=== PATIENT | female | born 1950 | race Caucasian/White ===

== ENCOUNTER 2021-01-31 10:08 | Observation (INO) | payer OTHER ==
--- OUTSIDE RECORDS SUMMARY | 2021-01-31 10:14 | XMS REPORT | Continuity of Care Document ---
:1950 Author Organization [facility] t Address [address] [place] [address] Care Team Providers Name Role Phone Patricia Brown Attending Clinician Unavailable RIVER Attending Clinician Unavailable MD JALEEL HOLMAN Attending Clinician Unavailable Tracey_Bhaskar Attending Clinician Unavailable Patricia Brown Admitting Clinician Unavailable RIVER Admitting Clinician Unavailable MD JALEEL HOLMAN Admitting Clinician Unavailable Munira Admitting Clinician Unavailable Payers Payer Name Policy Type Policy Number Effective Date Expiration Date S urb[place] [employer]ET[employer] - CHOICE (POS [id number]) Problems Condition Condition Condition Status Onset Resolution Last Treating Co mments Source Name Details Category Date Date Treatment Clinician Date Primary Primary Problem Active [facility] osteoarthr osteoarthr Kaycee kes - itis of it[facility] right knee right knee l [facility] Right Right Problem Active [facility] sci[facility] sciatic [facility] nerve pain nerve pain Me moria [facility] Pain, Pain, Problem Active [facility] joint, joint, [facility] - knee, knee, [facility] right right l [facility]ics Pain in Pain in Problem Active [facility] right right [facility] - lower leg lower leg Joey yoly l [facility]pat[facility] ent Clinics Edema leg Edema leg Problem Active [facility] Calf Calf Problem Active [facility] tenderness tenderness Kaycee kes - [facility] Morbid Morbid Problem Active [facility] obesity obesity [facility] - due to due to [facility] excess excess l calories calories Outpat i ent Clinics Allergies, Adverse Reactions, Alerts Allergy Allergy Status Severity Reaction(s) Onset Inactive Treating Comm ents Source Name Type Date Date Clinician No Known DA Active U 0 [facility] 05[facility]27 [place] [facility] No Known DA Active U [facility] 05[facility]27 [place] [facility] No Known DA Active U [facility] 07-24 [place] Allergie 00:00: [place] [facility] 00 [facility] No Known DA Active U [facility] [place] [facility] 00[facility] No Known DA Active U [facility] 07-24 [place] [facility] 00:[facility]: [facility] 00 [facility] adhesive DA Active SV RASH,TEARS [facility] SKIN EASILY 07-24 [place] 00:00: [facility]ope 00 [facility] adhesive DA Active SV [facility] 07-24 [place] 00:00: [place] 00 [facility] Medications Ordered Filled Start Stop Current Ordering Indication Dosage Frequency Signature Comments Components Source Medication Medication Date Date Medication? Clinician (SIG) Name Name Diclofenac Diclofenac Yes Rene not [facility] Sodium Sodium [facility] Gabapentin Gabapentin Yes Rene not [facility] Maxidex Maxidex Yes Rene not [facility] Ramipril Ramipril Yes Rene not [facility] Hydrocodone Hydrocodone Yes Rene not [facility] -Acetaminop -Acetaminop Mei defined [facility] Meloxicam Meloxicam Yes Rene not [facility] Amitriptyli Amitriptyli Yes Rene not [facility] ne HCl ne HCl [facility] Cymbalta Cymbalta Yes Rene not [facility] Ropinirole Ropinirole Yes Rene not [facility] HCl HCl [facility] Procedures Procedure Date / Time Performed Performing Clinician Sourtracey e [id number] 2019-06-05 00:00:00 BRIMA.01 [facility] [place] [facility] [id number] 2019-06-05 00:00:00 BRIMA.01 [facility] [place] [facility] [id number] 2019-06-05 00:00:00 BRIMA.01 [facility] Encounters Start End Encounter Admission Attending Care Care Encounter Source Date/Time Date/Time Type Type Clinicians Facility Department ID 2019-06-05 Inpatient YOANNA Krishnamurthy ADMI [id number] [facility] 11:51:00 [facility] [place] [facility] 2019-11-12 2019-11-19 Inpatient RIVER [facility] [id number] [place] 00:00:00 00:00:00 FREDERIC [address] 2019-10-29 2019-10-29 Outpatient YOANNA Brown RADI [id number] [facility] 09:00:00 09:00:00 Junito [id number] [place] [facility] 2019-10-06 2019-10-06 Outpatient C_Hall MMG [id number] [place] 05:23:00 05:23:00 [facility] 2019-05-28 2019-05-28 Outpatient YOANNA Brown RADI [id number] [id number] [facility] 09:00:00 09:00:00 Junito [id number] [place] [facility] 2018-06-06 2018-06-06 [facility] [id number] [facility] 11:19:00 11:19:00 [facility] 2018-06-04 2018-06-04 [facility] [id number] [address] 16:36:00 16:36:00 [facility] 2018-06-03 2018-06-03 [facility] [id number] [address] 11:00:00 11:00:00 [facility] 2018-05-17 2018-05-17 [facility] [id number] 09:00:00 09:00:00 [facility] 2018-05-13 2018-05-13 [facility] [id number] 11:52:00 11:52:00 [facility] 2018-05-10 2018-05-10 [facility] [id number] 09:30:00 09:30:00 [facility] 2018-05-03 2018-05-03 [facility] [id number] 09:00:00 09:00:00 [facility] Results Test Description Test Time Test Comments Results Result Comments Source SARS-CoV-2 (COVID-19) RNA [Presence] in Respiratory sp ecimen by 2019-11-18 09:05:24 ARPITA with probe detection Test Item Value Reference Range Interpretation Comme nts SARS-CoV-2 (COVID-19) RNA [Presence] in Respiratory Not detected No t-Detected specimen by ARPITA with probe detection (test code = 39418-6) SARS-CoV-2 (COVID-19) RNA [Presence] in Respiratory specimen by ARPITA with probe [id number] 02:04:12 Test Item Value Reference Range Interpretation Comments SARS-CoV-2 (COVID-19) RNA Not detected Not-Detected [Presence] in Respiratory specimen by ARPITA with probe detection (test code = 97198-5) - CT LOWER EXTRM W/O C [id number] 09:44:00 Patient Name: SARA ALLEN Unit No: [id number] EXAMS: CPT CODE: [id number] [place] L[place] EXTRM W/[place] [address] CT SCAN RIGHT FEMUR WITH RECONSTRUCTION DIAGNOSIS: 1.The current exam is compared to a previous exam dated May 28, 2019. There is a transversely oriented fracture through the distal femoral diaphysis. There is interval development of bridging callus predominantly involving the anterior, posterior and medial aspect of the fracture. Healing accounts for approximately 40% of fracture surface area. Fracture fragments are well aligned. There is internal fixation of the described fracture with medial lateral bone platesand fixator screws. TECHNIQUE: Volumetric CT data of the right femur was obtained without use of intravenous contrast. Images were then viewed in the axial, coronal and sagittal planes. CT radiation dose optimization is achieved for this examination by the use ofa CT protocol in accordance with ACR practice standards and adherence to senior grants officer's recommendations. INDICATION: ASSESS HEALING COMPARISON: The current exam is compared to a previous exam dated May 28, 2019. COMMENT: Findings are as described above. at 0944 Reported and signed by: Gene Canas MD CC: Junito Brown MD; Bhaskar More III, MD Technologist: Christ Huerta,RT(R) CTDI: DLP: Trnscrpt: 10/29/2019 (4044) t.SDR.GVG [facility] NAME: SARA ALLEN [address] [facility] PHYS: BRIMA. - Junito Brown MD : 1950 AGE: 69 SEX: F [place] [id number] LOC: Y.RAD PHONE #: [phone] DATE: 10/29/2019 STATUS: REG CLI FAX #: [phone] RAD #: D/C DT PAGE 1 Signed Report Patient Name: SARA ALLEN Unit No: [id number] EXAMS: CPT CODE: [id number] CT LOWER EXTRM W/[place] [address] <Continued> Orig Print D/T: S: 10/29/2019 (7531) [facility] NAME: SARA ALLEN [address] [place] [address] PHYS: BRIMA. - Junito Brown MD : 1950 AGE: 69 SEX: F [place] [phone] LOC: Y.RAD PHONE #: [phone] EXAM DATE: 10/29/2019 STATUS: REG CLI FAX #: [phone] RAD #: D/C DT PAGE 2 Signed [id number] 08:52:00 Test Item Value Reference Range Interpretation Comments GLUBED (test code = GLUBED) 99 mg/dL 60-125 N [id number] 08:51:00 Test Item Value Reference Range Interpretation Comments GLUBED (test code = GLUBED) 104 mg/dL 60-125 N BASIC METABOLIC [id number] 06:22:00 Test Item Value Reference Range Interpretation Comments SODIUM (test code = 143 mmol/L 136-145 N NA) POTASSIUM (test code = 4.9 mmol/L 3.5-5.1 N K) CHLORIDE (test code = 104.0 mmol/L 98-107 N CL) CARBON DIOXIDE (test 28.5 mmol/L 21-32 N code = CO2) GLUCOSE (test code = 116 mg/dL 70-110 H GLU) BLOOD UREA NITROGEN 27 mg/dL 7-18 H (test code = BUN) GLOMERULAR FILTRATION 41.6 >60 Unit o f measure: RATE (test code = GFR) mL/mi n/1.73 [id number] Range:Healthy Adults >90 mL/min/1.73 m2 For Chronic Kidney Disease: St age II Mild Decrease in GFR 60-90 St age III Moderate Decrease in GFR 30-59 Stage IV Severe Decre ase in GFR 15- 29 Stage V Kidney Failure <15 CREATININE (test code 1.27 mg/dL 0.55-1.30 N = CREAT) CALCIUM (test code = 8.6 mg/dL 8.2-10.1 N CA) CBC W/AUTO [id number] 05:55:00 Test Item Value Reference Range Interpretation Comments WHITE BLOOD CELL (test code = WBC) 11.8 K/mm3 5.8-11.0 H RED BLOOD CELL (test code = RBC) 4.13 M/mm3 4.2-5.4 L HEMOGLOBIN (test code = HGB) 11.6 g/dL 12-16 L HEMATOCRIT (test code = HCT) 37.3 % 37-47 N MEAN CELL VOLUME (test code = MCV) 90 fL 80-98 N MEAN CELL HGB (test code = MCH) 28.1 pg 27-34 N MEAN CELL HGB CONCENTRATION (test 31.1 g/dL 30.8-34.1 N code = MCHC) RED CELL DISTRIBUTION WIDTH (test 14.4 % 11-16 N code = RDW) PLT (test code = PLT) 291 K/mm3 130-400 N MEAN PLATELET VOLUME (test code = 10.9 fL 8.9-12.1 N MPV) NEUTROPHIL % (test code = NT%) 71.2 % 45-70 H LYMPHOCYTE % (test code = LY%) 16.8 % 20-40 L MONOCYTE % (test code = MO%) 6.3 % 3-10 N EOSINOPHIL % (test code = EO%) 1.4 % 1-5 N BASOPHIL % (test code = BA%) 0.7 % 0.0-1.1 N NEUTROPHIL # (test code = NT#) 8.43 K/mm3 2.00-7.50 H LYMPHOCYTE # (test code = LY#) 1.98 K/mm3 1.50-4.00 N MONOCYTE # (test code = MO#) 0.75 K/mm3 0.2-0.8 N EOSINOPHIL # (test code = EO#) 0.16 K/mm3 0.04-0.4 N BASOPHIL # (test code = BA#) 0.08 K/mm3 0.02-0.10 N MANUAL DIFF REQUIRED (test code = NO MANUAL DIFF MDIFF) NUCLEATED RED BLOOD CELL (test 0 % 0-0 N code = NRBC) [id number] 05:51:00 Test Item Value Reference Range Interpretation Comments GLUBED (test code = GLUBED) 91 mg/dL 60-125 N [id number] 21:48:00 Test Item Value Reference Range Interpretation Comments GLUBED (test code = GLUBED) 102 mg/dL 60-125 N - CT LOWER EXTRM W/O C [id number] 19:14:00 Patient Name: SARA ALLEN Unit No: [id number] EXAMS: CPT CODE: [id number] CT LOWER EXTRM W/[place] [address] TECHNIQUE: Volumetric CT data of the right femur was obtained without use of intravenous contrast. Images were then viewed in the axial, coronal and sagittal planes. CT radiation dose optimization is achieved for this examination by the use of a CT protocol in accordance with ACR practice standards and adherence to senior grants officer's recommendations. INDICATION: RIGHT DISTAL FEMUR ASSESS HEALING COMPARISON: None. FINDINGS: Lateral plate and screw fixation of the right distal femoral periprosthetic fracture is demonstrated with intact hardware. Callus formation is noted with a fracture. There is no evidence of fracture healing. Alignment is within normal limits. No other fractures identified. IMPRESSION: Internally fixated right distal femoral fracture without evidence of healing. at 1914 Reported and signed by: Gamal Vargas M.D. CC: Junito Brown MD Technologist: Christ Huerta,RT(R) CTDI: DLP: Trnscrpt: 05/28/2019 (1913) [facility] NAME: SARA ALLEN [address] [place] [address] PHYS: Junito Brown MD : 1950 AGE: 69 SEX: F [place] [address] LOC: Y.RAD PHONE #: [phone] EXAM DATE: 05/28/2019 STATUS: REG CLI FAX #: [phone] RAD #: D/C DT PAGE 1 Signed Report Patient Name: SARA ALLEN Unit No: [id number] EXAMS: CPT CODE: [id number] CT LOWER EXTRM W/[place] [address] <Continued> Orig Print D/T: S: 05/28/2019 (1916) [facility] NAME: SARA ALLEN [address] [place] [address] PHYS: DULCE. - Junito Brown MD : 1950 AGE: 69 SEX: F [place] [address] LOC: Y.RAD PHONE #: [phone] EXAM DATE: 05/28/2019 STATUS: REG CLI FAX #: [phone] RAD #: D/C DT PAGE 2 Signed ReportCBC W/AUTO [id number] 14:16:00 Test Item Value Reference Range Interpretation Comments WHITE BLOOD CELL (test code = WBC) 10.2 K/mm3 5.8-11.0 N RED BLOOD CELL (test code = RBC) 4.51 M/mm3 4.2-5.4 N HEMOGLOBIN (test code = HGB) 12.6 g/dL 12-16 N HEMATOCRIT (test code = HCT) 40.0 % 37-47 N MEAN CELL VOLUME (test code = MCV) 89 fL 80-98 N MEAN CELL HGB (test code = MCH) 27.9 pg 27-34 N MEAN CELL HGB CONCENTRATION (test 31.5 g/dL 30.8-34.1 N code = MCHC) RED CELL DISTRIBUTION WIDTH (test 14.1 % 11-16 N code = RDW) PLT (test code = PLT) 326 K/mm3 130-400 N MEAN PLATELET VOLUME (test code = 10.6 fL 8.9-12.1 N MPV) NEUTROPHIL % (test code = NT%) 49.2 % 45-70 N LYMPHOCYTE % (test code = LY%) 33.6 % 20-40 N MONOCYTE % (test code = MO%) 6.7 % 3-10 N EOSINOPHIL % (test code = EO%) 4.9 % 1-5 N BASOPHIL % (test code = BA%) 1.1 % 0.0-1.1 N NEUTROPHIL # (test code = NT#) 5.04 K/mm3 2.00-7.50 N LYMPHOCYTE # (test code = LY#) 3.44 K/mm3 1.50-4.00 N MONOCYTE # (test code = MO#) 0.69 K/mm3 0.2-0.8 N EOSINOPHIL # (test code = EO#) 0.50 K/mm3 0.04-0.4 H BASOPHIL # (test code = BA#) 0.11 K/mm3 0.02-0.10 H MANUAL DIFF REQUIRED (test code = NO MANUAL DIFF MDIFF) NUCLEATED RED BLOOD CELL (test 0 % 0-0 N code = NRBC) SED [id number] 14:16:00 Test Item Value Reference Range Interpretation Comments SED RATE (test code = SEDW) 26 mm/hr 0-20 H COMPREHENSIVE METABOLIC [id number] 13:40:00 Test Item Value Reference Range Interpretation Comments SODIUM (test code = 143 mmol/L 136-145 N NA) POTASSIUM (test code 4.2 mmol/L 3.5-5.1 N = K) CHLORIDE (test code = 105.0 mmol/L 98-107 N CL) CARBON DIOXIDE (test 29.2 mmol/L 21-32 N code = CO2) GLUCOSE (test code = 104 mg/dL 70-110 N GLU) BLOOD UREA NITROGEN 41 mg/dL 7-18 H VERIFIED BY REPEAT (test code = BUN) ANALYSIS.C RITICAL VALUE CALLED TO SARA WITH 'S OFFICEREAD BACK & CONFIRMED ? YESBY F.LAB.AEG 05/28/19 1340 GLOMERULAR FILTRATION 32.8 >60 Unit o f measure: RATE (test code = mL/min/1.7 3 GFR) [id number] Range:Healthy A dults >90 mL/min/1.73 m2 For Chronic Kidney Disease: St age II Mild Dec rease in GFR 6 0-90 Stage III Moderate Decrea se in GFR 30-59 Stage IV Se malena Decrease in GFR 15-29 Stage V Kidney Failur e <15 CREATININE (test code 1.56 mg/dL 0.55-1.30 H = CREAT) TOTAL PROTEIN (test 6.7 g/dL 6.4-8.2 N code = PROT) ALBUMIN (test code = 3.2 g/dL 3.4-5.0 L ALB) GLOBULIN (test code = 3.5 g/dL 2.2-4.2 N GLOB) ALBUMIN/GLOBULIN 0.9 0.7-2.0 N RATIO (test code = A/G) CALCIUM (test code = 8.8 mg/dL 8.2-10.1 N CA) BILIRUBIN TOTAL (test 0.40 mg/dL 0.2-1.00 N code = BILT) SGOT/AST (test code = 17.0 U/L 15-37 N AST) SGPT/ALT (test code = 20.0 U/L 12-78 N Please note new ALT) normal range. ALKALINE PHOSPHATASE 107 U/L 46-116 N TOTAL (test code = ALKP) C REACTIVE [id number] 13:38:00 Test Item Value Reference Range Interpretation Comments C REACTIVE PROTEIN (test code = < 0.2 mg/dL <0.9 CRP) PROTHROMBIN [id number] 13:30:00 Test Item Value Reference Range Interpretation Comments PROTHROMBIN TIME 10.7 secs 10.1-12.5 N PATIENT (test code = PTP) INTERNATIONAL NORMAL 0.95 <2.0 RECOMME NDED THERAPEUTIC RATIO (test code = RANGE FOR ORAL INR) ANTICOAGULANTTR EATMENT: CONDI TION INRProphylaxis of venous thrombos is in 2.0 - 3.0 high-risk medic al or surgical patientsTreatme nt of venous thrombos is 2.0 - 3.0Prevention o f embolism 2.0 - 3.0Prevention o f recurrent embol ism, or 3.0 - 4. 5 patients with mechanical pros thetic intravascular v jasso IS PATIENT ON ANTICOAGULANTS ? YLIST ANTICOAGULANT/ANTI PLT MEDICATION : AspirinHas Lab been notified if Patient is on Heparin Drip? NOIf Yes, order CBC, OCCULT BLOOD, PT every other day NTHROMBOPLASTIN TIME [id number] 13:30:00 Test Item Value Reference Range Interpretation Comments PTT ACTIVATED (test code = APTT) 34.7 secs 24.9-37.0 N IS PATIENT ON ANTICOAGULANTS ? YLIST ANTICOAGULANT/ANTI PLT MEDICATION : AspirinHas Lab been notified if Patient is on Heparin Drip? NOIf Yes, order CBC, OCCULT BLOOD, PT every other day NCBC W/AUTO [id number] 13:16:00 Test Item Value Reference Range Interpretation Comments WHITE BLOOD CELL (test code = WBC) 10.2 K/mm3 5.8-11.0 N RED BLOOD CELL (test code = RBC) 4.51 M/mm3 4.2-5.4 N HEMOGLOBIN (test code = HGB) 12.6 g/dL 12-16 N HEMATOCRIT (test code = HCT) 40.0 % 37-47 N MEAN CELL VOLUME (test code = MCV) 89 fL 80-98 N MEAN CELL HGB (test code = MCH) 27.9 pg 27-34 N MEAN CELL HGB CONCENTRATION (test 31.5 g/dL 30.8-34.1 N code = MCHC) RED CELL DISTRIBUTION WIDTH (test 14.1 % 11-16 N code = RDW) PLT (test code = PLT) 326 K/mm3 130-400 N MEAN PLATELET VOLUME (test code = 10.6 fL 8.9-12.1 N MPV) NEUTROPHIL % (test code = NT%) 49.2 % 45-70 N LYMPHOCYTE % (test code = LY%) 33.6 % 20-40 N MONOCYTE % (test code = MO%) 6.7 % 3-10 N EOSINOPHIL % (test code = EO%) 4.9 % 1-5 N BASOPHIL % (test code = BA%) 1.1 % 0.0-1.1 N NEUTROPHIL # (test code = NT#) 5.04 K/mm3 2.00-7.50 N LYMPHOCYTE # (test code = LY#) 3.44 K/mm3 1.50-4.00 N MONOCYTE # (test code = MO#) 0.69 K/mm3 0.2-0.8 N EOSINOPHIL # (test code = EO#) 0.50 K/mm3 0.04-0.4 H BASOPHIL # (test code = BA#) 0.11 K/mm3 0.02-0.10 H MANUAL DIFF REQUIRED (test code = NO MANUAL DIFF MDIFF) NUCLEATED RED BLOOD CELL (test 0 % 0-0 N code = NRBC) SED [id number] 13:16:00 Test Item Value Reference Range Interpretation Comments SED RATE (test code = SEDW) mm/hr 0-20 [id number] 12:53:00 Test Item Value Reference Range Interpretation Comments GLUBED (test code = GLUBED) 100 mg/dL 60-125 N [id number] 12:08:00 Test Item Value Reference Range Interpretation Comments GLUBED (test code = GLUBED) 111 mg/dL 60-125 N BASIC METABOLIC [id number] 07:28:00 Test Item Value Reference Range Interpretation Comments SODIUM (test code = 140 mmol/L 136-145 N NA) POTASSIUM (test code = 4.7 mmol/L 3.5-5.1 N K) CHLORIDE (test code = 102.0 mmol/L 98-107 N CL) CARBON DIOXIDE (test 25.1 mmol/L 21-32 N code = CO2) GLUCOSE (test code = 133 mg/dL 70-110 H GLU) BLOOD UREA NITROGEN 35 mg/dL 7-18 H (test code = BUN) GLOMERULAR FILTRATION 32.0 >60 Unit o f measure: RATE (test code = GFR) mL/mi n/1.73 [id number] Range:Healthy Adults >90 mL/min/1.73 m2 For Chronic Kidney Disease: St age II Mild Decrease in GFR 60-90 St age III Moderate Decrease in GFR 30-59 Stage IV Severe Decre ase in GFR 15- 29 Stage V Kidney Failure <15 CREATININE (test code 1.60 mg/dL 0.55-1.30 H = CREAT) CALCIUM (test code = 8.1 mg/dL 8.2-10.1 L CA) CBC W/AUTO [id number] 06:00:00 Test Item Value Reference Range Interpretation Comments WHITE BLOOD CELL (test code = WBC) 11.7 K/mm3 5.8-11.0 H RED BLOOD CELL (test code = RBC) 4.11 M/mm3 4.2-5.4 L HEMOGLOBIN (test code = HGB) 11.8 g/dL 12-16 L HEMATOCRIT (test code = HCT) 37.9 % 37-47 N MEAN CELL VOLUME (test code = MCV) 92 fL 80-98 N MEAN CELL HGB (test code = MCH) 28.7 pg 27-34 N MEAN CELL HGB CONCENTRATION (test 31.1 g/dL 30.8-34.1 N code = MCHC) RED CELL DISTRIBUTION WIDTH (test 13.8 % 11-16 N code = RDW) PLT (test code = PLT) 293 K/mm3 130-400 N MEAN PLATELET VOLUME (test code = 10.9 fL 8.9-12.1 N MPV) NEUTROPHIL % (test code = NT%) 84.4 % 45-70 H LYMPHOCYTE % (test code = LY%) 9.9 % 20-40 L MONOCYTE % (test code = MO%) 2.5 % 3-10 L EOSINOPHIL % (test code = EO%) 0.1 % 1-5 L BASOPHIL % (test code = BA%) 0.3 % 0.0-1.1 N NEUTROPHIL # (test code = NT#) 9.89 K/mm3 2.00-7.50 H LYMPHOCYTE # (test code = LY#) 1.16 K/mm3 1.50-4.00 L MONOCYTE # (test code = MO#) 0.29 K/mm3 0.2-0.8 N EOSINOPHIL # (test code = EO#) 0.01 K/mm3 0.04-0.4 L BASOPHIL # (test code = BA#) 0.04 K/mm3 0.02-0.10 N MANUAL DIFF REQUIRED (test code = NO MANUAL DIFF MDIFF) NUCLEATED RED BLOOD CELL (test 0 % 0-0 N code = NRBC) [id number] 05:42:00 Test Item Value Reference Range Interpretation Comments GLUBED (test code = GLUBED) 122 mg/dL 60-125 N C REACTIVE [id number] 21:56:00 Test Item Value Reference Range Interpretation Comments C REACTIVE PROTEIN (test code = 2.1 mg/dL <0.9 CRP) ACUTE HEPATITIS [id number] 21:56:00 Test Item Value Reference Range Interpretation Comments AB HEPATITIS A IGM (test code = NONREACTIVE NONREACTIVE HAVMAB) AG HEPATITIS B SURFACE (test code NONREACTIVE NONREACTIVE = HBSAG) AB HEPATITIS B CORE IGM (test NONREACTIVE NONREACTIVE code = HBCMAB) AB HEPATITIS C (test code = NONREACTIVE NONREACTIVE HCVAB) SIGNAL TO CUTOFF (test code = < 0.02 <0.80 CUTOFF) AB HIV 21:56:00 Test Item Value Reference Range Interpretation Comments AB HIV 1 (test code NONREACTIVE NONREACTIVE DONE AT: [facility] = HIV1AB) [address] 770 [address]Done by [employer] 4th Gen HIV Ag/Ab C ombo Screen ACUTE HEPATITIS [id number] 21:55:00 Test Item Value Reference Range Interpretation Comments AB HEPATITIS A IGM (test code = NONREACTIVE NONREACTIVE HAVMAB) AG HEPATITIS B SURFACE (test code NONREACTIVE NONREACTIVE = HBSAG) AB HEPATITIS B CORE IGM (test NONREACTIVE NONREACTIVE code = HBCMAB) AB HEPATITIS C (test code = NONREACTIVE NONREACTIVE HCVAB) SIGNAL TO CUTOFF (test code = <0.02 <0.80 N CUTOFF) AB HIV 1 21:55:00 Test Item Value Reference Range Interpretation Comments AB HIV 1 2 (test NONREACTIVE NONREACTIVE Done by [employer] code = [id number]) 4th Gen HIV Ag/Ab Combo Screen C REACTIVE [id number] 21:21:00 Test Item Value Reference Range Interpretation Comments C REACTIVE PROTEIN (test code = 2.1 mg/dL <0.9 CRP) ACUTE HEPATITIS [id number] 21:21:00 Test Item Value Reference Range Interpretation Comments AB HEPATITIS A IGM (test code = NONREACTIVE HAVMAB) AG HEPATITIS B SURFACE (test code NONREACTIVE NONREACTIVE = HBSAG) AB HEPATITIS B CORE IGM (test code = HBCMAB) AB HEPATITIS C (test code = NONREACTIVE HCVAB) SIGNAL TO CUTOFF (test code = CUTOFF) AB HIV 21:21:00 Test Item Value Reference Range Interpretation Comments AB HIV 1 (test code = HIV1AB) NONREACTIVE ACUTE HEPATITIS [id number] 21:20:00 Test Item Value Reference Range Interpretation Comments AB HEPATITIS A IGM (test code = NONREACTIVE HAVMAB) AG HEPATITIS B SURFACE (test code NONREACTIVE NONREACTIVE = HBSAG) AB HEPATITIS B CORE IGM (test NONREACTIVE code = HBCMAB) AB HEPATITIS C (test code = NONREACTIVE HCVAB) SIGNAL TO CUTOFF (test code = <0.80 CUTOFF) AB HIV 1 21:20:00 Test Item Value Reference Range Interpretation Comments AB HIV 1 2 (test code = [id number]) NONREACTIVE CBC W/AUTO [id number] 17:23:00 Test Item Value Reference Range Interpretation Comments WHITE BLOOD CELL (test code = WBC) 9.6 K/mm3 5.8-11.0 N RED BLOOD CELL (test code = RBC) 4.41 M/mm3 4.2-5.4 N HEMOGLOBIN (test code = HGB) 12.8 g/dL 12-16 N HEMATOCRIT (test code = HCT) 40.1 % 37-47 N MEAN CELL VOLUME (test code = MCV) 91 fL 80-98 N MEAN CELL HGB (test code = MCH) 29.0 pg 27-34 N MEAN CELL HGB CONCENTRATION (test 31.9 g/dL 30.8-34.1 N code = MCHC) RED CELL DISTRIBUTION WIDTH (test 13.5 % 11-16 N code = RDW) PLT (test code = PLT) 264 K/mm3 130-400 N MEAN PLATELET VOLUME (test code = 11.3 fL 8.9-12.1 N MPV) NEUTROPHIL % (test code = NT%) 55.2 % 45-70 N LYMPHOCYTE % (test code = LY%) 27.3 % 20-40 N MONOCYTE % (test code = MO%) 5.0 % 3-10 N EOSINOPHIL % (test code = EO%) 7.5 % 1-5 H BASOPHIL % (test code = BA%) 1.2 % 0.0-1.1 H NEUTROPHIL # (test code = NT#) 5.27 K/mm3 2.00-7.50 N LYMPHOCYTE # (test code = LY#) 2.61 K/mm3 1.50-4.00 N MONOCYTE # (test code = MO#) 0.48 K/mm3 0.2-0.8 N EOSINOPHIL # (test code = EO#) 0.72 K/mm3 0.04-0.4 H BASOPHIL # (test code = BA#) 0.11 K/mm3 0.02-0.10 H MANUAL DIFF REQUIRED (test code = NO MANUAL DIFF MDIFF) NUCLEATED RED BLOOD CELL (test 0 % 0-0 N code = NRBC) SED [id number] 17:23:00 Test Item Value Reference Range Interpretation Comments SED RATE (test code = SEDW) 23 mm/hr 0-20 H PROTHROMBIN [id number] 16:46:00 Test Item Value Reference Range Interpretation Comments PROTHROMBIN TIME 10.9 secs 10.1-12.5 N PATIENT (test code = PTP) INTERNATIONAL NORMAL 0.97 <2.0 RECOMME NDED THERAPEUTIC RATIO (test code = RANGE FOR ORAL INR) ANTICOAGULANTTR EATMENT: CONDI TION INRProphylaxis of venous thrombos is in 2.0 - 3.0 high-risk medic al or surgical patientsTreatme nt of venous thrombos is 2.0 - 3.0Prevention o f embolism 2.0 - 3.0Prevention o f recurrent embol ism, or 3.0 - 4. 5 patients with mechanical pros thetic intravascular v jasso IS PATIENT ON ANTICOAGULANTS ? YLIST ANTICOAGULANT/ANTI PLT MEDICATION : AspirinHas Lab been notified if Patient is on Heparin Drip? NOIf Yes, order CBC, OCCULT BLOOD, PT every other day NTHROMBOPLASTIN TIME [id number] 16:46:00 Test Item Value Reference Range Interpretation Comments PTT ACTIVATED (test code = APTT) 35.0 secs 24.9-37.0 N IS PATIENT ON ANTICOAGULANTS ? YLIST ANTICOAGULANT/ANTI PLT MEDICATION : AspirinHas Lab been notified if Patient is on Heparin Drip? NOIf Yes, order CBC, OCCULT BLOOD, PT every other day NC REACTIVE [id number] 16:37:00 Test Item Value Reference Range Interpretation Comments C REACTIVE PROTEIN (test code = 2.1 mg/dL <0.9 CRP) ACUTE HEPATITIS [id number] 16:37:00 Test Item Value Reference Range Interpretation Comments AB HEPATITIS A IGM (test code = HAVMAB) NONREACTIVE AG HEPATITIS B SURFACE (test code = NONREACTIVE HBSAG) AB HEPATITIS B CORE IGM (test code = HBCMAB) AB HEPATITIS C (test code = HCVAB) NONREACTIVE SIGNAL TO CUTOFF (test code = CUTOFF) AB HIV 16:37:00 Test Item Value Reference Range Interpretation Comments AB HIV 1 (test code = HIV1AB) NONREACTIVE COMPREHENSIVE METABOLIC [id number] 16:37:00 Test Item Value Reference Range Interpretation Comments SODIUM (test code = 141 mmol/L 136-145 N NA) POTASSIUM (test code = 4.2 mmol/L 3.5-5.1 N K) CHLORIDE (test code = 103.0 mmol/L 98-107 N CL) CARBON DIOXIDE (test 30.9 mmol/L 21-32 N code = CO2) GLUCOSE (test code = 153 mg/dL 70-110 H GLU) BLOOD UREA NITROGEN 34 mg/dL 7-18 H (test code = BUN) GLOMERULAR FILTRATION 41.3 >60 Unit o f measure: RATE (test code = GFR) mL/mi n/1.73 [id number] Range:Healthy Adults >90 mL/min/1.73 m2 For Chronic Kidney Disease: St age II Mild Decrease in GFR 60-90 St age III Moderate Decrease in GFR 30-59 Stage IV Severe Decre ase in GFR 15- 29 Stage V Kidney Failure <15 CREATININE (test code 1.28 mg/dL 0.55-1.30 N = CREAT) TOTAL PROTEIN (test 6.9 g/dL 6.4-8.2 N code = PROT) ALBUMIN (test code = 3.4 g/dL 3.4-5.0 N ALB) GLOBULIN (test code = 3.5 g/dL 2.2-4.2 N GLOB) ALBUMIN/GLOBULIN RATIO 1.0 0.7-2.0 N (test code = A/G) CALCIUM (test code = 9.1 mg/dL 8.2-10.1 N CA) BILIRUBIN TOTAL (test 0.33 mg/dL 0.2-1.00 N code = BILT) SGOT/AST (test code = 17.0 U/L 15-37 N AST) SGPT/ALT (test code = 20.0 U/L 12-78 N Please note new ALT) normal range. ALKALINE PHOSPHATASE 142 U/L 46-116 H TOTAL (test code = ALKP) CBC W/AUTO [id number] 15:58:00 Test Item Value Reference Range Interpretation Comments WHITE BLOOD CELL (test code = WBC) 9.6 K/mm3 5.8-11.0 N RED BLOOD CELL (test code = RBC) 4.41 M/mm3 4.2-5.4 N HEMOGLOBIN (test code = HGB) 12.8 g/dL 12-16 N HEMATOCRIT (test code = HCT) 40.1 % 37-47 N MEAN CELL VOLUME (test code = MCV) 91 fL 80-98 N MEAN CELL HGB (test code = MCH) 29.0 pg 27-34 N MEAN CELL HGB CONCENTRATION (test 31.9 g/dL 30.8-34.1 N code = MCHC) RED CELL DISTRIBUTION WIDTH (test 13.5 % 11-16 N code = RDW) PLT (test code = PLT) 264 K/mm3 130-400 N MEAN PLATELET VOLUME (test code = 11.3 fL 8.9-12.1 N MPV) NEUTROPHIL % (test code = NT%) 55.2 % 45-70 N LYMPHOCYTE % (test code = LY%) 27.3 % 20-40 N MONOCYTE % (test code = MO%) 5.0 % 3-10 N EOSINOPHIL % (test code = EO%) 7.5 % 1-5 H BASOPHIL % (test code = BA%) 1.2 % 0.0-1.1 H NEUTROPHIL # (test code = NT#) 5.27 K/mm3 2.00-7.50 N LYMPHOCYTE # (test code = LY#) 2.61 K/mm3 1.50-4.00 N MONOCYTE # (test code = MO#) 0.48 K/mm3 0.2-0.8 N EOSINOPHIL # (test code = EO#) 0.72 K/mm3 0.04-0.4 H BASOPHIL # (test code = BA#) 0.11 K/mm3 0.02-0.10 H MANUAL DIFF REQUIRED (test code = NO MANUAL DIFF MDIFF) NUCLEATED RED BLOOD CELL (test 0 % 0-0 N code = NRBC) SED [id number] 15:58:00 Test Item Value Reference Range Interpretation Comments SED RATE (test code = SEDW) mm/hr 0-20 BASIC METABOLIC [id number] 06:19:00 Test Item Value Reference Range Interpretation Comments SODIUM (test code = 139 mmol/L 136-145 N NA) POTASSIUM (test code = 4.8 mmol/L 3.5-5.1 N K) CHLORIDE (test code = 103.0 mmol/L 98-107 N CL) CARBON DIOXIDE (test 24.0 mmol/L 21-32 N code = CO2) GLUCOSE (test code = 217 mg/dL 70-110 H GLU) BLOOD UREA NITROGEN 37 mg/dL 7-18 H (test code = BUN) GLOMERULAR FILTRATION 40.3 >60 Unit o f measure: RATE (test code = GFR) mL/mi n/1.73 [id number] Range:Healthy Adults >90 mL/min/1.73 m2 For Chronic Kidney Disease: St age II Mild Decrease in GFR 60-90 St age III Moderate Decrease in GFR 30-59 Stage IV Severe Decre ase in GFR 15- 29 Stage V Kidney Failure <15 CREATININE (test code 1.31 mg/dL 0.55-1.30 H = CREAT) CALCIUM (test code = 8.8 mg/dL 8.2-10.1 N CA) HGB [id number] 05:43:00 Test Item Value Reference Range Interpretation Comments HEMOGLOBIN (test code = HGB) 12.1 g/dL 12-16 N HEMATOCRIT (test code = HCT) 38.0 % 37-47 N AB HIV 19:19:00 Test Item Value Reference Range Interpretation Comments AB HIV 1 (test code NONREACTIVE NONREACTIVE DONE AT: [facility] = HIV1AB) [place] [id number] [facility], [place] [address]Done by [employer] 4th Gen HIV Ag/Ab C ombo Screen AB HIV 1 19:19:00 Test Item Value Reference Range Interpretation Comments AB HIV 1 2 (test NONREACTIVE NONREACTIVE [facility] = [id number]) 4th Gen HIV Ag/Ab Combo Screen COMPREHENSIVE METABOLIC [id number] 18:55:00 Test Item Value Reference Range Interpretation Comments SODIUM (test code = 141 mmol/L 136-145 N NA) POTASSIUM (test code 4.2 mmol/L 3.5-5.1 N = K) CHLORIDE (test code = 104.0 mmol/L 98-107 N CL) CARBON DIOXIDE (test 29.1 mmol/L 21-32 N code = CO2) GLUCOSE (test code = 97 mg/dL 70-110 N GLU) BLOOD UREA NITROGEN 43 mg/dL 7-18 HH VERIFIED BY REPEAT (test code = BUN) ANALYSIS.C RITICAL VALUE CALLED TO RYAN (WELDING MACHINE OPERATOR [employer]) AND FAXEDTO DR.GOYT WOOD'S OFFICEREAD BACK & CONFIRMED? YESB Y F.LAB.AEG 07/24 1853 GLOMERULAR FILTRATION 31.7 >60 Unit o f measure: RATE (test code = mL/min/1.7 3 GFR) [id number] Range:Healthy A dults >90 mL/min/1.73 m2 For Chronic Kidney Disease: St age II Mild Dec rease in GFR 6 0-90 Stage III Moderate Decrea se in GFR 30-59 Stage IV Se malena Decrease in GFR 15-29 Stage V Kidney Failur e <15 CREATININE (test code 1.61 mg/dL 0.55-1.30 H = CREAT) TOTAL PROTEIN (test 6.9 g/dL 6.4-8.2 N code = PROT) ALBUMIN (test code = 3.4 g/dL 3.4-5.0 N ALB) GLOBULIN (test code = 3.5 g/dL 2.2-4.2 N GLOB) ALBUMIN/GLOBULIN 1.0 0.7-2.0 N RATIO (test code = A/G) CALCIUM (test code = 8.8 mg/dL 8.2-10.1 N CA) BILIRUBIN TOTAL (test 0.39 mg/dL 0.2-1.00 N code = BILT) SGOT/AST (test code = 18.0 U/L 15-37 N AST) SGPT/ALT (test code = 20.0 U/L 12-78 N Please note new ALT) normal range. ALKALINE PHOSPHATASE 138 U/L 46-116 H TOTAL (test code = ALKP) URINALYSIS [id number] 16:40:00 Test Item Value Reference Range Interpretation Comments UA COLOR (test code = COLU) YELLOW YELLOW UA APPEARANCE (test code = CLOUDY CLEAR APPU) UA GLUCOSE DIPSTICK (test code NEGATIVE NEGATIVE = DGLUU) UA BILIRUBIN DIPSTICK (test NEGATIVE NEGATIVE code = BILU) UA KETONE DIPSTICK (test code NEGATIVE mg/dL NEG = KETU) UA SPECIFIC GRAVITY (test code 1.020 1.003-1.035 = SGU) UA BLOOD DIPSTICK (test code = TRACE NEGATIVE A ZHANE) UA PH DIPSTICK (test code = 6.0 >6.5 DARION) UA PROTEIN DIPSTICK (test code NEGATIVE mg/dL NEG = PROU) UA UROBILINIOGEN DIPSTICK 0.2 mg/dL NORM (test code = URO) UA NITRITE DIPSTICK (test code NEGATIVE NEG = TAYE) UA LEUKOCYTE ESTERASE DIPSTICK 1+ NEGATIVE A (test code = LEUU) UA WBC (test code = WBCU) TNTC /HPF 0-2 A UA RBC (test code = RBCU) 5-10 /HPF 0-2 A UA EPITHELIAL CELLS (test code FEW /HPF 0-2 = EPIU) UA BACTERIA (test code = BACU) LOADED /HPF NONE A PROTHROMBIN [id number] 16:32:00 Test Item Value Reference Range Interpretation Comments PROTHROMBIN TIME 11.5 secs 10.1-12.5 N PATIENT (test code = PTP) INTERNATIONAL NORMAL 1.02 <2.0 RECOMME NDED THERAPEUTIC RATIO (test code = RANGE FOR ORAL INR) ANTICOAGULANTTR EATMENT: CONDI TION INRProphylaxis of venous thrombos is in 2.0 - 3.0 high-risk medic al or surgical patientsTreatme nt of venous thrombos is 2.0 - 3.0Prevention o f embolism 2.0 - 3.0Prevention o f recurrent embol ism, or 3.0 - 4. 5 patients with mechanical pros thetic intravascular v jasso IS PATIENT ON ANTICOAGULANTS ? NHas Lab been notified if Patient is on Heparin Drip? NOIf Yes, orderCBC, OCCULT BLOOD, PT every other day NTHROMBOPLASTIN TIME [id number] 16:32:00 Test Item Value Reference Range Interpretation Comments PTT ACTIVATED (test code = APTT) 32.5 secs 24.9-37.0 N IS PATIENT ON ANTICOAGULANTS ? NHas Lab been notified if Patient is on Heparin Drip? NOIf Yes, orderCBC, OCCULT BLOOD, PT every other day NCBC W/AUTO DIFF 2018-07-24 16:11:00 Test Item Value Reference Range Interpretation Comments WHITE BLOOD CELL (test code = WBC) 8.2 K/mm3 5.8-11.0 N RED BLOOD CELL (test code = RBC) 4.46 M/mm3 4.2-5.4 N HEMOGLOBIN (test code = HGB) 12.9 g/dL 12-16 N HEMATOCRIT (test code = HCT) 41.3 % 37-47 N MEAN CELL VOLUME (test code = MCV) 93 fL 80-98 N MEAN CELL HGB (test code = MCH) 28.9 pg 27-34 N MEAN CELL HGB CONCENTRATION (test 31.2 g/dL 30.8-34.1 N code = MCHC) RED CELL DISTRIBUTION WIDTH (test 13.3 % 11-16 N code = RDW) PLT (test code = PLT) 299 K/mm3 130-400 N MEAN PLATELET VOLUME (test code = 10.9 fL 8.9-12.1 N MPV) NEUTROPHIL % (test code = NT%) 51.6 % 45-70 N LYMPHOCYTE % (test code = LY%) 31.7 % 20-40 N MONOCYTE % (test code = MO%) 6.3 % 3-10 N EOSINOPHIL % (test code = EO%) 8.2 % 1-5 H BASOPHIL % (test code = BA%) 0.9 % 0.0-1.1 N NEUTROPHIL # (test code = NT#) 4.24 K/mm3 2.00-7.50 N LYMPHOCYTE # (test code = LY#) 2.60 K/mm3 1.50-4.00 N MONOCYTE # (test code = MO#) 0.52 K/mm3 0.2-0.8 N EOSINOPHIL # (test code = EO#) 0.67 K/mm3 0.04-0.4 H BASOPHIL # (test code = BA#) 0.07 K/mm3 0.02-0.10 N MANUAL DIFF REQUIRED (test code = NO MANUAL DIFF MDIFF) NUCLEATED RED BLOOD CELL (test 0 % 0-0 N code = NRBC)
[2021-01-31 11:39] LABS: Absolute Lymphocytes (CBC) 0.7 K/uL (0.7-4.9); Hematocrit 33.5 % (36.0-45.0); Lymphocytes % 10.9 % (15.3-44.8); RBC Red Blood Cell Count 3.96 M/uL (3.86-4.86)
[2021-01-31 11:40] LABS: Protime INR 1.19
[2021-01-31 11:56] LABS: ALT/SGPT 39 U/L (12-78); AST/SGOT 56 U/L (15-37); Albumin 3.1 g/dL (3.4-5.0); Alkaline Phosphatase 97 U/L (45-117); BUN Blood Urea Nitrogen 55 mg/dL (7-18); Bicarbonate 30 mmol/L (21-32); Bilirubin Direct 0.2 mg/dL (0-0.2); Bilirubin Total 0.7 mg/dL (0.2-1.0); Glucose Level 157 mg/dL (74-106); Magnesium 2.1 mg/dL (1.8-2.4); NT PRO-BNP 581 pg/mL (<125); Protein, Total 7.7 g/dL (6.4-8.2); Sodium Level 137 mmol/L (136-145); Troponin (Emerg Dept Use Only) < 0.02 ng/mL (0.0-0.045)
[2021-01-31 12:00] LABS: Potassium 2.8 mmol/L (3.5-5.1)
[2021-01-31] MEDS ORDERED: POTASSIUM 25 MEQ EFFERV TAB ONE ×2 (12:16→16:19)
[2021-01-31] MEDS ORDERED: NA CHLORIDE 0.9% 1,000 ML ONE (12:16)
[2021-01-31] MEDS ORDERED: KCL 20 MEQ/100 mL IVPB 100 ML IV ONE (12:17)
--- NOTE | 2021-01-31 12:21 | RAD REPORT ---
EXAM DESCRIPTION: US - Extrem Venous W Compress Chirag - 01/31/2021 11:48 am CLINICAL HISTORY: Pain;Swelling COMPARISON: None. TECHNIQUE: Real-time sonographic evaluation of the bilateral lower extremity common femoral, superfi cial femoral, popliteal and posterior tibial veins was performed. FINDINGS: Normal compressibility, flow augmentation, phasic flow and spontaneous flow are identified in the left and right lower extremity common femoral, superficial femoral, popliteal and posterior t ibial veins. No intraluminal filling defects seen. IMPRESSION: No DVT in either lower extremity.
--- NOTE | 2021-01-31 12:37 | RAD REPORT ---
EXAM DESCRIPTION: RAD - Chest Single View - 01/31/2021 12:22 pm CLINICAL HISTORY: COUGH Chest pain. COMPARISON: CHEST PA AND LAT 2 VIEW dated 08/28/2011; CHEST SINGLE VIEW dated 02/07/2008; CHEST PA AND LAT 2 VIEW dated 08/03/2003 FINDINGS: Portable technique limits examination quality. Mild bilateral interstitial lung opacities are present suggesting a viral infection. The heart is nor mal in size. No displaced fractures.
--- NOTE | 2021-01-31 13:19 | ER ---
Nurse's Notes [facility] Name: Lauren Turcios Age: 70 yrs Sex: Female : 1950 Arrival Date: 01/31/2021 Time: 10:12 Bed 30 Private MD: Diagnosis: Edema, unspecified;Lymphedema, not elsewhere classified;Cellulitis and acute lymphangitis of other parts of limb;Obesity due to excess calories;Essential (primary) hypertension;Unspecified kidney failure;Coronavirus infection, unspecified Presentation: 01/31 10:45 Chief complaint: Patient states: leg swelling: Pt states my legs were "pouring buckets eo2 of water last week", started on lasix 40mg PO QD and an abx levaquin? for cellulitis by Dr. Reina, reports she's gained 40lbs in 4 months, and has had decreased urination. Pt denies CP, states she feels like she can't get a deep breath, denies YEE, dizziness, N/V/D. Coronavirus screen: Vaccine status: Patient reports receiving the 1st dose of the Covid vaccine. Client denies travel out of the [place] in the last 14 days. At this time, the client does not indicate any symptoms associated with coronavirus-19. Ebola Screen: Patient negative for fever greater than or equal to 101.5 degrees Fahrenheit, and additional compatible Ebola Virus Disease symptoms Patient denies exposure to infectious person. Patient denies travel to an Ebola-affected area in the 21 days before illness onset. No symptoms or risks identified at this time. Initial Sepsis Screen: Does the patient meet any 2 criteria? No. Patient's initial sepsis screen is negative. Does the patient have a suspected source of infection? Yes: Skin breakdown/wound Other: On tx for cellulitis of b/l LE. Risk Assessment: Do you want to hurt yourself or someone else? Patient reports no desire to harm self or others. Onset of symptoms is unknown. 10:45 Method Of Arrival: Ambulatory eo2 10:45 Acuity: CALEB 3 eo2 Triage Assessment: 11:04 General: Appears in no apparent distress. Behavior is calm, cooperative. Pain: eo2 Complains of pain in b/l LE. Historical: - Allergies: 10:45 adhesive tape-silicones; eo2 - PMHx: 11:04 Hypertensive disorder; NEUROPATHY; Gait problem; eo2 - PSHx: 11:04 R. leg surgery; Lower back; eo2 - Immunization history:: Adult Immunizations up to date, Client reports receiving the 2nd dose of the Covid vaccine. - Social history:: Smoking status: Patient denies any tobacco usage or history of. - Family history:: not pertinent. Screenin:39 Abuse screen: Denies threats or abuse. Denies injuries from another. Nutritional eo2 screening: No deficits noted. Tuberculosis screening: No symptoms or risk factors identified. Fall Risk None identified. Assessment: 11:10 General: Appears in no apparent distress. obese, Behavior is calm, cooperative, eo2 appropriate for age. Neuro: Level of Consciousness is awake, alert, obeys commands, Oriented to person, place, time, situation, Denies dizziness, headache. Cardiovascular: Reports shortness of breath, weight gain and possible dx of CHF Denies chest pain, Heart tones S1 S2 Edema is 3+ to left ankle, left foot, right ankle and right foot And redness. 11:10 Respiratory: Reports shortness of breath on exertion Airway is patent Respiratory eo2 effort is even, unlabored, Respiratory pattern is regular, symmetrical, Breath sounds are clear bilaterally. GI: No signs and/or symptoms were reported involving the gastrointestinal system. : Reports decreased urine output Denies burning with urination. 11:10 Derm: Reports blisters/wound and redness on b/l LE. Derm: Reports. Musculoskeletal: eo2 Swelling present in b/l LE Reports pain in b/l LE and swelling. Vital Signs: 10:45 BP 140 / 69 LA Sitting; Pulse 85; Resp 17; Temp 99.4(O); Pulse Ox 99% ; Weight 122.47 eo2 kg; Height 5 ft. 3 in. (160.02 cm); Pain 7/10; 12:39 BP 146 / 95; Pulse 86; Resp 17; Pulse Ox 98% ; eo2 13:14 BP 130 / 98; Pulse 84; Resp 15; Pulse Ox 99% ; eo2 14:32 BP 167 / 101; Pulse 89; Resp 16; Pulse Ox 100% ; Pain 8/10; eo2 15:00 BP 142 / 97; Pulse 82; Resp 14; Pulse Ox 98% ; eo2 15:44 Pain 5/10; eo2 16:00 BP 157 / 91; Pulse 84; Resp 15; Pulse Ox 98% ; eo2 17:00 BP 147 / 99; Pulse 81; Resp 13; Pulse Ox 99% ; eo2 18:00 Pain 8/10; eo2 18:00 BP 156 / 75; Pulse 86; Resp 17; Pulse Ox 100% ; Pain 6/10; eo2 19:00 BP 129 / 71; Pulse 92; Resp 17; Pulse Ox 98% ; Pain 8/10; eo2 10:45 Body Mass Index 47.83 (122.47 kg, 160.02 cm) eo2 Vitals: 12:39 Cardiac Rhythm Assessment Regular Sinus rhythm. eo2 ED Course: 10:12 Patient arrived in ED. ds1 10:46 Kelli Pineda, TIEN is Primary Nurse. eo2 10:55 Jalen Freire MD is Attending Physician. cathy 10:56 Arm band placed on Patient placed in an exam room, on a stretcher. ll1 11:02 Triage completed. eo2 11:48 US Extremity Venous W Compression Chirag In Process Unspecified. EDMS 11:49 Initial lab(s) drawn, by me, sent to lab. First set of blood cultures drawn by me, kv1 Urine collected: clean catch specimen, cloudy, EKG done, by traffic signal technician. 12:21 XRAY Chest (1 view) In Process Unspecified. EDMS 12:39 Patient has correct armband on for positive identification. Placed in gown. Bed in low eo2 position. Call light in reach. Side rails up X2. Adult w/ patient. consultant dietitian on. Pulse ox on. NIBP on. Door closed. Warm blanket given. 12:39 No provider procedures requiring assistance completed. eo2 12:59 Inserted saline lock: 20 gauge in right antecubital area, using aseptic technique. kv1 13:15 Rubin Arrieta MD is Hospitalizing Provider. cathy 13:28 Basic Metabolic Panel Sent. eo2 13:28 CBC with Diff Sent. eo2 13:28 LFT's Sent. eo2 13:28 Magnesium Sent. eo2 13:29 Blood Culture Adult (2) Sent. eo2 13:29 Urine Culture Sent. eo2 13:49 Inserted saline lock: 20 gauge in left antecubital area, using aseptic technique. kv1 Administered Medications: 12:50 Drug: NS 0.9% 1000 ml Route: IV; Rate: 125 ml/hr; Site: right antecubital; eo2 12:50 Drug: Potassium Effervescent Tablet 25 mEq Route: PO; eo2 13:29 Follow up: Response: No adverse reaction eo2 12:50 Drug: Potassium Chloride 20 mEq Route: IV; Rate: per protocol; Site: right antecubital; eo2 14:50 Follow up: Response: No adverse reaction; IV Status: Completed infusion; IV Intake: eo2 100ml 13:30 Drug: Bactroban (mupirocin) Ointment 2 % 1 application {Note: placed on pt's b/l LE by eo2 .} Route: Topical; Site: affected area; 15:05 Follow up: Response: No adverse reaction eo2 14:38 Drug: Pepcid (famotidine) 20 mg Route: IVP; Site: left antecubital; eo2 15:38 Follow up: Response: No adverse reaction eo2 14:44 Drug: Ancef (cefazolin) 2 grams Route: IVPB; Infused Over: 30 mins; Site: left eo2 antecubital; 15:44 Follow up: Response: No adverse reaction; IV Status: Completed infusion; IV Intake: eo2 20ml ; Med delivered in 20ml syringe, administered IV push over 2 minutes as directed by Catrachito in Pharmacy 14:44 Drug: morphine 2 mg {Note: only one 2mg dose given IVP.} Route: IVP; Site: left eo2 antecubital; 15:44 Follow up: Pain 5/10 Adult; Response: Pain is decreased eo2 14:44 Drug: Zofran (Ondansetron) 4 mg Route: IVP; Site: left antecubital; eo2 15:44 Follow up: Response: No adverse reaction eo2 14:51 Drug: vancoMYCIN 1 grams Route: IVPB; Infused Over: 2 hrs; Site: right antecubital; eo2 17:00 Follow up: Response: No adverse reaction; IV Status: Completed infusion; IV Intake: eo2 250ml 16:34 Drug: Lasix (furosemide) 20 mg Route: IVP; Site: left antecubital; eo2 17:30 Follow up: Response: No adverse reaction; pt has voided twice, unmeasured eo2 16:34 Drug: Potassium Effervescent Tablet 25 mEq Route: PO; eo2 17:30 Follow up: Response: No adverse reaction eo2 19:18 Drug: morphine 2 mg Route: IVP; Site: right antecubital; eo2 Intake: 14:50 IV: 100ml; Total: 100ml. eo2 15:44 IV: 20ml; Total: 120ml. eo2 17:00 IV: 250ml; Total: 370ml. eo2 Outcome: 13:18 Decision to Hospitalize by Provider. cathy 02/01 15:11 Patient left the ED. ja1 Signatures: Dispatcher [employer] EDJalen Brandon MD MD cha Sanford, Demi ds1 Peter Carl RN RN ja1 Jesica Lipscomb RN RN ll1 David Kang Eunice, RN RN eo2 Corrections: (The following items were deleted from the chart) 01/31 11:07 10:45 BP 140 / 69 Sitting L Arm; Pulse 85bpm; Resp 17bpm; Pulse Ox 99%; Temp 99.4F eo2 Oral; Pain 7/10; eo2 15:04 13:50 Response: No adverse reaction eo2 eo2
--- NOTE | 2021-01-31 13:19 | EDPHYS ---
Physician Documentation [facility] Name: Lauren Turcios Age: 70 yrs Sex: Female : 1950 Arrival Date: 01/31/2021 Time: 10:12 Bed 30 Private MD: MICHAEL Physician Jalen Freire HPI: 01/31 13:07 This 70 yrs old Female presents to ER via Ambulatory with complaints of Leg cathy Swelling. 13:07 The patient presents with decreased range of motion, pain, swelling, tenderness. The cathy complaints affect the right leg and left leg. Context: The problem was sustained at an unknown site. Onset: The symptoms/episode began/occurred 3 week(s) ago. Modifying factors: The symptoms are alleviated by nothing. elevating leg. Associated signs and symptoms: Pertinent positives: swelling, tingling. Treatment prior to arrival includes: linda wrap, elevation of the extremity. Severity of symptoms: At their worst the symptoms were moderate, in the emergency department the symptoms are unchanged. The patient has experienced similar episodes in the past, multiple times. Historical: - Allergies: 10:45 adhesive tape-silicones; eo2 - PMHx: 11:04 Hypertensive disorder; NEUROPATHY; Gait problem; eo2 - PSHx: 11:04 R. leg surgery; Lower back; eo2 - Immunization history:: Adult Immunizations up to date, Client reports receiving the 2nd dose of the Covid vaccine. - Social history:: Smoking status: Patient denies any tobacco usage or history of. - Family history:: not pertinent. ROS: 13:07 Constitutional: Negative for fever, chills, and weight loss, Eyes: Negative for injury, cathy pain, redness, and discharge, ENT: Negative for injury, pain, and discharge, Neck: Negative for injury, pain, and swelling, Cardiovascular: Negative for chest pain, palpitations, and edema, Respiratory: Negative for shortness of breath, cough, wheezing, and pleuritic chest pain, Abdomen/GI: Negative for abdominal pain, nausea, vomiting, diarrhea, and constipation, Back: Negative for injury and pain, : Negative for injury, bleeding, discharge, and swelling, Neuro: Negative for headache, weakness, numbness, tingling, and seizure, Psych: Negative for depression, anxiety, suicide ideation, homicidal ideation, and hallucinations, Allergy/Immunology: Negative for hives, rash, and allergies, Endocrine: Negative for neck swelling, polydipsia, polyuria, polyphagia, and marked weight changes, Hematologic/Lymphatic: Negative for swollen nodes, abnormal bleeding, and unusual bruising. 13:07 MS/extremity: Positive for erythema, pain, swelling, tenderness, of the right leg and left leg. 13:07 Skin: Positive for erythema, swelling. Exam: 13:07 Constitutional: This is a well developed, well nourished patient who is awake, alert, cathy and in no acute distress. Head/Face: Normocephalic, atraumatic. Eyes: Pupils equal round and reactive to light, extra-ocular motions intact. Lids and lashes normal. Conjunctiva and sclera are non-icteric and not injected. Cornea within normal limits. Periorbital areas with no swelling, redness, or edema. ENT: Nares patent. No nasal discharge, no septal abnormalities noted. Tympanic membranes are normal and external auditory canals are clear. Oropharynx with no redness, swelling, or masses, exudates, or evidence of obstruction, uvula midline. Mucous membranes moist. Neck: Trachea midline, no thyromegaly or masses palpated, and no cervical lymphadenopathy. Supple, full range of motion without nuchal rigidity, or vertebral point tenderness. No Meningismus. Chest/axilla: Normal chest wall appearance and motion. Nontender with no deformity. No lesions are appreciated. Cardiovascular: Regular rate and rhythm with a normal S1 and S2. No gallops, murmurs, or rubs. Normal PMI, no JVD. No pulse deficits. Respiratory: Lungs have equal breath sounds bilaterally, clear to auscultation and percussion. No rales, rhonchi or wheezes noted. No increased work of breathing, no retractions or nasal flaring. Abdomen/GI: Soft, non-tender, with normal bowel sounds. No distension or tympany. No guarding or rebound. No evidence of tenderness throughout. Back: No spinal tenderness. No costovertebral tenderness. Full range of motion. Female : Normal external genitalia. Neuro: Awake and alert, GCS 15, oriented to person, place, time, and situation. Cranial nerves II-XII grossly intact. Motor strength 5/5 in all extremities. Sensory grossly intact. Cerebellar exam normal. Normal gait. Psych: Awake, alert, with orientation to person, place and time. Behavior, mood, and affect are within normal limits. 13:07 Skin: cellulitis, that is moderate, induration, that is moderate is noted, injury, abrasion(s), small abrasion noted, of the right leg and left leg. Vital Signs: 10:45 BP 140 / 69 LA Sitting; Pulse 85; Resp 17; Temp 99.4(O); Pulse Ox 99% ; Weight 122.47 eo2 kg; Height 5 ft. 3 in. (160.02 cm); Pain 7/10; 12:39 BP 146 / 95; Pulse 86; Resp 17; Pulse Ox 98% ; eo2 13:14 BP 130 / 98; Pulse 84; Resp 15; Pulse Ox 99% ; eo2 14:32 BP 167 / 101; Pulse 89; Resp 16; Pulse Ox 100% ; Pain 8/10; eo2 15:00 BP 142 / 97; Pulse 82; Resp 14; Pulse Ox 98% ; eo2 15:44 Pain 5/10; eo2 16:00 BP 157 / 91; Pulse 84; Resp 15; Pulse Ox 98% ; eo2 17:00 BP 147 / 99; Pulse 81; Resp 13; Pulse Ox 99% ; eo2 18:00 Pain 8/10; eo2 18:00 BP 156 / 75; Pulse 86; Resp 17; Pulse Ox 100% ; Pain 6/10; eo2 19:00 BP 129 / 71; Pulse 92; Resp 17; Pulse Ox 98% ; Pain 8/10; eo2 10:45 Body Mass Index 47.83 (122.47 kg, 160.02 cm) eo2 MDM: 10:55 Patient medically screened. [facility] 13:07 Differential diagnosis: contusion, abrasion. Data reviewed: vital signs, nurses notes, [facility] lab test result(s), EKG, radiologic studies, doppler, plain films. 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 Counseling: I had a detailed discussion with the patient and/or guardian regarding: the historical points, exam findings, and any diagnostic results supporting the discharge/admit diagnosis, lab results, radiology results, the need for further work-up and treatment in the hospital. 01/31 11:01 Order name: Basic Metabolic Panel [facility] 01/31 11:01 Order name: CBC with Diff [facility] 01/31 11:01 Order name: LFT's [facility] 01/31 11:01 Order name: Magnesium [facility] 01/31 11:01 Order name: NT PRO-BNP; Complete Time: 13:03 [facility] 01/31 11:01 Order name: PT-INR; Complete Time: 11:59 [facility] 01/31 11:01 Order name: Troponin (emerg Dept Use Only); Complete Time: 13:03 [facility] 01/31 11:01 Order name: Blood Culture Adult (2) [facility] 01/31 11:01 Order name: Lactate; Complete Time: 13:03 [facility] 01/31 11:01 Order name: Urine Culture [facility] 01/31 11:01 Order name: Basic Metabolic Panel; Complete Time: 13:03 [facility] 01/31 11:01 Order name: CBC with Automated Diff; Complete Time: 11:59 [facility] 01/31 11:01 Order name: Liver (Hepatic) Function; Complete Time: 13:03 [facility] 01/31 11:01 Order name: Magnesium; Complete Time: 13:03 [facility] 01/31 11:01 Order name: XRAY Chest (1 view); Complete Time: 13:03 [facility] 01/31 11:01 Order name: US Extremity Venous W Compression Chirag; Complete Time: 13:03 [facility] 01/31 12:00 Order name: Phosphorus; Complete Time: 14:38 [facility] 01/31 13:18 Order name: SARS-COV-2 RT PCR (Document "Date of Onset" if Symptomatic); Complete Time: [facility] 15:39 01/31 15:06 Order name: C-Reactive Protein [facility] 01/31 15:06 Order name: Procalcitonin [facility] 01/31 15:06 Order name: Sedimentation Rate, Westergren [facility] 02/01 04:23 Order name: CBC with Automated Diff [facility] 02/01 04:43 Order name: Comprehensive Metabolic Panel [facility] 02/01 04:43 Order name: NT PRO-BNP [facility] 02/01 04:43 Order name: Magnesium [facility] 02/01 05:09 Order name: Manual Differential [facility] 02/01 11:47 Order name: Basic Metabolic Panel [facility] 02/01 14:13 Order name: Urine Dipstick-Ancillary [facility] 01/31 11:01 Order name: EKG; Complete Time: 11:01 [facility] 01/31 11:01 Order name: Cardiac monitoring; Complete Time: 13:28 [facility] 01/31 11:01 Order name: EKG - Nurse/Tech; Complete Time: 13:28 [facility] 01/31 11:01 Order name: IV Saline Lock; Complete Time: 13:29 [facility] 01/31 11:01 Order name: Labs collected and sent; Complete Time: 13:29 [facility] 01/31 11:01 Order name: O2 Per Protocol; Complete Time: 13:29 [facility] 01/31 11:01 Order name: O2 Sat Monitoring; Complete Time: 13:29 [facility] 01/31 11:01 Order name: Urine Dipstick-Ancillary (obtain specimen); Complete Time: 13:28 [facility] Administered Medications: 12:50 Drug: NS 0.9% 1000 ml Route: IV; Rate: 125 ml/hr; Site: right antecubital; eo2 12:50 Drug: Potassium Effervescent Tablet 25 mEq Route: PO; eo2 13:29 Follow up: Response: No adverse reaction eo2 12:50 Drug: Potassium Chloride 20 mEq Route: IV; Rate: per protocol; Site: right antecubital; eo2 14:50 Follow up: Response: No adverse reaction; IV Status: Completed infusion; IV Intake: eo2 100ml 13:30 Drug: Bactroban (mupirocin) Ointment 2 % 1 application {Note: placed on pt's b/l LE by eo2 .} Route: Topical; Site: affected area; 15:05 Follow up: Response: No adverse reaction eo2 14:38 Drug: Pepcid (famotidine) 20 mg Route: IVP; Site: left antecubital; eo2 15:38 Follow up: Response: No adverse reaction eo2 14:44 Drug: Ancef (cefazolin) 2 grams Route: IVPB; Infused Over: 30 mins; Site: left eo2 antecubital; 15:44 Follow up: Response: No adverse reaction; IV Status: Completed infusion; IV Intake: eo2 20ml ; Med delivered in 20ml syringe, administered IV push over 2 minutes as directed by Catrachito in Pharmacy 14:44 Drug: morphine 2 mg {Note: only one 2mg dose given IVP.} Route: IVP; Site: left eo2 antecubital; 15:44 Follow up: Pain 5/10 Adult; Response: Pain is decreased eo2 14:44 Drug: Zofran (Ondansetron) 4 mg Route: IVP; Site: left antecubital; eo2 15:44 Follow up: Response: No adverse reaction eo2 14:51 Drug: vancoMYCIN 1 grams Route: IVPB; Infused Over: 2 hrs; Site: right antecubital; eo2 17:00 Follow up: Response: No adverse reaction; IV Status: Completed infusion; IV Intake: eo2 250ml 16:34 Drug: Lasix (furosemide) 20 mg Route: IVP; Site: left antecubital; eo2 17:30 Follow up: Response: No adverse reaction; pt has voided twice, unmeasured eo2 16:34 Drug: Potassium Effervescent Tablet 25 mEq Route: PO; eo2 17:30 Follow up: Response: No adverse reaction eo2 19:18 Drug: morphine 2 mg Route: IVP; Site: right antecubital; eo2 Disposition Summary: 01/31/21 13:18 Hospitalization Ordered Hospitalization Status: Inpatient Admission cathy Provider: Rubin Arrieta cathy Condition: Fair cathy Problem: new cathy Symptoms: have improved cathy Bed/Room Type: Standard cathy Location: [facility] ER HOLD(02/01/21 00:39) cg Room Assignment: ERHOLD-(02/01/21 00:39) cg Diagnosis - Edema, unspecified cathy - Lymphedema, not elsewhere classified cathy - Cellulitis and acute lymphangitis of other parts of limb cathy - Obesity due to excess calories cathy - Essential (primary) hypertension cathy - Unspecified kidney failure cathy - Coronavirus infection, unspecified cathy Forms: - Medication Reconciliation Form cathy - SBAR form cathy Signatures: Dispatcher [employer] Jalen Chaves MD MD cha Garcia, Cindy, RN RN cg Kelli Pineda RN RN eo2 Corrections: (The following items were deleted from the chart) 02/01 00:39 01/31 13:18 Telemetry/MedSurg (Inpatient) cathy 02/01 00:39 01/31 13:18 cathy cg
[2021-01-31] MEDS ORDERED: MUPIROCIN 2% OINT 22GM TUBE TOP ONE ×2 (13:26→14:17)
[2021-01-31] MEDS ORDERED: FAMOTIDINE 20 MG/2 ML VIAL IV ONE (13:54)
[2021-01-31] MEDS ORDERED: CEFAZOLIN/SWI 2gm 2 GM/20 ML SYR IV ONE (14:15)
[2021-01-31] MEDS ORDERED: MORPHINE 4 MG/ML SYR ONE (14:17)
[2021-01-31] MEDS ORDERED: VANCOMYCIN 1 GM/VIAL ONE (14:17)
[2021-01-31] MEDS ORDERED: ONDANSETRON 4 MG/2 ML VIAL ONE (14:17)
[2021-01-31] MEDS ORDERED: NA CHLORIDE 0.9% 250 ML ONE (14:18)
[2021-01-31] MEDS ORDERED: MORPHINE 2 MG/ML SYR ONE ×2 (14:28→19:08)
--- NOTE | 2021-01-31 15:19 | P.HP ---
Certification for Inpatient Patient admitted to: Inpatient With expected LOS: >2 Midnights Practitioner: I am a practitioner with admitting privileges, knowledge of patient current condition, hospital course, and medical plan of care. Services: Services provided to patient in accordance with Admission requirements found in Title 42 Section 412.3 of the Code of Federal Regulations Patient History Date of Service: 01/31/21 Reason for admission: Bilateral lower extremity cellulitis History of Present Illness: 70yo F. PMH: HTN, BLE swelling, neuropathy, chronic pain Presents to ED due to 2-3 weeks of lower extremity swelling associated with 1 week of redness and burning pain. She states her leg swelling has gotten worse starting 3-4 months ago, and states over these time. She gained about 30 pounds of water weight. She saw her fruit dumper 1 week ago and underwent bilateral lower leg Dopplers and echocardiogram which she was told were all normal and negative. Her fruit dumper told her that this is likely more due to cellulitis then her heart. She denies any PND but did have a cough a few days ago, felt like she could not get a deep breath, and was more dyspneic on exertion. She was started on 40 mg Lasix once a day 1 week ago with improvement of the symptoms, however she denies any change in her lower extremity swelling and redness. Swelling was significant enough to cause blistering and leakage of fluid from her legs. Denies any kidney disease In the ED, she was notably afebrile, vitals stable, negative venous Doppler, chest x-ray with mild bilateral pulmonary opacities, and significant erythema concerning for bilateral lower extremity cellulitis. She was given IV antibiotics and ED physician is requested admission for further management. Allergies Tape Adverse Reaction (Uncoded 11/12/14 09:47) Rash Home Medications: Amitriptyline [Elavil] 10 mg PO 1X 11/12/14 Duloxetine HCl [Cymbalta] 30 mg PO 1X 11/12/14 Ramipril [Altace] 10 mg PO 1X 11/12/14 - Past Medical/Surgical History -: Hypertension -: Neuropathy with gait instability -: Chronic back pain -: Chronic lower extremity swelling -: Cholecystectomy -: Multiple "back surgeries" -: Hernia repair Psychosocial/ Personal History: Lives at home with , ambulates with walker due to neuropathy. - Family History Family History: Reviewed- Non-Contributory (States she does not know family history) - Social History Smoking Status: Never smoker Alcohol use: No Place of Residence: Home Review of Systems 10-point ROS is otherwise unremarkable Physical Examination - Physical Exam General: Alert, In no apparent distress, Oriented x3 HEENT: Sclerae nonicteric Neck: No LAD Respiratory: Clear to auscultation bilaterally, Normal air movement Cardiovascular: Regular rate/rhythm, No murmurs, Edema (1-2+ BLE edema to thighs) Gastrointestinal: Soft and benign, Non-distended, No tenderness Musculoskeletal: No contractures Integumentary: Other (Diffuse erythema bilateral lower feet up to knees, with multiple scattered small areas of skin breakdown, weeping) Neurological: Normal speech, Normal strength at 5/5 x4 extr - Studies Laboratory Data (last 24 hrs) 01/31/21 11:06: Phosphorus 3.3 01/31/21 11:06: PT 13.7 H, INR 1.19 01/31/21 11:06: WBC 6.70, Hgb 10.9 L, Hct 33.5 L, Plt Count 353 01/31/21 11:06: Sodium 137, Potassium 2.8 L*, BUN 55 H, Creatinine 1.64 H, Glucose 157 H, Magnesium 2.1, Total Bilirubin 0.7, AST 56 H, ALT 39, Alkaline Phosphatase 97 Assessment and Plan - Advance Directives Does patient have a Living Will: No Does patient have a Durable POA for Healthcare: No Physician Review Additional Text: Problem list Bilateral lower extremity cellulitis Lower extremity edema Possible RODRICK Hypokalemia Hypertension Neuropathy with gait instability Chronic back pain Restless leg syndrome Admit patient to med/surg Continue IV Ancef Check inflammatory markers Patient without fever, no tachycardia, no leukocytosis. Patient does not appear septic at this time Suspect a significant amount of swelling and weeping led to her skin breakdown, which then led to cellulitis. Bilateral lower legs warm to touch No appreciable abscess/significant induration Suspect 40 mg Lasix did assist in some diuresis, she reports losing 4 pounds initially and then no further improvement. However, she also states she has not been coughing as much and able to take a deeper breath. RODRICK, presumed. Reports no history of renal disease. Possibly from volume overload versus diuretic usage Given her significant amount of lower extremity swelling, recommend to elevate bilateral legs, and 40 mg IV Lasix today Recheck blood work in a.m. Blood cultures drawn in ED Potassium repleted VTE: lovenox Code: full Dispo: Anticipate DC home in ~2 days Time Spent Managing Pts Care (In Minutes): 60
[2021-01-31] MEDS ORDERED: FUROSEMIDE 20 MG/ 2ML VIAL ONE (16:18)
[2021-01-31] MEDS ORDERED: CEFAZOLIN 2 GM in NA CHLORIDE 0.9% 100 ML IVPB SCH (21:36)
[2021-01-31] MEDS ORDERED: ONDANSETRON 4 MG/2 ML VIAL IV PRN (21:36)
[2021-01-31] MEDS ORDERED: ACETAMINOPHEN 500 MG TAB PO PRN (21:36)
[2021-01-31] MEDS: FUROSEMIDE 40 MG/4 ML VIAL IV SCH (21:36)
[2021-01-31] MEDS ORDERED: FUROSEMIDE 40 MG/4 ML VIAL ONE (21:59)
[2021-01-31] MEDS ORDERED: HYDROCODONE/APAP 7.5/325 MG TAB ONE (23:12)
[2021-01-31] MEDS: HYDROCODONE/APAP 7.5/325 MG TAB PO PRN (23:20)
[2021-02-01 00:01] VITALS: BMI 47.8
[2021-02-01 04:15] LABS: Absolute Lymphocytes (CBC) 1.4 K/uL (0.7-4.9); Lymphocytes % 21.5 % (15.3-44.8); MPV 7.7 fL (7.6-11.3); RBC Red Blood Cell Count 3.51 M/uL (3.86-4.86)
[2021-02-01 04:42] LABS: Albumin 2.6 g/dL (3.4-5.0); Bilirubin Total 0.4 mg/dL (0.2-1.0); Magnesium 2.1 mg/dL (1.8-2.4); Protein, Total 6.7 g/dL (6.4-8.2)
[2021-02-01 04:43] LABS: Potassium 2.8 mmol/L (3.5-5.1)
[2021-02-01] MEDS ORDERED: KCL 20 MEQ/100 mL IVPB 20 MEQ/100 ML BAG IV SCH (05:00)
[2021-02-01 05:09] LABS: Blood Morphology Comment NOT SEEN (NOT SEEN); Platelet Estimate ADEQ
[2021-02-01] MEDS ORDERED: POTASSIUM 25 MEQ EFFERV TAB PO ONE ×3 (05:34→08:30)
[2021-02-01] MEDS ORDERED: POTASSIUM 25 MEQ EFFERV TAB ONE ×2 (05:42→08:08)
[2021-02-01] MEDS ORDERED: ACETAMINOPHEN 500 MG TAB ONE (08:08)
[2021-02-01] MEDS ORDERED: ENOXAPARIN 40 MG/0.4 ML SQ ONE (08:09)
[2021-02-01] MEDS ORDERED: FUROSEMIDE 40 MG/4 ML VIAL ONE (08:09)
[2021-02-01] MEDS: FUROSEMIDE 40 MG/4 ML VIAL IV SCH (08:24)
[2021-02-01 08:41] VITALS: O2SAT 97
[2021-02-01] MEDS ORDERED: CEFAZOLIN/SWI 2gm 2 GM/20 ML SYR IV SCH (09:00)
[2021-02-01] MEDS ORDERED: ENOXAPARIN 40 MG/0.4 ML SQ SCH (09:00)
[2021-02-01] MEDS: HYDROCODONE/APAP 7.5/325 MG TAB PO PRN (10:54)
[2021-02-01] MEDS ORDERED: HYDROCODONE/APAP 7.5/325 MG TAB ONE (10:55)
[2021-02-01 11:46] LABS: Potassium 3.2 mmol/L (3.5-5.1)
[2021-02-01 12:00] VITALS: BP 99/67; TEMP 97.7
--- NOTE | 2021-02-01 12:57 | P.DS ---
Admission Date: 01/31/21 Discharge Date: 02/01/21 Reason for Admission: Bilateral lower extremity cellulitis - Problems (1) Venous stasis dermatitis Current Visit: Yes Status: Acute (2) Cellulitis of both lower extremities Current Visit: Yes Status: Acute (3) Morbid obesity Current Visit: Yes Status: Acute (4) SARS-CoV-2 positive Current Visit: Yes Status: Acute Brief History of Present Illness: 70yo F. PMH: HTN, BLE swelling, neuropathy, chronic pain Patient presented to ED due to 2-3 weeks of lower extremity swelling associated with 1 week of redness and burning pain. She also reported gaining about 30 pounds of weight. She saw her nuclear equipment research engineer 1 week ago and underwent bilateral lower leg Dopplers and echocardiogram which she was told were all normal and negative. Her nuclear equipment research engineer referred her to the ED for possible cellulitis causing the leg swelling and redness. She was started on 40 mg Lasix once a day 1 week ago with improvement of the symptoms, however no improvement in the lower extremity swelling and redness. In the ED, she was notably afebrile, vitals stable, negative venous Doppler, chest x-ray with mild bilateral pulmonary opacities, and significant erythema co ncerning for bilateral lower extremity cellulitis. She tested positive for COVID-19. She was given IV antibiotics and ED physician is requested admission for further management. Hospital Course: Patient placed on the medical floor and treated with IV cefazolin. She was also placed on IV Lasix for leg edema. Her edema improved with these measures and leg elevation. She is currently asymptomatic from the COVID-19, checks x-ray demonstrated bilateral mild infiltrates. She is stable on room air with good oxygen saturation. She states her leg swelling and erythema improved significantly overnight and desires to go home. Patient is discharged with cefuroxime to continue treatment for possible lower extremity cellulitis. She is also prescribed Lasix daily along with potassium supplementation. Her potassium level was low on presentation. Patient was dozing off during my conversation with her this morning and I suspect she has obstructive sleep apnea. She is referred to Dr. Camejo for further evaluation for sleep apnea. Vital Signs/Physical Exam: Temp Pulse Resp BP Pulse Ox 97.7 F 69 20 99/67 95 02/01/21 11:58 02/01/21 11:58 02/01/21 11:58 02/01/21 11:58 12/28/21 11:58 General: Alert, In no apparent distress, Oriented x3, Obese HEENT: PERRLA, Mucous membr. moist/pink, Sclerae nonicteric Neck: Supple, JVD not distended Respiratory: Clear to auscultation bilaterally, Normal air movement, Diminished Cardiovascular: Normal S1 S2, Other (Bradycardia.), Edema (Bilateral legs.) Gastrointestinal: Normal bowel sounds, Soft and benign, Non-distended, No tenderness Musculoskeletal: Swelling (Bilateral legs.) Integumentary: Erythema (Bilateral legs-improved.), Other (Multiple healing wound with crust on both legs) Neurological: Normal speech, Normal strength at 5/5 x4 extr, Cranial nerves 3-12 intact Laboratory Data at Discharge: WBC 6.30 K/uL (4.3-10.9) 02/01/21 04:03 Hgb 9.8 g/dL (12.0-15.0) L 02/01/21 04:03 Hct 30.0 % (36.0-45.0) L 02/01/21 04:03 Plt Count 310 K/uL (152-406) 02/01/21 04:03 PT 13.7 SECONDS (9.5-12.5) H 01/31/21 11:06 INR 1.19 01/31/21 11:06 Sodium 138 mmol/L (136-145) 02/01/21 11:01 Potassium 3.2 mmol/L (3.5-5.1) L 02/01/21 11:01 BUN 52 mg/dL (7-18) H 02/01/21 11:01 Creatinine 1.87 mg/dL (0.55-1.3) H 02/01/21 11:01 Glucose 150 mg/dL (74-106) H 02/01/21 11:01 Phosphorus 3.3 mg/dL (2.5-4.9) 01/31/21 11:06 Magnesium 2.1 mg/dL (1.8-2.4) 02/01/21 04:03 Total Bilirubin 0.4 mg/dL (0.2-1.0) 02/01/21 04:03 AST 51 U/L (15-37) H 02/01/21 04:03 ALT 30 U/L (12-78) 02/01/21 04:03 Alkaline Phosphatase 79 U/L (45-117) 02/01/21 04:03 Home Medications: Ramipril [Altace] 10 mg PO 1X 11/12/14 Gabapentin 100 mg PO QID 01/31/21 Hydrocodone Bit/Acetaminophen [Warren 7.5-325 Tablet] 7.5 mg PO TID 01/31/21 Triamterene/Hydrochlorothiazid [Triamterene-Hctz 75-50 mg Tab] 75 01/31/21 Cefuroxime Axetil [Cefuroxime] 500 mg PO BID #14 tab 02/01/21 Furosemide [Lasix] 40 mg PO DAILY #30 tablet 02/01/21 Potassium Chloride 20 meq PO DAILY #30 tablet.er 02/01/21 Zinc Sulfate [Zinc Sulfate*] 220 mg PO DAILY #30 cap 02/01/21 New Medications: Cefuroxime Axetil [Cefuroxime] 500 mg PO BID #14 tab Furosemide [Lasix] 40 mg PO DAILY #30 tablet Potassium Chloride 20 meq PO DAILY #30 tablet.er Zinc Sulfate [Zinc Sulfate*] 220 mg PO DAILY #30 cap Physician Discharge Instructions: Please keep your legs elevated above your hip level when seated or lying. Diet: AHA Activity: Ad riya Followup: Rodger Ariza MD [ACTIVE - CAN ADMIT] - 1-2 Weeks (Please evaluate for Obstructive sleep apnea. ) Kristen Muñoz FNP [Primary Care Provider] - 1 Week
[2021-02-01 14:12] LABS: Urine Blood Negative (Negative); Urine Glucose Negative (Negative); Urine Protein Negative (Negative); Urine Specific Gravity 1.015 (1.005-1.030); Urine pH 5.5 (5.0-7.0)
[2021-02-02] MEDS ORDERED: ENOXAPARIN 30 MG/0.3 ML SQ SCH (09:00)
== END 2021-02-01 15:00 | disposition home or self-care (01) ==
LOC: ER 10:08 → ERHOLD 15:23 → INTOOBSV 15:23 → ERHOLD 20:59
PROVIDERS: ADMIT Hospitalist; ATTEND Internal Medicine
DX: L03.116 Cellulitis of left lower limb (principal); L03.115 Cellulitis of right lower limb; U07.1 COVID-19; I87.2 Venous insufficiency (chronic) (peripheral); R60.0 Localized edema; I10 Essential (primary) hypertension; E87.6 Hypokalemia; G62.9 Polyneuropathy, unspecified; R26.89 Other abnormalities of gait and mobility; M54.9 Dorsalgia, unspecified; G89.29 Other chronic pain; G25.81 Restless legs syndrome; E66.01 Morbid (severe) obesity due to excess calories; Z68.42 Body mass index [BMI] 45.0-49.9, adult; Z91.09 Other allergy status, other than to drugs and biological substances; Z90.49 Acquired absence of other specified parts of digestive tract
CPT/HCPCS: 93005; 87040 ×2; 87088; 85025 ×2; 87086; 80048 ×2; 36415 ×2; 83735 ×2; 84100; 85610; 80076; 83605; 85652; 87077; 87186; 81003; 84484; 80053; 84145; 83880 ×2; 86140; 71045; 93970; 94760; 94660; 99285; U0003; J1940 ×3; J3480 ×2; J1650; J3370; J2270 ×2; J0690 ×2; J7050; J7030; J2405; G0378 ×3

== ENCOUNTER 2021-04-23 11:42 | Emergency (ER) | payer OTHER ==
--- OUTSIDE RECORDS SUMMARY | 2021-04-23 11:46 | XMS REPORT | Continuity of Care Document ---
:1950 Author Organization [facility] t Address [address] [place] [address] Care Team Providers Name Role Phone Patricia Brown Attending Clinician Unavailable RIVER Attending Clinician Unavailable MD JALEEL HOLMAN Attending Clinician Unavailable Tracey_Bhaskar Attending Clinician Unavailable Patricia Brown Admitting Clinician Unavailable RIVER Admitting Clinician Unavailable MD JALEEL HOLMAN Admitting Clinician Unavailable Munira Admitting Clinician Unavailable Payers Payer Name Policy Type Policy Number Effective Date Expiration Date S urb[place] [employer] - CHOICE (POS [id number]) Problems Condition Condition Condition Status Onset [...] Active [facility] Calf Calf Problem Active [facility] [...] 07-24 Clear Allergie 00:00: [place] s 00 [facility] No Known DA Active [facility] Allergie 07-24 [place] [facility] No Known DA Active [facility] Drug 07-24 [place] Allergie 00:00: [facility] 00 [facility] adhesive DA Active SV RASH,TEARS [facility] tape SKIN EASILY 07-24 [place] 00:00: [facility] adhesive DA Active SV [facility] tape 07-24 Clear 00:00: [place] 00 [facility] Medications Ordered Filled Start Stop Current Ordering [...] / Time Performed Performing Clinician Sourtracey e [id number] 2019-06-05 00:00:00 BRIMA.01 [facility] [id number] 2019-06-05 00:00:00 BRIMA.01 [facility] [id number] 2019-06-05 00:00:00 BRIMA.01 [facility] Encounters Start End Encounter Admission Attending Care Care Encounter Source Date/Time Date/Time Type Type Clinicians Facility Department ID 2019-06-05 Inpatient YOANNA Krishnamurthy ADMI [id number] [facility] 11:51:00 [facility] [place] [facility] 2019-11-12 2019-11-19 Inpatient [facility] [id number] [place] 00:00:00 00:00:00 FREDERIC [address] 2019-10-29 2019-10-29 Outpatient YOANNA Brown RADI [id number] [facility] 09:00:00 09:00:00 Junito [id number] [place] [facility] 2019-10-06 2019-10-06 Outpatient [facility] [id number] [place] 05:23:00 05:23:00 [facility] 2019-05-28 2019-05-28 Outpatient YOANNA Brown RADI [id number] 3-20 [facility] 09:00:00 09:00:00 Junito [id number] [place] [facility] 2018-06-06 2018-06-06 [facility] [id number] [address] 11:19[facility]00 11[facility]19[facility] 2018-06-04 2018-06-04 [facility] [id number] 16:36:00 16:36[facility]00 [facility] 2018-06-03 2018-06-03 [facility] [id number] 11:00[facility]00 11[facility]00[facility]00 [facility] 2018-05-17 2018-05-17 [facility] [id number] 09:00[facility]00 09:00[facility]00 [facility] 2018-05-13 2018-05-13 [facility] [id number] 11:52:00 11:52:00 [facility] 2018-05-10 2018-05-10 [facility] [id number] 09:30:00 09:30:00 [facility] 2018-05-03 2018-05-03 [facility] [id number] 09:00[facility]00 09:00[facility]00 [facility] Results Test Description Test Time Test Comments Results Result Comments Source SARS-CoV-2 (COVID-19) RNA [Presence] in Respiratory sp ecimen by 2019-11-18 09:05:24 ARPITA with probe detection Test Item Value Reference Range Interpretation Comme nts SARS-CoV-2 (COVID-19) RNA [Presence] in Respiratory Not detected No t-Detected specimen by ARPITA with probe detection (test code = 59293-9) SARS-CoV-2 (COVID-19) RNA [Presence] in Respiratory specimen by ARPITA with probe [id number] 02:04:12 Test Item Value Reference Range Interpretation Comments SARS-CoV-2 (COVID-19) RNA Not detected Not-Detected [Presence] in Respiratory specimen by ARPITA with probe detection (test code = 15544-1) - CT LOWER EXTRM W/O C [id number] 09:44:00 Patient Name: SARA ALLEN Unit No: [id number] EXAMS: CPT CODE: [id number] CT LOWER EXTRM W/[place] [address] [place] SCAN RIGHT FEMUR WITH RECONSTRUCTION DIAGNOSIS: [...] with ACR practice standards and adherence to global regulatory lead's recommendations. INDICATION: ASSESS HEALING COMPARISON: The current exam is compared to a previous exam dated May 28, 2019. COMMENT: Findings are as described above. at 0944 Reported and signed by: Gene Canas MD CC: Junito Brown MD; Bhaskar More III, MD Technologist: Christ Huerta,RT(R) CTDI: DLP: Trnscrpt: 10/29/2019 (2344) t.SDR.GVG [facility] NAME: SARA ALLEN [address] [facility] PHYS: BRIMA. - Junito Brown MD : 1950 AGE: 69 SEX: F [place] [address] LOC: Y.RAD PHONE #: [phone] DATE: 10/29/2019 STATUS: REG CLI FAX #: [phone] RAD #: D/C DT PAGE 1 Signed Report Patient Name: SARA ALLEN Unit No: [id number] EXAMS: CPT CODE: [id number] CT LOWER EXTRM W/[place] [address] <Continued> Orig Print D/T: S: 10/29/2019 (3784) [facility] NAME: SARA ALLEN [address] [place] [address] PHYS: BRIMA. - Junito Brown MD : 1950 AGE: 69 SEX: F [place] [address] LOC: Y.RAD PHONE #: [phone] EXAM DATE: 10/29/2019 STATUS: REG CLI FAX #: [phone] RAD #: D/C DT PAGE 2 Signed [id number] 08:52:00 Test Item Value Reference Range Interpretation Comments GLUBED (test code = GLUBED) 99 mg/dL 60-125 N [id number] 08:51:00 Test Item Value Reference Range Interpretation Comments GLUBED (test code = GLUBED) 104 mg/dL 60-125 N BASIC METABOLIC [id number] 06:22:00 Test Item Value Reference Range Interpretation [...] RATE (test code = GFR) mL/mi n/1.73 [id number] Range:Healthy Adults >90 mL/min/1.73 m2 For Chronic Kidney Disease: St age II Mild Decrease in GFR 60-90 St age III Moderate Decrease in GFR 30-59 Stage IV Severe Decre ase in GFR 15- 29 Stage V Kidney Failure <15 CREATININE (test code 1.27 mg/dL 0.55-1.30 N = CREAT) CALCIUM (test code = 8.6 mg/dL 8.2-10.1 N CA) CBC W/AUTO [id number] 05:55:00 Test Item Value Reference Range Interpretation [...] 0 % 0-0 N code = NRBC) [id number] 05:51:00 Test Item Value Reference Range Interpretation Comments GLUBED (test code = GLUBED) 91 mg/dL 60-125 N [id number] 21:48:00 Test Item Value Reference Range Interpretation Comments GLUBED (test code = GLUBED) 102 mg/dL 60-125 N - CT LOWER EXTRM W/O C [id number] 19:14:00 Patient Name: SARA ALLEN Unit No: [id number] EXAMS: CPT CODE: [id number] CT LOWER EXTRM W/[place] [address] TECHNIQUE: Volumetric CT data of the right femur was obtained without use of intravenous contrast. Images were then viewed in the axial, coronal and sagittal planes. CT radiation dose optimization is achieved for this examination by the use of a CT protocol in accordance with ACR practice standards and adherence to global regulatory lead's recommendations. INDICATION: RIGHT DISTAL FEMUR ASSESS HEALING [...] Huerta,RT(R) CTDI: DLP: Trnscrpt: 05/28/2019 (1913) SeniaJ [facility] NAME: SARA ALLEN [address] [place] [address] PHYS: Junito Brown MD : 1950 AGE: 69 SEX: F [place] [address] LOC: Y.RAD PHONE #: [phone] EXAM DATE: 05/28/2019 STATUS: REG CLI FAX #: [phone] RAD #: D/C DT PAGE 1 Signed Report Patient Name: SARA ALLEN Unit No: [id number] EXAMS: CPT CODE: [id number] CT LOWER EXTRM W/[place] [address] <Continued> Orig Print D/T: S: 05/28/2019 (1916) [facility] NAME: SARA ALLEN [address] [place] [address] PHYS: DULCE. - Junito Brown MD : 1950 AGE: 69 SEX: F [place] [address] LOC: Y.RAD PHONE #: [phone] EXAM DATE: 05/28/2019 STATUS: REG CLI FAX #: [phone] RAD #: D/C DT PAGE 2 Signed ReportCBC W/AUTO [id number] 14:16:00 Test Item Value Reference Range Interpretation [...] % 0-0 N code = NRBC) SED [id number] 14:16:00 Test Item Value Reference Range Interpretation Comments SED RATE (test code = SEDW) 26 mm/hr 0-20 H COMPREHENSIVE METABOLIC [id number] 13:40:00 Test Item Value Reference Range Interpretation [...] RATE (test code = mL/min/1.7 3 GFR) [id number] Range:Healthy A dults >90 mL/min/1.73 m2 For [...] TOTAL (test code = ALKP) C REACTIVE [id number] 13:38:00 Test Item Value Reference Range Interpretation Comments C REACTIVE PROTEIN (test code = < 0.2 mg/dL <0.9 CRP) PROTHROMBIN [id number] 13:30:00 Test Item Value Reference Range Interpretation [...] BLOOD, PT every other day NTHROMBOPLASTIN TIME [id number] 13:30:00 Test Item Value Reference Range Interpretation Comments PTT ACTIVATED (test code = APTT) 34.7 secs 24.9-37.0 N IS PATIENT ON ANTICOAGULANTS ? YLIST ANTICOAGULANT/ANTI PLT MEDICATION : AspirinHas Lab been notified if Patient is on Heparin Drip? NOIf Yes, order CBC, OCCULT BLOOD, PT every other day NCBC W/AUTO [id number] 13:16:00 Test Item Value Reference Range Interpretation [...] % 0-0 N code = NRBC) SED [id number] 13:16:00 Test Item Value Reference Range Interpretation Comments SED RATE (test code = SEDW) mm/hr 0-20 [id number] 12:53:00 Test Item Value Reference Range Interpretation Comments GLUBED (test code = GLUBED) 100 mg/dL 60-125 N [id number] 12:08:00 Test Item Value Reference Range Interpretation Comments GLUBED (test code = GLUBED) 111 mg/dL 60-125 N BASIC METABOLIC [id number] 07:28:00 Test Item Value Reference Range Interpretation [...] RATE (test code = GFR) mL/mi n/1.73 [id number] Range:Healthy Adults >90 mL/min/1.73 m2 For Chronic Kidney Disease: St age II Mild Decrease in GFR 60-90 St age III Moderate Decrease in GFR 30-59 Stage IV Severe Decre ase in GFR 15- 29 Stage V Kidney Failure <15 CREATININE (test code 1.60 mg/dL 0.55-1.30 H = CREAT) CALCIUM (test code = 8.1 mg/dL 8.2-10.1 L CA) CBC W/AUTO [id number] 06:00:00 Test Item Value Reference Range Interpretation [...] 0 % 0-0 N code = NRBC) [id number] 05:42:00 Test Item Value Reference Range Interpretation Comments GLUBED (test code = GLUBED) 122 mg/dL 60-125 N C REACTIVE [id number] 21:56:00 Test Item Value Reference Range Interpretation Comments C REACTIVE PROTEIN (test code = 2.1 mg/dL <0.9 CRP) ACUTE HEPATITIS [id number] 21:56:00 Test Item Value Reference Range Interpretation [...] NONREACTIVE NONREACTIVE DONE AT: [facility] = HIV1AB) [address] [address]Done by [employer] 4th Gen HIV Ag/Ab C ombo Screen ACUTE HEPATITIS [id number] 21:55:00 Test Item Value Reference Range Interpretation [...] 1 2 (test NONREACTIVE NONREACTIVE [facility] = [id number]) 4th Gen HIV Ag/Ab Combo Screen C REACTIVE [id number] 21:21:00 Test Item Value Reference Range Interpretation Comments C REACTIVE PROTEIN (test code = 2.1 mg/dL <0.9 CRP) ACUTE HEPATITIS [id number] 21:21:00 Test Item Value Reference Range Interpretation [...] (test code = HIV1AB) NONREACTIVE ACUTE HEPATITIS [id number] 21:20:00 Test Item Value Reference Range Interpretation [...] AB HIV 1 2 (test code = JEJ30ZN) NONREACTIVE CBC W/AUTO [id number] 17:23:00 Test Item Value Reference Range Interpretation [...] % 0-0 N code = NRBC) SED [id number] 17:23:00 Test Item Value Reference Range Interpretation Comments SED RATE (test code = SEDW) 23 mm/hr 0-20 H PROTHROMBIN [id number] 16:46:00 Test Item Value Reference Range Interpretation [...] BLOOD, PT every other day NTHROMBOPLASTIN TIME [id number] 16:46:00 Test Item Value Reference Range Interpretation Comments PTT ACTIVATED (test code = APTT) 35.0 secs 24.9-37.0 N IS PATIENT ON ANTICOAGULANTS ? YLIST ANTICOAGULANT/ANTI PLT MEDICATION : AspirinHas Lab been notified if Patient is on Heparin Drip? NOIf Yes, order CBC, OCCULT BLOOD, PT every other day NC REACTIVE [id number] 16:37:00 Test Item Value Reference Range Interpretation Comments C REACTIVE PROTEIN (test code = 2.1 mg/dL <0.9 CRP) ACUTE HEPATITIS [id number] 16:37:00 Test Item Value Reference Range Interpretation [...] (test code = HIV1AB) NONREACTIVE COMPREHENSIVE METABOLIC [id number] 16:37:00 Test Item Value Reference Range Interpretation [...] RATE (test code = GFR) mL/mi n/1.73 [id number] Range:Healthy Adults >90 mL/min/1.73 m2 For Chronic [...] TOTAL (test code = ALKP) CBC W/AUTO [id number] 15:58:00 Test Item Value Reference Range Interpretation [...] % 0-0 N code = NRBC) SED [id number] 15:58:00 Test Item Value Reference Range Interpretation Comments SED RATE (test code = SEDW) mm/hr 0-20 BASIC METABOLIC [id number] 06:19:00 Test Item Value Reference Range Interpretation [...] RATE (test code = GFR) mL/mi n/1.73 [id number] Range:Healthy Adults >90 mL/min/1.73 m2 For Chronic Kidney Disease: St age II Mild Decrease in GFR 60-90 St age III Moderate Decrease in GFR 30-59 Stage IV Severe Decre ase in GFR 15- 29 Stage V Kidney Failure <15 CREATININE (test code 1.31 mg/dL 0.55-1.30 H = CREAT) CALCIUM (test code = 8.8 mg/dL 8.2-10.1 N CA) HGB [id number] 05:43:00 Test Item Value Reference Range Interpretation Comments HEMOGLOBIN (test code = HGB) 12.1 g/dL 12-16 N HEMATOCRIT (test code = HCT) 38.0 % 37-47 N AB HIV 1 19:19:00 Test Item Value Reference Range Interpretation Comments AB HIV 1 2 (test NONREACTIVE NONREACTIVE Done [facility] = PNC53PM) 4th Gen HIV Ag/Ab Combo Screen AB HIV 19:19:00 Test Item Value Reference Range Interpretation Comments AB HIV 1 (test code NONREACTIVE NONREACTIVE DONE AT: [facility] = HIV1AB) [address], [place] [address]Done by [employer] 4th Gen HIV Ag/Ab C ombo Screen COMPREHENSIVE METABOLIC [id number] 18:55:00 Test Item Value Reference Range Interpretation [...] BUN) ANALYSIS.C RITICAL VALUE CALLED TO RYAN (CLERICAL ORDER FILLER) AND FAXEDTO DR.GOYT WOOD'S OFFICEREAD BACK & CONFIRMED? YESB Y F.LAB.AEG 07/24 1853 GLOMERULAR FILTRATION 31.7 >60 Unit o f measure: RATE (test code = mL/min/1.7 3 GFR) [id number] Range:Healthy A dults >90 mL/min/1.73 m2 For [...] H TOTAL (test code = ALKP) URINALYSIS [id number] 16:40:00 Test Item Value Reference Range Interpretation [...] = BACU) LOADED /HPF NONE A PROTHROMBIN [id number] 16:32:00 Test Item Value Reference Range Interpretation [...] BLOOD, PT every other day NTHROMBOPLASTIN TIME [id number] 16:32:00 Test Item Value Reference Range Interpretation [...]
[2021-04-23 12:38] LABS: Absolute Lymphocytes (CBC) 1.9 K/uL (0.7-4.9); Hematocrit 36.2 % (36.0-45.0); Lymphocytes % 19.5 % (15.3-44.8); MPV 8.5 fL (7.6-11.3); RBC Red Blood Cell Count 4.18 M/uL (3.86-4.86)
[2021-04-23 12:52] LABS: Potassium 3.5 mmol/L (3.5-5.1)
[2021-04-23] MEDS ORDERED: CEFAZOLIN SODIUM 1 GM/VIAL ONE (13:05)
[2021-04-23 13:06] LABS: Blood Morphology Comment NOT SEEN (NOT SEEN); Platelet Estimate ADEQ; Platelets, Giant FEW
[2021-04-23] MEDS ORDERED: NA CHLORIDE 0.9% 100 ML IV ONE (13:06)
--- NOTE | 2021-04-23 13:13 | ER ---
Nurse's Notes [facility] Name: Lauren Turcios Age: 71 yrs Sex: Female : 1950 Arrival Date: 04/23/2021 Time: 11:45 Bed 7 Private MD: Diagnosis: Cellulitis of left lower limb Presentation: 04/23 11:56 Chief complaint: Patient states: has chronic cellulitis to Left lower leg/foot; has vg1 been weeping x3 days. Denies fever or N/V. Coronavirus screen: Vaccine status: Patient reports receiving the 2nd dose of the covid vaccine. Client denies travel out of the [place] in the last 14 days. At this time, the client does not indicate any symptoms associated with coronavirus-19. Ebola Screen: Patient negative for fever greater than or equal to 101.5 degrees Fahrenheit, and additional compatible Ebola Virus Disease symptoms. Initial Sepsis Screen: Does the patient meet any 2 criteria? No. Patient's initial sepsis screen is negative. Does the patient have a suspected source of infection? No. Patient's initial sepsis screen is negative. Risk Assessment: Do you want to hurt yourself or someone else? Patient reports no desire to harm self or others. Onset of symptoms was April 20, 2021. 11:56 Method Of Arrival: Wheelchair vg1 11:56 Acuity: CALEB 3 vg1 Triage Assessment: 11:58 General: Appears in no apparent distress. uncomfortable, Behavior is calm, cooperative. vg1 Pain: Complains of pain in right foot Pain currently is 4 out of 10 on a pain scale. Quality of pain is described as burning. Historical: - Allergies: 11:58 adhesive tape-silicones; vg1 - PMHx: 11:58 Gait problem; Hypertensive disorder; neuropathy; Anxiety; Chronic Cellulitis; vg1 - PSHx: 11:58 lower back; R. leg surgery; Cholecystectomy; vg1 - Immunization history:: Client reports receiving the 2nd dose of the Covid vaccine. - Social history:: Smoking status: Patient denies any tobacco usage or history of. Screenin:30 Abuse screen: Denies threats or abuse. Denies injuries from another. Nutritional ld1 screening: No deficits noted. Tuberculosis screening: No symptoms or risk factors identified. Fall Risk None identified. Assessment: 12:30 General: Appears in no apparent distress. comfortable, Behavior is calm, cooperative, ld1 appropriate for age. Pain: Denies pain. Neuro: Level of Consciousness is awake, alert, obeys commands, Oriented to person, place, time, situation. Cardiovascular: Capillary refill < 3 seconds Patient's skin is warm and dry. Rhythm is regular. 12:30 Respiratory: Airway is patent Respiratory effort is even, unlabored, Respiratory ld1 pattern is regular, symmetrical. GI: Abdomen is round non-distended. : No signs and/or symptoms were reported regarding the genitourinary system. EENT: No signs and/or symptoms were reported regarding the EENT system. Derm: Reports tingling, in lower left leg. Musculoskeletal: No signs and/or symptoms reported regarding the musculoskeletal system. Vital Signs: 11:56 BP 133 / 65; Pulse 87; Resp 18; Temp 97.9; Pulse Ox 98% ; Weight 111.13 kg; Height 5 vg1 ft. 3 in. (160.02 cm); Pain 4/10; 12:30 BP 120 / 67; Pulse 75; Resp 18; Pulse Ox 100% on R/A; ld1 11:56 Body Mass Index 43.40 (111.13 kg, 160.02 cm) vg1 ED Course: 11:45 Patient arrived in ED. as 11:46 Rosalinda Suarez FNP-C [facility] kb 11:46 Landry Lopez MD is Attending Physician. kb 11:58 Triage completed. vg1 11:58 Arm band placed on. vg1 12:12 Bertha Ortiz, TIEN is Primary Nurse. ld1 12:32 Blood Culture Adult (2) Sent. ld1 12:32 Lactate Sent. ld1 12:32 Basic Metabolic Panel Sent. ld1 12:32 CBC with Diff Sent. ld1 13:36 No provider procedures requiring assistance completed. Inserted saline lock: 20 gauge dwyer in right antecubital area, using aseptic technique. IV discontinued, intact, Pressure dressing applied. 13:37 Patient has correct armband on for positive identification. Bed in low position. dweyr Administered Medications: 13:12 Drug: Ancef (cefazolin) 1 grams Route: IVPB; Site: right antecubital; ld1 Outcome: 13:12 Discharge ordered by . kb 13:36 Discharged to home dwyer 13:36 Condition: good 13:36 Discharge instructions given to patient, Prescriptions given X 2. 13:37 Patient left the ED. dwyer Signatures: Rosalinda Suarez, SYLVESTER ZAVALETA-Karis Arnold Victoria RN RN vg1 Bertha Ortiz RN RN ld1 Doris Thornton RN RN dwyer
--- NOTE | 2021-04-23 13:13 | EDPHYS ---
Physician Documentation [facility] Name: Lauren Turcios Age: 71 yrs Sex: Female : 1950 Arrival Date: 04/23/2021 Time: 11:45 Bed 7 Private MD: ED Physician Landry Lopez HPI: 04/23 13:09 This 71 yrs old Female presents to ER via Wheelchair with complaints of Leg Swelling - kb cellulitis. 13:09 The patient presents with cellulitis of the dorsum of left foot and anterior aspect of kb left ankle. Description: erythematous, swollen. Onset: The symptoms/episode began/occurred 2 day(s) ago. Possible cause(s): unknown. Associated signs and symptoms: Pertinent positives: drainage, erythema, swelling, Pertinent negatives: discharge, foreign body sensation, fever, headache, nausea, shortness of breath, vomiting. Modifying factors: the symptoms are alleviated by nothing, the symptoms are aggravated by nothing. Severity of symptoms: At their worst the symptoms were moderate, in the emergency department the symptoms are unchanged. The patient has experienced similar episodes in the past. The patient has not recently seen a physician. Pt reports chronic cellulitis. States the infection has been flaring up over the last 3 days. . Historical: - Allergies: 11:58 adhesive tape-silicones; vg1 - PMHx: 11:58 Gait problem; Hypertensive disorder; neuropathy; Anxiety; Chronic Cellulitis; vg1 - PSHx: 11:58 lower back; R. leg surgery; Cholecystectomy; vg1 - Immunization history:: Client reports receiving the 2nd dose of the Covid vaccine. - Social history:: Smoking status: Patient denies any tobacco usage or history of. ROS: 13:07 Constitutional: Negative for fever, chills, and weight loss. kb 13:07 MS/extremity: Positive for erythema, swelling, of the anterior aspect of left ankle and dorsum of left foot. 13:07 Skin: Positive for cellulitis. 13:07 All other systems are negative. Exam: 13:07 Constitutional: This is a well developed, well nourished patient who is awake, alert, kb and in no acute distress. Head/Face: Normocephalic, atraumatic. ENT: Moist Mucous membranes Respiratory: Respirations even and unlabored. No increased work of breathing. Talking in full sentences MS/ Extremity: Pulses equal, no cyanosis. Neurovascular intact. Full, normal range of motion. Neuro: Awake and alert, GCS 15, oriented to person, place, time, and situation. Moves all extremities. Normal gait. Psych: Awake, alert, with orientation to person, place and time. Behavior, mood, and affect are within normal limits. 13:07 Skin: cellulitis, that is mild, that is moderate, on the dorsum of left foot and anterior aspect of left ankle. Vital Signs: 11:56 BP 133 / 65; Pulse 87; Resp 18; Temp 97.9; Pulse Ox 98% ; Weight 111.13 kg; Height 5 vg1 ft. 3 in. (160.02 cm); Pain 4/10; 12:30 BP 120 / 67; Pulse 75; Resp 18; Pulse Ox 100% on R/A; ld1 11:56 Body Mass Index 43.40 (111.13 kg, 160.02 cm) vg1 MDM: 11:57 Patient medically screened. kb 13:06 Data reviewed: vital signs, nurses notes. Data interpreted: Pulse oximetry: on room air kb is 100 %. Interpretation: normal. Counseling: I had a detailed discussion with the patient and/or guardian regarding: the historical points, exam findings, and any diagnostic results supporting the discharge/admit diagnosis, lab results, the need for outpatient follow up, a family practitioner, to return to the emergency department if symptoms worsen or persist or if there are any questions or concerns that arise at home. 04/23 12:11 Order name: CBC with Diff; Complete Time: 13:13 kb 04/23 12:11 Order name: Basic Metabolic Panel; Complete Time: 12:56 kb 04/23 12:11 Order name: Blood Culture Adult (2) kb 04/23 12:11 Order name: Lactate; Complete Time: 12:56 kb 04/23 12:43 Order name: Manual Differential; Complete Time: 13:13 EDMS 04/23 12:11 Order name: IV Start; Complete Time: 12:32 kb Administered Medications: 13:12 Drug: Ancef (cefazolin) 1 grams Route: IVPB; Site: right antecubital; ld1 Disposition Summary: 04/23/21 13:12 Discharge Ordered Location: Home kb Condition: Stable kb Diagnosis - Cellulitis of left lower limb kb Followup: kb - With: Emergency Department - When: As needed - Reason: Worsening of condition Followup: kb - With: Private Physician - When: 2 - 3 days - Reason: Recheck today's complaints, Continuance of care, Re-evaluation by your physician Discharge Instructions: - Discharge Summary Sheet kb - Cellulitis, Adult, [id number] kb Forms: - Medication Reconciliation Form kb - Thank You Letter kb - Antibiotic Education kb - Prescription Opioid Use kb Prescriptions: - Cephalexin 500 mg Oral Capsule - take 1 capsule by ORAL route every 8 hours for 10 days; 30 capsule; Refills: 0, kb Product Selection Permitted - Bactrim DS 800-160 mg Oral Tablet - take 1 tablet by ORAL route every 12 hours for 10 days; 20 tablet; Refills: 0, kb Product Selection Permitted Signatures: Dispatcher [employer] Rosalinda Hall, MEGHANN-C MEGHANN-Marion Quinonez, RN RN vg1 Bertha Ortiz RN RN ld1
[2021-04-23 13:43] VITALS: TEMP 97.9
[2021-04-23 13:44] VITALS: BP 120/67; O2SAT 100
== END 2021-04-23 13:37 | disposition home or self-care (01) ==
LOC: ER 11:42
DX: L03.116 Cellulitis of left lower limb (principal); I10 Essential (primary) hypertension; Z91.048 Other nonmedicinal substance allergy status
CPT/HCPCS: 87040 ×2; 85025; 80048; 36415; 83605; 96374; 99284; J0690

== ENCOUNTER 2022-12-31 14:03 | Inpatient (IN) | payer OTHER ==
--- OUTSIDE RECORDS SUMMARY | 2022-12-31 14:06 | XMS REPORT | Continuity of Care Document ---
:1950 Author Organization [facility] t Address [address] [place] [address] Care Team Providers Name Role Phone Asked, No Pcp Primary Care Physician Unavailable Junito Brown Attending Clinician Unavailable Mayco Mcintyre Attending Clinician Unavailable FREDERIC HOLMAN Attending Clinician Unavailable MD FREDERIC HOLMAN Attending Clinician Unavailable Michel_Bhaskar Attending Clinician Unavailable Junito Brown Admitting Clinician Unavailable FREDERIC HOLMAN Admitting Clinician Unavailable MD FREDERIC HOLMAN Admitting Clinician Unavailable Munira Admitting Clinician Unavailable Payers Payer Name Policy Type Policy Number Effective Date Expiration Date S urbano [employer] - CHOICE (POS [id number]) Problems Condition Condition Condition Status Onset Resolution Last Treating Co mments Source Name Details Category Date Date Treatment Clinician Date Cellulitis Cellulitis Disease Active 2019- M ethodi of right of right 0-07 st leg leg 00:00: Hospita 00 l Primary Primary Problem Active 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 - [facility] right knee right knee [facility] Right Right Problem Active Common sciatic sciatic Spirit nerve pain nerve pain - [facility] Pain, Pain, Problem Active Common joint, joint, Spirit knee, knee, - [facility] right right [facility] Pain in Pain in Problem Active Common right right Spirit lower leg lower leg - CH I [facility] Edema leg Edema leg Problem Active Com mon Spirit - [facility] Calf Calf Problem Active Common tenderness tenderness Sp gena - [facility] Morbid Morbid Problem Active Common obesity obesity Spirit due to due to - [facility] excess excess St calories [facility] Allergies, Adverse Reactions, Alerts Allergy Allergy Status [...] 07-24 Clear Allergie 00:00: [place] [facility] 00 [facility] No Known DA Active U 0 [facility] Allergie 07-24 [place] [facility] 00[facility] 00 [facility] No Known DA Active U 0 [facility] Drug 07-24 [place] Allergie 00:00: Orthope s 00 dic Hospita l adhesive DA Active SV RASH,TEARS 0 [facility] tape SKIN EASILY 07-24 [place] 00:00: Orthope 00 dic Hospita l adhesive DA Active SV 0 [facility] tape 07-24 Clear 00:00: [place] 00 [facility] Adhesive Propensi Active Other (See 0 blister M ethodi ty to Comments) 07-24 st adverse 00:00: Hospita reaction 00 l s to drug Family History Family Member Diagnosis Comments Start Date Stop Date Source Natural mother Cancer [facility] Social History Social Habit Start Date Stop Date Quantity Comments Source Sexual orientation [facility] Alcohol intake 2019-11-20 2019-11-20 Lifetime Muslim 00:00:00 00:00:00 non-drinker Hospital (finding) History of Social 2019-11-20 2019-11-[address] function 00:00:00 00:00:00 Hospital Tobacco use and 2019-11-12 2019-11-12 Smokeless Muslim exposure 00:00:00 00:00:00 tobacco non-user Hospital Sex Ass[birth year] At [birth year] Muslim 00:00:00 00:00:00 Hospital Smoking Status Start Date Stop Date Source Never smoked tobacco [facility] Medications Ordered Filled Start Stop Current Ordering Indication Dosage Frequency Signature Comments Components Source Medication Medication Date Date Medication? Clinician (SIG) Name Name ramipriL 2019-02 Yes 10mg QD Take 10 mg Met hodi (ALTACE) 10 0-[address] MG capsule 16:58: daily. Hospi ta 47 l triamterene 2019-02 Yes 1{tbl} QD Take 1 Me thodi -hydrochlor 0-[address] othiazid 16:58: mouth Hospita (MAXZIDE) 47 daily. l 75-50 mg per tablet gabapentin 2019-02 Yes 400mg Q.5D Take 400 Me th[facility] (NEURONTIN) 0-[address] 400 mg 16:58: mouth 2 Hospita capsule 47 (two) l times a day. rOPINIRole 2019-02 Yes 10mg QD Take 10 mg M ethodi (REQUIP) 5 0-[address] MG tablet 16:58: nightly. Hosp darcie 47 l temazepam 2019-02 Yes 15mg QD Take 15 mg Me thodi (RESTORIL) 0-[address] 15 mg 16:58: nightly as Hospit a capsule 47 needed for l sleep. DULoxetine 2019-02 Yes 30mg QD Take 30 mg M ethodi (CYMBALTA) 0-[address] 30 MG 16:58: daily. Hospita capsule 47 l Diclofenac Diclofenac Yes Rene not C ommon Sodium Sodium Sigifredo defined [facility] Gabapentin Gabapentin Yes Rene not C ommon Sigifredo defined [facility] Maxidex Maxidex Yes Rene not Common Siigfredo defined [facility] Ramipril Ramipril Yes Rene not Commo n Sigifredo defined [facility] Hydrocodone Hydrocodone Yes Rene not Common -Acetaminop -Acetaminop Sigifredo defined [facility] Meloxicam Meloxicam Yes Rene not Com mon Sigifredo defined [facility] Amitriptyli Amitriptyli Yes Rene not Common ne HCl ne HCl Sigifredo defined [facility] Cymbalta Cymbalta Yes Rene not Commo n Sigifredo defined [facility] Ropinirole Ropinirole Yes Rene not C ommon HCl HCl Mei defined [facility] Immunizations Ordered Immunization Filled Immunization Date Status Commen ts Source Name Name Pneumococcal Unknown Completed [facility] FLUZONE HIGH-DOSE PF Unknown Completed [facility] Procedures Procedure Date / Time Performed Performing Clinician Sour e [id number] 2019-06-05 00:00:00 BRIMA.01 [facility] [id number] 2019-06-05 00:00:00 BRIMA.01 [facility] [id number] 2019-06-05 00:00:00 BRIMA.01 [facility] Plan of Care Planned Activity Planned Date Details Comments Source Future Scheduled 2022-12-14 Screening for [facility] Test 05:25:16 malignant neoplasm of colon (procedure) [code = 471223355] Future Scheduled 2022-12-14 Screening for [facility] Test 05:25:16 malignant neoplasm of colon (procedure) [code = 758109346] Future Scheduled 2022-12-14 Screening for [facility] Test 05:25:16 malignant neoplasm of colon (procedure) [code = 541155037] Future Scheduled 2022-12-14 COVID-19 VACCINE (#1) [facility] Test 05:25:16 [code = COVID-19 VACCINE (#1)] Future Scheduled 2022-12-14 BREAST CANCER [facility] Test 05:25:16 SCREENING [code = BREAST CANCER SCREENING] Future Scheduled 2022-12-14 Screening for [facility] Test 05:25:16 malignant neoplasm of colon (procedure) [code = 580997273] Future Scheduled 2022-12-14 Screening for [facility] Test 05:25:16 malignant neoplasm of colon (procedure) [code = 810110666] Future Scheduled 2022-12-14 SHINGLES VACCINES (1 Met [facility] Test 05:25:16 of 2) [code = SHINGLES VACCINES (1 of 2)] Future Scheduled 2022-12-14 65+ PNEUMOCOCCAL [facility] Test 05:25:16 VACCINE (2 - PCV) [code = 65+ PNEUMOCOCCAL VACCINE (2 - PCV)] Future Scheduled 2022-12-14 INFLUENZA VACCINE (#1) [facility] Test 05:25:16 [code = INFLUENZA VACCINE (#1)] Encounters Start End Encounter Admission Attending Care Care Encounter Source Date/Time Date/Time Type Type Clinicians Facility Department ID 2019-06-05 Inpatient YOANNA Krishnamurthy ADMI [id number] [facility] 11:51:00 [facility] 2022-07-13 2022-07-13 Outpatient CINDY Mcintyre [facility] [id number] [place] 11:46:00 11:46:00 Mayco [id number] [facility] 2019-11-12 2019-11-19 Inpatient [facility] [id number] [place] 00:00:00 00:00:00 FREDERIC Mcdonald [facility] 2019-10-29 2019-10-29 Outpatient THERESA BrownTO RADI [id number] [facility] 09:00:00 09:00:00 Junito [id number] [facility] 2019-10-06 2019-10-06 Outpatient C_[facility]le MM MMG [id number] [place] 05:23:00 05:23:00 [id number] 2019-05-28 2019-05-28 Outpatient THERESA BrownTO RADI [id number] [facility] 09:00:00 09:00:00 Junito [id number] [facility] 2018-06-06 2018-06-06 Outpatient [facility] [id number] Common 11:19:00 11:19:00 [facility] 2018-06-04 2018-06-04 [facility] [id number] Common 16:36:00 16:36:00 t [facility] 2018-06-03 2018-06-03 [facility] [id number] Common 11:00:00 11:00:00 t [facility] Bone [facility] Sp[facility] t and [facility] 2018-05-17 2018-05-17 [facility] [id number] Common 09:00:00 09:00:00 t [facility] Bone [facility] Spiri t and [facility] 2018-05-13 2018-05-13 Outpatient [facility] [id number] Common 11:52:00 11:52:00 t Bone Bone and Spiri t and Joint [facility] - [facility] 2018-05-10 2018-05-10 Outpatient [facility] [id number] Common 09:30:00 09:30:00 t [facility] Bone [facility] Sp[facility] t [facility] 2018-05-03 2018-05-03 Outpatient [facility] [id number] Common 09:00:00 09:00:00 t [facility] Bone [facility] Sp[facility] t [facility] Results Test Description Test Time Test Comments Results Result Comments Source SARS-CoV-2 (COVID-19) RNA [Presence] in Respiratory sp ecimen by 2019-11-18 09:05:24 ARPITA with probe detection Test Item Value Reference Range Interpretation Comme nts SARS-CoV-2 (COVID-19) RNA [Presence] in Respiratory Not detected No t-Detected specimen by ARPITA with probe detection (test code = 25498-5) TAWNYA MARIANORS-CoV-2 (COVID-19) RNA [Presence] in Respiratory specimen by ARPITA with probe [id number] 02:04:12 Test Item Value Reference Range Interpretation Comments SARS-CoV-2 (COVID-19) RNA Not detected Not-Detected [Presence] in Respiratory specimen by ARPITA with probe detection (test code = 55414-6) TAWNYA WELDON- CT LOWER EXTRM W/O C [id number] 09:44:00 Patient Name: LAUREN TURCIOS Unit No: [id number] EXAMS: CPT CODE: [id number] CT LOWER EXTRM W/[place] [address] [place] SCAN RIGHT FEMUR WITH RECONSTRUCTION DIAGNOSIS: 1. The current exam is comparedto a previous exam dated May 28, 2019. There is a transversely oriented fracture through the distal femoral diaphysis. There is interval development of bridging callus predominantly involving the anterior, posterior and medial aspect of the fracture. Healing accounts for approximately 40% of fracture surface area. Fracture fragments are well aligned. There is internal fixation of the described fracture with medial lateral bone plates and fixator screws. TECHNIQUE: Volumetric CT data of the right femur was obtained without use of intravenous contrast. Images were then viewed in the axial, coronal and sagittal planes. CT radiation dose optimization is achieved for this examination by the use of a CT protocol in accordance with ACR practice standards and adherence to sheet rock sander's recommendations. INDICATION: ASSESS HEALING COMPARISON: The current exam is compared to a previous exam dated May 28, 2019. COMMENT: Findings are as described above. at 0944 Reported and signed by: Gene Canas MD CC: Junito Brown MD; Bhaskar More III, MD Technologist: Christ HuertaRT(R) CTDI: DLP: Trnscrpt: 10/29/2019 (0944) t.SDR.GVG [facility] NAME: LAUREN TURCIOS [address] [place] [address] PHYS: BRIMA. - Junito Brown MD : 1950 AGE: 69 SEX: F [place] [address] LOC: Y.RAD PHONE #: [phone] EXAM DATE: 10/29/2019 STATUS: REG CLI FAX #: [phone] RAD #: D/C DT PAGE 1 Signed Report Patient Name: LAUREN TURCIOS Unit No: [id number] EXAMS: CPT CODE: [id number] [place] LOWER EXTRM W/[place] [address] (Continued) Orig Print D/T: S: 10/29/2019 (0947) [facility] NAME: LAUREN TURCIOS [address] [place] [address] PHYS: BRIMA. - Junito Brown MD : 1950 AGE: 69 SEX: [place] [address] LOC: Y.RAD PHONE #: [phone] EXAM DATE: 10/29/2019 STA TUS: REG CLI FAX #: [phone] RAD #: D/C DT PAGE 2 Signed ReportGLUBED 2019-06-18 08:52:00 Test Item Value Reference Range Interpretation Comments GLUBED (test code = GLUBED) 99 mg/dL 60-125 N [id number] 08:51:00 Test Item Value Reference Range Interpretation Comments GLUBED (test code = GLUBED) 104 mg/dL 60-125 N BASIC METABOLIC [id number] 06:22:00 Test Item Value Reference Range Interpretation [...] RATE (test code = GFR) mL/mi n/1.73 [id number] Range:Healthy Adults >90 mL/min/1.73 m2 For Chronic Kidney Disease: Stage II Mild Decrease i n GFR 60-90 Stage III Moderate Decrea se in GFR 30-59 St age IV Severe Decre ase in GFR 15-29 St age V Kidney Failur e <15 CREATININE (test code 1.27 mg/dL 0.55-1.30 N = CREAT) CALCIUM (test code = 8.6 mg/dL 8.2-10.1 N CA) CBC W/AUTO [id number] 05:55:00 Test Item Value Reference Range Interpretation [...] 0 % 0-0 N code = NRBC) [id number] 05:51:00 Test Item Value Reference Range Interpretation Comments GLUBED (test code = GLUBED) 91 mg/dL 60-125 N [id number] 21:48:00 Test Item Value Reference Range Interpretation Comments GLUBED (test code = GLUBED) 102 mg/dL 60-125 N - CT LOWER EXTRM W/O C [id number] 19:14:00 Patient Name: LAUREN TURCIOS Unit No: [id number] EXAMS: CPT CODE: [id number] [place] W/[place] [address] TECHNIQUE: Volumetric CT data of the right femur was obtained without use of intravenous contrast. Images were then viewed in the axial, coronal and sagittal planes. CT radiation doseoptimization is achieved for this examination by the use of a CT protocol in accordance with ACR practice standards and adherence to sheet rock sander's recommendations. INDICATION: RIGHT DISTAL FEMUR ASSESS HEALING COMPARISON: None. FINDINGS: Lateral plate and screw fixation of the right distal femoral periprosthetic fracture is demonstrated with intact hardware. Callus formation is noted with a fracture. There is no evidence of fracture healing. Alignment is within normal limits. No other fractures iden tified. IMPRESSION: Internally fixated right distal femoral fracture without evidence of healing. at 1914 Reported and signed by: Gamal Vargas M.D. CC: Junito Brown MD Technologist: Christ Huerta,RT(R) CTDI: DLP: Trnscrpt: 05/28/2019 (1913) SeniaSLJ [facility] NAME: LAUREN TURCIOS [address] [place] [address] PHYS: - Junito Brown MD : 1950 AGE: 69 SEX: F [place] [address] LOC: Y.RAD PHONE #: [phone] EXAM DATE: 05/28/2019 STATUS: REG CLI FAX #: [phone] RAD #: D/C DT PAGE 1 Signed Report Patient Name: LAUREN TURCIOS Unit No: [id number] EXAMS: CPT CODE: [id number] CT LOWER EXTRM W/[place] [address] (Continued) Orig Print D/T: S: 05/28/2019 (1916) [facility] NAME: LAUREN TURCIOS [address] [place] [address] PHYS: - Junito Brown MD : 1950 AGE: 69 SEX: F [place] [address] LOC: Y.RAD PHONE #: [phone] EXAM DATE: 05/28/2019 STATUS: REG CLI FAX #: [phone] RAD #: D/C DT PAGE 2 Signed ReportCBC W/AUTO [id number] 14:16:00 Test Item Value Reference Range Interpretation [...] % 0-0 N code = NRBC) SED [id number] 14:16:00 Test Item Value Reference Range Interpretation Comments SED RATE (test code = SEDW) 26 mm/hr 0-20 H COMPREHENSIVE METABOLIC [id number] 13:40:00 Test Item Value Reference Range Interpretation [...] = BUN) ANALYSIS.C RITICAL VALUE CALLED TO LAUREN WITH 'S OFFICEREAD BACK & CONFIRMED ? GUNJAN F.LAB.AEG 05/28/19 1340 GLOMERULAR FILTRATION 32.8 >60 Unit o f measure: RATE (test code = mL/min/1.7 3 GFR) [id number] Range:Healthy A dults >90 mL/min/1.73 m2 For Chronic Kid jacqueline Disease: Stage II Mild Decrease i n GFR 60-90 Stage III Moderate Decrea se in GFR 30-59 Stage IV Severe Decrease in GFR 15-29 Stage V Kidney Failure <15 CREATININE (test code 1.56 mg/dL 0.55-1.30 [...] TOTAL (test code = ALKP) C REACTIVE [id number] 13:38:00 Test Item Value Reference Range Interpretation Comments C REACTIVE PROTEIN (test code = < 0.2 mg/dL <0.9 CRP) PROTHROMBIN [id number] 13:30:00 Test Item Value Reference Range Interpretation Comments PROTHROMBIN TIME 10.7 secs 10.1-12.5 N PATIENT (test code = PTP) INTERNATIONAL NORMAL 0.95 <2.0 RECOMME NDED THERAPEUTIC RATIO (test code = RANGE FOR ORAL INR) ANTICOAGULANTTR EATMENT: CONDITION INRPr ophylaxis of venous throm bosis in 2.0 - 3.0 high- risk medical or surg ical patientsTreatme nt of venous thrombos is 2.0 - 3.0Prevention o f embolism 2.0 - 3.0Prevention o f recurrent embol ism, or 3.0 - 4.5 patie nts with mechanical pros thetic intravascular v jasso IS PATIENT ON ANTICOAGULANTS ? YLIST ANTICOAGULANT/ANTI PLT MEDICATION : AspirinHas Lab been notified if Patient is on Heparin Drip? NOIf Yes, order CBC, OCCULT BLOOD, PT every other day NTHROMBOPLASTIN TIME [id number] 13:30:00 Test Item Value Reference Range Interpretation Comments PTT ACTIVATED (test code = APTT) 34.7 secs 24.9-37.0 N IS PATIENT ON ANTICOAGULANTS ? YLIST ANTICOAGULANT/ANTI PLT MEDICATION : AspirinHas Lab been notified if Patient is on Heparin Drip? NOIf Yes, order CBC, OCCULT BLOOD, PT every other day NCBC W/AUTO [id number] 13:16:00 Test Item Value Reference Range Interpretation [...] % 0-0 N code = NRBC) SED [id number] 13:16:00 Test Item Value Reference Range Interpretation Comments SED RATE (test code = SEDW) mm/hr 0-20 [id number] 12:53:00 Test Item Value Reference Range Interpretation Comments GLUBED (test code = GLUBED) 100 mg/dL 60-125 N [id number] 12:08:00 Test Item Value Reference Range Interpretation Comments GLUBED (test code = GLUBED) 111 mg/dL 60-125 N BASIC METABOLIC [id number] 07:28:00 Test Item Value Reference Range Interpretation [...] RATE (test code = GFR) mL/mi n/1.73 [id number] Range:Healthy Adults >90 mL/min/1.73 m2 For Chronic Kidney Disease: Stage II Mild Decrease i n GFR 60-90 Stage III Moderate Decrea se in GFR 30-59 St age IV Severe Decre ase in GFR 15-29 St age V Kidney Failur e <15 CREATININE (test code 1.60 mg/dL 0.55-1.30 H = CREAT) CALCIUM (test code = 8.1 mg/dL 8.2-10.1 L CA) CBC W/AUTO [id number] 06:00:00 Test Item Value Reference Range Interpretation [...] 0 % 0-0 N code = NRBC) [id number] 05:42:00 Test Item Value Reference Range Interpretation Comments GLUBED (test code = GLUBED) 122 mg/dL 60-125 N C REACTIVE [id number] 21:56:00 Test Item Value Reference Range Interpretation Comments C REACTIVE PROTEIN (test code = 2.1 mg/dL <0.9 CRP) ACUTE HEPATITIS [id number] 21:56:00 Test Item Value Reference Range Interpretation [...] NONREACTIVE NONREACTIVE DONE AT: [facility] = HIV1AB) [facility] [address], [place] [address]Done by [employer] 4th Gen HIV Ag/Ab C ombo Screen ACUTE HEPATITIS [id number] 21:55:00 Test Item Value Reference Range Interpretation [...] 1 2 (test NONREACTIVE NONREACTIVE Done by [employer] code = [id number]) 4th Gen HIV Ag/Ab Combo Screen C REACTIVE [id number] 21:21:00 Test Item Value Reference Range Interpretation Comments C REACTIVE PROTEIN (test code = 2.1 mg/dL <0.9 CRP) ACUTE HEPATITIS [id number] 21:21:00 Test Item Value Reference Range Interpretation [...] (test code = HIV1AB) NONREACTIVE ACUTE HEPATITIS [id number] 21:20:00 Test Item Value Reference Range Interpretation [...] AB HIV 1 2 (test code = LRJ64EJ) NONREACTIVE CBC W/AUTO [id number] 17:23:00 Test Item Value Reference Range Interpretation [...] % 0-0 N code = NRBC) SED [id number] 17:23:00 Test Item Value Reference Range Interpretation Comments SED RATE (test code = SEDW) 23 mm/hr 0-20 H PROTHROMBIN [id number] 16:46:00 Test Item Value Reference Range Interpretation Comments PROTHROMBIN TIME 10.9 secs 10.1-12.5 N PATIENT (test code = PTP) INTERNATIONAL NORMAL 0.97 <2.0 RECOMME NDED THERAPEUTIC RATIO (test code = RANGE FOR ORAL INR) ANTICOAGULANTTR EATMENT: CONDITION INRProphylaxis of venous thrombosis in 2 .0 - 3.0 high-risk medic al or surgical patientsTreatme nt of venous thrombos is 2.0 - 3.0Prevention o f embolism 2.0 - 3.0Prevention o f recurrent embol ism, or 3.0 - 4.5 patie nts with mechanical pros thetic intravascular v jasso IS PATIENT ON ANTICOAGULANTS ? YLIST ANTICOAGULANT/ANTI PLT MEDICATION : AspirinHas Lab been notified if Patient is on Heparin Drip? NOIf Yes, order CBC, OCCULT BLOOD, PT every other day NTHROMBOPLASTIN TIME [id number] 16:46:00 Test Item Value Reference Range Interpretation Comments PTT ACTIVATED (test code = APTT) 35.0 secs 24.9-37.0 N IS PATIENT ON ANTICOAGULANTS ? YLIST ANTICOAGULANT/ANTI PLT MEDICATION : AspirinHas Lab been notified if Patient is on Heparin Drip? NOIf Yes, order CBC, OCCULT BLOOD, PT every other day NC REACTIVE [id number] 16:37:00 Test Item Value Reference Range Interpretation Comments C REACTIVE PROTEIN (test code = 2.1 mg/dL <0.9 CRP) ACUTE HEPATITIS [id number] 16:37:00 Test Item Value Reference Range Interpretation [...] (test code = HIV1AB) NONREACTIVE COMPREHENSIVE METABOLIC [id number] 16:37:00 Test Item Value Reference Range Interpretation [...] RATE (test code = GFR) mL/mi n/1.73 [id number] Range:Healthy Adults >90 mL/min/1.73 m2 For Chronic Kidney Disease: Stage II Mild Decrease i n GFR 60-90 Stage III Moderate Decrea se in GFR 30-59 St age IV Severe Decre ase in GFR 15-29 S tage V Kidney Failur e <15 CREATININE (test code 1.28 mg/dL 0.55-1.30 [...] TOTAL (test code = ALKP) CBC W/AUTO [id number] 15:58:00 Test Item Value Reference Range Interpretation [...] % 0-0 N code = NRBC) SED [id number] 15:58:00 Test Item Value Reference Range Interpretation Comments SED RATE (test code = SEDW) mm/hr 0-20 BASIC METABOLIC [id number] 06:19:00 Test Item Value Reference Range Interpretation [...] RATE (test code = GFR) mL/mi n/1.73 [id number] Range:Healthy Adults >90 mL/min/1.73 m2 For Chronic Kidney Disease: Stage II Mild Decrease i n GFR 60-90 Stage III Moderate Decrea se in GFR 30-59 St age IV Severe Decre ase in GFR 15-29 S tage V Kidney Failur e <15 CREATININE (test code 1.31 mg/dL 0.55-1.30 H = CREAT) CALCIUM (test code = 8.8 mg/dL 8.2-10.1 N CA) HGB [id number] 05:43:00 Test Item Value Reference Range Interpretation Comments HEMOGLOBIN (test code = HGB) 12.1 g/dL 12-16 N HEMATOCRIT (test code = HCT) 38.0 % 37-47 N AB HIV 1 19:19:00 Test Item Value Reference Range Interpretation Comments AB HIV 1 2 (test NONREACTIVE NONREACTIVE Done by [employer] code = [id number]) 4th Gen HIV Ag/Ab Combo Screen AB HIV 19:19:00 Test Item Value Reference Range Interpretation Comments AB HIV 1 (test code NONREACTIVE NONREACTIVE DONE AT: [facility] = HIV1AB) [facility] [address], [place] [address]Done by [employer] 4th Gen HIV Ag/Ab C ombo Screen COMPREHENSIVE METABOLIC [id number] 18:55:00 Test Item Value Reference Range Interpretation [...] BUN) ANALYSIS.C RITICAL VALUE CALLED TO RYAN (SENIOR ACCOUNTING ANALYST) AND FAXEDTO DR.GOYT WOOD'S OFFICEREAD BACK & CONFIRMED? YESB Y F.LAB.AEG 07/24 2391 GLOMERULAR FILTRATION 31.7 >60 Unit o f measure: RATE (test code = mL/min/1.7 3 GFR) [id number] Range:Healthy A dults >90 mL/min/1.73 m2 For Chronic Kid jacqueline Disease: Stage II Mild Decrease i n GFR 60-90 Stage III Moderate Decrea se in GFR 30-59 Stage IV Severe Decrease in GFR 15-29 Stage V Kidney Failure <15 CREATININE (test code 1.61 mg/dL 0.55-1.30 [...] H TOTAL (test code = ALKP) URINALYSIS [id number] 16:40:00 Test Item Value Reference Range Interpretation [...] = BACU) LOADED /HPF NONE A PROTHROMBIN [id number] 16:32:00 Test Item Value Reference Range Interpretation Comments PROTHROMBIN TIME 11.5 secs 10.1-12.5 N PATIENT (test code = PTP) INTERNATIONAL NORMAL 1.02 <2.0 RECOMME NDED THERAPEUTIC RATIO (test code = RANGE FOR ORAL INR) ANTICOAGULANTTR EATMENT: CONDITION INRPr ophylaxis of venous throm bosis in 2.0 - 3.0 high- risk medical or surg ical patientsTreatme nt of venous thrombos is 2.0 - 3.0Prevention o f embolism 2.0 - 3.0Prevention o f recurrent embol ism, or 3.0 - 4.5 patie nts with mechanical pros thetic intravascular v jasso IS PATIENT ON ANTICOAGULANTS ? NHas Lab been notified if Patient is on Heparin Drip? NOIf Yes, orderCBC, OCCULT BLOOD, PT every other day NTHROMBOPLASTIN TIME NRAJVZR6720-10-51 16:32:00 Test Item Value Reference Range Interpretation [...] 0 % 0-0 N code = NRBC) Notes Date/Time Note Provider Source 2019-06-06 17:44:00 [id number]:44:00 [facility] ([facility])Clinical NoteREPORT#:[id number] REPORT STATUS: SignedDATE:06/06/19 TIME: 1743 PATIENT: LAUREN TURCIOS UNIT #: [id number]#: [id number] ROOM[facility]BED: [facility]-ADOB: [birth year] AGE: 69 SEX: F ATTEND: Junito Brown MDADM AUTHOR: Terrence Alvarado MD * ALL edits or amendments must be made on the electronic/computer document * Clinical NoteNote:Progress Note Dictated 111 727 at 1747 RPT #:[id number] OF REPORT CLClinical dwhr3774-74-57K08:44:00Y.[id number] priyank able for patient hvazQKJVLEPDMRQAPP7639-04-89K92:47:35 2019-06-06 15:19:00 [id number]:19:439902-5 [address] [place] [id number] PATIENT NAME: LAUREN TURCIOS ADMIT DATE: 06/05/19ACCOUNT NO: [id number] ROOM NO: [facility] AGE: 69 REPORT TYPE: PROGRESS NOTE SEX: F ADMITTING PHYSICIAN:Junito Brown MD ATTENDING PHYSICIAN:Junito Brown MD DATE: 06/06/2019 SUBJECTIVE: The patient is alert. The patient is seen in her room. Herhusband is present. Nurses report that the patient has good pain control today. She has also been transferring independently from the bed to a wheelchair andback. The patient does have good strength in both arms. The patient can dorsiflex both feet a t the ankles. The patient states that her pain at rest is a 1 on a scale of 0 to 10. With activity , the pain will go up to 4. No cramping or spasm. No nausea. Vital signs reviewed. Blood pressure is 106/59, pulse rate of 101, ganncjgrlztl96. Temperature 36.6 Celsius. Oxygen saturation is 99%. Laboratory data reviewed. Glucose level is 91. WBCs increased 11,800, hemoglobin 11.6 g, hematocrit 37%. Platelets 291,000. Neutrophils 71%, lymphocytes 16%, monocytes 6%, eosinophils 1%. Sodium is 143, potassium is 4.9. BUN has increased 27, creatinine level is 1.27. Glomerular filtration rate is 41.6. Calcium leve l is 8.6. PATIENT NAME: LAUREN TURCIOS Medications reviewed. Th e patient is on enoxaparin 40 mg subcutaneously q.a.m.to help prevent deep vein thrombosis in extremities. The patient was given her third dos e of cefazolin 2 g IV piggyback q. 8 hours. The patient is on duloxetine 30 mg daily at bedtime. The patient is on triamterene/hydrochlorothiazid e 37.5/25 one tablet at bedtime. The patient is also on ropinirole 5 mg t.i.d., restless leg symptoms. No doseswere given here in the hospital. The patient is on baclofen 5 mg q. 6 hours. She reports it is helping todecrease muscle spasm and associated pain. The patient will be discharged to home today. The patient dwyer s been given a discharge prescription for baclofen 10 mg one-halftablet q. 6 hours, dispensed 30, x 1 refill. The patient instructed to take the baclofen scheduled 5 mg q. 6 hours x2 weeks,then p.r.n. muscle spasm in the leg or even into the low back thereafter. The patient also given prescription for Tylenol No. 3 one tablet q.i.d. q. 6hours p.r.n. pain, dispensed 40, no refills. The patient also instructed to call Dr. Brown' s office to schedule outpatientfollowup visit. The patient states they do have an appointment to se sixto Brown a week from next Sunday. Dictated By: Terrence Alvarado MD WT: PN:YZORAIDA/KATE/NEYMARDD: 06/06/2019 15:19:24DT: 06/06/2019 15:32:58Conf#: [id number]/DID#: [id number] Authenticated by Terrence Alvarado MD On 06/09/2019 01:51:51 PM at 1352 PATIENT NAME: LAUREN TURCIOSROHINI Sxzn1328-58-16G28:32:00Y.[id number] a ble for patient dimqSMHWBXIXOFRJUI8020-99-83J35:52:23 2019-06-06 13:22:00 HTxenpnrnsx286500128857-72-62I11:22:00 [facility] ([facility])Discharge SummaryREPORT#:[id number] REPORT STATUS: SignedDATE:06/06/19 TIME: 1322 PATIENT: LAUREN UTRCIOS UNIT #: [id number]#: [id number] [facility] AGE: 69 SEX: F ATTEND: Junito Brown [facility] AUTHOR: Junito Brown MD * ALL edits or amendments must be made on the electronic/computer document * PC P PCPDischarge to: home General InformationDate of admission:Observation Start Date: Date of admission: 06/05/19 Discharge date: 06/06/19Hospital course:06/05/2019: Right femur ORIF, Left femur RIAConsultants: internal medicine, pain managementPt. condition on discharge: stableAllergies:Allergies:adhesive tape (Coded, Severe, RASH,TEARS SKIN EASILY, 07/24/18)No Known Drug Allergies (Coded, 05/28/19) Med Rec PCPPCP:PCP: Undefined Provider Med RecDischarge meds:Continue taking these medications:RAMIPRIL (ALTACE) 10 MG CAP 10 MILLIGRAM ORAL BEDTIME. TRIAMTERENE/HCTZ (MAXZID E 75/50 MG) 1 TAB TAB 1 TABLET ORAL BEDTIME. DULoxetine DR (CYMBALTA) 30 MG CAP.DR 300 MILLIGRAM ORAL BEDTIME. TEMAZEPAM (RESTORIL) 15 MG CAP 15 MILLIGRAM ORAL BEDTIME. rOPINIRole (REQUIP) 5 MG TAB 5 MILLIGRAM ORAL THREE TIMES DAILY NEEDED. as needed for RESTLESS LEG ASPIRIN (ASPIRIN) 81 MG TAB.CHEW 81 MILLIGRAM ORAL BEDTIME. ASPIRIN/APAP/CAFF 250/250/65 MG (EXCEDRIN EX-STR) 250 MG-250 MG-65 MG TAB 2 CAPSULE ORAL PRN as needed for PAIN Discharge InstructionsActivity: non-weight bearing, left, non-weight bearing, rightWound/dressing care: Keep wound clean and dry, Leave dressing in placeAdditional instructions:Take aspirin 81mg daily for DVT prophylaxis at 1044 RPT #:[id number] OF REPORT DSDischarge bqgomyt9383-62-57M85:22:00Y.[id number] v ailable for patient tjycMTCPIGRUUBEWXL7681-32-77A76:44:52 2019-06-06 09:57:00 WRqadfwvutg846803212039-25-03X44:57:00 [facility] ([facility])Clinical NoteREPORT#:[id number] REPORT STATUS: SignedDATE:06/06/19 TIME: 09 PATIENT: LAUREN TURCIOS UNIT #: [id number]#: [id number] [facility] [birth year] AGE: 69 SEX: F ATTEND: Junito Brown [facility] AUTHOR: Rikki Salinas MD * ALL edits or amendments must be made on the electronic/computer document * Clinical NoteNote:[facility] Rikki Núñez M.D. (cell text [phone]) Assessment/Plan1.) Anemia of acute blood loss- .Hgb 11.62.) S/p Right femur ORIF, Left femur NGUYỄN .acute pain control. Anticoagulation as per Dr. Brown.3.) Hypertension- .follow BP and hold Rxs if SBP<120.4.) Diabetes-2 Restless Legs Syndrome OsteoArthritis Hyperlipidemia- .continue on Rx.* OK for DISCHARGE per Internal Medicine. Prior Events/Overnight: Uneventful.Chief Complaint: No significant complaints. ObjectiveVital Signs: Date Time Temp Pulse Resp B/P B/P Pulse O2 O2 Flow FiO2 Mean Ox Delivery Rate 06/05 1208 97.9 101 14 106/59 74.9 99 Nasal cannula 06/05 0723 100 Nasal 3.158848 cannula 06/05 0717 94 14 132/84 99.8 06/05 0716 97.7 98 14 93/59 70.4 100 Nasal cannula 06/05 0428 98 Nasal 3.533671 32 cannula 06/05 0328 97.9 84 17 167/90 116.0 97 Nasal 3.049196 cannula 06/04 2349 83 14 148/86 106.5 06/04 2334 99 Nasal 3.481849 32 cannula 06/04 2250 97.5 90 17 98/64 75.1 100 Nasal 3.410140 cannula 06/04 2227 Nasal 3.012967 cannula 06/04 2208 87 14 136/81 99.6 06/04 1943 97.7 79 17 135/79 97.5 100 Nasal 3.386569 cannula 06/04 1916 Nasal 3.479008 cannula 06/04 1854 96.3 101 18 138/87 103.9 100 Nasal cannula 06/04 1830 98.0 74 18 154/76 100 Nasal 3.175315 cannula 06/04 1815 Nasal 3.351111 cannula 06/04 181 98.0 78 15 122/60 100 Nasal 3.776399 cannul a 06/04 1759 76 15 128/61 100 Simple 8.702736 mask 06/04 1745 Simple 8.712651 mask 06/04 1742 98.0 76 17 155/68 100 Simple 8.374824 mask Gen: Alert , oriented, in mild discomfort Neck: No Masses, No Thyromegaly-CV: Regular Rate Rhythm / Edema- no significant Resp: Clear To Ascultation / Normal Respiratory EffortABD: NonTender / NonDistended MS/Skin: No sign of compartment syndrome / +toesDF/PF / nl capillary refill oftoesOther: Labs/X-ray: Laboratory Tests: 06/05 06/05 06/04 0537 0330 2110 Chemistry Sodium (136 - 145 mmol/L) 143 Potassium (3.5 - 5.1 mmol/L) 4.9 Chloride (98 - 107 mmol/L) 104.0 Carbon Dioxide (21 - 32 mmol/L) 28.5 BUN (7 - 18 mg/dL) 27 H Creatinine (0.55 - 1.30 mg/dL) 1.27 Glomerular Filtr Rate (>60) 41.6 Glucose (70 - 110 mg/dL) 116 H POC Glucose (60 - 125 mg/dL) 91 102 Calcium (8.2 - 10.1 mg/dL) 8.6 Hematology WBC (5.8 - 11.0 K/mm3) 11.8 H RBC (4.2 - 5.4 M/mm3) 4.13 L Hgb (12 - 16 g/dL) 11.6 L Hct (37 - 47 %) 37.3 MCV (80 - 98 fL) 90 MCH (27 - 34 pg) 28.1 MCHC (30.8 - 34.1 g/dL) 31.1 RDW (11 - 16 %) 14.4 Plt Count (130 - 400 K/mm3) 291 MPV (8.9 - 12.1 fL) 10.9 Neut % (Auto) (45 - 70 %) 71.2 H Lymph % (Auto) (20 - 40 %) 16.8 L [place] % (Auto) (3 - 10 %) 6.3 Eos % (Auto) (1 - 5 %) 1.4 Baso % (Auto) (0.0 - 1.1 %) 0.7 Neut # (Auto) (2.00 - 7.50 K/mm3) 8.43 H Lymph # (Auto) (1.50 - 4.00 K/mm3) 1.98 [place] # (Auto) (0.2 - 0.8 K/mm3) 0.75 Eos # (Auto) (0.04 - 0.4 K/mm3) 0.16 Baso # (Auto) (0.02 - 0.10 K/mm3) 0.08 Add Manual Diff (MANUAL DIFF) NO Nucleated RBC % (0 - 0 %) 0 Rikki Núñez M.D. at 1308 RPT #:[id number] OF REPORT CLClinical xscb2180-13-01T51:57:00Y.[id number] l able for patient vcnaXMORALCJUDAHKA6891-96-72D25:09:04 2019-06-06 09:47:00 [id number]:47:331786-7 [address] [place] [id number] PATIENT NAME: LAUREN TURCIOS ADMIT DATE: 06/05/19ACCOUNT NO: [id number] ROOM NO: Y.518 AGE: 69 REPORT TYPE: OPERATIVE REPORT SEX: F ADMITTING PHYSICIAN:Junito Brown MD ATTENDING PHYSICIAN:Junito Brown MD OPERATION DATE: 06/05/2019 PREOPERATIVE DIAGNOSIS: Other fractur e of lower end of right femur, subsequentencounter for closed fracture with nonunion (ICD-10 # S72.491K). POSTOPERATIVE DIAGNOSIS: Other fracture of lower end of right femur, subsequentencounter for closed fracture with nonunion (ICD-10 # S72.491K). PROCEDURES:1. Treatment of right femoral nonunion with autogenous bone graft.2. [place] of bone, left femur using reamer supervisor blueprinting and photocopy aspirator, left femur. SURGEON: Junito Brown MD [employer] LABORER: Carmen. ANESTHESIA: Per anesthesia team and was general endotracheal. COMPLICATIONS: None. TOURNIQUET TIME: None used. PROCEDURE IN DETAIL: After obtaining proper informed consent, the patient wasbrought to the operating room and placed in supine position. Anesthesia was peranesthesia team and was general endotracheal. Bilateral lower extremities wereprepped and draped in the normal sterile fashion. Following this, attention wasfirst turned to the left femur. A small incision was made over the patellartendon and a guide pin was placed up the femoral canal through the femoralnotch. This was checked under AP and lateral fluoroscopic image and was foundto be in excellent position. Following this, the distal femur was opened usinga stiff reamer. Following this, a beaded guidewire was placed up the femoralcanal and checked under AP and lateral fluoroscopic image, the femur was thentemplated for ohuohu-qrcmckkdr-oednlagiv sizing and using the magnificationruler, a 14.5-mm reamer was selected. With constant irrigation and suction using the tuvdxy-zysjtcmkd-hccukqnpa, the14.5-mm reamer was placed up the femoral canal and bone was harvested using uyimwizik-ofkznnqpp-nxzkynsah. The reamer was then removed. The wound wasirrigated using copious saline solution and closure of this woun d was performedby Dr. Grissom of the plastic reconstructive service. This will be dictated byDr. Grissom under a separate dictation. Following this, bulky sterile dressingswere applied. PATIENT NAME: LAUREN TURCIOS Next, attention was turned to the right femur, which had been preppe d anddraped. Because of the patient's previous incisions, Dr. Grissom was availableto design our soft tissue flaps to discourage soft tissue problems. A subvastusmedialis approach was then performed and hemostasis was achieved usingelectrocautery. The nonunion site was encountered and Dr. Brown decorticatedthe nonunion site back to bleeding bone. The Lnmlxc-jrgdkenpr-mnmdmoujs boneharvested during this procedure was packed in and around the bleeding bone bedat the nonunion site. Following this, a 4/5 plate was fashioned to the bonyarchitecture in a wave fashion and multiple proximal and distal locking screwswere placed to further stabilize this nonunion. Following this, the case wasturned over to Dr. Grissom for comple x wound closure. This will be dictated byDr. Seble simon under a separate dictation. Following closure, bulky steriledressings were applied. Anesthesia was reversed. The patient was taken to therecovery room where it was noted that the toe s had good capillary refill. Itshould be noted mp t the skilled assistance of Dr. Kareem Morales wasnecessary during this complex, instrumented treatment of a right femoralnonunion with autogenous bone grafting and plating. He assiste d with everyaspect of the operation including, but not limited to, proper and safepositioning of th e patient, obtaining adequate surgical exposure, manipulationof surgical instruments, and the delicate task of providing suction to thesurgica l wound. In addition, Dr. Morales assisted with obtaining a bone from the left femurusing the hwwaoq-myolzfnfv-cynxognru. In addition, Dr. Morales assisted with bone grafting of the right femoralnonunion site as well as plating th e right femoral nonunion site with a4/5locking plate. Dr. Morales also assisted with the continual process of hemostasis during theprocedure itself and surgical wound closure. Dr. Morales performed and supervised the surgical team with removal of thepatient from th e operating table and returning the patient back t o the hospitalgurney. Dr. Morales's assistance allowed me to perform the most sensitive andtechnical portions of this operation using 2 hands, thus enhancing the patient'ssafety. This would not be possible without the help of a skilled assistantfamiliar with the procedure and capable of safely performing the aforementionedtasks. Our facility is not a teaching hospital and as such, no surgicalresidents or interns were available to assist. Dictated By: Junito Brown MD WT: OP:YZORAIDA/DULCE./NTSDD: 06/06/2019 09:47:27DT: 06/06/2019 11:15:55Conf#: [id number]/DID#: [id number] Authenticated by Junito Brown MD On 0 02:06:34 PM PATIENT NAME: LAUREN TURCIOS at 1406 PATIENT NAME: LAUREN TURCIOS tjbbft9708-04-64S52:15:00Y.[id number] i lable for patient ihbhECKOEWKOYBOGNV4977-03-75Z75:06:55 2019-06-06 08:38:00 KKndqlqedkj597266437039-18-78P93:38:00 [facility] ([facility])Orthopaedic Progress NoteREPORT#:[id number] REPORT STATUS: SignedDATE:06/06/19 TIME: 0838 PATIENT: LAUREN TURCIOS UNIT #: [id number]#: [id number] [facility] AGE: 69 SEX: F ATTEND: Junito Brown MDADELMI AUTHOR: Lauren Hardy * ALL edits or amendments must be made on the electronic/computer document * SubjectivePatient reports:Yes: complaints, pain. ObjectiveVS:Last Documented: Result Date Time Pulse Ox 100 06/05 722 O2 Delivery Nasal cannula 06/05 722 O2 Flow Rate 3.191029 05/01 0723 B/P 132/84 06/05 0717 B/P Mean 99.8 06/05 716 Pulse 94 06/05 716 Resp 14 06/05 716 Tem p 36.5 06/06 715 FiO2 32 06/05 0428 Patient Weigh t Weight (lb): 245Weight (oz): 8.11Weight (kg): 111.360 Physical ExamGeneral appearance: no acut e distress Diagnosis, Assessment PlanFree text A P:No overnight events. Pain controlled. Bilatera l LE:Dressings c/d/iSILT all toesMoves all toes+ ankle DF/PFWWP A/P: 69 y/o F POD 1: Right femur ORIF, Left femur NGUYỄN AnalgesiaADATDVT prophylaxisNo evidence of compartment syndromePT : Begin POD 1, NWB on BLEPlans to dispo home likel y tomorrow at 1256 RPT #:[id number] OF REPORT PRProgress Nrxs7100-29-49T57:38:00Y.[id number] l able for patient vlvpBEXPXIBTCTCXHX4553-21-49C00:56:54 2019-06-06 08:38:00 NIvetmkeezb917143695737-84-94T69:38:00 [facility] ([facility])Orthopaedic Progress NoteREPORT#:[id number] REPORT STATUS: SignedDATE:06/06/19 TIME: 0838 PATIENT: LAUREN TURCIOS VERONICA UNIT #: [id number]#: [id number] [facility] [birth year] AGE: 69 SEX: F ATTEND: Junito Brown AUTHOR: Lauren Hardy * ALL edits or amendments must be made on the electronic/computer document * SubjectivePatient reports:Yes: complaints, pain. ObjectiveVS:Last Documented: Result Date Time Pulse Ox 100 06/05 722 O2 Delivery Nasal cannula 06/05 722 O2 Flow Rate 3.343917 06/05 722 B/P 132/84 06/05 716 B/P Mean 99.8 05/01 0717 Pulse 94 06/05 0717 Resp 14 06/05 0717 Tem p 36.5 06/05 0716 FiO2 32 06/05 0428 Patient Weigh t Weight (lb): 245Weight (oz): 8.11Weight (kg): 111.360 Physical ExamGeneral appearance: no acut e distress Diagnosis, Assessment PlanFree text A P:No overnight events. Pain controlled. Bilatera l LE:Dressings c/d/iSILT all toesMoves all toes+ ankle DF/PFWWP A/P: 69 y/o F POD 1: Right femur ORIF, Left femur NGUYỄN AnalgesiaADATDVT prophylaxisNo evidence of compartment syndromePT : Begin POD 1, NWB on BLEPlans to dispo home likel y tomorrow at 1256Electronically Signed by Junito Brown MD o n 06/06/19 at 1258 RPT #:[id number] OF REPORT PRProgress Tmtt0111-49-56Y28:38:00Y.[id number] l able for patient qxkyRYTUBDMCLWKJAN1565-54-70G13:58:44 2019-06-06 08:28:00 [id number]:28:204856-3 [address] [place] [id number] PATIENT NAME: LAUREN TURCIOS ADMIT DATE: 06/05/19ACCOUNT NO: [id number] ROOM NO: Y.518 AGE: 69 REPORT TYPE: OPERATIVE REPORT SEX: F ADMITTING PHYSICIAN:Junito Brown MD ATTENDING PHYSICIAN:Junito Brown MD OPERATION DATE: 06/05/2019 PREOPERATIVE DIAGNOSES: Nonhealing femoral fracture, in need of coverage oforthopedic hardware, with a well vascularized tissue and contralateral patellartendon repair. POSTOPERATIVE DIAGNOSES: Nonhealing femoral fracture, in need of coverage oforthopedic hardware, with a well vascularized tissue and contralateral patellartendon repair. TITLE OF E PROCEDURE:1. Coverage of orthopedic hardware of the medial thigh with vastus medialismuscle and fasciocutaneous flap advancement measuring 25 x 10 cm.2. Left patellar tendon repair. SURGEON: Kal Grissom MD [employer]ER: Andrés Vazquez ANESTHESIA: This was done under general anesthesia. BLOOD LOSS: Approximately 100 mL. DRAINS: No drains were placed upon closure. COUNTS: Instrument and lap counts were correct a t the end of the case. COMPLICATIONS: No complications were encountered. 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 The patient has a knee replacementas well as a lateral fixation and required additional fixation and bone graft. The patient was to undergo this fixation by the orthopedic service and placementof bone graft. The bone graft along with the fixation had to be surrounded bywell vascularized tissue in order to ensure revascularization of the bone graftas well as improve the chances of healing of the femur. Thi s will be performedby utilizing the vastus muscle and this was all discussed with the patientpreoperatively. This was discussed with the patient preoperatively on multipleoccasions. Risks, benefits, and alternatives were thoroughl y explained to thepatient and consent was obtained for the procedure. PROCEDURE IN DETAIL: The patient was brought to the operating room, place d PATIENT NAME: LAUREN TURCIOS supine on the operating table, prepped and draped in sterile fashion. Afterundergoing smooth induction of general anesthesia, was appropriately identified,preoperative markings were reinforced . Antibiotics were given. Attention wasthen turned to the right medial thigh. The right medial thig h incisions wereplanned based on the needs of the orthopedic service access as well as the needfor harvesting the muscle. A curvilinear incision wa s made on the medial aspectof the thigh based on these needs and careful electrocautery dissectio n was thenperformed using low current to try to minimize fatty necrosis. This wasperformed through the fatty layers as well as down to the muscle fascia. Oncethe muscle fascia was encountered and the vastus medialis muscle was identified,a subfascial dissection was performed posteriorly and the vastus muscle wasreleased posteromedially. This allowed access to the anterior medial and medialportions of the femur along with the fracture site as well as elevatin g themuscle flap in preparation for coverage. Once the muscle flap was elevated, theorthopedic portion of the procedure was performed. This included harvesting ofbone graft as well as placement of an internal fixator device as well as placingthe bone graft. Once that was completed, the vastus muscle, which had beenelevated using electrocautery earlier, was now advanced. There was asignificant amount of increase of volume as a result of the additionalorthopedic hardware along with bone graft and this required coverage andstabilization. By placing the vastus over the construct of the bone graft aswell as the hardware, this provided well vascularized coverage to the area,which would improve the likelihood of healing. The vastus was then advancedover this construct. Because of the additional volume, additional dissectionwas needed to further advance the muscle; and therefore, the vastus was elevatedagain and electrocautery was utilized to remove the vastus further from thefemur more anteriorly and distally. This allowed additional laxity in themuscle itself. Then, the muscle was advanced over the construct of the hardwareand bone graft and sutured in place using #1 PDS suture. The fascia over it wasthen closed and this was done using 0 PDS suture. This provided a well sealed,well controlled compartment for the hardware as well as well vascularized forthe bon e graft. At this point, because of the edema and the severe amount ofadipose tissue present, flap s were needed. After fatty necrosis was debridedfrom this area, fasciocutaneous flaps were necessary. Along a 25 cm lineardistance, 10 cm of dissection was performed posteriorly. The skin bridgebetween the lateral incision and the medial incision was preserved. A 10 cm ofdissection was performed posteriorly. The skin flap was then advanced fromposterior to anterior and closed in multiple layers using 0 and 3-0 PD S suturealong with skin horacio. The patellar tendon was repaired on the left side. There was a vertical rent in the patellar tendon, which was repaired using 0 PDSsuture in an interrupted fashion. Skin horacio were used to close the wound andthe orthopedic service applied further dressings. Dr. Morales was anessential part of the procedure as an prosthetic assistant retracting vital structures andproviding assistance in visualization of vital portions of the procedure . Dictated By: Kal Grissom MD WT: OP:LUBA/QUAN/NEYMARDD: 06/06/2019 08:28:19DT: 06/06/2019 09:37:34Conf#: [id number]/DID#: [id number] PATIENT NAME: LAUREN TURCIOS Authenticated by Kal Grissom MD On 06/12/2019 04:33:37 PM at 1633 PATIENT NAME: LAUREN TURCIOS okzlga6658-42-95V63:37:00Y.[id number] i lable for patient adgxLZRYJTQJQVKJBT9652-83-68E62:34:15 2019-06-05 18:37:00 SVvpxnhfoqk565162634334-34-40N54:37:00 [facility]Clinical NoteREPORT#:[id number] REPORT STATUS: SignedDATE:06/05/19 TIME: 1836 PATIENT: LAUREN TURCIOS UNIT #: [id number]#: [id number] ROOM/BED: [place] [address]DOB: [birth year] AGE: 69 SEX: F ATTEND: Junito Brown [facility] AUTHOR: Terrence Alvarado MD * ALL edits or amendments must be made on the electronic/computer document * Clinical NoteNote:Consult Note Dictated 110 42 6 Electronically Signed by Terrence Alvarado MD o n 06/05/19 at 1840 RPT #:[id number] OF REPORT CLClinical zpgk3516-45-63X74:37:00Y.[id number] l able for patient vsdwDZTLERPYDNTUEM0790-69-49F79:40:26 2019-06-05 18:29:00 [id number]:29:555316-3 [address] [place] [address] PATIENT NAME: LAUREN TURCIOS ADMIT DATE: 06/05/19ACCOUNT NO: [id number] ROOM NO: [facility] AGE: 69 REPORT TYPE: CONSULTATION REPORT SEX: F ADMITTING PHYSICIAN:Junito Brown MD ATTENDING PHYSICIAN:Junito Brown MD CONSULTATION DATE: 06/05/2019 CONSULTING PHYSICIAN: Terrence Alvarado MD HISTORY OF PRESENT ILLNESS: The patient is a 69-year-old woman, ,right handed, right footed. The patient is being seen postoperatively at the request of Junito Brown MD,for neurological evaluation of pain symptoms and medication management. The patient was admitted to [facility] earlier today, 06/05/2019. The patient has been having bilateral upper leg pain and thigh pain; morepronounced in the right leg. The patient has had cramping and spasm in the leg. Some weakness . Occasionallow back pain. Some numbness in her feet. The patient did undergo previous right total knee arthroplasty performed on08/21/2018. The patient did have periprosthetic nonsustained fracture. There was no knowntrauma. The patient did undergo right femur open reduction and internal fixationperformed by Junito Brown MD, on 01/14/2019. The patient has continued to have pain in the right thigh area. She has beendiagnosed as having right femur nonunion. PAST MEDICAL HISTORY:1. Hypertension.2. Hypercholesterolemia.3. Hypertriglyceridemia.4. Peripheral neuropathy.5. Restless legs syndrome.6. Diabetes mellitus.7. Uterine cancer. PAST SURGICAL HISTORY:1. Right total knee arthroplasty on 08/21/20182. Right femur open reduction and internal fixation performed on 01/14/2019 PATIENT NAME: LAUREN TURCIOS 3. Hysterectomy.4. Cholecystectomy.5. Hernia surgery.6. Decubitus ulcer, wound repair, right foot. REVIEW OF SYSTEMS:EYES: The patient has no t had any blurred vision.ENT: No dizziness.PULMONARY: No chest pain, coughing, or hemoptysis.CARDIOVASCULAR: The patient has a history of hypertension.GASTROINTESTINAL: No nausea, vomiting, or melena.GENITOURINARY: The patient has a history of uterine cancer and hysterectomy.MUSCULOSKELETAL: As above.NEUROLOGICAL: As above.PSYCHIATRIC: The patient states the pain has made her energy leve l be less. Pain does interfere with her getting sleep and staying asleep. MEDICATIONS: Prior to the current admission include;1. Ramipril or Altace 10 mg at bedtime.2. Aspirin 81 mg at bedtime.3. Duloxetine 30 mg at bedtime.4. Propranolol 5 mg t.i.d. p.r.n. for restless legs symptoms.5. Temazepam 50 mg at bedtime.6. Triamterene/hydrochlorothiazide 75/50 mg one tablet at bedtime. DRUG ALLERGIES: NONE KNOWN. SOCIAL HISTORY: The patient does not smoke cigarettes. The patient does not drink alcohol. The patient is . She does live with her in a 1-level house. The patient did have surgery today. The patient underwent open reduction andinternal fixation of right femur. The patient did undergo intramedullary reaming procedure, left femur. Postoperatively, the patient has been placed on a TANK TESTER pump with Dilaudid, dose0.1 mg, delay 8 minutes, 1-hour limit 0.8 mg. The patient also placed on Robaxin 500 mg q. 6 hours. The patient also placed on Tylenol No. 3 one or two tablets q. 4 hours p.r.n.for mild or moderate pain. The patient als o placed on tramadol 50 mg or 100 mg q. 4 hours p.r.n. formoderate or mild pain respectively. PHYSICAL EXAMINATION:EYES: Pupils are equal, 3 m m in size. Bilateral arcus senilis. Visual fieldsintact.NEUROLOGIC: Mental Status: The patient is alert. She is oriented to place andto year. PATIENT NAME: LAUREN TURCIOS The patient does subtrac t serial 7s x2 to 86. The patient could name the current presidents. Short-term memory was impaired. She could not recall any of 3 objects after 30seconds. The patient states that her right thigh pain is a 10 on a scale of 0 to 10. CRANIAL NERVES: II, III, IV, , as above; V, intact to light touch; VII, nofacial asymmetry; VIII, decreased to high-pitched sounds bilaterally; IX, X,soft palate lifts midline; XI , XII intact. Motor: Good strength in both arms an d good strength in the left leg. The patient could wiggle the toes of the right foot. Sensory exam intact to light touch. REFLEXES: +1 at the biceps, 0 at both wrists; not tested at the knees; nottested at right ankle and 0 left ankle . CLINICAL DIAGNOSES:1. Degenerative joint disease of right knee.2. Right total knee arthroplasty performed on . Musculoskeletal spasm of low back, hip and leg.4. Periprosthetic fracture, right femur.5. Open reduction and internal fixation of right periprosthetic fractureperformed on . Nonunion of right femur.7. Open reduction and internal fixation of right femur fracture performedtoday.8. Intramedullary reaming procedure of left femur performed earlier today on. Hypertension.10. Hypercholesterolemia.11. Hypertriglyceridemia.12 . Peripheral neuropathy.13. Restless legs syndrome.14. History of uterine cancer.15. Diabetes mellitus. TREATMENT: The patient will b e continued on TANK TESTER pump overnight and tomorrowa.m. We will continue above medicines Tylenol No. 3 and tramadol for pain control. We will place the patient on baclofen 5 mg q. 6 hours, first dose now, next doseat 2400. We will discontinue Robaxin, given the patient's age. Dictated By: Terrence Alvarado MD PATIENT NAME: MARISOL TURCIOSMIRIAM MARTIN 5 WT: CON:YZORAIDA/MOL/NTSDD: 06/05/2019 18:29:33DT : 06/05/2019 19:13:48Conf#: [id number]/DID#: [id number] cc: Junito Brown MD Authenticated by Terrence Alvarado MD On 06/09/2019 01:48:58 PM at 1349 PATIENT NAME: MARSHALLTIFFANYLAUREN :13:00Y.H I [id number] for patient hmffDWOWLHEUWRZODX6437-06-88I64:49:32 2019-06-05 18:21:00 OLiahrcdxdw977722927703-59-90N03:21:00 [facility] ([facility])Clinical NoteREPORT#:[id number] REPORT STATUS: SignedDATE:06/05/19 TIME: 1820 PATIENT: LAUREN TURCIOS UNIT #: [id number]#: [id number] [facility]: [facility] AGE: 69 SEX: F ATTEND: Junito Brown [facility] AUTHOR: Rikki Salinas MD * ALL edits or amendments must be made on the electronic/computer document * Clinical NoteNote:[facility] Rikki Núñez MD(cell text [phone])Internal Medicine Consult at [facility] of : Dr. Junito Brown Chief Complaint: right leg pain HPI: 69 yo F is now s/p Right femur ORIF, Left femur NGUYỄN by Dr. Brown. She had a right femur ORIF in 01/[address] Mcarthur on 08/11/18.Comorbidities: see below. PmHx: . Hypertension, RLS, Type 2 diabetes (diet controlled) Peripheral neuropathy, History of uterine cancer s/p hysterectomy, Osteoarthritis, ALLERGY: Allergies:adhesive tape (Coded, Severe, RASH,TEARS SKIN EASILY, 07/24/18)No Known Drug Allergies (Coded, 05/28/19) Home Medications: Home Medications:ASPIRIN/APAP/CAFF 250/250/65 MG (EXCEDRIN EX-STR) 2 CAP PO PRN PRN PAIN RAMIPRIL (ALTACE) 10 MG PO BEDTIME TRIAMTERENE/HCTZ (MAXZIDE 75/50 MG) 1 TAB PO BEDTIME DULoxetine D R (CYMBALTA) 300 MG PO BEDTIME TEMAZEPAM (RESTORIL ) 15 MG PO BEDTIME rOPINIRole (REQUIP) 5 MG PO TID PRN PRN RESTLESS LEG ASPIRIN 81 MG PO BEDTIME SgHx: .Cholecystectomy, Hysterectomy, Lumbar spine, Hernia repair, Right foot, Right TKA, Femur fracture repair on SHx: Tob: none FHx: .No significant hx of DVT/PE.Alcohol: none Drugs: none Lives: with spouse ROS: [X] too groggy to participate in ROS. Vitals:Vital Signs Date Temp Pulse Resp B/P B/P Mean Pulse Ox FiO2 06/04 97.3-98.0 76-78 15-18 122-167/60-71 98-100 Gen: Sleepy, in mild discomfort, nl nutrition.EYE: Nl lids conjunctiva.ENT: Nl ears Nose, nl lips,. Neck: Supple, nl thyroid, No masses.CV: Regular Rate Rhythm, no heave or significant murmur. Edema- none Feet toes normal temperature.RESP: Clear to Auscultation, normal Respiratory effort.ABD: Soft, NonDistended,.LYM: No significant cervical Lymphadenopathy.MS: No sign of compartment syndrome, bulky wrapping on legNEURO: Nonfocal, grossly normal sensation of LE, +toes DF/PFPSY: Normal insight, Normal mood, oriented, . Preop Labs(05/28/19): CBC:. Hgb 12.6, Plt 326, CHEM: Na 143, K 4.2, Cr 1.56 (eGFR 32.8%), . (medium to high risk of complications or morbidity) (major surgery) (IV sedative, meds ) Assessment Plan1.) Anemia of Acute Blood Loss- .will recheck tomorrow. 2.) S/p Right femur ORIF , Left femur NGUYỄN .acute pain control. Anticoagulation as per Dr. Brown.3.) Hypertension- .follow BP and hold Rxs if SBP<120.4.) Diabetes-2 Restless Legs Syndrome OsteoArthritis Hyperlipidemia- .continue on Rx. Rikki Núñez M.D. Thanks! at 070 8 RPT #:[id number] OF REPORT CLClinical owsc7818-02-47X95:21:00Y.[id number] priyank able for patient ojnhJRBICSGNHKIJRU6642-05-76I22:08:56 2019-06-05 17:43:00 AQeczioxcoy137936488812-69-21N21:43:00 [facility] ([facility])Orthopaedic Progress NoteREPORT#:[id number] REPORT STATUS: SignedDATE:06/05/19 TIME: 1743 PATIENT: LAUREN TURCIOS UNIT #: [id number]#: [id number] ROOM/BED: [place] [address]DOB: [birth year] AGE: 69 SEX: F ATTEND: Junito Brown AUTHOR: Lauren Hardy * ALL edits or amendments must be made on the electronic/computer document * SubjectivePatient reports:Yes: complaints, pain. ObjectiveVS:Last Documented: Result Date Time Pulse Ox 98 06/05 851 B/P 167/71 06/05 851 O2 Delivery Room air 06/05 851 Temp 36.3 06/05 851 Pulse 77 06/04 0852 Resp 18 06/05 851 B/P Mean 77 05/27 1247 Patient Weight Weigh t (lb): 245Weight (oz): 8.11Weight (kg): 111.360 Physical ExamGeneral appearance: no acute distress Diagnosis, Assessment PlanFree text A P:Post-op Progress Note NAD. Examined in PACU Bilateral LE:Dressings c/d/iSILT all toesMoves all toes+ ankle DF/PFWWP A/P: 69 y/o F POD 0: Right femur ORIF, Left femur NGUYỄN AnalgesiaADATDV T prophylaxisNo evidence of compartment syndromeFollow post-op labsPT: Begin POD 1, NWB on BLE at 1744 RPT #:[id number] OF REPORT PRProgress Kfrk9070-06-99B17:43:00Y.[id number] l able for patient axrgKLNKUANBQLICPP7906-24-80P94:45:10 2019-06-05 17:43:00 LNodwljbgyj188527010697-63-69Z52:43:00 [facility] ([facility])Orthopaedic Progress NoteREPORT#:[id number] REPORT STATUS: SignedDATE:06/05/19 TIME: 174 PATIENT: LAUREN TURCIOS UNIT #: [id number]#: [id number] [facility] [birth year] AGE: 69 SEX: F ATTEND: Junito Brown AUTHOR: Lauren Hardy * ALL edits or amendments must be made on the electronic/computer document * SubjectivePatient reports:Yes: complaints, pain. ObjectiveVS:Last Documented: Result Date Time Pulse Ox 98 06/05 851 B/P 167/71 06/04 085 2 O2 Delivery Room air 06/05 851 Temp 36.3 06/05 851 Pulse 77 06/04 0852 Resp 18 06/04 0852 B/P Mean 77 05/27 1247 Patient Weight Weight (lb): 245Weight (oz): 8.11Weight (kg): 111.360 Physica l ExamGeneral appearance: no acute distress Diagnosis, Assessment PlanFree text A P:Post-op Progress Note NAD. Examined in PACU Bilateral LE:Dressings c/d/iSILT all toesMoves all toes+ ankle DF/PFWWP A/P: 69 y/o F POD 0: Right femur ORIF, Left femur NGUYỄN AnalgesiaADATDVT prophylaxisNo evidence of compartment syndromeFollow post-op labsPT: Begin POD 1, NWB on BLE at 1744 at 0834 RPT #:[id number] OF REPORT PRProgress Frqa7981-87-87W84:43:00Y.[id number] l able for patient cjpwBRZZFNDZUSNJQI6150-75-88P92:35:06 2019-06-05 17:41:00 VVemmdbvsjl974924238857-41-70Z35:41:00 [facility] ([facility])Op/Inv Procedure Note - BriefREPORT#:[id number] REPORT STATUS: SignedDATE:06/05/19 TIME: 174 PATIENT: LAUREN TURCIOS UNIT #: [id number]#: [id number] ROOM/BED: Y998-11DOB: [birth year] AGE: 69 SEX: F ATTEND: Junito Brown AUTHOR: Junito Brown MD * ALL edits or amendments must be made on the electronic/computer document * Op/Inv Proc Note - Brief TEXT Brief Op/Inv Procedure NoteNote details:*PRE-PROCEDURE DIAGNOSIS:[] Right femur nonunion *POST-PROCEDUR E DIAGNOSIS:Same[] *PROCEDURE(S) PERFORMED:[] Righ t femur ORIF, Left femur NGUYỄN *PRIMARY SURGEON:[] Dr. Brown *CONCR[employer] LABORER(S):[] Dr. Morales ANESTHETIC:[] *ESTIMATED BLOOD LOSS in ml's:[] 250 mL *SPECIMEN(S) REMOVED:[] None *COMPLICATIONS:None[] DRAIN(S):None[] TUBE(S):None[] IMPLANT(S):None[] FLUIDS:[] URINE OUTPUT:[] *FINDINGS:[] See dictated op-note DISPOSITION:To PACU[] at 1742 RPT #:[id number] OF REPORT PNProcedure plhe0642-21-24X71:41:00Y.[id number] priyank able for patient kwqiKTEQGBSTCLYISO6731-18-35A02:43:00 2019-01-24 14:46:00 [id number]:46:216444-7 077 [facility] [place] [address] PATIENT NAME: LAUREN TURCIOS ADMIT DATE: 01/14/19ACCOUNT NO: [id number] ROOM NO: Y.519 AGE: 68 REPORT TYPE: OPERATIVE REPORT SEX: F ADMITTING PHYSICIAN:Junito Brown MD ATTENDING PHYSICIAN:Junito Brown MD OPERATION DATE: 01/14/2019 SURGEON: Junito Brown MD [employer]ER: Walter Crabtree MD PREOPERATIVE DIAGNOSIS: Displaced fracture of lower end of right femur, closedfracture with nonunion (ICD-10 #S72.491K). POSTOPERATIVE DIAGNOSIS: Displaced fracture of lower end of right femur, closedfracture with nonunion (ICD-10 #S72.491K). PROCEDURES:1. Treatment of right distal tibial nonunion with compression technique.2. Osteoplasty lengthening , right femur.3. Treatment of deformity, right femur. ANESTHESIA: Per anesthesia team was general endotracheal. COMPLICATIONS: None. TOURNIQUET TIME: None used. PROCEDURE IN DETAIL: After obtaining informed consent, the patient wa s broughtinto the operating room and placed in supine position. Anesthesia was peranesthesia team and was general endotracheal. Right lower extremity was preppedand draped in a normal sterile fashion. Following this, under fluoroscopicimage, the femoral nonunion site was stressed. The femoral nonunion site wasconfirmed by preoperative CAT scan despite stressing. This stiff nonunion didnot show correction of deformity on the fluoroscopic image. Therefore, a smallincision was made at the anticipated site o f corticotomy at the GLYNN. A smallincision was mad e with dissection down to bone. Multiple drill passes were madein various trajectories with constant irrigation and intermittent drilling. This corticotomy was then completed using a 1/4-inch osteotome. Acutecorrection was then applied. Acute correction was then achieved usin g manual correction. AP and lateralfluoroscopic image showed good alignment. A Ventura and Nephew plate was thenplaced through a distal femoral exposure with dissection up the femoral canalsubperiosteally for submuscular plating. A Ventura and Nephew plate was thenplaced. The outrigger was used for multiple proximal and distal locking screws. Excellent stability was achieved. The external guide was removed. AP and PATIENT NAME: LAUREN TURCIOS lateral fluoroscopic image showe d good positioning of the hardware and goodmaintenance of reduction with good stability and good flexion and extension ofthe knee. Following this, Dr. Grissom of the plastic reconstructive service was availableto close the soft tissues. Again, this procedure included treatment of thefemoral nonunion with compression, deformity correction, and osteoplastylengthening with a corticotomy. Following Dr. Grissom's closure, bulky steriledressings were applied. Anesthesia was reversed. The patient was taken to therecovery room where it was noted that the toes had good capillary refill. Therewere no complications of this procedure. The skilled assistance of Dr. Walter Crabtree was necessary during this complex,instrumented open reduction and internal fixation and corticotomy for deformitycorrection of the right distal femur. This was a periprosthetic deformitynonunion. He assisted with every aspect of operation including but not limited to, properand safe positioning of the patient, obtaining adequate surgical exposure,manipulation of surgical instruments an d delicate task of providing suction tothe surgica l wound. In addition, he assisted with the reduction of the nonunionwith deformity, the continual process of hemostasis during the procedure itselfand surgical wound closure. Dr. Crabtree performed and supervised the surgicalteam with removal of the patient from e operating table and [facility]patient [facility] His assistance allowed me t o perform themost sensitive and technical portions of this operation using 2 hands, thusenhancing the patient's safety. This would not be possible without the help ofthe skilled assistance familiar with the procedure and capable of safelyperforming the aforementioned tasks. Our facility is not a teaching hospital,and as such, no surgical residents or interns were available to assist. Dictated By: Junito Brown MD WT: OP:YZORAIDA/DULCE.01/NTSDD: 01/24/2019 14:46:37DT: 01/24/2019 18:21:13Conf#: [id number]/DID#: [id number] Authenticated by Junito Brown MD On 9 12:35:32 PM at 1235 PATIENT NAME: LAUREN TURCIOS lkmzfr9154-27-45E07:21:00Y.[id number] i lable for patient ppprSEMUAYJTSSTVAU2296-97-70F86:35:57 2019-01-15 09:02:00 ISogyzsvyvq439577810294-31-90Z12:02:00 [facility] ([facility])Clinical NoteREPORT#:[id number] REPORT STATUS: SignedDATE:01/15/19 TIME: 901 PATIENT: LAUREN TURCIOS UNIT #: [id number]#: [id number] [facility]ADOB: [birth year] AGE: 68 SEX: F ATTEND: Junito Brown AUTHOR: Rikki Salinas MD * ALL edits or amendments must be made on the electronic/computer document * Clinical NoteNote:[facility] Rikki Núñez M.D. (cell text [phone]) Assessment/Plan1.) Anemia of acute blood loss- .Hgb 11.8, asymptomatic.2.) S/p Righ t Femur Osteoplasty ORIF .acute pain control. Anticoagulation as per Dr. Brown.3.) Hypertension- .follow BP and hold Rxs if SBP<120.4.) Diet controlled diabetes Resless Leg s syndome Prior uterine cancer- .continue on Rx. Prior Events/Overnight: Uneventful.Chief Complaint: No significant complaints. ObjectiveVital Signs: Date Time Temp Pulse Resp B/P B/P Pulse O2 O2 Flow FiO2 Mean Ox Delivery Rate 01/15 0746 97.9 83 14 121/83 96.0 96 Room air 01/15 0726 Nasal 3.513661 cannula 01/15 0452 100 Nasal 3.548939 32 cannula 01/15 0431 96.8 7 6 16 95/61 72.4 100 01/14 2330 96 Nasal 3.960503 3 2 cannula 01/14 2253 96.8 103 16 90/61 71.1 97 01/14 2003 96.6 81 16 127/73 91.1 100 01/14 1945 Nasal cannula 01/14 1930 68 17 133/61 98 Nasal 3.223692 cannula 01/14 1926 74 17 133/61 100 Nasal 3.945271 cannula 01/14 1915 68 14 171/79 97 Nasal 3.044582 cannula 01/14 1900 66 25 150/7 4 100 Nasal 3.608029 cannula 01/14 1845 97.1 68 1 3 158/86 100 Nasal 3.100566 cannula 01/14 1830 97. 1 73 13 162/78 100 Nasal 3.866057 cannula 01/14 1815 77 14 176/86 100 Nasal 3.225301 cannula 01/14 1800 74 13 156/88 100 Nasal 3.515389 cannula 01/14 1745 Simple 6.796180 mask 01/14 1745 70 20 138/60 100 Nasal 3.510017 cannula 01/14 1735 97.8 70 16 126/60 100 Simple 6.500407 mask 12/10 1225 97.1 79 17 136/97 96 Gen: Alert, oriented, in mild discomfort Neck: No Masses, No Thyromegaly-CV: Regular Rate Rhythm / Edema- no significant Resp: Clear To Ascultation / Normal Respiratory EffortABD: NonTender / NonDistended MS/Skin: No sign of compartment syndrome / +ankl e DF/PF / nl capillary refill of toesOther: bulky dressing on leg Labs/X-ray: Laboratory Tests: 01/15 01/15 7756 0435 Chemistry Sodium (136 - 14 5 mmol/L) 140 Potassium (3.5 - 5.1 mmol/L) 4.7 Chloride (98 - 107 mmol/L) 102.0 Carbon Dioxide (21 - 32 mmol/L) 25.1 BUN (7 - 18 mg/dL) 35 H Creatinine (0.55 - 1.30 mg/dL) 1.60 H Glomerular Filtr Rate (>60) 32.0 Glucose (70 - 110 mg/dL) 133 H POC Glucose (60 - 125 mg/dL) 122 Calcium (8.2 - 10.1 mg/dL) 8.1 L Hematology WBC (5.8 - 11.0 K/mm3) 11.7 H RBC (4.2 - 5.4 M/mm3) 4.11 L Hgb (12 - 16 g/dL) 11.8 L Hct (37 - 47 %) 37.9 MCV (80 - 98 fL) 92 MCH (27 - 34 pg) 28.7 MCHC (30.8 - 34.1 g/dL) 31.1 RDW (11 - 16 %) 13.8 Plt Count (130 - 400 K/mm3) 293 MPV (8.9 - 12.1 fL) 10.9 Neut % (Auto) (45 - 70 %) 84.4 H Lymph % (Auto) (20 - 40 %) 9.9 L Bourbon % (Auto) (3 - 10 % ) 2.5 L Eos % (Auto) (1 - 5 %) 0.1 L Baso % (Auto) (0.0 - 1.1 %) 0.3 Neut # (Auto) (2.00 - 7.50 K/mm3) 9.89 H Lymph # (Auto) (1.50 - 4.00 K/mm3) 1.16 L [place] # (Auto) (0.2 - 0.8 K/mm3) 0.29 Eos # (Auto) (0.04 - 0.4 K/mm3) 0.01 L Baso # (Auto) (0.02 - 0.10 K/mm3) 0.04 Add Manual Diff (MANUAL DIFF) NO Nucleated RBC % (0 - 0 %) 0 Microbiology: Date/Time Procedure - Status Sourc e Growth 01/14 1331 MRSA DNA Surveillance Screen - COMP NASAL Rikki Núñez M.D. at 105 6 RPT #:[id number] OF REPORT CLClinical isuh8825-37-20L36:02:00Y.[id number] l able for patient wjbrBDHBZIVLLWXKBT0351-41-83U47:56:58 2019-01-15 08:59:00 [id number]:59:00 [facility] ([facility])Discharge SummaryREPORT#:[id number] REPORT STATUS: SignedDATE:01/15/19 TIME: 0859 PATIENT: LAUREN TURCIOS UNIT #: [id number]#: [id number] [facility] [birth year] AGE: 68 SEX: F ATTEND: Junito Brown MDADM AUTHOR: Junito Brown MD * ALL edits or amendments must be made on the electronic/computer document * PC P PCPDischarge to: home General InformationDate of admission:Observation Start Date: Date of admission: 01/14/19 Date of discharge: 01/15/19Hospital course:01/14/2019: Right femur osteoplasty and ORIF Consultants: internal medicine, pain managementPt. condition on discharge: stableAllergies:Allergies:adhesive tape (Coded, Severe, RASH,TEARS SKIN EASILY, 07/24/18)No Known Drug Allergies (Coded, 07/24/18) Med Rec PCPPCP:PCP: Undefined Provider Med RecDischarge meds:Continue taking these medications:RAMIPRIL (ALTACE) 10 MG CAP 10 MILLIGRAM ORAL BEDTIME. TRIAMTERENE/HCTZ (MAXZID E 75/50 MG) 1 TAB TAB 1 TABLET ORAL BEDTIME. DULoxetine DR (CYMBALTA) 30 MG CAP.DR 300 MILLIGRAM ORAL BEDTIME. TEMAZEPAM (RESTORIL) 15 MG CAP 15 MILLIGRAM ORAL BEDTIME. rOPINIRole (REQUIP) 5 MG TAB 5 MILLIGRAM ORAL THREE TIMES DAILY NEEDED. as needed for RESTLESS LEG ASPIRIN (ASPIRIN) 81 MG TAB.CHEW 81 MILLIGRAM ORAL BEDTIME. Discharge InstructionsActivity: non-weight bearing, rightWound/dressing care: Keep wound clean and dry, Leave dressing in placeAdditional instructions:Follow up in office next week, appt card given in roomTake aspirin 81mg daily for DVT prophylaxis at 0832 RPT #:[id number] OF REPORT DSDischarge kthhdew6622-54-56V11:59:00Y.[id number] v ailable for patient zmphPMEVKHIAPTLACZ8352-72-62U14:32:47 2019-01-15 08:16:00 [id number]:16:00 [facility] Progress NoteREPORT#:[id number] REPORT STATUS: SignedDATE:01/15/19 TIME: 0816 PATIENT: LAUREN TURCIOS UNIT #: [id number]#: [id number] [facility] [birth year] AGE: 68 SEX: F ATTEND: Junito Brown AUTHOR: Junito Brown MD * ALL edits or amendments must be made on the electronic/computer document * SubjectivePatient reports:Yes: complaints, pain. ObjectiveVS:Last Documented: Result Date Time Pulse Ox 96 01/15 746 B/P 121/83 01/15 746 B/P Mean 96.0 01/15 746 O2 Delivery Room air 01/15 746 Temp 97.9 01/15 746 Pulse 83 01/15 746 Resp 14 01/15 746 O2 Flow Rate 3.499579 12/11 0726 FiO2 32 01/15 0452 Patient Weight Weight (lb): 227Weight (oz): 1.22Weight (kg): 103.000 Physical ExamGeneral appearance: no acute distress Diagnosis, Assessment PlanFree text A P:No overnight events. Pain controlled. RLE: Dressings c/d/iSILT all toesMoves all toes+ ankl e DF/PFWWP A/P: 68 y/o F POD 1: Right femur osteoplasty, ORIF AnalgesiaADATDVT prophylaxisNo evidence of compartment syndromePT: Begin POD 1, NWBPlans to dispo home today at 0857 RPT #:[id number] OF REPORT PRProgress Trtl5902-21-35W94:16:00Y.[id number] priyank able for patient vyuvHPRNCWWHAMSXIX9879-90-18M15:58:04 2019-01-15 06:33:00 QMjuedrbubl335688471701-55-95L90:33:00 [facility] ([facility])Clinical NoteREPORT#:[id number] REPORT STATUS: SignedDATE:01/15/19 TIME: 632 PATIENT: LAUREN TURCIOS UNIT #: [id number]#: [id number] [facility] [birth year] AGE: 68 SEX: F ATTEND: Junito Brown MDADM AUTHOR: Josse Alvarado MD * ALL edits or amendment s must be made on the electronic/computer document * Clinical NoteNote:[id number] Electronically Charlene d by Josse Alvarado MD on 01/15/19 at 0634 RPT #:[id number] OF REPORT CLClinical eewv8181-19-44L68:33:00Y.[id number] l able for patient xtkkOPKNBYJUFMXFTS9953-71-06G25:34:08 2019-01-15 06:33:00 OEjemtztcqz145785780593-41-49M50:33:981959-7 007 [facility] [place] [address] PATIENT NAME: LAUREN TURCIOS ADMIT DATE: 01/14/19ACCOUNT NO: [id number] ROOM NO: Y.519 AGE: 68 REPORT TYPE: CONSULTATION REPORT SEX: F ADMITTING PHYSICIAN:Junito Brown MD ATTENDING PHYSICIAN:Junito Brown MD CONSULTATION DATE: 01/15/2019 CONSULTING PHYSICIAN: Josse Alvarado MD ASSESSMENT AND PLAN: The patient is a 68-year-old woman who was seen regardingpostoperative pain management following treatment of a right femurdeformity/nonunion of a right femur osteoplasty and open reduction and internalfixation performed on 01/14/2019. PROBLEMS:1. Musculoskeletal pain in the right lower extremity. The patient states herpain is well controlled at present. She is on a hydromorphone TANK TESTER at 0.1 mgevery 8 minutes as needed. She has utilized her TANK TESTER sparingly overnight. I amgoing to discontinue it. I am going to restart her on a modified dosing of herhome Haines regimen. She may have Haines 5 per 325 mg 1 to 2 tablets every 4hours as needed. Continue Robaxin 500 mg every 6 hours scheduled x4 doses andthen as needed thereafter. I am zeenat g to restart her Cymbalta at a modifieddosing of 6 0 mg twice daily. Further adjustments as needed.2. Restless legs syndrome. Continue ropinirole 0.5 mg daily as needed.3. Peripheral neuropathy. Continue Cymbalta 60 mg twice daily. Furtheradjustments as needed. HISTORY OF PRESENT ILLNESS: The patient is a 68-year-old woman with a historyof a previous right knee arthroplasty i n August 2018. The patient continued tohave persistent pain, which increased about a month ago. The patient was foundto have a right total knee periprosthetic fracture with a right femora l nonunionas well as a varus deformity. The patien t has been recommended to undergo theabove surgica l intervention. The patient currently states that her pain is wellcontrolled, rating at a 2/10 in severity. She does report taking hydrocodone smita n outpatient basis. She states that she sees a bety n management doctor Cong. She takes Haines 10 per 325 mg 1 to 2 times daily. The patient also reports a history of severe peripheral neuropathy. She cannottell me what the underlyin g cause is. She reports having a recent EMG/NCS, butshe is unsure what the results of the testing were. 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 She states that she has taken gabapentin and Lyrica in the past, butdeveloped significant depressive symptoms. Ivy henson is currently taking high dosesof Cymbalta, but i s unsure exactly what dose she is on. She tells me that shetakes 100 mg 3 times a day, but there is no 100 mg capsule in production. PAST MEDICAL HISTORY: PATIENT NAME: LAUREN TURCIOS 1. Diabetes.2. Hypertension.3. Peripheral neuropathy.4. Obesity.5. Restless legs syndrome.6. Uterine cancer.7. Osteoarthritis. PAST SURGICAL HISTORY:1. Hysterectomy.2. Cholecystectomy.3. Lumbar spine surgery.4. Hernia repair.5. Right foot surgery.6. Right total knee arthroplasty. ALLERGIES: ADHESIVE TAPE. MEDICATIONS: Reviewed. Please see MAR. SOCIAL HISTORY: No alcohol, tobacco, or recreational drug use. FAMILY HISTORY: Noncontributory to current illness. REVIEW OF SYSTEMS: Pertinent as above. She denie s any significant changes toher health prior to admission. PHYSICAL EXAMINATION:VITAL SIGNS: T-max 97.8, blood pressure 95/61, pulse 76, respirations 16,oxygen saturation 100%.GENERAL: The patient is resting comfortably and in no distress.MENTAL STATUS: Alert and oriented. She follows commands appropriately.SPEECH: No dysarthria or aphasia.CRANIAL NERVES: II through XII intact.MOTOR: 5/5 in the upper extremities and in the left lower extremity. She isable to wiggle her toes in the right foot, but further assessment limited by hersurgery.REFLEXES: A 2+ in the left lower extremity and in the upper extremities. Reflexes are comparatively brisk fo r her neuropathy.SENSATION: Diminished in a glove and stocking distribution with greater sensoryloss in the lower extremities.COORDINATION: No abnormal movements at rest or with action as can be assessed.GAIT: Nonambulatory at present. LABS AND STUDIES: No new imaging. CBC with a white blood cell count o f 11.7 and hemoglobin of 11.8. BMP pending. Dictated By: Josse Alvarado MD WT: CON:LUBA/TESSIE/NTSDD: 01/15/2019 06:33:40 PATIENT NAME: LAUREN TURCIOS Conf#: [id number]/DID#: [id number] Authenticated by Josse Alvarado MD On 01/21/2019 02:14:41 PM at 1415 PATIENT NAME: LAUREN TURCIOS :24:00Y.H I [id number] for patient eywhILVLIJKIAHATPJ1113-40-79E21:15:13 2019-01-14 21:09:00 [id number]:09:00 [facility] ([facility])Clinical NoteREPORT#:[id number] REPORT STATUS: SignedDATE:01/14/19 TIME: 2108 PATIENT: LAUREN TURCIOS UNIT #: [id number]#: [id number] [facility] [birth year] AGE: 68 SEX: F ATTEND: Junito Brown [facility] AUTHOR: Rikki Salinas MD * ALL edits or amendments must be made on the electronic/computer document * Clinical NoteNote:[facility] Rikki Núñez MD(cell text [phone])Internal Medicine Consult at [facility] of : Dr. Junito Brown Chief Complaint: right leg pain HPI: 68 yo F is now s/p Right femur osteoplasty, ORIF by Dr. Brown. She had a [facility] t total knee arthroplasty (TKA) by Dr. Mcarthur on 08/21/18.Comorbidities: see below. PmHx: . Hypertension, Type 2 diabetes (diet controlled), Peripheral neuropathy,restless leg syndrome, history of uterine cancer s/p hysterectomy ALLERGY: Allergies:adhesive tape (Coded, Severe, RASH,TEARS SKIN EASILY, 07/24/18)No Known Drug Allergies (Coded, 07/24/18) Home Medications: Home Medications:RAMIPRIL (ALTACE) 10 MG PO BEDTIME TRIAMTERENE/HCTZ (MAXZIDE 75/50 MG) 1 TA B PO BEDTIME DULoxetine DR (CYMBALTA) 300 MG PO BEDTIME TEMAZEPAM (RESTORIL) 15 MG PO BEDTIME rOPINIRole (REQUIP) 5 MG PO TID PRN PRN RESTLESS LEG ASPIRIN 81 MG PO BEDTIME SgHx: .Hysterectomy , Cholecystectomy, lumber spine, hernia repair, right foot, right TKA SHx: Tob: none FHx: .No significant hx of DVT/PE.Alcohol: none Drugs: none Lives: with spouse Vitals:Vital Signs Date Temp Pulse Resp B/P B/P Mean Pulse Ox FiO2 01/14 96.6-97.8 66-81 13-25 126-176/60-97 91.1 96-100 Gen: Groggy, in mild discomfort, nl nutrition.EYE: Nl lids conjunctiva.ENT: Nl ears Nose, nl lips,. Neck: Supple, nl thyroid, No masses.CV: Regular Rate Rhythm, no heave or significant murmur. Edema- none Feet toes makenna l temperature.RESP: Clear to Auscultation, normal Respiratory effort.ABD: Soft, NonDistended,.LYM: No significant cervical Lymphadenopathy.MS: No Clubbing, cyanosis, bulky dressing on legNEURO: Nonfocal, grossly normal sensation of LE, +Ankle DF/PF . Preop Labs(12/16/18): CBC:. Hgb 12.8, Pl t 264, CHEM: Na 141, K 4.2, Cr 1.28 (eGFR 41.3%), (medium to high risk of complications or morbidity) (major surgery) (IV sedative, meds) Assessment Plan1.) Anemia of Acute Blood Loss- .will recheck tomorrow.2.) S/p Right Femur Osteoplasty ORIF .acute pain control. Anticoagulation as per Dr. Brown.3.) Hypertension- .follow BP and hold Rxs if SBP<120.4.) Diet controlled diabetes Resless Leg s syndome Prior uterine cancer- .continue on Rx. Rikki Núñez M.D. Thanks! at 105 9 RPT #:[id number] OF REPORT CLClinical peii0630-75-23V25:09:00Y.[id number] l able for patient lwbyAOUNCDPFPXVHCB6527-36-61J20:59:38 2019-01-14 17:34:00 [id number]:34:00 [facility] Progress NoteREPORT#:[id number] REPORT STATUS: SignedDATE:01/14/19 TIME: 1734 PATIENT: LAUREN TURCIOS UNIT #: [id number]#: [id number] [facility] [birth year] AGE: 68 SEX: F ATTEND: Junito Brown MDADM AUTHOR: Junito Brown MD * ALL edits or amendments must be made on the electronic/computer document * SubjectivePatient reports:Yes: complaints, pain. ObjectiveVS:Last Documented: Result Date Time Pulse Ox 96 01/14 1225 B/P 136/97 01/14 1225 Tem p 97.1 01/14 1225 Pulse 79 01/14 1225 Resp 17 01/14 1225 B/P Mean 89 12/16 1454 O2 Delivery Room air 12/16 1454 Patient Weight Weight (lb): 227Weight (oz): 1.22Weight (kg): 103.000 Physica l ExamGeneral appearance: no acute distress Diagnosis, Assessment PlanFree text A P:Post-op Progress Note NAD. Examined in PACU RLE: Dressings c/d/iSILT all toesMoves all toes+ ankl e DF/PFWWP A/P: 68 y/o F POD 0: Right femur osteoplasty, ORIF AnalgesiaADATDVT prophylaxisNo evidence of compartment syndromeFollow post-op labsPT: Begin POD 1, NWBPlans to dispo home tomorrow or at 0816 RPT #:[id number] OF REPORT PRProgress Ztgb1003-17-95F29:34:00Y.[id number] priyank able for patient lguiKUTYYJERUNWLME3566-55-30R68:16:33 2019-01-14 17:32:00 PWecaxbvzlw049937029293-56-35N02:32:00 [facility] ([facility])Op/Inv Procedure Note - BriefREPORT#:[id number] REPORT STATUS: SignedDATE:01/14/19 TIME: 1731 PATIENT: LAUREN TURCIOS UNIT #: [id number]#: [id number] ROOM/BED: [place] [address]DOB: [birth year] AGE: 68 SEX: F ATTEND: Junito Brown [facility] AUTHOR: Junito Brown MD * ALL edits or amendments must be made on the electronic/computer document * Op/Inv Proc Note - Brief TEXT Brief Op/Inv Procedure NoteNote details:*PRE-PROCEDURE DIAGNOSIS:[] Right femur deformity/non-union *POST-PROCEDURE DIAGNOSIS:Same[] *PROCEDURE(S) PERFORMED:[] Right femur osteoplasty, ORIF *PRIMARY SURGEON:[] Dr. Brown *[employer]CR[employer]ORER(S):[] Dr. Crabtree ANESTHETIC:[] *ESTIMATED BLOOD LOS S in ml's:[] 100 mL *SPECIMEN(S) REMOVED:[] None *COMPLICATIONS:None[] DRAIN(S):None[] TUBE(S):None[] IMPLANT(S):None[] FLUIDS:[] URINE OUTPUT:[] *FINDINGS:[] See dictated op-note DISPOSITION:To PACU[] at 1734 RPT #:[id number] OF REPORT PNProcedure daqr8792-40-21O55:32:00Y.[id number] priyank able for patient huwaFXXSIVKWVNETQG9214-27-79Y51:34:34 2018-08-22 08:46:00 [id number]:46:00 [facility] ([facility])Clinical NoteREPORT#:[id number] REPORT STATUS: SignedDATE:08/22/18 TIME: 08 PATIENT: LAUREN TURCIOS UNIT #: [id number]#: [id number] ROOM/BED: 504-ADOB: [birth year] AGE: 68 SEX: F ATTEND: Aftab Mcarthur [facility] AUTHOR: Rikki Salinas MD * ALL edits or amendments must be made on the electronic/computer document * Clinical NoteNote:[facility] Rikki Núñez M.D.(cell text [phone]) Assessment/Plan1.) Anemia of acute blood loss- .Hgb 12.1, asymptomatic.2.) S/p Righ t TKA- .acute pain control. DVT prophylaxis as per Dr. Mcarthur.3.) Hypertension CKDz3- .follow BP an d hold Rxs if SBP<120. Cr better than preop.4.) Restless legs Osteoarthritis - .continue on Rx. Gluocse 200. States her Hgb Aic is 6.2 and she i s on diet control and her physician is monitoirng her glycemic control.* OK for DISCHARGE per Internal Medicine. Prior Events/Overnight: Uneventful.Chief Complaint: No significant complaints. Very pleased with [facility] care. ObjectiveVital Signs: Date Time Temp Pulse Resp B/P B/P Pulse O2 O2 Flow FiO2 Mean Ox Delivery Rate 08/22 0706 97.3 100 17 126/73 90.8 96 Room air 08/22 0404 97.2 98 16 95/62 73.1 96 08/22 0004 99 Nasal 3.956288 32 cannula 08/21 2236 97.0 106 16 122/74 89.8 98 08/21 2004 100 Nasal 3.300429 32 cannula 08/22 1999 Nasal 3.079113 cannula 08/22 1915 96.8 93 16 134/85 101.4 96 08/21 1815 100 Nasal 3.489970 32 cannula 08/21 1754 Nasal 3.907460 cannula 08/21 1745 96.3 86 1 8 149/84 105.5 97 Nasal cannula 08/21 1736 Simple 8.380071 mask 08/21 1715 76 13 155/58 99 Nasal 3.480875 cannula 08/21 1700 88 20 171/74 97 Nasa l 3.563266 cannula 08/21 1645 90 22 177/93 97 Nasa l 3.497160 cannula 08/21 1630 97.8 88 16 165/96 9 9 Nasal 3.141570 cannula 08/21 1615 88 14 156/80 9 7 Nasal 3.384595 cannula 08/21 1600 88 20 150/77 9 7 Nasal 3.179745 cannula 08/21 1558 97.1 86 19 150/77 97 Simple 8.722606 mask 08/21 1053 97.4 7 6 16 187/102 97 Room air Gen: Alert, oriented, in mild discomfort -sitting up in chair.Neck: No Masses, No Thyromegaly-CV: Regular Rate Rhythm / Edema- no significant Resp: Clear To Ascultation / Normal Respiratory EffortABD: NonTender / NonDistended MS/Skin: No Cyanosis / No nodules / +Ankle DF/PF / nl capillary refill of toes.Other : Labs/X-ray: Laboratory Tests: 08/22 0407 Chemistry Sodium (136 - 145 mmol/L) 139 Potassiu m (3.5 - 5.1 mmol/L) 4.8 Chloride (98 - 107 mmol/L ) 103.0 Carbon Dioxide (21 - 32 mmol/L) 24.0 BUN ( 7 - 18 mg/dL) 37 H Creatinine (0.55 - 1.30 mg/dL) 1.31 H Glomerular Filtr Rate (>60) 40.3 Glucose (70 - 110 mg/dL) 217 H Calcium (8.2 - 10.1 mg/dL ) 8.8 Hematology Hgb (12 - 16 g/dL) 12.1 Hct (37 - 47 %) 38.0 Rikki Núñez M.D. at 092 2 RPT #:[id number] OF REPORT CLClinical slbd4770-49-98U23:46:00Y.[id number] l able for patient aktlASXKIYNTVMWCBP3203-51-89U03:23:16 2018-08-22 07:33:00 MIuvmnzojfo947694543900-49-96A83:33:00 [facility] ([facility])Clinical NoteREPORT#:[id number] REPORT STATUS: SignedDATE:08/22/18 TIME: 732 PATIENT: LAUREN TURCIOS UNIT #: [id number]#: [id number] ROOM/BED: [facility]-ADOB: [birth year] AGE: 68 SEX: F ATTEND: Aftab Mcarthur AUTHOR: Aftab Mcarthur MD * ALL edits or amendments must be made on the electronic/computer document * Clinical NoteNote:POD# 1 knee Joint ArthroplastyPatient well, reports pain is mild-moderate AF VSSExam: dressing dry/intactMoves toes DF/PFSensory unchanged A/P: Mobilize with physical TherapyDVT prophylaxis ongoingFollowing labsRemove coverlet, do not recover, patient may showerDischarge planning at 0733 RPT #:[id number] OF REPORT CLClinical vdzc8238-77-47D79:33:00Y.[id number] l able for patient acguSNBGDTBTHZLPLK4782-13-89C84:34:14 2018-08-22 07:26:00 [id number]:26:00 [facility] ([facility])Discharge SummaryREPORT#:[id number] REPORT STATUS: SignedDATE:08/22/18 TIME: 725 PATIENT: LAUREN TURCIOS UNIT #: [id number]#: [id number] ROOM/BED: [facility]-ADOB: [birth year] AGE: 68 SEX: F ATTEND: Aftab Mcarthur AUTHOR: Aftab Mcarthur MD * ALL edits or amendments must be made on the electronic/computer document * PCP PCPDischarge to: home General InformationDate of discharge: 08/22/18Hospital course: Discharge Diagnosis: Right Knee Degenerative Disease Procedure: Right Knee Arthroplasty Hospital Course and Findings The patient underwent the procedure without incident . Findings were significantfor degenerative diseas e of the knee. The patient was hemodynamically and medically monitored during the postoperative period. Anticoagulation was instituted for postoperative DVT prophylaxis. The patient was progressively able to tolerate PO pain medications and the appropriate diet. Physical therapywas instituted, with a progressive abilit y to ambulate and perform exercises. The patient was eventually deemed stable and safe for discharge. At discharge, the patient was comfortable, with a controlled pain level. There were no chest or abdominal symptoms present. Discharge physical examination demonstrated stable vital signs and no acute distress. The patient had an intact wound with no significant drainage, and no calf tenderness and a negativeHoman s sign bilaterally. There were no neurologic or vascular deficits or changes from the preoperative state. Disposition: Discharged to home Discharge Condition: Stable Instructions : Instruction sheet given to patient Activity: Ambulate with assistance, with weight-bearing as instructed in the hospital. Diet: As per preoperatively Prescriptions 1. Pain Medications : As per discharge prescription, with progressive weaning as pain decreases 2. Anticoagulation: As per discharge prescription, or PreOp anticoagulant, as discussed with patient3. Physical Therapy: Will undergo PT for gait training, mobilization, ixwlu-fd-xmmlyz, and strengthening. Patient was informed that they need to arrange for therapy as quickly as possible. The importance of early advancement of comjq-lo-hdzdru withhome exercises, and physical therapy was stressed to the patient. Follow-up Appointment: Patient instructed to arrange appointment for an office visit in 2 weeks Med Rec Med RecDischarge meds:Stop taking the following medications:DICLOFENAC SODIUM (VOLTARE N 1%) 100 GM GEL TOPICAL FOUR TIMES DAILY NEEDED. as needed for PAIN Continue taking these medications:RAMIPRIL (ALTACE) 10 MG CAP 10 MILLIGRAM ORAL BEDTIME. TRIAMTERENE/HCTZ (MAXZID E 75/50 MG) 1 TAB TAB 1 TABLET ORAL BEDTIME. AMITRIPTYLINE (ELAVIL) 25 MG TAB 25 MILLIGRAM ORAL BEDTIME. MELOXICAM (MOBIC) 15 MG TAB 15 MILLIGRAM ORAL BEDTIME. DULoxetine DR (CYMBALTA) 30 MG CAP.DR 30 MILLIGRAM ORAL BEDTIME. TEMAZEPA M (RESTORIL) 15 MG CAP 15 MILLIGRAM ORAL BEDTIME. HYDROcodone/APAP (NORCO 10/325) 1 TAB TAB 1 TABLET ORAL EVERY 8 HR NEEDED. as needed for PAIN rOPINIRole (REQUIP) 5 MG TAB 5 MILLIGRAM ORAL THREE TIMES DAILY NEEDED. as needed for RESTLESS LEG Start taking the following new medications:ASPIRIN EC (ECOTRIN) 81 MG TAB.EC 81 MILLIGRAM ORAL TWICE DAILY WITH MEALS. Qty = 60 No Refills POLYETHYLENE GLYCOL 3350 (MIRALAX) 17 GM POWDER 17 GRAM ORAL BEDTIME. Days = 30 Qty = 30 No Refills Instructions: please take daily fo r constipation prevention METHOCARBAMOL (ROBAXIN) 500 MG TAB 500 MILLIGRAM ORAL FOUR TIMES A DAY. Qty = 20 No Refills at 1036 RPT #:[id number] OF REPORT DSDischarge jodfcge8616-18-26G20:26:00Y.[id number] v ailable for patient beapBTRTSQAICAIQAD5728-31-34X50:36:49 2018-08-21 18:06:00 QLbluldvmzc100958827987-47-26T90:06:00 [facility] ([facility])Clinical NoteREPORT#:[id number] REPORT STATUS: SignedDATE:08/21/18 TIME: 180 PATIENT: LAUREN TURCIOS UNIT #: [id number]#: [id number] [facility]: 68 SEX: F ATTEND: Aftab Mcarthur [facility] AUTHOR: Rikki Salinas MD * ALL edits or amendments must be made on the electronic/computer document * Clinical NoteNote:[facility] Rikki Núñez MD(cell text [phone])Internal Medicine Consult at [facility] of : Dr Aftab Mcarthur Chief Complaint: Right knee pain HPI: 68 yo F now s/p Right Total Knee Arthroplasty (TKA) by Dr. Mcarthur. Ms. Tam jorge related months of progressive right knee pain (recently severe), worse with activity, and popping and crunchyat times in quality. She has failed conservative management.Comorbidities: se e below. PmHx: .Hypertension, RLS, osteoArthritis, diabetes? ALLERGY: Allergies:metformin (Coded, Severe, HIVES, SWELLING, 08/12/18) Home Medications: Home Medications:RAMIPRIL (ALTACE) 10 MG PO BEDTIME TRIAMTERENE/HCTZ (MAXZIDE 75/50 MG) 1 TAB PO BEDTIME AMITRIPTYLINE (ELAVIL) 25 M G PO BEDTIME MELOXICAM (MOBIC) 15 MG PO BEDTIME DULoxetine DR (CYMBALTA) 30 MG PO BEDTIME TEMAZEPAM (RESTORIL) 15 MG PO BEDTIME HYDROcodone/APAP (NORCO 10/325) 1 TAB PO Q8H PRN PRN PAIN rOPINIRole (REQUIP) 5 MG PO TID PRN PRN RESTLESS LEG ASPIRIN EC (ECOTRIN) 81 MG PO BID MEALS POLYETHYLENE GLYCOL 3350 (MIRALAX) 17 GM P O BEDTIME METHOCARBAMOL (ROBAXIN) 500 MG PO QID SgHx: .cholecystectomy, hysterectomy, hernia surgery, lumbar spine surgery SHx: Tob: none FHx: .No significant hx of DVT/PE.Alcohol: none Drugs: none Lives: spouse ROS: [X] too groggy to participate Vitals: Vital Signs: Date Time Temp Pulse Resp B/P B/P Pulse O2 O2 Flow FiO2 Mean O x Delivery Rate 08/21 1754 Nasal 3.218611 cannula 08/21 1745 96.3 86 18 149/84 105.5 97 Nasal cannula 08/21 1736 Simple 8.082060 mask 08/21 1715 76 13 155/58 99 Nasal 3.516694 cannula 08/21 1700 88 20 171/74 97 Nasal 3.823668 cannul a 08/21 1645 90 22 177/93 97 Nasal 3.201284 cannula 08/21 1630 97.8 88 16 165/96 99 Nasal 3.895100 cannula 08/21 1615 88 14 156/80 97 Nasal 3.383886 cannula 08/21 1600 88 20 150/77 9 7 Nasal 3.690804 cannula 08/21 1558 97.1 86 19 150/77 97 Simple 8.565475 mask 08/21 1053 97.4 76 16 187/102 97 Room air Gen: Groggy, in mild discomfort, nl nutrition.EYE: Nl lids conjunctiva.ENT: Nl ears Nose, nl lips,. Neck: Supple, nl thyroid, No masses.CV: Regular Rate Rhythm, no heave or significant murmur. Edema- none Feet toes normal temperature.RESP: Clear to Auscultation, normal Respiratory effort.ABD: Soft, NonDistended,.LYM: No significant cervical Lymphadenopathy.MS: No Clubbing, cyanosis, Knee is wrapped,NEURO: Nonfocal, grossly normal sensation of LE, +Ankle DF/PF . Preop Labs(07/24/18): CBC:. Hgb 12.9, Plt 299, CHEM: Na 141, K 4.2, Cr 1.61(eGFR 43%) Ekg: NSR (medium t o high risk of complications or morbidity) (major surgery) (IV sedative, meds) Assessment Plan1.) Anemia of Acute Blood Loss- .will recheck 08/22/18. 2.) S/p Right TKA- .acute pain control. DVT prophylaxis as per Dr. Mcarthur.3.) Hypertension- .follow BP and hold Rxs if SBP<120.4.) Restless legs Osteoarthritis - .continue on Rx. Rikki Núñez M.D. Thanks! at 2246 RPT #:[id number] OF REPORT CLClinical ilph0710-61-85I07:06:00Y.[id number] l able for patient gmonAKUACROQWBDPWW2674-68-44P84:46:45 2018-08-21 15:18:00 CMqnfwhgdol189925735914-98-03A99:18:00 [facility] ([facility])Operative Note - FullREPORT#:[id number] REPORT STATUS: SignedDATE:08/21/18 TIME: 1518 PATIENT: LAUREN TURCIOS UNIT #: [id number]#: [id number] ROOM/BED: Y998-14DOB: [birth year] AGE: 68 SEX: F ATTEND: Aftab Mcarthur MDADM AUTHOR: Aftab Mcarthur MD * ALL edits or amendments must be made on the electronic/computer document * Operative ReportStart date: 08/21/18Start time : 0000Pre-procedure diagnosis:R KNEE OAPost-procedure diagnosis:SAMEProcedures performed: R TKATechnique/Procedure:Total Knee Replacement (Arthroplasty) OPERATIVE PROCEDURE I N DETAIL The patient was identified in the holding area, and all questions and concerns were answered. The patient verbally confirmed the sit e and side of the surgery and a marking of the sit e was done. The patient was brought to the operating room and placed supine on the operatingtable. A sandbag was then positioned fo r maximal knee flexion of the operative knee and then taped in position. A pneumatic tourniquet was placed around the operative upper thigh. The leg was then prepped and draped in usual sterile fashion. A surgical timeout was performed to identify correct patient, surgical site and surgery. The preoperative antibiotic intravenous drip was completed. The leg was then elevated an d exsanguinated with the use of an elastic bandage , and the tourniquet was then inflated. A midline incision, beginning proximal to the superior eagle e of the patella to the tibial tubercle was then performed with a scalpel through the skin. Meticulous hemostasis was obtained with electrocautery. Dissection was taken down throug h the same line to the level of the quadriceps tendon, the patellar periosteum, as well as the patellar tendon. We elevated skin flaps to expos e the medial and lateral retinacula, and a medialarthrotomy was then performed with electrocautery from Vastus Medialis, through the medial border of the patella, and down to the level medial to the patellar tendon. Proximal medial periosteal elevation off the proximal tibia was then performed, and the patella was then retracted laterally and flexed( but not everted). Retractors were placed into the medial and lateral gutters of the knee with softtissue debridement of the cruciate ligament and the meniscal bodies, which were then sharply resecte d and removed. Attention was shifted to the femur. A step drill was placed anterior to the insertio n of the anterior cruciate ligament, and a drill hole was then placed into this area, connecting with the intermedullary canal. An intermedullary alignment guide was then placed at 5 degrees of valgus for the knee and driven up into place. An appropriate amount of rotation was then determined, and the jig was then pinned in place into the distal femur. The intramedullary angelo wa s then removed. The distal cutting jig was used an d the appropriate amount of medial and lateral condyles were removed. Then the femoral sizer wa s used to measure the size of the distal femur. Th e femoral component rotation was set to 3 degrees of external rotation and it was verified using a t-handle to match themechanical axis of the tibi a with the knee in flexion. The cutting block was pinned in place and used to make the anterior, posterior, and chamfer cuts with an oscillating saw. The cutting block was removed. A notch-cutting guide was then placed on the dista l femoral surface. Once its medial/lateral positio n was verified it was pinned in place. The notch was then cut and removed using a reciprocating saw. We then directed our attention to the proximal tibia. Retractors were placed around th e proximal tibia. An external tibial alignment cutting guide was then placed around the leg. Th e guide was pinned with the appropriate amount of external rotation. Then the highest point of the unaffected articular surface was then chosen wit h a stylus to remove an appropriate amount of bone . The cutting jig was then fixed to the anterior surface of the proximal tibia with transfixion pins. The oscillating saw was used to resect approximately 10 mm of proximal bone. Thejig and pins were then removed. The rest of the soft tissue of the proximal tibia and menisci were removed as well. A spacer block was placed to asses adequate ligamentous tension both in 90 degrees of flexion and full extension. Varus/valgus stress was applied and soft tissue adjustments were made as needed. Overall alignment of the leg was also verified. A tibial sizing tray was then placed onto the cut tibial surface and its rotation was aligned with the medial 1/3 of the tibial tubercle. It provided excellent bony coverage, and there was no overhang. A bone plug from the tibia was used to plug the hole in the femoral canal. Then the res t of the proximal tibia was prepared. A trial tibi a was left in place. The trial prosthesis was then placed on the femur, and adequate seating with allthe cuts was noted. The trial polyethylene wa s then inserted, and snapped into the tibial tray. A trial reduction was performed. Adequate ligamentous tension throughout the range of motion was noted. Attention was then shifted to the patella. Debridement around the patellar surface was performed. The measurement of the depth of the patella was made and the appropriat e of bone was removed using an oscillating saw. Three drill holes were then placed in the bone. A trial button was placed on the bone. Reduction was then performed, and adequate tracking was noted as well. All trial components were removed , and irrigation was performed. The periarticular tissueswere injected with local numbing medication. Two packages of methyl methacrylatewere mixed. The components were then cemented starting with the tibial tray and then the femur( STEM ADDED TO THE FEMUR DUE TO OSTEOPENIA). All extruded bone cement was removed. A trial tibial spacer was placed in and the knee brought into extension. The patellar button was inserted and clamped into position. Adequate alignment was noted at this point. A compressive bandage was applied tothe leg while the cement cured. Once the cement was hard the tourniquet was deflated. After further debridement of any loose and/or extruded cement we checked for bleeding and controlled it with electrocautery. Irrigation with pulse lavage wit h normal saline with bacitracin was used, and the joint dried. The final posterior-stabilized tibial poly insert was then seated. Closure was then performed . The retinaculum and quadriceps mechanism were repaired with #2 Quill and #1 Vicryl. The subcutaneous layer was closed meticulously with deep layer of #1 Vicryl, superficial layer of 2-0 Vicryl, and the skin with horacio. A sterile compressive dressing was applied. INDICATIONS FOR [employer]ANT [employer]ER The presence of a skilled surgical tech was medically necessary to aid for the entire procedure. Their responsibilities include patient positioning, retraction of soft tissues for wide exposure so that the surgeon can use both hands to perform the surgery, as well as stabilizing the limb for surgical instrumentation throughout the case. Retraction for exposure/visualization, as well a s stabilization of the extremity is vital to the procedure and not possible without an prosthetic assistant. In addition having an prosthetic assistant shortens operative times which decreases expenses and improves outcomes. I am not part ofany residency or fellowship training programs and therefore require the help of the prosthetic assistant listed above for this surgery. IMPLANTS Depuy Sigma 3 Fem( 30MM STEM), 2.5 Tib, 10 mm ALTRX, 35 mm Oval patella Primary Surgeon: Gildaistant(s): STEPHY PACAnesthesia: TIVAOperative findings:OA, osteopenic femur bone, sclerotic tibia bone.Complications: noneEstimated blood loss in ml's: 50Specimens removed/altered: noneImplant(s): depuy at 1522 RPT #[id number] OF REPORT OPOperative [id number] leatha ilable for patient [id number]:45
--- NOTE | 2022-12-31 15:56 | RAD REPORT ---
EXAM DESCRIPTION: CT - Head C Spine Cap Wo Con - 12/31/2022 2:58 pm CLINICAL HISTORY: DECLINING STATE COMPARISON: No comparisons TECHNIQUE: Head and cervical spine CT images were obtained without IV contrast. Chest, abdomen, and pelvis CT images were obtained without IV contrast. Multiplanar reformats were generated and reviewed . All CT scans are performed using dose optimization technique as appropriate and may include automated exposure control or mA/KV adjustment according to patient size. FINDINGS: CT HEAD: No intracranial hemorrhage, mass effect, or edema. No evidence of acute territorial infarct. No midli ne shift or abnormal fluid collection. The ventricles are normal in caliber and configuration for age . Patchy deep white matter areas of hypoattenuation, nonspecific, most suggestive chronic small vesse l ischemic changes. Basal cisterns are patent. Mastoid aircells and paranasal sinuses are clear. No a cute skull fracture. CT CERVICAL SPINE: No acute cervical spine fracture or subluxation. Vertebral body heights are well maintained. Pronounc ed degenerative changes with disc height loss most pronounced at C5-6, as well as report degrees of n eural foraminal narrowing most severe at C6-7 on the left and C5-6 on the right. No hyperattenuating canal hematoma. Prevertebral and paraspinous soft tissues are unremarkable. CT CHEST: No pneumothorax, pulmonary contusion or pleural fluid collection. No mediastinal hematoma and the aor ta and pulmonary arteries are unremarkable. No chest will mass or abnormal axillary finding. No displ aced rib fracture or other significant bony finding. CT ABDOMEN/ PELVIS: No evidence of traumatic injury to solid abdominal viscera. Gallbladder and biliary tree are unremark able. No bowel injury or significant finding. No free air, free fluid or abnormal fat stranding. Dick tasis recti on the right. Sequelae of cholecystectomy and lower anterior abdominal wall ventral herni a repair. Fat containing right inguinal hernia. No urinary bladder abnormality. No significant bony finding. Soft tissue swelling along the right pectoralis muscles and axilla, with subcutaneous fat stranding. IMPRESSION: Soft tissue swelling along the right pectoralis muscles and the sella, suggesting soft t issue contusion. No other acute traumatic findings. Incidental findings as above.
[2022-12-31] MEDS ORDERED: MORPHINE 4 MG/ML SYR ONE (16:09)
[2022-12-31 16:23] LABS: Absolute Lymphocytes (CBC) 0.4 K/uL (0.7-4.9); Hematocrit 32.4 % (36.0-45.0); Lymphocytes % 1.7 % (15.3-44.8); MCV 90.6 fL (80-100); MPV 8.1 fL (7.6-11.3); Platelets 316 thou/uL (152-406); RBC Red Blood Cell Count 3.58 M/uL (3.86-4.86)
[2022-12-31 16:48] LABS: Bilirubin Total 0.7 mg/dL (0.2-1.0); Potassium 4.4 mEq/L (3.5-5.1); Protein, Total 7.8 g/dL (6.4-8.2)
--- NOTE | 2022-12-31 17:18 | ER ---
Nurse's Notes [facility] Name: Lauren Turcios Age: 72 yrs Sex: Female : 1950 Arrival Date: 12/31/2022 Time: 14:03 Bed 13 Private MD: Diagnosis: Sepsis, unspecified organism;Cellulitis of left lower limb;Repeated falls;Acute kidney injury Presentation: 12/31 14:36 Chief complaint: EMS states: toned out to home, pt fell backwards from standing and hit eh3 floor, c/o left sided neck pain and mid-thoracic pain. Coronavirus screen: Vaccine status: Patient reports receiving the 2nd dose of the covid vaccine. Ebola Screen: No symptoms or risks identified at this time. Initial Sepsis Screen: Does the patient meet any 2 criteria? HR > 90 bpm. No. Patient's initial sepsis screen is negative. Does the patient have a suspected source of infection? No. Patient's initial sepsis screen is negative. Risk Assessment: Do you want to hurt yourself or someone else? Patient reports no desire to harm self or others. Onset of symptoms was December 31, 2022. 14:36 Method Of Arrival: EMS: [facility] 14:36 Acuity: CALEB 3 3 14:36 Care prior to arrival: Medication(s) given: Fentanyl, 50 mcg IV initiated. 20 GA, in eh3 the left forearm, Glucose check: 147. Triage Assessment: 14:38 General: Appears in no apparent distress. uncomfortable, Behavior is calm, cooperative, eh3 appropriate for age. Pain: Complains of pain in neck Pain radiates to thoracic area. Neuro: Level of Consciousness is awake, alert, obeys commands, Oriented to person, place, time, situation, Speech is normal, Pupils are PERRLA. Cardiovascular: Capillary refill < 3 seconds Patient's skin is warm and dry. Respiratory: Airway is patent Respiratory effort is even, unlabored, Respiratory pattern is regular, symmetrical. GI: Abdomen is round non-distended, obese. Derm: Skin is pink, warm \T\ dry. Musculoskeletal: Circulation, motion, and sensation intact. Historical: - Allergies: 14:38 adhesive tape-silicones; eh3 - PMHx: 14:38 Anxiety; Chronic Cellulitis; Gait problem; Hypertensive disorder; neuropathy; eh3 - PSHx: 14:38 Cholecystectomy; lower back; R. leg surgery; eh3 - Immunization history:: Adult Immunizations up to date. - Social history:: Smoking status: Patient denies any tobacco usage or history of. Screenin:[address] [facility] ED Fall Risk Assessment (Adult) Score/Fall Risk Level 3 or more points = High eh3 Risk Oriented to surroundings, Maintained a safe environment, Educated pt \T\ family on fall prevention, incl call for assistance when getting out of bed, Assessed \T\ reinforced patient's understanding of fall precautions, Provided non-skid footwear, Hourly rounding (assess needs \T\ fall precautionary measures) done, Used ambulatory aids as needed (educated on \T\ assisted with), Utilized family, sitter, or virtual sales incentive analyst as indicated. Abuse screen: Denies threats or abuse. Denies injuries from another. Nutritional screening: No deficits noted. Tuberculosis screening: No symptoms or risk factors identified. Assessment: 14:50 Reassessment: No changes from previously documented assessment. Patient and/or family eh3 updated on plan of care and expected duration. Pain level reassessed. 16:15 Reassessment: No changes from previously documented assessment. Patient and/or family ll1 updated on plan of care and expected duration. Pain level reassessed. 17:00 Reassessment: Patient appears in no apparent distress at this time. Patient and/or eh3 family updated on plan of care and expected duration. Pain level reassessed. Patient is alert, oriented x 3, equal unlabored respirations, skin warm/dry/pink. 18:00 Reassessment: Patient appears in no apparent distress at this time. Patient and/or eh3 family updated on plan of care and expected duration. Pain level reassessed. Patient is alert, oriented x 3, equal unlabored respirations, skin warm/dry/pink. 19:00 Reassessment: Patient appears in no apparent distress at this time. Patient and/or eh3 family updated on plan of care and expected duration. Pain level reassessed. Patient is alert, oriented x 3, equal unlabored respirations, skin warm/dry/pink. 20:00 Reassessment: Patient appears in no apparent distress at this time. Patient and/or eh3 family updated on plan of care and expected duration. Pain level reassessed. Patient is alert, oriented x 3, equal unlabored respirations, skin warm/dry/pink. Vital Signs: 14:36 BP 138 / 79; Pulse 105; Resp 18; Temp 98.5(O); Pulse Ox 96% on R/A; Weight 110.68 kg; eh3 Height 5 ft. 3 in. ; Pain 8/10; 15:00 BP 116 / 60; Pulse 106; Resp 18; Pulse Ox 99% on R/A; eh3 16:00 BP 144 / 83; Pulse 105; Resp 18; Pulse Ox 98% on R/A; eh3 16:30 BP 134 / 116; Pulse 105; Resp 18; Pulse Ox 98% on R/A; eh3 17:00 BP 131 / 106; Pulse 105; Resp 16; Pulse Ox 98% on R/A; eh3 17:30 BP 105 / 86; Pulse 101; Resp 17; Pulse Ox 98% on R/A; eh3 19:00 BP 105 / 62; Pulse 103; Resp 20; Pulse Ox 97% on R/A; eh3 20:00 BP 146 / 78; Pulse 101; Resp 18; Pulse Ox 100% on R/A; eh3 14:36 Body Mass Index 43.22 (110.68 kg, 160.02 cm) eh3 14:36 Pain Scale: Adult eh3 ED Course: 14:21 Patient arrived in ED. snw 14:21 Yana Schmidt FNP-C is PHCP. snw 14:21 Jalen Freire MD is Attending Physician. snw 14:26 Elaine Muro, RN is Primary Nurse. eh3 14:38 Triage completed. eh3 14:38 Arm band placed on. eh3 14:50 Patient has correct armband on for positive identification. Placed in gown. Bed in low eh3 position. Call light in reach. Side rails up X2. Adult w/ patient. Provided Education on: use of call cesar. Client placed on continuous cardiac and pulse oximetry monitoring. NIBP monitoring applied. 14:50 Maintain EMS IV. Dressing intact. Good blood return noted. Site clean \T\ dry. Gauge \T\ eh 3 site: 20g LAC. 14:59 CT Traumagram (Head C Spine CAP wo con) In Process Unspecified. EDMS 16:38 Foot Left 3 View XRAY In Process Unspecified. EDMS 17:16 Terry Vincent MD is Hospitalizing Provider. snw 20:36 No provider procedures requiring assistance completed. Patient admitted, IV remains in eh3 place. Administered Medications: 16:15 Drug: morphine IM 4 mg IM once Route: IM; Site: Other; 3 17:00 Follow up: Response: No adverse reaction; Pain is decreased; RASS: Drowsy (-1) [facility] 18:58 Drug: vancoMYCIN IVPB 1 grams IVPB once over 2 hrs Route: IVPB; Infused Over: 2 hrs; [facility] Site: left antecubital; 20:59 Follow up: Response: No adverse reaction; IV Status: Completed infusion; IV Intake: eh3 250ml Medication: 20:36 VIS not applicable for this client. 3 Intake: 20:59 IV: 250ml; Total: 250ml. 3 Outcome: 17:18 Decision to Hospitalize by Provider. snw 20:59 Patient left the ED. 3 20:59 Admitted to Med/surg accompanied by tech, family with patient, via stretcher, room 225, [facility] with chart, Report called to Svetlana 20:59 Condition: stable 20:59 Instructed on the need for admit, Signatures: Dispatcher [employer] EDMS Yana Schmidt, SPOOL SORTER-C SPOOL SORTER-CsnJesica Babcock RN RN 1 Elaine Muro RN RN [facility] Corrections: (The following items were deleted from the chart) 20:35 15:58 Reassessment: No changes from previously documented assessment. Patient and/or 3 family updated on plan of care and expected duration. Pain level reassessed. 3 20:35 19:00 BP 146 / 78; 3 eh3
--- NOTE | 2022-12-31 17:18 | EDPHYS ---
Physician Documentation [facility] Name: Lauren Turcios Age: 72 yrs Sex: Female : 1950 Arrival Date: 12/31/2022 Time: 14:03 Bed 13 Private MD: ED Physician Jalen Freire HPI: 12/31 16:54 This 72 yrs old Female presents to ER via EMS with complaints of fall. snw 16:54 Trauma demographics: County: The [place] occurred in [place]. Mechanism of injury: Son javy states she has fallen 5 times in the past few days. Associated injuries: The patient sustained upper back injury. Onset: The symptoms/episode began/occurred suddenly. The patient has experienced similar episodes in the past. It is unknown whether or not the patient has recently seen a physician. EMS states pt was hypotensive at her home with SBP in the 90s. Historical: - Allergies: 14:38 adhesive tape-silicones; eh3 - PMHx: 14:38 Anxiety; Chronic Cellulitis; Gait problem; Hypertensive disorder; neuropathy; eh3 - PSHx: 14:38 Cholecystectomy; lower back; R. leg surgery; eh3 - Immunization history:: Adult Immunizations up to date. - Social history:: Smoking status: Patient denies any tobacco usage or history of. ROS: 16:52 Eyes: Negative for injury, pain, redness, and discharge, ENT: Negative for injury, snw pain, and discharge, Neck: Negative for injury, pain, and swelling, Cardiovascular: Negative for chest pain, palpitations, and edema, Respiratory: Negative for shortness of breath, cough, wheezing, and pleuritic chest pain, Abdomen/GI: Negative for abdominal pain, nausea, vomiting, diarrhea, and constipation, 16:52 : Negative for injury, bleeding, discharge, and swelling, 16:52 Neuro: Negative for headache, weakness, numbness, tingling, and seizure, Psych: Negative for depression, anxiety, suicide ideation, homicidal ideation, and hallucinations, 16:52 Constitutional: Positive for body aches, malaise, frequent falls, 16:52 Back: Positive for pain with movement, of the thoracic area, 16:52 MS/extremity: Positive for neuropathy, 16:52 Skin: Positive for cellulitis, "chronic", Exam: 16:05 Head/Face: Normocephalic, atraumatic. Eyes: Pupils equal round and reactive to light, snw extra-ocular motions intact. Lids and lashes normal. Conjunctiva and sclera are non-icteric and not injected. Cornea within normal limits. Periorbital areas with no swelling, redness, or edema. ENT: Nares patent. No nasal discharge, no septal abnormalities noted. Tympanic membranes are normal and external auditory canals are clear. Oropharynx with no redness, swelling, or masses, exudates, or evidence of obstruction, uvula midline. Mucous membranes moist. Neck: Trachea midline, no thyromegaly or masses palpated, and no cervical lymphadenopathy. Supple, full range of motion without nuchal rigidity, or vertebral point tenderness. No Meningismus. Chest/axilla: Normal chest wall appearance and motion. Nontender with no deformity. No lesions are appreciated. 16:05 Abdomen/GI: Soft, non-tender, with normal bowel sounds. No distension or tympany. No guarding or rebound. No evidence of tenderness throughout. obese 16:05 MS/ Extremity: Pulses equal, no cyanosis. Neurovascular intact. Full, normal range of motion. Psych: Awake, alert, with orientation to person, place and time. Behavior, mood, and affect are within normal limits. 16:05 Constitutional: The patient appears alert, awake, restless, uncomfortable, 16:05 Cardiovascular: Rate: tachycardic, Rhythm: regular, 16:05 Respiratory: Exam negative for the patient does not display signs of respiratory distress, Breath sounds: are clear throughout, 16:05 Back: pain, that is moderate, of the thoracic area, 16:05 Skin: Appearance: normal except for affected area, lesion(s), peeling broken down skin to lower ankles/feet, left ankle with mild cellulitis, left 3rd toe with darkened appearance, Vital Signs: 14:36 BP 138 / 79; Pulse 105; Resp 18; Temp 98.5(O); Pulse Ox 96% on R/A; Weight 110.68 kg; eh3 Height 5 ft. 3 in. ; Pain 8/10; 15:00 BP 116 / 60; Pulse 106; Resp 18; Pulse Ox 99% on R/A; eh3 16:00 BP 144 / 83; Pulse 105; Resp 18; Pulse Ox 98% on R/A; eh3 16:30 BP 134 / 116; Pulse 105; Resp 18; Pulse Ox 98% on R/A; eh3 17:00 BP 131 / 106; Pulse 105; Resp 16; Pulse Ox 98% on R/A; eh3 17:30 BP 105 / 86; Pulse 101; Resp 17; Pulse Ox 98% on R/A; eh3 19:00 BP 105 / 62; Pulse 103; Resp 20; Pulse Ox 97% on R/A; eh3 20:00 BP 146 / 78; Pulse 101; Resp 18; Pulse Ox 100% on R/A; eh3 14:36 Body Mass Index 43.22 (110.68 kg, 160.02 cm) 3 14:36 Pain Scale: Adult 3 MDM: 14:21 Patient medically screened. snw 16:53 Differential diagnosis: closed head injury, T spine fracture. Data reviewed: vital snw signs, nurses notes. Historians other than the Patient: EMS: [facility]. Daughter/Son: Sons x 2. Counseling: I had a detailed discussion with the patient and/or guardian regarding the historical points, exam findings, and any diagnostic results supporting the discharge/admit diagnosis, lab results, radiology results, the need for further work-up and treatment in the hospital. 17:25 Independent interpretation of the following test(s) in the Emergency Department X-Ray: snw My interpretation is left foot, 2nd toe tuft fx, third toe with subcutaneous air, tip of toe black on visual exam. 12/31 14:23 Order name: Blood Culture Adult (2) snw 12/31 14:23 Order name: CBC with Diff snw 12/31 14:23 Order name: CMP; Complete Time: 16:50 snw 12/31 14:23 Order name: Lactate w/ 2H reflex if indic.; Complete Time: 16:56 snw 12/31 14:23 Order name: Protime (+inr); Complete Time: 17:39 snw 12/31 14:23 Order name: Ptt, Activated; Complete Time: 17:39 snw 12/31 14:23 Order name: Urinalysis w/ reflexes snw 12/31 17:30 Order name: CBC with Automated Diff EDMS 12/31 17:30 Order name: CBC with Automated Diff EDMS 12/31 17:30 Order name: Comprehensive Metabolic Panel EDMS 12/31 17:30 Order name: Comprehensive Metabolic Panel EDWI 12/31 14:23 Order name: CT Traumagram (Head C Spine CAP wo con); Complete Time: 16:02 snw 12/31 16:08 Order name: Foot Left 3 View XRAY; Complete Time: 17:55 snw 12/31 14:23 Order name: EKG; Complete Time: 14:24 snw 12/31 14:23 Order name: Accucheck; Complete Time: 16:18 snw 12/31 14:23 Order name: Cardiac monitoring; Complete Time: 14:36 snw 12/31 14:23 Order name: EKG - Nurse/Tech; Complete Time: 14:36 snw 12/31 14:23 Order name: IV Saline Lock - Large Bore; Complete Time: 14:36 snw 12/31 14:23 Order name: Labs collected and sent; Complete Time: 16:18 snw 12/31 14:23 Order name: O2 Per Protocol; Complete Time: 14:36 snw 12/31 14:23 Order name: O2 Sat Monitoring; Complete Time: 14:36 snw 12/31 14:23 Order name: Vital Signs; Complete Time: 14:36 snw Administered Medications: 16:15 Drug: morphine IM 4 mg IM once Route: IM; Site: Other; [facility] 17:00 Follow up: Response: No adverse reaction; Pain is decreased; RASS: Drowsy (-1) [facility] 18:58 Drug: vancoMYCIN IVPB 1 grams IVPB once over 2 hrs Route: IVPB; Infused Over: 2 hrs; [facility] Site: left antecubital; 20:59 Follow up: Response: No adverse reaction; IV Status: Completed infusion; IV Intake: eh3 250ml Disposition: 01/01 07:34 Critical Care:. snw Disposition Summary: 12/31/22 17:18 Hospitalization Ordered Notes: Hospitalization Status: Inpatient Admission snw Provider: Terry Vincent snroni Location: Telemetry/MedSurg (Inpatient) snw Condition: Fair snw Problem: an acute exacerbation snw Symptoms: have worsened snw Bed/Room Type: Standard snw Room Assignment: 225(12/31/22 19:44) rv1 Diagnosis - Sepsis, unspecified organism snw - Cellulitis of left lower limb snw - Repeated falls snw - Acute kidney injury snw Forms: - Medication Reconciliation Form snw - SBAR form snw - Leadership Thank You Letter snw Critical care time excluding procedures: 07:34 Critical care time: Bedside Care: 10 minutes, Consultation: 10 minutes, Family snw Intervention: 10 minutes. Total time: 30 minutes Signatures: Dispatcher [employer] EDMS Yana Schmidt, REHAB SPECIALIST-C REHAB SPECIALIST-Csnw Elaine Muro RN RN 3 Tania Cochran rv1 Corrections: (The following items were deleted from the chart) 12/31 14:43 14:24 Head C Spine MPR Wo Con+CT.RAD.BRZ ordered. EDMS EDMS 17:27 16:05 Skin: Appearance: normal except for affected area, lesion(s), peeling broken down snw skin to lower ankles/feet, left ankle with mild cellulitis, left 4th toe with darkened appearance, snw 19:44 17:18 snw rv1
[2022-12-31] MEDS ORDERED: ACETAMINOPHEN 325 MG TABLET PO PRN (17:25)
[2022-12-31] MEDS ORDERED: ONDANSETRON 4 MG/2 ML VIAL IV PRN (17:25)
--- NOTE | 2022-12-31 17:32 | P.HP ---
Certification for Inpatient Patient admitted to: Inpatient With expected LOS: >2 Midnights Practitioner: I am a practitioner with admitting privileges, knowledge of patient current condition, hospital course, and medical plan of care. Services: Services provided to patient in accordance with Admission requirements found in Title 42 Section 412.3 of the Code of Federal Regulations Patient History Date of Service: 12/31/22 Reason for admission: Cellulitis of the foot, RODRICK on CKD sepsis. History of Present Illness: 72-year-old female patient with medical history significant for CKD stage III, hypothyroidism, diabetes ulcer, hyperlipidemia, history of chronic leg ulcers was evaluated for episode of worsening altered mentation and infection of the lower extremity. She was found to be significantly altered over the last couple of days and has redness in lower extremities bilaterally. Her left third toe is gangrenous at the tip and there was concern for worsening infection from this cellulitis episode so she was brought to the ER. In the ED x-ray was concerning for osteomyelitis and she had elevated white cell of 20,000 raising concern for sepsis. She was pancultured and started on broad-spectrum antibiotic of vancomycin and meropenem based on a history of ESBL E. coli infection. She was admitted for inpatient care. Allergies Tape Adverse Reaction (Uncoded 11/12/14 09:47) Rash Home Medications: Ramipril [Altace] 10 mg PO 1X 11/12/14 Gabapentin 100 mg PO QID 01/31/21 Hydrocodone Bit/Acetaminophen [[place] 7.5-325 Tablet] 7.5 mg PO TID 01/31/21 Triamterene/Hydrochlorothiazid [Triamterene-Hctz 75-50 mg Tab] 75 01/31/21 Cefuroxime Axetil [Cefuroxime] 500 mg PO BID #14 tab 02/01/21 Furosemide [Lasix] 40 mg PO DAILY #30 tablet 02/01/21 Potassium Chloride 20 meq PO DAILY #30 tablet.er 02/01/21 Zinc Sulfate [Zinc Sulfate*] 220 mg PO DAILY #30 cap 02/01/21 - Past Medical/Surgical History -: Hypertension -: Neuropathy with gait instability -: Chronic back pain -: Chronic lower extremity swelling -: Cholecystectomy -: Multiple "back surgeries" -: Hernia repair Psychosocial/ Personal History: Lives at home with , ambulates with walker due to neuropathy. - Social History Alcohol use: No Review of Systems is unable to be obtained (due to altered mental status.) Physical Examination - Physical Exam General: Delirious HEENT: Atraumatic Neck: Supple Respiratory: Normal air movement Cardiovascular: Regular rate/rhythm Gastrointestinal: Soft and benign Musculoskeletal: Erythema, Tenderness, Other (gangrene of left 3rd toe.) - Studies Laboratory Data (last 24 hrs) 12/31/22 12/31/22 16:07 16:07 WBC 20.80 H Hgb 10.1 L Hct 32.4 L Plt Count 316 Sodium 131 L Potassium 4.4 BUN 78 H Creatinine 2.71 H Glucose 178 H Total Bilirubin 0.7 AST 73 H ALT 30 Alkaline Phosphatase 109 Assessment and Plan - Plan Sepsis: Present on admission. Deemed secondary to cellulitis episode. Patient has a gangrenous left foot 3rd toe. Pancultured and started broad-spectrum antibiotic of vancomycin and meropenem. Will monitor cultures for adjustment of antibiotic. Will continue IV fluids as per sepsis protocol. Will trend lactic acid. Cellulitis/osteomyelitis of left foot third toe. Patient has significant infection in both lower extremity but left foot third toe is gangrenous. We have started broad-spectrum antibiotic of vancomycin and meropenem. Will obtain MRI of the foot to evaluate for osteomyelitis episode. Will consult surgical service for management recommendation. Will continue routine care of foot wound. RODRICK CKD stage III: Patient has significant elevated creatinine of 2.7 from baseline of about 1.5- 1.7. Will continue IV fluid for hydration. Will consult nephrology for management recommendation. Hyponatremia: Mild. Sodium is low at 131. Will follow trend of serum sodium. Will hydrate with isotonic fluid and have nephrology evaluation. DM 2: Continue sliding scale insulin for glucose control and continue [facility] blood glucose check. Diabetic diet to be continued once feeds are resumed. Hypertension: We will monitor vital signs per unit protocol and continue antihypertensive medication once sepsis is resolved. Prophylaxis: Heparin for DVT prophylaxis: CODE STATUS: Full code. Disposition: We will treat her sepsis, cellulitis, evaluated fluids for possible surgical intervention and she be discharged when she is medically cleared. - Advance Directives Does patient have a Living Will: No Does patient have a Durable POA for Healthcare: No
[2022-12-31 17:37] LABS: Protime INR 1.2
--- NOTE | 2022-12-31 17:54 | RAD REPORT ---
EXAM DESCRIPTION: RAD - Foot Left 3 View - 12/31/2022 4:36 pm CLINICAL HISTORY: cellulitis COMPARISON: No comparisons TECHNIQUE: Left foot, 3 views. FINDINGS: No fracture, dislocation or periosteal reaction. Soft tissue swelling and gas at the distal phalanx of the third digit. No appreciable adjacent osseou s lucency IMPRESSION: Third digit soft tissue abnormalities as above, without appreciable radiographic lucenci es to suggest osteomyelitis within limits of radiographic evaluation. If there is persistent clinical concern, MRI would provide improved sensitivity.
[2022-12-31] MEDS ORDERED: VANCOMYCIN 1 GM in NA CHLORIDE 0.9% 250 ML IVPB SCH (18:00)
[2022-12-31] MEDS ORDERED: VANCOMYCIN 2 GM in NA CHLORIDE 0.9% 500 ML IVPB SCH (18:00)
[2022-12-31] MEDS ORDERED: VANCOMYCIN 1 GM/VIAL ONE (19:09)
[2022-12-31] MEDS ORDERED: NA CHLORIDE 0.9% 250 ML ONE (19:09)
[2022-12-31] MEDS: INSULIN REGULAR (HUMAN) 100 UNIT/ML SQ SCH (21:00)
[2022-12-31 21:28] LABS: Blood Morphology Comment NOT SEEN (NOT SEEN); Platelet Estimate ADEQ
[2022-12-31] MEDS: HYDROCODONE/APAP 5/325 MG TAB PO PRN (22:01)
[2022-12-31] MEDS: NA CHLORIDE 0.9% 1,000 ML IV SCH (22:01)
[2022-12-31] MEDS: Meropenem 500 MG in NA CHLORIDE 0.9% 100 ML IV SCH (23:23)
[2022-12-31 23:51] LABS: Specific Gravity 1.015 (1.005-1.030); Urine Bacteria <20 /HPF (<20); Urine Bilirubin NEGATIVE (Negative); Urine Blood 2+ (Negative); Urine Clarity Extremely Turbid (Clear); Urine Color Yellow (Yellow); Urine Glucose NEGATIVE (Negative); Urine Mucus 2+ /HPF (None Seen); Urine Protein TRACE (Negative); Urine RBC <5 /HPF (None Seen); Urine Urobilinogen Normal (Normal)
[2023-01-01] MEDS: HEPARIN 5000 UNIT/ML 1 ML VIAL SQ SCH ×3 (01:14→17:27)
[2023-01-01] MEDS: HYDROCODONE/APAP 5/325 MG TAB PO PRN ×2 (03:32→20:22)
[2023-01-01 06:17] LABS: RBC Red Blood Cell Count 3.11 M/uL (3.86-4.86)
[2023-01-01 06:18] LABS: Absolute Lymphocytes (CBC) 0.2 K/uL (0.7-4.9); Hematocrit 28.1 % (36.0-45.0); Lymphocytes % 1.7 % (15.3-44.8); MCV 90.3 fL (80-100); MPV 8.4 fL (7.6-11.3); Platelets 292 thou/uL (152-406)
[2023-01-01 06:32] LABS: Albumin 2.5 g/dL (3.4-5.0); Bilirubin Total 0.6 mg/dL (0.2-1.0); Potassium 4.4 mEq/L (3.5-5.1); Protein, Total 6.9 g/dL (6.4-8.2)
--- NOTE | 2023-01-01 06:40 | P.PN ---
Date of Service: 01/01/23 Subjective: Patient doing well no new complaints. Scheduled for amputation in a.m. Physical Exam: Vitals: reviewed GEN: Alert, oriented, NAD HEENT: Normal conjunctiva, sclera anicteric CV: Regular rate & rhythm, no edema Pulm: Nonlabored respiraitons, clear bilaterally ABD: Soft, nontender, nondistended MSK: no joint tenderness Integumentary: Erythema, Tenderness, gangrene of left 3rd toe. Neuro: Normal speech, normal affect Problem List: Sepsis likely secondary to Cellulitis/osteomyelitis of left foot third toe. RODRICK on CKD3 Hyponatremia NIDDM2 chronic back pain Hyperlipidemia hypertension Plan: 1. Osteomyelitis of the third toe on the left foot; continue with IV antibiotics. Surgery consultation appreciated. Amputation scheduled 2. RODRICK; renal function stable 3. Type 2 diabetes; hypertension; dyslipidemia; supportive care 4. Hyponatremia; monitor sodium level.
[2023-01-01] MEDS: INSULIN REGULAR (HUMAN) 100 UNIT/ML SQ SCH ×4 (07:30→20:29)
[2023-01-01] MEDS: MORPHINE 2 MG/ML SYR IV PRN (08:32)
[2023-01-01] MEDS: Meropenem 500 MG in NA CHLORIDE 0.9% 100 ML IV SCH ×2 (08:33→20:22)
[2023-01-01] MEDS ORDERED: dexAMETHasone 4 MG/ML VIAL IV ONE (11:15)
[2023-01-01] MEDS ORDERED: HYDROMORPHONE HCL 0.5 MG/0.5 ML INJ IV ONE (11:15)
[2023-01-01] MEDS: NA CHLORIDE 0.9% 1,000 ML IV SCH (14:00)
--- NOTE | 2023-01-01 22:34 | RAD REPORT ---
EXAM DESCRIPTION: US - Lower Extremity Arterial Bilat - 01/01/2023 4:51 pm CLINICAL HISTORY: CELLULITIS COMPARISON: No comparisons TECHNIQUE: Bilateral lower extremity arterial Doppler examination was performed with gracie peryr FINDINGS: Triphasic waveforms are seen throughout the right lower extremity arterial system to the l evel of the dorsalis pedis arteries. Left GENERAL MANAGER shows triphasic waveform. Remainder of the left lower extremity shows biphasic waveforms, with monophasic waveforms at the level of the posterior tibial an d dorsalis pedis arteries. IMPRESSION: No evidence of significant peripheral vascular disease on the right. Evidence of mild-to -moderate left peripheral vascular disease.
--- NOTE | 2023-01-01 22:35 | RAD REPORT ---
EXAM DESCRIPTION: US - Extrem Venous W Compress Chirag - 01/01/2023 4:19 pm CLINICAL HISTORY: Cellulitis COMPARISON: None. TECHNIQUE: Real-time sonographic evaluation of the bilateral lower extremity deep venous systems was performed. FINDINGS: Normal compressibility, flow augmentation, phasic flow and spontaneous flow is identified in both the left and right lower extremity deep venous systems. No intraluminal filling defects seen. IMPRESSION: No DVT in either lower extremity.
[2023-01-02] MEDS: HEPARIN 5000 UNIT/ML 1 ML VIAL SQ SCH ×3 (00:21→17:00)
[2023-01-02] MEDS: NA CHLORIDE 0.9% 1,000 ML IV SCH ×3 (00:21→13:14)
--- NOTE | 2023-01-02 01:46 | CON ---
Date of Consultation: 01/01/2023 Chief Complaint: Cellulitis of the foot, acute kidney injury on chronic kidney disease. The patient has history of chronic kidney disease stage 3. Baseline creatinine level 1.6 to 1.8. History Of Present Illness: She is a 72-year-old woman with history of hypothyroidism, diabetic ulce r, diabetes mellitus, history of chronic leg ulcers. She was evaluated for episodes of worsening alt ered mental status and infection of lower extremities. She is admitted to the hospital for celluliti s of the foot and acute kidney injury. Patient has nonoliguric urine output. She has underlying chr onic kidney disease stage 3. Her left third toe is gangrenous at the tip and there was concern of wo rsening of infection from cellulitis episode and she was brought to the emergency room. The patient is undergoing workup for osteomyelitis. White count is severely elevated up to 20,000 and raising co ncern for sepsis. The patient had culture done and she started on antibiotics for broad spectrum cov erage including meropenem and vancomycin. The patient has history of ESBL E coli infection in the [facility]. Review of Systems: Constitutional: Patient complains of generalized weakness. Eyes: Denies new vision changes. Ears, Nose, Mouth, Throat: Denies sore throat or earache. Respiratory: She complains of some dyspnea with activity. Denies syncope. Cardiovascular: Denies chest pain, palpitation, syncope. GI: Denies nausea, vomiting. : Denies dysuria, hematuria. All other systems review reviewed and all are negative. Past Medical History: , chronic kidney disease stage 3, hypertension, chronic back pain, n europathy, instability of the gait, chronic lower extremity swelling, edema, cholecystecto my, multiple back surgeries, hernia repair. Social History: Denies tobacco, alcohol, illicit drugs. Physical Examination: General: Not in acute distress. Somewhat confused. Eyes: Anicteric sclerae. EOMI. Ears, Nose, Mouth, and Throat: Oral mucosa moist. No pallor. Neck: Supple. No bruits. Lungs: Few rhonchi. Heart: S1, S2. No pericardial friction rub. Abdomen: Soft, benign, nontender. Extremities: Edema present. Laboratory Data: WBC , hemoglobin 10.1, hematocrit 32.4, platelet count 316. Sodium 131, potassium 4.4, BUN 78, creatinine 2.71, glucose 178, AST 73, ALT 30, AP 109. Impression And Plan: 1.Acute kidney injury secondary to sepsis, hypotension, poor renal perfusion. Patient has underlyin g chronic kidney disease stage 3. Baseline creatinine level 1.6. Creatinine on admission was 2.7. Patient is on broad-spectrum antibiotics including vancomycin and meropenem for MRSA and gram-negativ e coverage. Culture results are pending. Adjust antibiotics according to culture results. Continue IV fluids for sepsis. Monitor lactic acid level. Patient has cellulitis, osteomyelitis of the left foot third toe. The patient may require amputation or debridement. Currently, she is on coverage w ith vancomycin and meropenem. 2.Acute kidney injury on chronic kidney disease stage 3. Check renal ultrasound to evaluate for obs tructive uropathy and evaluate kidney size. Previous baseline 1.5 to 1.7 and currently serum creatin ine is 2.7. Check CK level to rule out rhabdomyolysis. 3.Hyponatremia, mild secondary to acute kidney injury. Sodium level 131. Adjust IV fluids for hydr ation according to lab results. 4.Diabetes mellitus with renal manifestation. Continue insulin. Avoid EDSON inhibitor because of sep sis and hypotension. 5.Hypertension. Monitor blood pressure. Continue to adjust medication according to blood pressure results. ROSALINDA/SULTANA Voice ID: [id number] Report ID: [id number]
[2023-01-02 04:26] LABS: Potassium 4.3 mEq/L (3.5-5.1)
[2023-01-02 04:27] LABS: Albumin 2.2 g/dL (3.4-5.0); Bilirubin Total 0.4 mg/dL (0.2-1.0); Magnesium 2.3 mg/dL (1.6-2.4); Phosphorus 3.6 mg/dL (2.5-4.9)
[2023-01-02] MEDS ORDERED: VANCOMYCIN 2 GM in NA CHLORIDE 0.9% 500 ML IVPB SCH (06:00)
[2023-01-02] MEDS: INSULIN REGULAR (HUMAN) 100 UNIT/ML SQ SCH ×4 (07:30→21:00)
[2023-01-02] MEDS: CITALOPRAM 10 MG TABLET PO SCH (08:07)
[2023-01-02] MEDS: MORPHINE 2 MG/ML SYR IV PRN (08:37)
[2023-01-02] MEDS: Meropenem 500 MG in NA CHLORIDE 0.9% 100 ML IV SCH (08:37)
[2023-01-02] MEDS: SILVER SULFADIAZINE 1% 50 GM TOP SCH (08:38)
--- NOTE | 2023-01-02 08:51 | RAD REPORT ---
EXAM DESCRIPTION: US - Renal Ultrasound-Complete - 01/02/2023 12:01 am CLINICAL HISTORY: ermias COMPARISON: LOCAL INFLAM WB dated 01/10/2008 TECHNIQUE: Sonographic grayscale and color flow images of the kidneys and bladder were obtained. FINDINGS: Decreased penetration somewhat limits evaluation. Both kidneys are normal in size, shape, and echotexture. The right kidney measures 8 cm in length. No hydronephrosis, focal mass, or echogenic calculi. The left kidney measures 8.6 cm in length. No hydronephrosis, focal mass, or echogenic calculi. The urinary bladder is without gross abnormality seen. IMPRESSION: Normal renal sonographic evaluation, allowing for poor penetration.
[2023-01-02] MEDS ORDERED: VANCOMYCIN 1.5 GM in NA CHLORIDE 0.9% 500 ML IVPB SCH (09:00)
[2023-01-02] MEDS ORDERED: SILVER SULFADIAZINE 1% 25 GM TOP SCH (09:00)
--- NOTE | 2023-01-02 12:03 | CON ---
Date of Consultation: 01/02/2023 Reason For Consultation: Evaluation for peripheral vascular disease. History Of Present Illness: A 72-year-old female, history of chronic kidney disease, hypothyroidism, dyslipidemia, and diabetes, presented with redness and pain involving the left foot and the third to e that is black, discolored. I was consulted by Surgery for a possible peripheral vascular disease a nd possible need for a revascularization before amputation. Past Medical History: As outlined above in HPI. Medications: Refer to reconciliation sheet for detailed list. Allergies: NO KNOWN DRUG ALLERGIES. Family History: No premature coronary artery disease or cancer. Social History: Does not smoke or drink. Does not use any drugs. Review of Systems: All systems reviewed and are negative except as mentioned in HPI. Physical Examination: Vital Signs: Reviewed. Head and Neck: Pupils are equal, reactive to light. Intact eye movements. No JVD. No cervical lym phadenopathy. Neck: Supple. Thyroid not enlarged. Lungs: Clear to auscultation bilaterally. No rhonchi, rales, or crackles. No accessory muscle use. Heart: Regular rate and rhythm. No extra sounds. Abdomen: Soft, nontender. Bowel sounds positive. No organomegaly. No masses or hernia. No rigidi ty or rebound. Extremities: No clubbing, cyanosis. Intact pulses in the left foot. She has excellent dorsalis ped is pulses and the foot is warm. No signs of ischemia. Neurologic: Alert, awake, oriented x3. No acute focal deficits appreciated. Investigations: BUN 77, creatinine is 2.0, down from 2.7, hemoglobin is 8.9. Assessment/recommendation: 1.Gangrene of the left foot. Discussed the case with Dr. Sanchez. The patient has very good pulses , perfusion is excellent. No need for angiogram, especially that she has an acute kidney failure and chronic kidney disease. At this point, I recommend to proceed with the amputation of the affected t oe and we will monitor clinically. If need be, we might plan for angiogram at a later time, but at t his point, I do not recommend it due to the presence of good pulses on that foot and the chronic kidn ey disease. 2.Cellulitis of the foot. Continue IV antibiotics and plan for surgical debridement per Surgery. 3.Acute renal failure, improving. SR/MODL Voice ID: [id number] Report ID: [id number]
[2023-01-02] MEDS: HYDROCODONE/APAP 5/325 MG TAB PO PRN ×2 (13:13→20:58)
--- NOTE | 2023-01-02 18:34 | PN ---
Date of Progress Note: 01/02/2023 Subjective: The patient was admitted to the hospital with acute kidney injury on chronic kidney disease. The patient found to have cellulitis with possible osteomyelitis. The patient was started on antibiotic. Physical Examination: Vital Signs: When I saw the patient, blood pressure 155/88, pulse of 90, afebrile. Chest: Clear to auscultation. Heart: S1 and S2 regular. Abdomen: Soft, nontender. Extremities: Erythema, bilateral with lymphedema. Laboratory Data: Hemoglobin 8.9. Sodium 134, potassium 4.3, bicarb 22, BUN 77, creatinine of 2, calcium 9, phosphorus 3.6, magnesium 2.3. Urinalysis negative for infection. Renal ultrasound, 09/12., no hydronephrosis. Current Medications: The patient on, 1. Meropenem. 2. Vancomycin. 3. Dexamethasone. 4. Celexa. 5. Normal saline. Assessment And Plan: 1. Acute kidney injury secondary to toxic acute tubular necrosis, poor perfusion ATN secondary to cellulitis. Continue to recover. Kidney function getting close to baseline, baseline around 1.6, creatinine currently 2. Again, obstructive uropathy and rhabdomyolysis has been ruled out. I am going to go ahead and discontinue IV fluid and we will follow up the patient. 2. Cellulitis. Continue current antibiotic dose appropriate. 3. Hypertension. Please keep avoiding any EDSON inhibitor or ARB. We will hold on any diuresis. 4. Hyponatremia, mostly secondary to depletional, resolved. time spend exam the patient face to face reviewing data lab and radiology placing order , discussing with the patient , discussing with the steamer operator including hospitalist and nursing staff >35 min JIMMY Voice ID: [id number] Report ID: [id number] CELSO
[2023-01-02] MEDS: Meropenem 1,000 MG in NA CHLORIDE 0.9% 100 ML IV SCH (20:57)
[2023-01-03] MEDS: HEPARIN 5000 UNIT/ML 1 ML VIAL SQ SCH ×3 (00:26→10:57)
[2023-01-03] MEDS: MORPHINE 2 MG/ML SYR IV PRN ×2 (01:20→18:49)
[2023-01-03] MEDS: INSULIN REGULAR (HUMAN) 100 UNIT/ML SQ SCH ×4 (07:30→21:00)
[2023-01-03 07:31] VITALS: BMI 44.6
[2023-01-03] MEDS: Meropenem 1,000 MG in NA CHLORIDE 0.9% 100 ML IV SCH (09:00)
[2023-01-03] MEDS: CITALOPRAM 10 MG TABLET PO SCH (09:00)
[2023-01-03] MEDS: SILVER SULFADIAZINE 1% 50 GM TOP SCH (09:00)
[2023-01-03] MEDS: CEFAZOLIN SODIUM 2 GM in NA CHLORIDE 0.9% 100 ML IVPB SCH ×3 (10:00→20:22)
[2023-01-03 10:20] LABS: UR PROTEIN 47.4 mg/dL (<11.9)
[2023-01-03] MEDS: NA CHLORIDE 0.9% 1,000 ML ONE (11:40)
[2023-01-03] MEDS ORDERED: CEFAZOLIN SODIUM 2 GM/VIAL ONE (11:51)
[2023-01-03] MEDS ORDERED: propofoL 200 MG/20 ML VIAL IV ONE (11:52)
[2023-01-03] MEDS ORDERED: dexAMETHasone 4 MG/ML VIAL ONE (11:52)
[2023-01-03] MEDS ORDERED: EPINEPHRINE 1 MG/ML VIAL ONE (11:52)
[2023-01-03] MEDS ORDERED: LIDOCAINE 2% MPF 5 ML VIAL ONE (11:52)
[2023-01-03] MEDS ORDERED: FENTANYL CITR 100 MCG/2 ML ONE (11:52)
[2023-01-03] MEDS: BUPIVACAINE 0.25% PF 30 ML VIAL ONE ×2 (11:56→12:39)
[2023-01-03] MEDS ORDERED: ROPLVACAINE HCL 0 ML ONE (12:12)
[2023-01-03] MEDS ORDERED: FUROSEMIDE 40 MG/4 ML VIAL IV ONE (12:33)
--- NOTE | 2023-01-03 13:21 | PN ---
Date of Progress Note: 01/03/2023 Subjective: The patient was admitted to the hospital with acute kidney injury secondary to poor perf usion ATN, toxic ATN secondary to sepsis, and altered mental status. Patient was resuscitated. The patient's kidney function has been improved. Creatinine continued to trend down. Objective: Vital Signs: Blood pressure 170/89, pulse of 92, afebrile. Chest: Decreased entry, bilateral base. Heart: S1, S2. Systolic murmur. Abdomen: Soft, nontender. Extremities: Bilateral leg swelling with erythema gangrenous mid toe on the left. Neurologic: Alert. No focality. Laboratory Data: Sodium 134, potassium 4.3, bicarb 22, BUN 77, creatinine 2, calcium 9, phosphorus 3 .6, magnesium 2.3, hemoglobin 8.9, WBC 14.2. Current Medications: The patient on, it includes: 1.Cefazolin. 2.Heparin. 3.Celexa. 4.Zofran. 5.Morphine. Assessment And Plan: 1.Acute kidney injury secondary to poor perfusion acute tubular necrosis. Continue to recover. I w ill continue to monitor the patient. We will discontinue IV fluid. I am going to give the patient a single dose of Lasix today and we will follow up the patient. 2.Hypertension. Hold IV fluid. We will give single dose of Lasix and we will follow up. 3.Altered mental status, back to baseline. 4.Sepsis/pneumonia, as by primary. JASMYN/MODL Voice ID: [id number] Report ID: [id number]
--- NOTE | 2023-01-03 13:21 | P.OP ---
Preoperative diagnosis: Infected 3rd toe of LEFT foot Postoperative diagnosis: Infected 3rd toe of LEFT foot Primary procedure: Ampuatation of 3rd toe of left foot to metatarsophalangeal joint Anesthesia: GETA + Local Estimated blood loss: <5cc Specimen: 3rd toe of LEFT foot, cultures Findings: abscess extending to metatarsal head Complications: None Transferred to: Recovery Room Condition: Good
[2023-01-03] MEDS ORDERED: ONDANSETRON 4 MG/2 ML VIAL ONE (13:48)
--- NOTE | 2023-01-03 15:16 | OP ---
Date of Procedure: 01/03/2023 Surgeon: Crescencio Sanchez MD, Preoperative Diagnosis: Infected third toe of the left foot. Postoperative Diagnosis: Infected third toe of the left foot. Procedure Performed: Amputation of third toe of the left foot to the metatarsophalangeal joint. Anesthesia: General endotracheal plus local. Estimated Blood Loss: Less than 5 cc. Specimen: Third toe of the left foot and culture sent, both aerobic and anaerobic speciation. Findings: Abscess extending to the metatarsal head. Complications: None. Disposition: The patient was transferred to the recovery room in good condition. Procedure In Detail: After informed consent was obtained, patient was brought to the operating room, prepped and draped in the usual sterile fashion after adequate anesthesia was achieved. I demarcate d an area both on the plantar and dorsal flap where viable tissue was appreciated along the third met atarsophalangeal joint. I then after appropriately anesthetizing the area, cut circumferentially margie und following my previously marked flaps using a 15 blade circumferentially around to expose the deep plane tissues which were then retracted back to the metatarsophalangeal joint using combination of e lectrocautery and sharp dissection. At this point, the metatarsophalangeal joint was . Abs cess material was appreciated coming from the area of the metatarsophalangeal joint on the plantar as pect. This was cultured for both aerobic and anaerobic speciation. This was then removed, sent off for pathologic examination. The remaining nonviable tissue was debrided sharply. I then irrigated t he area copiously until it was completely clear. There was no nonviable tissue left behind. The are a was irrigated once again, dried. Hemostasis was easily achieved with electrocautery. I then close d the incision using a combination of interrupted 4-0 and 3-0 nylon sutures with good approximation o f tissues and a sterile dressing was then placed over the top. The patient tolerated the procedure w ell without evidence of complication and transferred to PACU in good condition. All counts were enoch ect at the end of the case. TK/MODL Voice ID: [id number] Report ID: [id number]
[2023-01-04] MEDS: HEPARIN 5000 UNIT/ML 1 ML VIAL SQ SCH ×3 (02:08→17:10)
[2023-01-04] MEDS: MORPHINE 2 MG/ML SYR IV PRN ×3 (03:07→17:10)
[2023-01-04 03:25] LABS: Albumin 2.2 g/dL (3.4-5.0); Phosphorus 3.4 mg/dL (2.5-4.9); Potassium 4.2 mEq/L (3.5-5.1)
[2023-01-04] MEDS: HYDROCODONE/APAP 5/325 MG TAB PO PRN ×2 (05:33→20:36)
--- NOTE | 2023-01-04 06:40 | ECHO ---
HEIGHT: 5 ft 3 in WEIGHT: 252 lb 6.4 oz DATE OF STUDY: 01/02/[address]: Landry Carlson MD 2-DIMENSIONAL: YES M.MODE: YES DOPPLER: YES COLOR FLOW: YES TDS: PORTABLE: YES DEFINITY: BUBBLE STUDY: DIAGNOSIS: CHEST PAIN CARDIAC HISTORY: CATHERIZATION: SURGERY: PROSTHETIC VALVE: PACEMAKER: MEASUREMENTS (cm) DIASTOLIC (NORMALS) SYSTOLIC (NORMALS) IVSd 0.9 (0.6-1.2) LA Diam 2.8 (1.9-4.0) LVEF 65% LVIDd 3.7 (3.5-5.7) LVIDs 2.4 (2.0-3.5) %FS 35% LVPWd 0.9 (0.6-1.2) Ao Diam 3.2 (2.0-3.7) 2 DIMENSIONAL ASSESSMENT: RIGHT ATRIUM: NORMAL LEFT ATRIUM: NORMAL RIGHT VENTRICLE: NORMAL LEFT VENTRICLE: NORMAL TRICUSPID VALVE: NORMAL MITRAL VALVE: MITRAL ANNULAR CALCIFICATION PULMONIC VALVE: NORMAL AORTIC VALVE: NORMAL PERICARDIAL EFFUSION: NONE AORTIC ROOT: NORMAL LEFT VENTRICULAR WALL MOTION: NORMAL DOPPLER/COLOR FLOW: SEE BELOW COMMENTS: 1. NORMAL LEFT VENTRICULAR EJECTION FRACTION 60-65% 2. NORMAL WALL MOTION 3. GRADE I DIASTOLIC DYSFUNCTION 4. MILD MITRAL STENOSIS 5. MILD MITRAL REGURGITATION TECHNOLOGIST: ROMANA ANAYA
[2023-01-04] MEDS: INSULIN REGULAR (HUMAN) 100 UNIT/ML SQ SCH ×4 (07:30→21:00)
[2023-01-04] MEDS: SILVER SULFADIAZINE 1% 50 GM TOP SCH (09:00)
[2023-01-04] MEDS: CEFAZOLIN SODIUM 2 GM in NA CHLORIDE 0.9% 100 ML IVPB SCH ×2 (10:14→20:36)
[2023-01-04] MEDS: CITALOPRAM 10 MG TABLET PO SCH (10:15)
[2023-01-04] MEDS ORDERED: VANCOMYCIN 1.5 GM in NA CHLORIDE 0.9% 500 ML IVPB SCH (11:00)
--- NOTE | 2023-01-04 15:32 | EKG ---
Test Date: 2022-12-31 Test Time: 14:32:24 Carton Waxing Machine Operator: KALPESH MEASUREMENT RESULTS: Intervals: Rate: 105 NV: 176 QRSD: 84 QT: 344 QTc: 454 [place]: P: 58 NV: 176 QRS: -10 T: 56 INTERPRETIVE STATEMENTS: Sinus tachycardia Low voltage QRS Borderline ECG Compared to ECG 01/31/2021 12:37:59 Low QRS voltage now present Sinus rhythm no longer present Electronically Signed On 01-04-23 15:17:40 MANAGER OF DISTRIBUTION by David Altman
--- NOTE | 2023-01-04 20:33 | PN ---
Date of Progress Note: 01/04/2023 Subjective: The patient was admitted to the hospital with the cellulitis, bacteremia. The patient had osteomyelitis, planned for amputation. The patient had acute kidney injury secondary to toxic ATN. The patient recovered very well. Objective: Vital Signs: Blood pressure 145/79, pulse of 70, afebrile. Chest: Clear to auscultation. Heart: S1, S2. Regular. Abdomen: Soft, morbidly obese. Could not appreciate any organomegaly. Extremities: Dressing on the left foot. Neurologic: Alert. No focality. Laboratory Data: Patient's hemoglobin 8.9, sodium 140, potassium 4.2, bicarb 25, BUN 58, creatinine 1.5, continue to trend down. Calcium 9.1, phosphorus 3.4, albumin 2.2, corrected calcium is 10.7. Current Medications: The patient on, includes cefazolin, heparin, Tylenol, citalopram. Lasix received yesterday. Assessment And Plan: 1. Acute kidney injury secondary to toxic acute tubular necrosis, poor perfusion acute tubular necrosis. Continue to recover. Looked to me slightly on the overvolume side. Patient tolerated the diuresis yesterday and started to be in negative balance. I am going to resume Lasix on a daily basis and we will follow up the patient. 2. Hypertension, controlled, optimal. Continue current treatment. Add Lasix. 3. Osteomyelitis. Planned for amputation. Continue current antibiotic dose appropriate. We will follow up with the Primary and Surgery. time spend exam the patient face to face reviewing data lab and radiology placing order , discussing with the patient , discussing with the marketing team lead including hospitalist and nursing staff >35 min JIMMY Voice ID: [id number] Report ID: [id number] CELSO
[2023-01-04] MEDS: LOSARTAN POTASSIUM 50 MG TABLET PO SCH (20:36)
[2023-01-05] MEDS: HEPARIN 5000 UNIT/ML 1 ML VIAL SQ SCH ×3 (01:13→16:39)
[2023-01-05] MEDS: HYDROCODONE/APAP 5/325 MG TAB PO PRN (03:23)
[2023-01-05] MEDS ORDERED: METOPROLOL TAR 50 MG TAB PO SCH (06:00)
[2023-01-05 06:19] LABS: Absolute Lymphocytes (CBC) 2.1 K/uL (0.7-4.9); Hematocrit 30.8 % (36.0-45.0); Lymphocytes % 16.5 % (15.3-44.8); MCV 90.5 fL (80-100); MPV 8.7 fL (7.6-11.3); Platelets 292 thou/uL (152-406); RBC Red Blood Cell Count 3.41 M/uL (3.86-4.86)
[2023-01-05 06:56] LABS: Albumin 2.2 g/dL (3.4-5.0); Bilirubin Total 0.4 mg/dL (0.2-1.0); Phosphorus 2.9 mg/dL (2.5-4.9); Protein, Total 6.5 g/dL (6.4-8.2)
[2023-01-05 07:14] LABS: Platelet Estimate ADEQ
[2023-01-05 07:15] LABS: Blood Morphology Comment NOT SEEN (NOT SEEN)
[2023-01-05] MEDS: INSULIN REGULAR (HUMAN) 100 UNIT/ML SQ SCH ×4 (07:30→21:00)
[2023-01-05] MEDS: FUROSEMIDE 40 MG/4 ML VIAL IV SCH (08:58)
[2023-01-05] MEDS: LOSARTAN POTASSIUM 50 MG TABLET PO SCH ×2 (08:58→21:31)
[2023-01-05] MEDS: CITALOPRAM 10 MG TABLET PO SCH (08:59)
[2023-01-05] MEDS: CEFAZOLIN SODIUM 2 GM in NA CHLORIDE 0.9% 100 ML IVPB SCH ×2 (08:59→21:30)
[2023-01-05] MEDS: SILVER SULFADIAZINE 1% 50 GM TOP SCH (09:00)
[2023-01-05] MEDS ORDERED: dexAMETHasone 4 MG/ML VIAL IV ONE (14:30)
[2023-01-05] MEDS ORDERED: TIZANIDINE 4 MG TABLET PO ONE (15:30)
--- NOTE | 2023-01-05 17:23 | P.PN ---
Subjective Date of Service: 01/05/23 Chief Complaint: Cellulitis of the foot, RODRICK on CKD sepsis. Subjective: No new changes Physical Examination - Vital Signs Temperature: 97.8 F Blood Pressure: 92/58 Pulse: 49 Respirations: 16 Pulse Ox (%): 98 - Physical Exam General: Other (chronically ill-appearing) HEENT: Atraumatic, Normocephalic Neck: Supple Respiratory: Other (symmetric chest expansion) Cardiovascular: No rubs, No murmurs Gastrointestinal: Soft and benign, No guarding Musculoskeletal: No clubbing Integumentary: No warmth Neurological: Normal tone Urinary: Other (no bladder distention) External genitalia: Deferred Rectal: Deferred Assessment And Plan - Plan 1. Acute kidney injury secondary to toxic acute tubular necrosis. Improved. SCr improved to 1.6. Encourage liberal by mouth fluid intake. 2. Hypertension, controlled. continue current medication regimen. 3. Osteomyelitis, s/p L 3rd toe amputation on 01/03/2023. 4. Anemia. Monitor CBC.
[2023-01-05] MEDS: MORPHINE 2 MG/ML SYR IV PRN (17:32)
[2023-01-05] MEDS: NA CHLORIDE 0.9% 1,000 ML IV SCH (21:40)
[2023-01-06] MEDS: HEPARIN 5000 UNIT/ML 1 ML VIAL SQ SCH ×3 (01:43→18:09)
[2023-01-06] MEDS: MORPHINE 2 MG/ML SYR IV PRN ×3 (01:43→21:34)
[2023-01-06] MEDS: INSULIN REGULAR (HUMAN) 100 UNIT/ML SQ SCH ×4 (07:30→21:00)
--- NOTE | 2023-01-06 08:03 | P.PN ---
Subjective Date of Service: 01/06/23 Chief Complaint: Cellulitis of the foot, RODRICK on CKD sepsis. reports pain surgical incision, reports ambulating with PT yesterday, plan to DC to rehab/snf after dc, family at bedside Physical Exam: Vitals: reviewed GEN: Alert, oriented, NAD HEENT: Normal conjunctiva, sclera anicteric CV: Regular rate & rhythm, no edema Pulm: Nonlabored respiraitons, clear bilaterally ABD: Soft, nontender, nondistended MSK: no joint tenderness Integumentary: surgical incision LLE, CDI Neuro: Normal speech, normal affect Review of Systems per HPI Physical Examination - Vital Signs Temperature: 97.2 F Blood Pressure: 131/65 Pulse: 60 Respirations: 18 Pulse Ox (%): 96 Assessment And Plan - Plan Assessment plan Sepsis without shock secondary to cellulitis/gangrene Cellulitis/osteomyelitis of left foot third toe. Present on admission. Deemed secondary to cellulitis episode. Patient has a gangrenous left foot 3rd toe. Pancultured and started broad-spectrum antibiotic of vancomycin and meropenem. Will monitor cultures for adjustment of antibiotic. Trend WBCs, lactic Patient has significant infection in both lower extremity but left foot third toe is gangrenous. We have started broad-spectrum antibiotic of vancomycin and meropenem. Will obtain MRI of the foot to evaluate for osteomyelitis episode. Will consult surgical service for management recommendation. Will continue routine care of foot wound. 01/03 amputation of the left third toe Dr. Sanchez PT eval for DME/ambulation assessment needs Bacteremia Blood, Wound cultures positive for Staph aureus Positive Silvadene for wound care, IV Ancef 2 g every 12 RODRICK CKD stage III: Patient has significant elevated creatinine of 2.7 from baseline of about 1.5- 1.7. Will continue IV fluid for hydration. Will consult nephrology for management recommendation. Hyponatremia: Mild. Sodium is low at 131. Will follow trend of serum sodium. Will hydrate with isotonic fluid and have nephrology evaluation. DM 2: Continue sliding scale insulin for glucose control and continue ACHS blood glucose check. Diabetic diet to be continued once feeds are resumed. Hypertension: We will monitor vital signs per unit protocol and continue antihypertensive medication once sepsis is resolved. Prophylaxis: Heparin for DVT prophylaxis: CODE STATUS: Full code. Disposition: We will treat her sepsis, cellulitis, evaluated fluids for possible surgical intervention and she be discharged when she is medically cleared. Discharge Plan: Home - Code Status/Comfort Care Code Status: Full Code Physician Review: Patient Assessed, Agree with Above Assessment and Plan Critical Care: No Time Spent Managing PTS Care (In Minutes): 35
[2023-01-06 09:10] LABS: Albumin 2.3 g/dL (3.4-5.0); Phosphorus 2.8 mg/dL (2.5-4.9); Potassium 3.9 mEq/L (3.5-5.1)
[2023-01-06] MEDS: METOPROLOL TAR 25 MG TAB PO SCH ×2 (09:14→17:57)
[2023-01-06] MEDS: LOSARTAN POTASSIUM 50 MG TABLET PO SCH ×2 (09:15→21:35)
[2023-01-06] MEDS: CITALOPRAM 10 MG TABLET PO SCH (09:16)
[2023-01-06] MEDS: FUROSEMIDE 40 MG/4 ML VIAL IV SCH (09:16)
[2023-01-06] MEDS: NA CHLORIDE 0.9% 1,000 ML IV SCH (09:21)
[2023-01-06] MEDS: CEFAZOLIN SODIUM 2 GM in NA CHLORIDE 0.9% 100 ML IVPB SCH ×2 (09:22→21:33)
[2023-01-06] MEDS: SILVER SULFADIAZINE 1% 50 GM TOP SCH (09:23)
[2023-01-06] MEDS ORDERED: HYDROMORPHONE HCL 0.5 MG/0.5 ML INJ IV ONE ×2 (13:55→14:07)
--- NOTE | 2023-01-06 14:23 | P.PN ---
Subjective Date of Service: 01/06/23 Chief Complaint: Cellulitis of the foot, RODRICK on CKD sepsis. Subjective Pt with CKD III . admitted for AMS and foot OM, required surgery , Cr improving today no overnight evenst complaining of pain will dc IVF Physical exam General: Awake, NAD HEENT: Atraumatic, Normocephalic Neck: Supple, no elevated JVD Respiratory: CTAB Cardiovascular: No rubs, No murmurs Gastrointestinal: Soft and benign, Non-distended Musculoskeletal: B?l leg edema, lt foot dressing A/P # Acute kidney injury on CKD III secondary to toxic acute tubular necrosis. Improved. SCr improved to 1.4. Encourage liberal by mouth fluid intake. Avoind NSAID and contrast will dc IVF will cont lasix #. Hypertension, controlled. continue current medication regimen. #. Osteomyelitis, s/p L 3rd toe amputation on 01/03/2023. Cont ABx and wound care PT/OT #. Anemia. Monitor CBC. Physical Examination - Vital Signs Temperature: 97.2 F Blood Pressure: 131/65 Pulse: 60 Respirations: 18 Pulse Ox (%): 96 Assessment And Plan Physician Review: Patient Assessed, Agree with Above Assessment and Plan
[2023-01-06] MEDS ORDERED: FLEET ENEMA ADULT PR PRN (18:48)
[2023-01-06] MEDS ORDERED: POLYETHYL GLY 3350 17 GM/DOSE PO ONE (18:48)
[2023-01-06] MEDS: DOCUSATE NA/SENNA CONC 1 TAB PO SCH (21:35)
[2023-01-07] MEDS: HYDROCODONE/APAP 5/325 MG TAB PO PRN ×2 (01:29→08:07)
[2023-01-07] MEDS: HEPARIN 5000 UNIT/ML 1 ML VIAL SQ SCH ×3 (01:30→17:00)
[2023-01-07 03:32] LABS: Absolute Lymphocytes (CBC) 2.2 K/uL (0.7-4.9); Hematocrit 29.8 % (36.0-45.0); Lymphocytes % 13.4 % (15.3-44.8); MCV 90.6 fL (80-100); MPV 8.7 fL (7.6-11.3); Platelets 340 thou/uL (152-406)
[2023-01-07 03:43] LABS: Albumin 2.1 g/dL (3.4-5.0); Magnesium 1.9 mg/dL (1.6-2.4); Phosphorus 2.8 mg/dL (2.5-4.9)
[2023-01-07 05:16] LABS: Smudge Cells PRESENT
[2023-01-07 05:17] LABS: Anisocytosis SLIGHT; Blood Morphology Comment NOTED (NOT SEEN); Platelet Estimate ADEQ; Polychromasia SLIGHT
[2023-01-07] MEDS: MORPHINE 2 MG/ML SYR IV PRN ×2 (05:20→12:50)
[2023-01-07] MEDS: METOPROLOL TAR 25 MG TAB PO SCH ×2 (06:00→18:00)
[2023-01-07] MEDS: INSULIN REGULAR (HUMAN) 100 UNIT/ML SQ SCH ×4 (07:30→21:00)
--- NOTE | 2023-01-07 07:58 | P.PN ---
Subjective Date of Service: 01/07/23 Chief Complaint: Cellulitis of the foot, RODRICK on CKD sepsis. LLE pain controlled, plan to DC to rehab/snf after dc, family at bedside Physical Exam: Vitals: reviewed GEN: Alert, oriented, NAD HEENT: Normal conjunctiva, sclera anicteric CV: Regular rate & rhythm, no edema Pulm: Nonlabored respiraitons, clear bilaterally ABD: Soft, nontender, nondistended MSK: no joint tenderness Integumentary: surgical incision LLE, CDI Neuro: Normal speech, normal affect Review of Systems per hpi Physical Examination - Vital Signs Temperature: 98 F Blood Pressure: 119/62 Pulse: 68 Respirations: 16 Pulse Ox (%): 98 Assessment And Plan - Plan Assessment plan Sepsis without shock secondary to cellulitis/gangrene Cellulitis/osteomyelitis of left foot third toe. Present on admission. Deemed secondary to cellulitis episode. Patient has a gangrenous left foot 3rd toe. Pancultured and started broad-spectrum antibiotic of vancomycin and meropenem. (changed to Ancef 2 gm q 12) Will monitor cultures for adjustment of antibiotic. Trend WBCs, lactic Patient has significant infection in both lower extremity but left foot third toe is gangrenous. We have started broad-spectrum antibiotic of vancomycin and meropenem. Will obtain MRI of the foot to evaluate for osteomyelitis episode. Will consult surgical service for management recommendation. Will continue routine care of foot wound. 01/03 amputation of the left third toe Dr. Sanchez PT eval for DME/ambulation assessment needs Plan DC SNF Bacteremia Blood, Wound cultures positive for Staph aureus Positive Silvadene for wound care, IV Ancef 2 g every 12 RODRICK CKD stage III: Patient has significant elevated creatinine of 2.7 from baseline of about 1.5- 1.7. Will continue IV fluid for hydration. Will consult nephrology for management recommendation. Hyponatremia: Mild. Sodium is low at 131. Will follow trend of serum sodium. Will hydrate with isotonic fluid and have nephrology evaluation. DM 2: Continue sliding scale insulin for glucose control and continue ACHS blood glucose check. Diabetic diet to be continued once feeds are resumed. Hypertension: We will monitor vital signs per unit protocol and continue antihypertensive medication once sepsis is resolved. Prophylaxis: Heparin for DVT prophylaxis: CODE STATUS: Full code. Disposition: We will treat her sepsis, cellulitis, evaluated fluids for possible surgical intervention and she be discharged when she is medically cleared. Discharge Plan: Other (snf) - Code Status/Comfort Care Code Status: Full Code Physician Review: Patient Assessed, Agree with Above Assessment and Plan Critical Care: No Time Spent Managing PTS Care (In Minutes): 35
[2023-01-07] MEDS: FUROSEMIDE 40 MG/4 ML VIAL IV SCH (08:07)
[2023-01-07] MEDS: DOCUSATE NA/SENNA CONC 1 TAB PO SCH ×2 (08:07→21:12)
[2023-01-07] MEDS: LOSARTAN POTASSIUM 50 MG TABLET PO SCH (08:07)
[2023-01-07] MEDS: CEFAZOLIN SODIUM 2 GM in NA CHLORIDE 0.9% 100 ML IVPB SCH ×2 (08:08→21:12)
[2023-01-07] MEDS: CITALOPRAM 10 MG TABLET PO SCH (08:08)
--- NOTE | 2023-01-07 08:47 | P.CNS ---
Date of Consult: 01/07/23 Reason for Consult: RODRICK/ CKD Requesting Physician: Landry Carlson Chief Complaint: Cellulitis of the foot, RODRICK on CKD sepsis. History of Present Illness: 72-year-old female patient with medical history significant for CKD stage III, hypothyroidism, diabetes ulcer, hyperlipidemia, history of chronic leg ulcers was evaluated for episode of worsening altered mentation and infection of the lower extremity. She was found to be significantly altered over the last couple of days and has redness in lower extremities bilaterally. Her left third toe is gangrenous at the tip and there was concern for worsening infection from this cellulitis episode so she was brought to the ER. In the ED x-ray was concerning for osteomyelitis and she had elevated white cell of 20,000 raising concern for sepsis. She was pancultured and started on broad-spectrum antibiotic of vancomycin and meropenem based on a history of ESBL E. coli infection. She was admitted for inpatient care. [id number] 16:54 This 72 yrs old Female presents to ER via EMS with complaints of fall. [facility] 16:54 Trauma demographics: County: The injury occurred in [place]. Mechanism of injury: Son javy states she has fallen 5 times in the past few days. Associated injuries: The patient sustained upper back injury. Onset: The symptoms/episode began/occurred suddenly. The patient has experienced similar episodes in the past. It is unknown whether or not the patient has recently seen a physician. EMS states pt was hypotensive at her home with SBP in the 90s. Allergies Tape Adverse Reaction (Uncoded 11/12/14 09:47) Rash Home medications list reviewed: Yes Home Medications: Ramipril [Altace] 10 mg PO DAILY 11/12/14 Hydrocodone Bit/Acetaminophen [Bendena 7.5-325 Tablet] 7.5 mg PO BIDP PRN 01/31/21 Triamterene/Hydrochlorothiazid [Triamterene-Hctz 75-50 mg Tab] 1 tab PO DAILY 01/31/21 Citalopram Hydrobromide [Celexa] 40 mg PO DAILY 01/01/23 Temazepam [Restoril*] 1 cap PO BEDTIME PRN PRN 01/01/23 - Past Medical/Surgical History Diabetic: Yes -: Hypertension -: CKD III with Proteinuria (Dr. Chaves/ Dr. Cervantes) -: DM II with Polyneuropathy -: Chronic lower extremity swelling -: Gout -: Neuropathy with gait instability -: Chronic back pain -: Cholecystectomy -: Multiple "back surgeries" -: Hernia repair -: Knee sx right -: Partial amputation of toes left foot Psychosocial/ Personal History: Lives at home with , ambulates with walker due to neuropathy. - Family History Father Medical History: Other (see notes) Notes: alcoholism Mother Medical History: Other (see notes) Notes: no known medical hx - Social History Alcohol use: No CD- Drugs: No Caffeine use: No Place of Residence: Home Review of Systems 10-point ROS is otherwise unremarkable General: Weakness Cardiovascular: Edema Physical Examination Temp Pulse Resp BP Pulse Ox 98 F 68 16 119/62 98 01/07/23 07:57 01/07/23 07:57 01/07/23 07:57 01/07/23 07:57 01/07/23 07:57 General: In no apparent distress, Oriented x3, Cooperative, Obese HEENT: Atraumatic Neck: Supple Respiratory: Clear to auscultation bilaterally Cardiovascular: Regular rate/rhythm, Edema (Hip & LE) Gastrointestinal: Soft and benign, Non-distended Musculoskeletal: No clubbing, No contractures Integumentary: No rashes, No cyanosis, Other (Left toe amputation) Neurological: Normal speech Blood work reviewed in the chart. Imagings Data: [id number] EXAM DESCRIPTION: US - Renal Ultrasound-Complete - 01/02/2023 12:01 am CLINICAL HISTORY: rodrick COMPARISON: LOCAL INFLAM WB dated 01/10/2008 TECHNIQUE: Sonographic grayscale and color flow images of the kidneys and bladder were obtained. FINDINGS: Decreased penetration somewhat limits evaluation. Both kidneys are normal in size, shape, and echotexture. The right kidney measures 8 cm in length. No hydronephrosis, focal mass, or echogenic calculi. The left kidney measures 8.6 cm in length. No hydronephrosis, focal mass, or echogenic calculi. The urinary bladder is without gross abnormality seen. IMPRESSION: Normal renal sonographic evaluation, allowing for poor penetration. [id number] EXAM DESCRIPTION: CT - Head C Spine Cap Wo Con - 12/31/2022 2:58 pm CLINICAL HISTORY: DECLINING STATE COMPARISON: No comparisons TECHNIQUE: Head and cervical spine CT images were obtained without IV contrast. Chest, abdomen, and pelvis CT images were obtained without IV contrast. Multiplanar reformats were generated and reviewed. All CT scans are performed using dose optimization technique as appropriate and may include automated exposure control or mA/KV adjustment according to patient size. FINDINGS: CT HEAD: No intracranial hemorrhage, mass effect, or edema. No evidence of acute territorial infarct. No midline shift or abnormal fluid collection. The ventricles are normal in caliber and configuration for age. Patchy deep white matter areas of hypoattenuation, nonspecific, most suggestive chronic small vessel ischemic changes. Basal cisterns are patent. Mastoid aircells and paranasal sinuses are clear. No acute skull fracture. CT CERVICAL SPINE: No acute cervical spine fracture or subluxation. Vertebral body heights are well maintained. Pronounced degenerative changes with disc height loss most pronounced at C5-6, as well as report degrees of neural foraminal narrowing most severe at C6-7 on the left and C5-6 on the right. No hyperattenuating canal hematoma. Prevertebral and paraspinous soft tissues are unremarkable. CT CHEST: No pneumothorax, pulmonary contusion or pleural fluid collection. No mediastinal hematoma and the aorta and pulmonary arteries are unremarkable. No chest will mass or abnormal axillary finding. No displaced rib fracture or other significant bony finding. CT ABDOMEN/ PELVIS: No evidence of traumatic injury to solid abdominal viscera. Gallbladder and biliary tree are unremarkable. No bowel injury or significant finding. No free air, free fluid or abnormal fat stranding. Diastasis recti on the right. Sequelae of cholecystectomy and lower anterior abdominal wall ventral hernia repair. Fat containing right inguinal hernia. No urinary bladder abnormality. No significant bony finding. Soft tissue swelling along the right pectoralis muscles and axilla, with subcutaneous fat stranding. IMPRESSION: Soft tissue swelling along the right pectoralis muscles and the sella, suggesting soft tissue contusion. No other acute traumatic findings. Incidental findings as above. [id number] EXAM DESCRIPTION: US - Extrem Venous W Compress Chirag - 01/01/2023 4:19 pm CLINICAL HISTORY: Cellulitis COMPARISON: None. TECHNIQUE: Real-time sonographic evaluation of the bilateral lower extremity deep venous systems was performed. FINDINGS: Normal compressibility, flow augmentation, phasic flow and spontaneous flow is identified in both the left and right lower extremity deep venous systems. No intraluminal filling defects seen. IMPRESSION: No DVT in either lower extremity. [id number] LEFT VENTRICULAR WALL MOTION: NORMAL DOPPLER/COLOR FLOW: SEE BELOW COMMENTS: 1. NORMAL LEFT VENTRICULAR EJECTION FRACTION 60-65% 2. NORMAL WALL MOTION 3. GRADE I DIASTOLIC DYSFUNCTION 4. MILD MITRAL STENOSIS 5. MILD MITRAL REGURGITATION Conclusions/Impression: Stage II RODRICK in the setting of multiple episodes of hypotension CKD III with Proteinuria -No NSAIDs -Continue furosemide HTN with CKD/ CHF complicated by multiple episodes of hypotension -Reduce Losartan Daily -Continue Metoprolol Diastolic CHF, chronic LE Edema -Continue furosemide -Consider spironolactone DM II with Polyneuropathy & CKD -RISS Anemia in chronic illness -Monitor H&H Hx Gout -Monitor uric acid level Osteomyelitis sp left 3rd toe amputation Bacteremia with Staph -Wound care as ordered -Continue Abx Thank you kindly for the consultation. I am assuming care today because Dr. Jessica Martínez was kind enough to notify me that my clinic patient was admitted to the hospital.
[2023-01-07] MEDS: SILVER SULFADIAZINE 1% 50 GM TOP SCH (09:00)
[2023-01-08] MEDS: HEPARIN 5000 UNIT/ML 1 ML VIAL SQ SCH ×3 (01:00→18:29)
[2023-01-08] MEDS: HYDROCODONE/APAP 5/325 MG TAB PO PRN ×2 (02:26→09:31)
[2023-01-08 03:20] LABS: Absolute Lymphocytes (CBC) 2.6 K/uL (0.7-4.9); Hematocrit 28.4 % (36.0-45.0); Lymphocytes % 18.9 % (15.3-44.8); MCV 90.4 fL (80-100); MPV 8.7 fL (7.6-11.3); Platelets 339 thou/uL (152-406); RBC Red Blood Cell Count 3.15 M/uL (3.86-4.86)
[2023-01-08 03:37] LABS: Magnesium 2.1 mg/dL (1.6-2.4); Potassium 4.2 mEq/L (3.5-5.1); Uric Acid 6.9 mg/dL (2.6-6.0)
--- NOTE | 2023-01-08 07:12 | P.PN ---
Date of Service: 01/02/23 Subjective: Patient is doing well no new complaints. Clinical symptoms are stable. Patient scheduled for amputation in AM. Physical Exam: Vitals: reviewed GEN: Alert, oriented, NAD HEENT: Normal conjunctiva, sclera anicteric CV: Regular rate & rhythm, no edema Pulm: Nonlabored respiraitons, clear bilaterally ABD: Soft, nontender, nondistended MSK: no joint tenderness Integumentary: Erythema, Tenderness, gangrenous changes of left 3rd toe. Neuro: Normal speech, normal affect Problem List: Sepsis likely secondary to Cellulitis/osteomyelitis of left foot third toe. RODRICK on CKD3 Hyponatremia NIDDM2 chronic back pain Hyperlipidemia hypertension Plan: 1. Osteomyelitis of the third toe on the left foot; continue with IV antibiotics. Surgery consultation appreciated. Amputation scheduled for in a.m. 2. RODRICK; renal function stable 3. Type 2 diabetes; hypertension; dyslipidemia; supportive care 4. Hyponatremia; monitor sodium level.
--- NOTE | 2023-01-08 07:13 | P.PN ---
Date of Service: 01/03/23 Subjective: Patient continues to have floaters. Clinical symptoms are better. Amputation later today. Physical Exam: Vitals: reviewed GEN: Alert, oriented, NAD HEENT: Normal conjunctiva, sclera anicteric CV: Regular rate & rhythm, no edema Pulm: Nonlabored respiraitons, clear bilaterally ABD: Soft, nontender, nondistended MSK: no joint tenderness Integumentary: Erythema, Tenderness, gangrenous changes of left 3rd toe. Neuro: Normal speech, normal affect Problem List: Sepsis likely secondary to Cellulitis/osteomyelitis of left foot third toe. RODRICK on CKD3 Hyponatremia NIDDM2 chronic back pain Hyperlipidemia hypertension Plan: 1. Osteomyelitis of the third toe on the left foot; continue with IV antibiotics. Surgery consultation appreciated. 2 OR later today. 2. RODRICK; renal function stable 3. Type 2 diabetes; hypertension; dyslipidemia; supportive care 4. Hyponatremia; monitor sodium level.
--- NOTE | 2023-01-08 07:15 | P.PN ---
Date of Service: 01/04/23 Subjective: Patient doing much better today. Feels much better even after her surgery. Patient is postop day #1. Physical Exam: Vitals: reviewed GEN: Alert, oriented, NAD HEENT: Normal conjunctiva, sclera anicteric CV: Regular rate & rhythm, no edema Pulm: Nonlabored respiraitons, clear bilaterally ABD: Soft, nontender, nondistended MSK: no joint tenderness Integumentary: Erythema, Tenderness, gangrenous changes of left 3rd toe. Neuro: Normal speech, normal affect Problem List: Sepsis likely secondary to Cellulitis/osteomyelitis of left foot third toe. RODRICK on CKD3 Hyponatremia NIDDM2 chronic back pain Hyperlipidemia hypertension Plan: 1. Osteomyelitis of the third toe on the left foot; continue with IV antibiotics. Surgery consultation appreciated. Postop day #1. Working on half-way facility arrangements for continued wound care and rehab. Cultures are positive-blood cultures-so we will continue with IV antibiotics. 2. RODRICK; renal function stable 3. Type 2 diabetes; hypertension; dyslipidemia; supportive care 4. Hyponatremia; monitor sodium level.
--- NOTE | 2023-01-08 07:16 | P.PN ---
Date of Service: 01/05/23 Subjective: Patient is in good spirits. Participating with therapy. Participating well with wound care. Patient is postop day #2. Physical Exam: Vitals: reviewed GEN: Alert, oriented, NAD HEENT: Normal conjunctiva, sclera anicteric CV: Regular rate & rhythm, no edema Pulm: Nonlabored respiraitons, clear bilaterally ABD: Soft, nontender, nondistended MSK: no joint tenderness Integumentary: Erythema, Tenderness, gangrenous changes of left 3rd toe. Neuro: Normal speech, normal affect Problem List: Sepsis likely secondary to Cellulitis/osteomyelitis of left foot third toe. RODRICK on CKD3 Hyponatremia NIDDM2 chronic back pain Hyperlipidemia hypertension Plan: 1. Osteomyelitis of the third toe on the left foot; continue with IV antibiotics. Surgery consultation appreciated. Postop day #2. Working on half-way facility arrangements for continued wound care and rehab. Cultures are positive-blood cultures-so we will continue with IV antibiotics. 2. RODRICK; renal function stable 3. Type 2 diabetes; hypertension; dyslipidemia; supportive care 4. Hyponatremia; monitor sodium level.
[2023-01-08] MEDS: INSULIN REGULAR (HUMAN) 100 UNIT/ML SQ SCH ×4 (07:30→21:00)
[2023-01-08] MEDS: SILVER SULFADIAZINE 1% 50 GM TOP SCH (09:00)
[2023-01-08] MEDS: CEFAZOLIN SODIUM 2 GM in NA CHLORIDE 0.9% 100 ML IVPB SCH ×2 (09:17→21:10)
[2023-01-08] MEDS: FUROSEMIDE 40 MG/4 ML VIAL IV SCH (09:18)
[2023-01-08] MEDS: CITALOPRAM 10 MG TABLET PO SCH (09:18)
[2023-01-08] MEDS: DOCUSATE NA/SENNA CONC 1 TAB PO SCH ×2 (09:19→21:11)
[2023-01-08] MEDS: METOPROLOL TAR 25 MG TAB PO SCH ×2 (09:31→18:29)
--- NOTE | 2023-01-08 13:24 | P.PN ---
Subjective Date of Service: 01/08/23 Chief Complaint: Cellulitis of the foot, RODRICK on CKD sepsis. Subjective: No new changes, Improving, New changes, Doing well Alert oriented x3 Vital stable Patient denies any pain or discomfort Reports getting better Review of Systems 10-point ROS is otherwise unremarkable Physical Examination - Vital Signs Temperature: 98.0 F Blood Pressure: 149/86 Pulse: 64 Respirations: 18 Pulse Ox (%): 100 - Physical Exam General: Alert, Oriented x3 HEENT: Atraumatic, PERRLA Neck: Supple, 2+ carotid pulse no bruit Respiratory: Clear to auscultation bilaterally, Normal air movement Cardiovascular: Normal pulses, Regular rate/rhythm, Normal S1 S2, Edema (1+ edema bilateral lower extremities) Capillary refill: <2 Seconds Gastrointestinal: Normal bowel sounds, Soft and benign Musculoskeletal: No clubbing, Swelling, Erythema Integumentary: No rashes, Other (Cellulitis lower extremity) Neurological: Normal speech, Normal affect Assessment And Plan - Plan - Plan Assessment plan Sepsis without shock secondary to cellulitis/gangrene Cellulitis/osteomyelitis of left foot third toe. -Acute, resolved. Vitals stable -Present on admission. Deemed secondary to cellulitis episode. Patient has a gangrenous left foot 3rd toe. Pancultured and started broad-spectrum antibiotic of vancomycin and meropenem. (changed to Ancef 2 gm q 12) -Post Amputation of third toe of the left foot to the metatarsophalangeal joint. Will monitor cultures for adjustment of antibiotic. Trend down WBCs 13.9 today Patient has significant infection in both lower extremity but left foot third toe is gangrenous. We have started broad-spectrum antibiotic of vancomycin and meropenem. Will obtain MRI of the foot to evaluate for osteomyelitis episode. Will consult surgical service for management recommendation. Will continue routine care of foot wound. 01/03 amputation of the left third toe Dr. Sanchez PT eval for DME/ambulation assessment needs Plan DC SNF RODRICK CKD stage III: Acute on chronic, improving. BUN 62, creatine 1.51, GFR 36. el Will continue IV fluid for hydration. Will consult nephrology for management recommendation. Hyponatremia: Mild. -Resolved, Sodium is 138. Will follow trend of serum sodium. -Will hydrate with isotonic fluid and have nephrology evaluation. DM 2: Continue sliding scale insulin for glucose control and continue [facility] blood glucose check. Diabetic diet to be continued once feeds are resumed. Hypertension: Chronic, controlled. We will monitor vital signs per unit protocol and continue antihypertensive medication once sepsis is resolved. Prophylaxis: Heparin for DVT prophylaxis: CODE STATUS: Full code. Disposition: We will treat her sepsis, cellulitis, evaluated fluids for possible surgical intervention and she be discharged when she is medically cleared. Discharge Plan: Other (snf) - Code Status/Comfort Care Code Status: Full Code Physician Review: Patient Assessed, Agree with Above Assessment and Plan Discharge Plan: Home Plan to discharge in: 24 Hours - Code Status/Comfort Care Code Status Assessed: Yes (full code) Code Status: Full Code Physician Review: Patient Assessed, Agree with Above Assessment and Plan Critical Care: No Time Spent Managing PTS Care (In Minutes): 35 (minutes)
[2023-01-08] MEDS: MORPHINE 2 MG/ML SYR IV PRN (18:28)
[2023-01-08] MEDS: BUMETANIDE 1 MG TABLET PO SCH (18:29)
[2023-01-08] MEDS ORDERED: LOSARTAN POTASSIUM 50 MG TABLET PO SCH (21:00)
[2023-01-08] MEDS: Mupirocin NASAL 2 APPL/1 GM TUBE NAS SCH (21:09)
--- NOTE | 2023-01-08 21:12 | RAD REPORT ---
EXAM DESCRIPTION: RAD - Chest Single View - 01/08/2023 8:54 pm CLINICAL HISTORY: PICC line Placement COMPARISON: Chest Single View dated 01/31/2021; CHEST PA AND LAT 2 VIEW dated 08/28/2011; CHEST SINGL E VIEW dated 02/07/2008; CHEST PA AND LAT 2 VIEW dated 08/03/2003 FINDINGS: Portable chest was obtained following placement of a left upper extremity PICC line. The c atheter tip projects over the SVC.
[2023-01-08 23:37] VITALS: O2SAT 100
[2023-01-09] MEDS: HEPARIN 5000 UNIT/ML 1 ML VIAL SQ SCH ×2 (00:53→09:59)
[2023-01-09] MEDS: HYDROCODONE/APAP 5/325 MG TAB PO PRN ×2 (01:34→06:25)
[2023-01-09 02:51] LABS: Absolute Lymphocytes (CBC) 2.1 K/uL (0.7-4.9); Lymphocytes % 14.2 % (15.3-44.8); MPV 8.6 fL (7.6-11.3); Platelets 333 thou/uL (152-406); RBC Red Blood Cell Count 3.55 M/uL (3.86-4.86)
[2023-01-09 03:00] LABS: Magnesium 1.7 mg/dL (1.6-2.4); Potassium 3.8 mEq/L (3.5-5.1)
[2023-01-09] MEDS: METOPROLOL TAR 25 MG TAB PO SCH (06:25)
[2023-01-09] MEDS: INSULIN REGULAR (HUMAN) 100 UNIT/ML SQ SCH (07:30)
--- NOTE | 2023-01-09 08:39 | P.CNS ---
Date of Consult: 01/09/23 Reason for Consult: staph bacteremia, cellulitis Chief Complaint: Cellulitis of the foot, RODRICK on CKD sepsis. History of Present Illness: Patient is a 72-year-old female with a medical history significant for CKD stage III, hypothyroidism, diabetes mellitus, hyperlipidemia, history of chronic leg ulcers who presented to the ED with complaints of altered mentation and infection of the lower extremity. Her left third toe is gangrenous at the tip and there was concern for worsening infection from this cellulitis episode so she was brought to the ER. In the ED x-ray was concerning for osteomyelitis and she had elevated white cell of 20,000 raising concern for sepsis. She was pancultured and started on broad-spectrum antibiotic of vancomycin and meropenem based on a history of ESBL E. coli infection. She was admitted for inpatient care. Patient underwent amputation of left third toe on 01/[address] Sanchez. Infectious disease was consulted for home antibiotic recommendations. Allergies Tape Adverse Reaction (Uncoded 11/12/14 09:47) Rash Home medications list reviewed: Yes Home Medications: Ramipril [Altace] 10 mg PO DAILY 11/12/14 Hydrocodone Bit/Acetaminophen [[place] 7.5-325 Tablet] 7.5 mg PO BIDP PRN 01/31/21 Triamterene/Hydrochlorothiazid [Triamterene-Hctz 75-50 mg Tab] 1 tab PO DAILY 01/31/21 Citalopram Hydrobromide [Celexa] 40 mg PO DAILY 01/01/23 Temazepam [Restoril*] 1 cap PO BEDTIME PRN PRN 01/01/23 Cefazolin Sodium [Ancef] 2 gm IJ BID 9 Days #18 vial 01/09/23 - Past Medical/Surgical History Diabetic: Yes -: Hypertension -: CKD III with Proteinuria (Dr. Chaves/ Dr. Cervantes) -: DM II with Polyneuropathy -: Chronic lower extremity swelling -: Gout -: Neuropathy with gait instability -: Chronic back pain -: Cholecystectomy -: Multiple "back surgeries" -: Hernia repair -: Knee sx right -: Partial amputation of toes left foot Psychosocial/ Personal History: Lives at home with , ambulates with walker due to neuropathy. - Family History Father Medical History: Other (see notes) Notes: alcoholism Mother Medical History: Other (see notes) Notes: no known medical hx - Social History Alcohol use: No CD- Drugs: No Caffeine use: No Place of Residence: Home Review of Systems 10-point ROS is otherwise unremarkable Integumentary: Other (cellulitis LLE) Physical Examination Temp Pulse Resp BP Pulse Ox 97.3 F 65 19 118/63 99 01/09/23 04:00 01/09/23 06:25 01/09/23 06:25 01/09/23 06:25 01/09/23 06:25 General: Alert, In no apparent distress, Oriented x3 HEENT: Atraumatic, Normocephalic, Other (corrective lenses) Respiratory: Clear to auscultation bilaterally, Normal air movement, Other (on room air) Cardiovascular: Regular rate/rhythm, Edema (BLE edema) Gastrointestinal: Normal bowel sounds, Soft and benign, No tenderness Musculoskeletal: Other (s/p amputation of left third toe) Integumentary: Erythema (LLE), Other (amputation of left third toe dressing is clean dry and intact. ) Neurological: Normal speech, Normal tone, Normal affect Laboratory Data - Reviewed Microbiology Data - Reviewed Imagings Data: - Reviewed Conclusions/Impression: Problem List Sepsis secondary to cellulitis/gangrene of left third toe Osteomyelitis of left foot third toe Cellulitis Left lower Extremity CKD III Diabetes Mellitus type II Hypertension Obesity Sepsis secondary to osteomyelitis/gangrene of left third toe Cellulitis LLE MSSA Bacteremia - Started on Vancomycin and Meropenem 12/31 empirically -> Switched to Cefazolin on 01/03 following culture results - Blood cultures 12/31: Staph aureus (MSSA) - Wound culture 01/03: MSSA - Repeat blood cultures 01/04 & 01/05: no growth to date - s/p amputation left third toe on 01/[address] Sanchez - PICC line placed 01/08 WBC remains elevated (14.5) Afebrile. Recommendations - MSSA Bacteremia: Continue antibiotic therapy for 14 days (01/04-01/17). Continue with Cefazolin IV. PICC line placed on 01/08. - Continue wound/amputation site care per surgery team - s/p left 3rd toe amputation: Follow up with Dr. Sanchez as outpatient - Monitor for worsening s/s of infection such as purluent drainage, increasing erythema, edema and/or pain. - Strict blood glucose control Case discussed with Deandra Pandey
[2023-01-09] MEDS: BUMETANIDE 1 MG TABLET PO SCH (09:56)
[2023-01-09] MEDS: CITALOPRAM 10 MG TABLET PO SCH (09:57)
[2023-01-09] MEDS: DOCUSATE NA/SENNA CONC 1 TAB PO SCH (09:57)
[2023-01-09] MEDS: Mupirocin NASAL 2 APPL/1 GM TUBE NAS SCH (09:59)
[2023-01-09] MEDS: SILVER SULFADIAZINE 1% 50 GM TOP SCH (10:00)
[2023-01-09] MEDS: CEFAZOLIN SODIUM 2 GM in NA CHLORIDE 0.9% 100 ML IVPB SCH (10:00)
--- NOTE | 2023-01-09 12:33 | P.DS ---
Admission Date: 12/31/22 Discharge Date: 01/09/23 Reason for Admission: Cellulitis of the foot, RODRICK on CKD sepsis. - Problems (1) Cellulitis of both lower extremities Status: Acute (2) Morbid obesity Status: Acute (3) RODRICK (acute kidney injury) Status: Acute (4) Traumatic amputation of third toe of left foot with complication Status: Acute Brief History of Present Illness: Date of Admission: 12/31/22 Reason for admission: Cellulitis of the foot, RODRICK on CKD sepsis. History of Present Illness: 72-year-old female patient with medical history significant for CKD stage III, hypothyroidism, diabetes ulcer, hyperlipidemia, history of chronic leg ulcers was evaluated for episode of worsening altered mentation and infection of the lower extremity. She was found to be significantly altered over the last couple of days and has redness in lower extremities bilaterally. Her left third toe is gangrenous at the tip and there was concern for worsening infection from this cellulitis episode so she was brought to the ER. In the ED x-ray was concerning for osteomyelitis and she had elevated white cell of 20,000 raising concern for sepsis. She was pancultured and started on broad-spectrum antibiotic of vancomycin and meropenem based on a history of ESBL E. coli infection. She was admitted for inpatient care. Hospital Course: Tam is a pleasant 72yrs /f patient with a past medical history significant for CKD stage III, hypothyroidism, diabetes ulcer, hyperlipidemia, history of chronic leg ulcers who was admitted to the [facility] on 12/31/22 for episode of worsening altered mentation and infection of the lower extremity. She was bergman-cultured and started on broad-spectrum antibiotic of vancomycin and meropenem based on a history of ESBL E. coli infection. She was admitted for inpatient care. Patient had Infected third toe of the left foot- Amputation of third toe of the left foot to the metatarsophalangeal joint by Dr. Sanchez on 01/03/2023. On 01/09/2023, patient was seen on morning rounds and deemed medically stable for discharge. Patient was discharged with instructions to schedule follow-up appointments with PCP 1 week and wound doctor in 1 week. Patient was provided prescriptions for Ancef 2 g IV mag twice daily for the next 9 days. The patient was given the opportunity to ask questions and reported no further questions. Patient will be using home health nurse for the IV administration of a ntibiotics, and for physical therapy and Occupational Therapy. Follow-ups PCP [address] Sanchez in 1 week <Cornell Valencia - Last Filed: 01/09/23 12:27> Admission Date: 12/31/22 Discharge Date: 01/09/23 Hospital Course: Pt seen and examined. I agree withe note by the SKI EDGE PAINTER. <Yamilex Solomon - Last Filed: 01/09/23 18:03> Disposition: TRANSFER TO SNF - MEDICAL Discharge Condition: GOOD Vital Signs/Physical Exam: Temp Pulse Resp BP Pulse Ox 97.5 F 58 18 119/67 99 01/09/23 08:00 01/09/23 09:56 01/09/23 08:00 01/09/23 09:56 01/09/23 08:00 Laboratory Data at Discharge: WBC 14.50 thou/uL (4.3-10.9) H 01/09/23 01:48 Hgb 10.2 g/dL (12.0-15.0) L D 01/09/23 01:48 Hct 32.0 % (36.0-45.0) L 01/09/23 01:48 Plt Count 333 thou/uL (152-406) 01/09/23 01:48 PT 13.2 SECONDS (9.5-12.5) H 12/31/22 16:07 INR 1.20 12/31/22 16:07 APTT 27.4 SECONDS (24.3-36.9) 12/31/22 16:07 Sodium 138 mEq/L (136-145) 01/09/23 01:48 Potassium 3.8 mEq/L (3.5-5.1) 01/09/23 01:48 BUN 52 mg/dL (7-18) H 01/09/23 01:48 Creatinine 1.51 mg/dL (0.55-1.02) H 01/09/23 01:48 Glucose 118 mg/dL (74-106) H 01/09/23 01:48 Uric Acid 6.9 mg/dL (2.6-6.0) H 01/08/23 02:42 Phosphorus 2.8 mg/dL (2.5-4.9) 01/07/23 02:26 Magnesium 1.7 mg/dL (1.6-2.4) 01/09/23 01:48 Total Bilirubin 0.4 mg/dL (0.2-1.0) 01/05/23 05:30 AST 27 U/L (15-37) 01/05/23 05:30 ALT 17 U/L (13-56) 01/05/23 05:30 Alkaline Phosphatase 77 U/L (45-117) 01/05/23 05:30 Lipase 36 U/L (13-75) 01/01/23 17:40 <Cornell Valencia - Last Filed: 01/09/23 12:27> Vital Signs/Physical Exam: Temp Pulse Resp BP Pulse Ox 97.9 F 60 22 H 97/59 L 99 01/09/23 12:00 01/09/23 12:00 01/09/23 12:00 01/09/23 12:00 01/09/23 12:00 Laboratory Data at Discharge: WBC 14.50 thou/uL (4.3-10.9) H 01/09/23 01:48 Hgb 10.2 g/dL (12.0-15.0) L D 01/09/23 01:48 Hct 32.0 % (36.0-45.0) L 01/09/23 01:48 Plt Count 333 thou/uL (152-406) 01/09/23 01:48 PT 13.2 SECONDS (9.5-12.5) H 12/31/22 16:07 INR 1.20 12/31/22 16:07 APTT 27.4 SECONDS (24.3-36.9) 12/31/22 16:07 Sodium 138 mEq/L (136-145) 01/09/23 01:48 Potassium 3.8 mEq/L (3.5-5.1) 01/09/23 01:48 BUN 52 mg/dL (7-18) H 01/09/23 01:48 Creatinine 1.51 mg/dL (0.55-1.02) H 01/09/23 01:48 Glucose 118 mg/dL (74-106) H 01/09/23 01:48 Uric Acid 6.9 mg/dL (2.6-6.0) H 01/08/23 02:42 Phosphorus 2.8 mg/dL (2.5-4.9) 01/07/23 02:26 Magnesium 1.7 mg/dL (1.6-2.4) 01/09/23 01:48 Total Bilirubin 0.4 mg/dL (0.2-1.0) 01/05/23 05:30 AST 27 U/L (15-37) 01/05/23 05:30 ALT 17 U/L (13-56) 01/05/23 05:30 Alkaline Phosphatase 77 U/L (45-117) 01/05/23 05:30 Lipase 36 U/L (13-75) 01/01/23 17:40 <Yamilex Solomon - Last Filed: 01/09/23 18:03> Diet: ADA Activity: Non-weight bearing Time spent managing pt's care (in minutes): 55 (minutes) <Cornell Valencia - Last Filed: 01/09/23 12:27> <Yamilex Solomon - Last Filed: 01/09/23 18:03> Home Medications: Ramipril [Altace] 10 mg PO DAILY 11/12/14 Hydrocodone Bit/Acetaminophen [[place] 7.5-325 Tablet] 7.5 mg PO BIDP PRN 01/31/21 Triamterene/Hydrochlorothiazid [Triamterene-Hctz 75-50 mg Tab] 1 tab PO DAILY 01/31/21 Citalopram Hydrobromide [Celexa] 40 mg PO DAILY 01/01/23 Temazepam [Restoril*] 1 cap PO BEDTIME PRN PRN 01/01/23 Cefazolin Sodium [Ancef] 2 gm IJ BID 9 Days #18 vial 01/09/23 New Medications: Cefazolin Sodium [Ancef] 2 gm IJ BID 9 Days #18 vial Physician Discharge Instructions: Tam is a pleasant 72yrs /f patient with a past medical history significant for CKD stage III, hypothyroidism, diabetes ulcer, hyperlipidemia, history of chronic leg ulcers who was admitted to the [facility] on 12/31/22 for episode of worsening altered mentation and infection of the lower extremity. She was bergman-cultured and started on broad-spectrum antibiotic of vancomycin and meropenem based on a history of ESBL E. coli infection. She was admitted for inpatient care. Patient had Infected third toe of the left foot- Amputation of third toe of the left foot to the metatarsophalangeal joint by Dr. Sanchez on 01/03/2023. On 01/09/2023, patient was seen on morning rounds and deemed medically stable for discharge. Patient was discharged with instructions to schedule follow-up appointments with PCP 1 week and wound doctor in 1 week. Patient was provided prescriptions for Ancef 2 g IV mag twice daily for the next 9 days. The patient was given the opportunity to ask questions and reported no further questions. Patient will be using home health nurse for the IV administration of antibiotics, and for physical therapy and Occupational Therapy. Follow-ups PCP [address] Sanchez in 1 week Followup: Crescencio Sanchez MD [ACTIVE - CAN ADMIT] - Kristen Muñoz FNP [Primary Care Provider] -
[2023-01-09 14:29] VITALS: BP 97/59; TEMP 97.9
== END 2023-01-09 15:40 | DRG 853 ==
LOC: ER 14:03 → ERHOLD 17:25 → 2ND 20:27
PROVIDERS: ADMIT Internal Medicine Nephrology; ATTEND Hospitalist
PROC: 0Y6U0Z0 Detachment at Left 3rd Toe, Complete, Open Approach (ICD-10-PCS; principal; 2023-01-03 13:15)
PROC: 02HV33Z Insertion of Infusion Device into Superior Vena Cava, Percutaneous Approach (ICD-10-PCS; 2023-01-08)
DX: A41.01 Sepsis due to Methicillin susceptible Staphylococcus aureus (principal); J18.9 Pneumonia, unspecified organism; N17.0 Acute kidney failure with tubular necrosis; L03.116 Cellulitis of left lower limb; E11.52 Type 2 diabetes mellitus with diabetic peripheral angiopathy with gangrene; E87.1 Hypo-osmolality and hyponatremia; Z68.41 Body mass index [BMI] 40.0-44.9, adult; I50.32 Chronic diastolic (congestive) heart failure; I13.0 Hypertensive heart and chronic kidney disease with heart failure and stage 1 through stage 4 chronic kidney disease, or unspecified chronic kidney disease; L03.115 Cellulitis of right lower limb; M86.172 Other acute osteomyelitis, left ankle and foot; N18.30 Chronic kidney disease, stage 3 unspecified; E11.22 Type 2 diabetes mellitus with diabetic chronic kidney disease; E11.69 Type 2 diabetes mellitus with other specified complication; E11.42 Type 2 diabetes mellitus with diabetic polyneuropathy; D63.1 Anemia in chronic kidney disease; E66.01 Morbid (severe) obesity due to excess calories; E03.9 Hypothyroidism, unspecified; E78.5 Hyperlipidemia, unspecified; G89.29 Other chronic pain; M54.9 Dorsalgia, unspecified; R29.6 Repeated falls; Z91.81 History of falling; Z90.49 Acquired absence of other specified parts of digestive tract; Z91.048 Other nonmedicinal substance allergy status; Z79.899 Other long term (current) drug therapy
CPT/HCPCS: 36415; 36569; 70450; 71045; 71250; 72125; 76770; 80048; 80053; 80069; 80202; 81001; 82140; 82550; 82947; 83605; 83690; 83735; 83880; 84100; 84145; 84156; 84484; 84550; 85025; 85379; 85610; 85730; 86021; 86140; 87040; 87070; 87075; 87077; 87186; 87205; 88305; 88311; 93005; 93306; 93925; 93970; 96365; 96366; 96372; 97110; 97161; 97530; 99285; J0171; J1100; J1170; J1644; J1940; J2001; J2185; J2270; J2405; J2704; J3010; J7030; J7040; J7050

== ENCOUNTER 2023-11-22 10:36 | Inpatient (IN) | payer OTHER ==
--- NOTE | 2023-11-22 12:51 | RAD REPORT ---
EXAMINATION: Foot Left 3 View CLINICAL INDICATION: Female, 73 years old. [facility] MAIN Swelling;Pain Bed Name: IW4 TECHNIQUE: 3 view radiographs of the left foot were obtained. COMPARISON: No prior exam. FINDINGS: Sequelae of third digit amputation at the level of the mid metatarsal shaft, and mid second metatarsal amputation although the phalanges of the second digit are preserved. Osteopenia limits evaluation. Progressive irregularity along the dorsal aspects of the midfoot bones, with no clear kierra tructive changes. Soft tissue swelling about the dorsum of the foot and the ankle. Some soft tissue irregularity along the sole of the foot as well. Pronounced hallux valgus deformity with some lateral subluxation of the fifth toe proximal phalanx. IMPRESSION: Soft tissue abnormalities and sequelae of prior amputation as above. No osseous destructive changes. If there is persistent clinical concern for acute osteomyelitis, additional evaluation by foot MRI would be helpful.
[2023-11-22 13:13] LABS: Absolute Eosinophils 0.1 K/uL (0-0.5); Absolute Lymphocytes (CBC) 0.9 K/uL (0.7-4.9); Absolute Monocytes 0.7 K/uL (0.1-1.3); Absolute Neutrophil 7.1 K/uL (1.8-8.0); Basophils % 0.3 % (0-1.3); Eosinophils % 0.9 % (0-4.4); Hematocrit 29.9 % (36.0-45.0); Hemoglobin 9.6 g/dL (12.0-15.0); Lymphocytes % 10.4 % (15.3-44.8); MCH 28.2 pg (27.0-35.0); MCHC 32.3 g/dL (32.0-36.0); MCV 87.5 fL (80-100); MPV 8.2 fL (7.6-11.3); Monocytes % 8.1 % (3.3-12.3); Neutrophils % 80.3 % (41.7-73.7); Platelets 300 thou/uL (152-406); RBC Red Blood Cell Count 3.41 M/uL (3.86-4.86); Red Cell Distribution Width 16.2 % (12.1-15.2)
[2023-11-22 13:16] LABS: PT Prothrombin Time 15.2 SECONDS (9.4-12.5); Protime INR 1.37
[2023-11-22] MEDS ORDERED: NA CHLORIDE 0.9% 3,000 ML ONE (13:20)
[2023-11-22 13:33] LABS: AST/SGOT 17 U/L (15-37); Albumin 2.5 g/dL (3.4-5.0); Albumin/Globulin Ratio 0.5 (1.1-1.8); Alkaline Phosphatase 82 U/L (45-117); Anion Gap 8.7 mEq/L (5.0-15.0); BUN Blood Urea Nitrogen 25 mg/dL (7-18); Bicarbonate 27 mEq/L (21-32); Bilirubin Total 0.8 mg/dL (0.2-1.0); Globulin 4.6 g/dL (2.3-3.5); Glomerular Filtration Rate 37 ml/min (=/>90); Glucose Level 88 mg/dL (74-106); Potassium 3.7 mEq/L (3.5-5.1); Protein, Total 7.1 g/dL (6.4-8.2); Sodium Level 134 mEq/L (136-145)
[2023-11-22 13:35] LABS: ALT/SGPT < 14 U/L (13-56)
[2023-11-22] MEDS ORDERED: HYDROCODONE/APAP 5/325 MG TAB ONE (14:24)
--- NOTE | 2023-11-22 16:19 | EDPHYS ---
Physician Documentation [facility] Name: Lauren Turcios Age: 73 yrs Sex: Female : 1950 Arrival Date: 11/22/2023 Time: 10:36 Bed 25 Private MD: ED Physician Shannon London HPI: 11/21 16:15 This 73 yrs old Female presents to ER via Wheelchair with complaints of gb1 Infection. 16:15 73-year-old female left lower extremity redness and swelling. Of note her gb1 just a few weeks ago and it has been more difficult for her to get around and ambulate with the swelling in her leg which is also red. She denies any fever or chills but states that she was prescribed an antibiotic by her vamp throater yesterday and she took 1 dose of the medication. She believes it was clindamycin. She has a history of anxiety, chronic cellulitis, difficulty walking,, hypertensive disorder and neuropathy. She reports that she is not a diabetic. She did fall recently as well.. Historical: - Allergies: 11:03 adhesive tape-silicones; ph - PMHx: 11:03 Anxiety; Chronic Cellulitis; Gait problem; Hypertensive disorder; neuropathy; ph - PSHx: 11:03 Cholecystectomy; lower back; R. leg surgery; ph - Immunization history:: Adult Immunizations unknown. - Infectious Disease History:: Denies. - Social history:: Smoking status: Patient denies any tobacco usage or history of. Exam: 16:15 Constitutional: This is a well developed, well nourished patient who is awake, alert, gb1 and in no acute distress. Head/Face: Normocephalic, atraumatic. Eyes: Pupils equal round and reactive to light, extra-ocular motions intact. Lids and lashes normal. Conjunctiva and sclera are non-icteric and not injected. Cornea within normal limits. Periorbital areas with no swelling, redness, or edema. ENT: Nares patent. No nasal discharge, no septal abnormalities noted. Tympanic membranes are normal and external auditory canals are clear. Oropharynx with no redness, swelling, or masses, exudates, or evidence of obstruction, uvula midline. Mucous membranes moist. Neck: Trachea midline, no thyromegaly or masses palpated, and no cervical lymphadenopathy. Supple, full range of motion without nuchal rigidity, or vertebral point tenderness. No Meningismus. Chest/axilla: Normal chest wall appearance and motion. Nontender with no deformity. No lesions are appreciated. Cardiovascular: Regular rate and rhythm with a normal S1 and S2. No gallops, murmurs, or rubs. Normal PMI, no JVD. No pulse deficits. Respiratory: Lungs have equal breath sounds bilaterally, clear to auscultation and percussion. No rales, rhonchi or wheezes noted. No increased work of breathing, no retractions or nasal flaring. Abdomen/GI: Soft, non-tender, with normal bowel sounds. No distension or tympany. No guarding or rebound. No evidence of tenderness throughout. Back: No spinal tenderness. No costovertebral tenderness. Full range of motion. MS/ Extremity: Pulses equal, no cyanosis. Neurovascular intact. Left lower extremity is difficult to range secondary to pain and swelling. Patient's left distal tibia down to her left midfoot is severely swollen and erythematous. There is signs of skin injury as well to the left ventral foot. Vital Signs: 11:00 BP 136 / 77; Pulse 75; Resp 18; Temp 98; Pulse Ox 100% on R/A; ph 12:37 Weight 99.79 kg; me1 13:00 BP 154 / 90; Pulse 71; Resp 17; Pulse Ox 100% ; me1 14:00 BP 154 / 81; Pulse 70; Resp 16; Pulse Ox 99% ; me1 15:00 BP 157 / 87; Pulse 72; Resp 18; Pulse Ox 100% on R/A; me1 16:00 BP 150 / 75; Pulse 71; Resp 17; Pulse Ox 98% ; me1 MDM: 11:06 Medical Screening Exam initiated gb1 16:15 Data reviewed: vital signs, nurses notes, lab test result(s), CBC, electrolytes, gb1 urinalysis, EKG, radiologic studies. ED course: EKG shows normal sinus rhythm with PVCs at 70 bpm with a QTc that is prolonged at 494. There are some nonspecific ST-T wave changes in leads I and aVL likely secondary to artifact.. 11/21 11:08 Order name: Blood Culture Adult (2) [facility] [place] 11/21 11:08 Order name: CBC with Diff; Complete Time: 14:17 [facility] 11/21 11:08 Order name: CMP; Complete Time: 14:17 gb1 11/21 11:08 Order name: Lactate w/ 2H reflex if indic.; Complete Time: 14:17 gb1 11/21 11:08 Order name: Protime (+inr); Complete Time: 14:17 gb1 11/21 11:08 Order name: Ptt, Activated; Complete Time: 14:17 gb1 11/21 11:08 Order name: Urinalysis w/ reflexes gb1 11/21 17:15 Order name: T4 Free EDMS 11/21 17:15 Order name: Thyroid Stimulating Hormone EDMS 11/21 17:15 Order name: Basic Metabolic Panel EDMS 11/21 17:15 Order name: Basic Metabolic Panel EDMS 11/21 17:15 Order name: Basic Metabolic Panel EDMS 11/21 17:15 Order name: Basic Metabolic Panel EDMS 11/21 17:15 Order name: Basic Metabolic Panel EDMS 11/21 17:15 Order name: Basic Metabolic Panel EDMS 11/21 17:15 Order name: Basic Metabolic Panel EDMS 11/21 17:15 Order name: Basic Metabolic Panel EDMS 11/21 17:15 Order name: CBC with Automated Diff EDMS 11/21 17:15 Order name: CBC with Automated Diff EDMS 11/21 17:15 Order name: CBC with Automated Diff EDMS 11/21 17:15 Order name: CBC with Automated Diff EDMS 11/21 17:15 Order name: CBC with Automated Diff EDMS 11/21 17:15 Order name: CBC with Automated Diff EDMS 11/21 17:15 Order name: CBC with Automated Diff EDMS 11/21 17:15 Order name: CBC with Automated Diff EDMS 11/21 17:15 Order name: Lipid Profile EDMS 11/21 17:15 Order name: Lipid Profile EDMS 11/21 17:15 Order name: Magnesium EDMS 11/21 17:15 Order name: Magnesium EDMS 11/21 17:15 Order name: Magnesium EDMS 11/21 17:15 Order name: Magnesium EDMS 11/21 17:15 Order name: Magnesium EDMS 11/21 17:15 Order name: Magnesium EDMS 11/21 17:15 Order name: Magnesium EDMS 11/21 17:15 Order name: Magnesium EDMS 11/21 17:15 Order name: Phosphorus EDMS 11/21 17:15 Order name: Phosphorus EDMS 11/21 17:15 Order name: Phosphorus EDMS 11/21 17:15 Order name: Phosphorus EDMS 11/21 17:15 Order name: Phosphorus EDMS 11/21 17:15 Order name: Phosphorus EDMS 11/21 17:15 Order name: Phosphorus EDMS 11/21 17:15 Order name: Phosphorus EDMS 11/21 11:56 Order name: Foot Left 3 View; Complete Time: 12:55 EDMS 11/21 16:21 Order name: Extremity Venous Uni Ltd US gb1 11/21 17:15 Order name: CONS Physician Consult EDMS 11/21 11:08 Order name: Accucheck; Complete Time: 13:19 gb1 11/21 11:08 Order name: Cardiac monitoring; Complete Time: 13:19 gb1 11/21 11:08 Order name: EKG - Nurse/Tech; Complete Time: 13:18 gb1 11/21 11:08 Order name: IV Saline Lock - Large Bore; Complete Time: 12:59 gb1 11/21 11:08 Order name: Labs collected and sent; Complete Time: 12:59 gb1 11/21 11:08 Order name: O2 Per Protocol; Complete Time: 12:59 gb1 11/21 11:08 Order name: O2 Sat Monitoring; Complete Time: 12:59 gb1 11/21 11:08 Order name: Vital Signs; Complete Time: 12:59 gb1 Administered Medications: 13:25 Drug: NS 0.9% IV (30 ml/kg) 30 ml/kg IV at bolus once; Sepsis Protocol; to be given as me1 a bolus over 90 minutes Route: IV; Rate: bolus; Site: left antecubital; 16:29 Follow up: Response: No adverse reaction; IV Status: Completed infusion; IV Intake: me1 2995ml 14:24 Drug: HYDROcodone-acetaminophen PO 5 mg-325 mg 1 tabs PO once Route: PO; me1 14:54 Follow up: Response: No adverse reaction; Pain is decreased me1 Disposition Summary: 11/22/23 16:19 Hospitalization Ordered Notes: Hospitalization Status: Observation gb1 Provider: Rikki Ames Condition: Stable gb1 Problem: chronic gb1 Symptoms: have worsened gb1 Bed/Room Type: Standard [facility] Location: Telemetry/MedSurg (observation)(11/23/23 05:30) kb3 Room Assignment: 206(11/23/23 05:30) kb3 Diagnosis - Cellulitis of left lower limb gb1 Forms: - Medication Reconciliation Form gb1 - SBAR form gb1 - Leadership Thank You Letter gb1 Signatures: Dispatcher [employer] EDMS Shayla Muro RN RN Caroline Jackson RN RN kb3 Laura Potter RN RN oh1 Shannon London MD MD gb1 Corrections: (The following items were deleted from the chart) 11: 11:09 BLOOD CULTURE*+BA.LAB.BRZ ordered. EDMS EDMS 11: 11:09 CBC+H.LAB.BRZ ordered. EDMS EDMS 11:09 11:09 COMPREHENSIVE METABOLIC PANEL+C.LAB.BRZ ordered. EDMS EDMS 11:09 11:09 LACTATE+C.LAB.BRZ ordered. EDMS EDMS 11:09 11:09 PROTIME (+INR)+COAG.LAB.BRZ ordered. EDMS EDMS 11: 11:09 PTT, ACTIVATED+COAG.LAB.BRZ ordered. EDMS EDMS 11:09 11:09 Urinalysis+U.LAB.BRZ ordered. EDMS EDMS 11:09 11:09 Foot Left 2 View+RAD.RAD.BRZ ordered. EDMS EDMS 18:14 16:19 Telemetry/MedSurg (observation) gb1 ph 18:14 16:19 gb1 ph 11/22 05:30 11/21 18:14 [facility] ER HOLD ph kb3 11/22 05:30 10 18:14 ERHOLD- ph kb3
--- NOTE | 2023-11-22 16:19 | ER ---
Nurse's Notes [facility] Name: Lauren Turcios Age: 73 yrs Sex: Female : 1950 Arrival Date: 11/22/2023 Time: 10:36 Bed 25 Private MD: Diagnosis: Cellulitis of left lower limb Presentation: 11/21 11:00 Chief complaint: Patient's son or daughter states: Goes to wound healing for ph cellulitis, open wounds to L foot, placed on oral antibiotics, wounds looked worse today. Coronavirus screen: Vaccine status: Patient reports receiving the 2nd dose of the covid vaccine. Ebola Screen: No symptoms or risks identified at this time. Initial Sepsis Screen: Does the patient meet any 2 criteria? No. Patient's initial sepsis screen is negative. Does the patient have a suspected source of infection? No. Patient's initial sepsis screen is negative. Risk Assessment: Do you want to hurt yourself or someone else? Patient reports no desire to harm self or others. Onset of symptoms was November 22, 2023. 11:00 Method Of Arrival: Wheelchair 11:00 Acuity: CALEB 3 ph Triage Assessment: 11:04 General: Appears in no apparent distress. Behavior is. Pain: Complains of pain in left ph foot. Historical: - Allergies: 11:03 adhesive tape-silicones; ph - PMHx: 11:03 Anxiety; Chronic Cellulitis; Gait problem; Hypertensive disorder; neuropathy; ph - PSHx: 11:03 Cholecystectomy; lower back; R. leg surgery; ph - Immunization history:: Adult Immunizations unknown. - Infectious Disease History:: Denies. - Social history:: Smoking status: Patient denies any tobacco usage or history of. Screenin:35 [facility] ED Fall Risk Assessment (Adult) History of falling in the last 3 months, me1 including since admission No falls in past 3 months (0 pts) Confusion or Disorientation No (0 pts) Intoxicated or Sedated No (0 pts) Impaired Gait Yes (1 pt) Mobility Assist Device Used Yes (1 pt) Altered Elimination No (0 pt) Score/Fall Risk Level 0 - 2 = Low Risk Maintained a safe environment, Provided non-skid footwear, Hourly rounding (assess needs \T\ fall precautionary measures) done. Abuse screen: Denies threats or abuse. Nutritional screening: No deficits noted. Tuberculosis screening: No symptoms or risk factors identified. Assessment: 12:35 General: Appears comfortable, obese, well groomed, well developed, Behavior is calm, me1 cooperative, appropriate for age, Reports Goes to wound healing for cellulitis, open wounds to L foot, placed on oral antibiotics, wounds looked worse today. Pain: Denies pain. Neuro: Level of Consciousness is awake, alert, obeys commands, Oriented to person, place, time, situation, Appropriate for age. Cardiovascular: Patient's skin is warm and dry. Respiratory: Airway is patent Respiratory effort is even, unlabored, Respiratory pattern is regular, symmetrical. GI: No signs and/or symptoms were reported involving the gastrointestinal system. : No signs and/or symptoms were reported regarding the genitourinary system. EENT: No signs and/or symptoms were reported regarding the EENT system. Derm: Wound noted left foot Wound is wounds. Musculoskeletal: No signs and/or symptoms reported regarding the musculoskeletal system. Vital Signs: 11:00 BP 136 / 77; Pulse 75; Resp 18; Temp 98; Pulse Ox 100% on R/A; ph 12:37 Weight 99.79 kg; me1 13:00 BP 154 / 90; Pulse 71; Resp 17; Pulse Ox 100% ; me1 14:00 BP 154 / 81; Pulse 70; Resp 16; Pulse Ox 99% ; me1 15:00 BP 157 / 87; Pulse 72; Resp 18; Pulse Ox 100% on R/A; me1 16:00 BP 150 / 75; Pulse 71; Resp 17; Pulse Ox 98% ; me1 ED Course: 10:40 Patient arrived in ED. mg5 11:03 Triage completed. ph 11:04 Arm band placed on Patient placed in waiting room, Patient notified of wait time. ph 11:05 Shannon London MD is Attending Physician. gb1 11:56 Foot Left 3 View In Process Unspecified. EDMS 12:35 Patient has correct armband on for positive identification. Bed in low position. Call me1 light in reach. Side rails up X2. Provided Education on: POC. Verbalized understanding. . Client placed on continuous cardiac and pulse oximetry monitoring. NIBP monitoring applied. memorial marker designer on. Pulse ox on. NIBP on. 12:35 Warm blanket given. me1 12:35 No provider procedures requiring assistance completed. me1 12:37 Laura Potter, RN is Primary Nurse. me1 12:54 Initial lab(s) drawn, by nj, sent to lab. First set of blood cultures drawn by nj. me1 12:59 Inserted saline lock: 22 gauge in left antecubital area, using aseptic technique. me1 12:59 CBC with Diff Sent. me1 12:59 CMP Sent. me1 12:59 Lactate w/ 2H reflex if indic. Sent. me1 12:59 Protime (+inr) Sent. me1 12:59 Ptt, Activated Sent. me1 13:05 Second set of blood cultures drawn by nj. me1 13:19 Blood Culture Adult (2) Sent. me1 16:19 Rikki Ames is Hospitalizing Provider. gb1 16:56 Extremity Venous Uni Ltd US In Process Unspecified. EDND 19:30 Patient admitted, IV remains in place. nj1 11/22 00:08 Urinalysis w/ reflexes Sent. me1 00:08 Urine collected: clean catch specimen, cloudy. me1 Administered Medications: 11/21 13:25 Drug: NS 0.9% IV (30 ml/kg) 30 ml/kg IV at bolus once; Sepsis Protocol; to be given as nj1 a bolus over 90 minutes Route: IV; Rate: bolus; Site: left antecubital; 16:29 Follow up: Response: No adverse reaction; IV Status: Completed infusion; IV Intake: me1 2995ml 14:24 Drug: HYDROcodone-acetaminophen PO 5 mg-325 mg 1 tabs PO once Route: PO; me1 14:54 Follow up: Response: No adverse reaction; Pain is decreased [facility] Medication: 13:46 VIS not applicable for this client. me1 Intake: 16:29 IV: 2995ml; Total: 2995ml. nj1 Outcome: 16:19 Decision to Hospitalize by Provider. gb1 19:30 Admitted to ER Hold. Please see [facility] for further documentation. me1 19:30 Condition: stable 19:30 Instructed on the need for admit, 11/22 06:22 Patient left the ED. [facility] Signatures: Dispatcher [employer] Shayla Calloway RN RN Angelique Alexis RN RN [facility] Laura Potter, TIEN RN [facility] Jo Pastrana mg5 Shannon London MD MD gb1 Corrections: (The following items were deleted from the chart) 11/21 13:46 11:00 Chief complaint: Patient's son or daughter states: Goes to wound healing for me1 cellulitis, open wounds to L foot, placed on oral antibiotics, wounds looked worse today ph 13:50 13:46 General: Appears comfortable, obese, well groomed, well developed, Behavior is me1 calm, cooperative, appropriate for age, Reports Goes to wound healing for cellulitis, open wounds to L foot, placed on oral antibiotics, wounds looked worse today me1 13:50 13:46 Pain: Denies pain. me1 me1 :50 13:46 Neuro: Level of Consciousness is awake, alert, obeys commands, Oriented to me1 person, place, time, situation, Appropriate for age me1 13:50 13:46 Cardiovascular: Patient's skin is warm and dry. me1 me1 13:50 13:46 Respiratory: Airway is patent Respiratory effort is even, unlabored, Respiratory me1 pattern is regular, symmetrical, me1 :50 13:46 GI: No signs and/or symptoms were reported involving the gastrointestinal system. me1 me1 :50 13:46 : No signs and/or symptoms were reported regarding the genitourinary system. me1[facility] :50 13:46 EENT: No signs and/or symptoms were reported regarding the EENT system. me1 me1 :50 13:46 Derm: Wound noted left foot Wound is wounds me1 me1 13:50 13:46 Musculoskeletal: No signs and/or symptoms reported regarding the musculoskeletal nj1 system. me1 :51 13:46 Patient has correct armband on for positive identification. Bed in low position. me1 Call light in reach. Side rails up X2. me1 :51 13:46 Provided Education on: POC. Verbalized understanding. . me1 me1 :51 13:46 Client placed on continuous cardiac and pulse oximetry monitoring. NIBP me1 monitoring applied. memorial marker designer on. Pulse ox on. NIBP on. me1 :51 13:46 [facility] ED Fall Risk Assessment (Adult) History of falling in the last 3 months, me1 including since admission No falls in past 3 months (0 pts) Confusion or Disorientation No (0 pts) Intoxicated or Sedated No (0 pts) Impaired Gait Yes (1 pt) Mobility Assist Device Used Yes (1 pt) Altered Elimination No (0 pt) Score/Fall Risk Level 0 - 2 = Low Risk Maintained a safe environment, Provided non-skid footwear, Hourly rounding (assess needs \T\ fall precautionary measures) done, nj1 13:46 Abuse screen: Denies threats or abuse. [place] [id number] 13:46 Nutritional screening: No deficits noted. [place] [id number] 13:46 Tuberculosis screening: No symptoms or risk factors identified. [facility] me1
--- NOTE | 2023-11-22 16:30 | P.HP ---
Certification for Inpatient Patient admitted to: Inpatient With expected LOS: >2 Midnights Practitioner: I am a practitioner with admitting privileges, knowledge of patient current condition, hospital course, and medical plan of care. Services: Services provided to patient in accordance with Admission requirements found in Title 42 Section 412.3 of the Code of Federal Regulations Patient History Date of Service: 11/22/23 Reason for admission: left foot cellulitis History of Present Illness: Lauren Turcios 73 year old female with past medical history of anxiety, chronic cellulitis, gait problems, hypertensive disorder, neuropathy, right leg surgery who presents to the ED with chief complaint of swelling and redness to left lower extremity. She saw field sales representative yesterday and was prescribed levaquin and clindamycin, and has taken only 1 dose. She has failed multiple p.o. antibiotic courses. She reports a recent fall last night. On evaluation, she is in no acute distress, bilateral feet wrapped with Kerlix clean dry and intact, afebrile, neuropathy to bilateral legs, swelling and erythema to bilateral legs. She reports cultures were taken last week and should result on Sunday. She will call to request results tomorrow. Left foot x-ray reports "Soft tissue abnormalities and sequelae of prior amputation as above. No osseous destructive changes. If there is persistent clinical concern for acute osteomyelitis, additional evaluation by foot MRI would be helpful." Ultrasound venous bilateral lower extremity reports "There is no deep vein or superficial vein thrombosis." Lauren will be admitted to hospitalist service for further treatment of Left foot cellulitis. Allergies Tape Adverse Reaction (Uncoded 11/12/14 09:47) Rash Home Medications: Ramipril [Altace] 10 mg PO DAILY 11/12/14 Hydrocodone Bit/Acetaminophen [[place] 7.5-325 Tablet] 7.5 mg PO BIDP PRN 01/31/21 Triamterene/Hydrochlorothiazid [Triamterene-Hctz 75-50 mg Tab] 1 tab PO DAILY 01/31/21 Citalopram Hydrobromide [Celexa] 40 mg PO DAILY 01/01/23 Temazepam [Restoril*] 1 cap PO BEDTIME PRN PRN 01/01/23 Cefazolin Sodium [Ancef] 2 gm IJ BID 9 Days #18 vial 01/09/23 - Past Medical/Surgical History Diabetic: Yes -: Hypertension -: CKD III with Proteinuria (Dr. Chaves/ Dr. Cervantes) -: DM II with Polyneuropathy -: Chronic lower extremity swelling -: Gout -: Neuropathy with gait instability -: Chronic back pain -: Cholecystectomy -: Multiple "back surgeries" -: Hernia repair -: Knee sx right -: Partial amputation of toes left foot Psychosocial/ Personal History: Lives at home with , ambulates with walker due to neuropathy. - Family History Father -: Other (see notes) Notes: alcoholism Mother -: Other (see notes) Notes: no known medical hx - Social History Smoking Status: Never smoker Alcohol use: No CD- Drugs: No Caffeine use: No Physical Examination - Physical Exam General: Alert, In no apparent distress, Oriented x3 HEENT: Atraumatic, Normocephalic, PERRLA Neck: Supple Respiratory: Clear to auscultation bilaterally, Normal air movement Cardiovascular: Normal pulses, Regular rate/rhythm, Normal S1 S2 Capillary refill: <2 Seconds Gastrointestinal: Normal bowel sounds, No tenderness, Distended (obese) Musculoskeletal: No clubbing Integumentary: Tenderness/swelling, Erythema, Warmth Neurological: Normal speech, Normal tone - Studies Laboratory Data (last 24 hrs) 11/22/23 11/22/23 11/22/23 12:54 12:54 12:54 WBC 8.90 Hgb 9.6 L Hct 29.9 L Plt Count 300 PT 15.2 H INR 1.37 APTT 34.0 Sodium 134 L Potassium 3.7 BUN 25 H Creatinine 1.48 H Glucose 88 Total Bilirubin 0.8 AST 17 ALT < 14 Alkaline Phosphatase 82 Assessment and Plan - Plan Assessment and plan Left lower extremity cellulitis Chronic cellulitis to bilateral lower extremity Neuropathy -Left foot x-ray reports "Soft tissue abnormalities and sequelae of prior amputation as above. No osseous destructive changes. If there is persistent clinical concern for acute osteomyelitis, additional evaluation by foot MRI would be helpful." -Ultrasound venous bilateral lower extremity reports "There is no deep vein or superficial vein thrombosis." -Failed multiple p.o. antibiotics courses -MRI left foot ordered -IV antibiotics -pain control -Dr. Sanchez consulted -N.p.o., likely surgery intervention -Culture sent from [facility] and should result Wednesday 11/22 Fall likely 2/2 neuropathy -Supportive care -orthostatic vitals Diabetes mellitus- NIDDM -Accu-Chek with sliding scale insulin CKD 3 Microcytic anemia -Consult Dr. Chaves -Gentle IV fluids Anxiety Hypertension Gout -Continue home medication DVT PPx heparin Full code LOS 2 days Discharge Plan: Home Plan to discharge in: 48 Hours - Advance Directives Does patient have a Living Will: No Does patient have a Durable POA for Healthcare: No
--- NOTE | 2023-11-22 16:59 | RAD REPORT ---
EXAMINATION: US LEFT LOWER EXTREMITY VENOUS DOPPLER CLINICAL INDICATION: SWELLING TECHNIQUE: Complete bilateral duplex sonography of the LEFT lower extremity veins was performed. The examination included compression for vein patency, color Doppler imaging and flow augmentation in response to distal compression of the distal external iliac, common femoral, femoral, popliteal, tibi al, and great and small saphenous veins. COMPARISON: No prior exam. FINDINGS: Duplex sonography testing of the veins of the LEFT lower extremity was performed. Color flow imaging shows all veins to be compressible with [id number] color filling. Pulsatile and phasic flow is present within all lower extremity deep and superficial veins examined. IMPRESSION: There is no deep vein or superficial vein thrombosis.
[2023-11-22] MEDS ORDERED: ACETAMINOPHEN 325 MG TABLET PO PRN (17:05)
[2023-11-22] MEDS: NA CHLORIDE 0.9% 1,000 ML IV SCH (18:00)
[2023-11-22] MEDS ORDERED: VANCOMYCIN 1.75 GM in NA CHLORIDE 0.9% 500 ML IVPB SCH (20:00)
[2023-11-22] MEDS: VANCOMYCIN 1.75 GM in NA CHLORIDE 0.9% 500 ML IVPB ONE ×2 (20:00→21:00)
[2023-11-22] MEDS: CEFEPIME 1 GM in NA CHLORIDE 0.9% 100 ML IV SCH (21:00)
[2023-11-22 23:14] VITALS: BMI 38.7
[2023-11-22] MEDS ORDERED: NA CHLORIDE 0.9% 100 ML ONE (23:16)
[2023-11-22] MEDS ORDERED: CEFEPIME 1 GM/VIAL ONE (23:16)
[2023-11-22] MEDS: HYDROCODONE/APAP 7.5/325 MG TAB PO PRN (23:43)
[2023-11-22] MEDS ORDERED: HYDROCODONE/APAP 7.5/325 MG TAB ONE (23:47)
[2023-11-23 00:31] LABS: Specific Gravity 1.016 (1.005-1.030); Sqamous Epithelial <5 /HPF (None Seen); Urine Bacteria <20 /HPF (<20); Urine Bilirubin NEGATIVE (Negative); Urine Blood 1+ (Negative); Urine Clarity Extremely Turbid (Clear); Urine Color Light-Yellow (Yellow); Urine Crystals Unidentified Few /HPF (None Seen); Urine Culture Reflex Order REFLEXED; Urine Glucose NEGATIVE (Negative); Urine Ketones NEGATIVE (Negative); Urine Microscopic Reflex YN ORDER UMIC; Urine Nitrite 2+ (Negative); Urine Protein TRACE (Negative); Urine RBC <5 /HPF (None Seen); Urine Urobilinogen Normal (Normal); Urine WBC 20-50 /HPF (<5); Urine pH 5.5 (5.0-7.0)
[2023-11-23 04:47] LABS: Absolute Eosinophils 0.1 K/uL (0-0.5); Absolute Lymphocytes (CBC) 1.3 K/uL (0.7-4.9); Absolute Monocytes 0.6 K/uL (0.1-1.3); Absolute Neutrophil 4.8 K/uL (1.8-8.0); Basophils % 0.2 % (0-1.3); Eosinophils % 1.9 % (0-4.4); Hematocrit 25.9 % (36.0-45.0); Hemoglobin 8.3 g/dL (12.0-15.0); Lymphocytes % 18.5 % (15.3-44.8); MCH 28.3 pg (27.0-35.0); MCHC 32.1 g/dL (32.0-36.0); MCV 88.3 fL (80-100); MPV 8.1 fL (7.6-11.3); Monocytes % 8.8 % (3.3-12.3); Neutrophils % 70.6 % (41.7-73.7); Platelets 268 thou/uL (152-406); RBC Red Blood Cell Count 2.93 M/uL (3.86-4.86); Red Cell Distribution Width 16.4 % (12.1-15.2)
[2023-11-23 05:03] LABS: Anion Gap 8.7 mEq/L (5.0-15.0); Magnesium 1.6 mg/dL (1.6-2.4); Phosphorus 2.7 mg/dL (2.5-4.9); Potassium 3.7 mEq/L (3.5-5.1); Thyroid Stimulating Hormone 0.878 uIU/mL (0.358-3.740)
--- NOTE | 2023-11-23 06:58 | P.CNS ---
Date of Consult: 11/23/23 Reason for Consult: RODRICK Requesting Physician: inez fontanez Chief Complaint: Left foot cellulitis History of Present Illness: Lauren Turcios 73 year old female with past medical history of anxiety, chronic cellulitis, gait problems, hypertensive disorder, neuropathy, right leg surgery who presents to the ED with chief complaint of swelling and redness to left lower extremity. She saw facilities director yesterday and was prescribed levaquin and clindamycin, and has taken only 1 dose. She has failed multiple p.o. antibiotic courses. She reports a recent fall last night. On evaluation, she is in no acute distress, bilateral feet wrapped with Kerlix clean dry and intact, afebrile, neuropathy to bilateral legs, swelling and erythema to bilateral legs. She reports cultures were taken last week and should result on Sunday. She will call to request results tomorrow. [id number] 16:15 This 73 yrs old Female presents to ER via Wheelchair with complaints of gb1 Infection. 16:15 73-year-old female left lower extremity redness and swelling. Of note her gb1 just a few weeks ago and it has been more difficult for her to get around and ambulate with the swelling in her leg which is also red. She denies any fever or chills but states that she was prescribed an antibiotic by her facilities director yesterday and she took 1 dose of the medication. She believes it was clindamycin. She has a history of anxiety, chronic cellulitis, difficulty walking,, hypertensive disorder and neuropathy. She reports that she is not a diabetic. She did fall recently as wel l.. Allergies Tape Adverse Reaction (Uncoded 11/12/14 09:47) Rash Home medications list reviewed: Yes Home Medications: Ramipril [Altace] 10 mg PO BID 11/12/14 Hydrocodone Bit/Acetaminophen [[place] 7.5-325 Tablet] 7.5 mg PO BIDP PRN 01/31/21 Citalopram Hydrobromide [Celexa] 60 mg PO DAILY 01/01/23 Temazepam [Restoril*] 1 cap PO BEDTIME PRN PRN 01/01/23 Furosemide [Lasix] 10 mg PO DAILY 11/22/23 Ropinirole HCl 0.5 mg PO DAILY 11/23/23 buPROPion HCl [Wellbutrin Sr] 150 mg PO DAILY 11/23/23 - Past Medical/Surgical History Diabetic: Yes -: Hypertension -: CKD III with Proteinuria (Dr. Chaves/ Dr. Cervantes) -: DM II with Polyneuropathy -: Chronic lower extremity swelling -: Gout -: Neuropathy with gait instability -: Chronic back pain -: Cholecystectomy -: Multiple "back surgeries" -: Hernia repair -: Knee sx right -: Partial amputation of toes left foot Psychosocial/ Personal History: Lives at home with , ambulates with walker due to neuropathy. - Family History Father Medical History: Other (see notes) Notes: alcoholism Mother Medical History: Other (see notes) Notes: no known medical hx - Social History Alcohol use: No CD- Drugs: No Caffeine use: No Review of Systems 10-point ROS is otherwise unremarkable Cardiovascular: Edema Integumentary: Lesions Physical Examination Temp Pulse Resp BP Pulse Ox 98.2 F 85 17 127/65 95 11/23/23 00:00 11/23/23 00:00 11/23/23 00:00 11/23/23 00:00 11/23/23 00:00 General: In no apparent distress, Oriented x3, Cooperative HEENT: Atraumatic Neck: Supple Respiratory: Clear to auscultation bilaterally Cardiovascular: Regular rate/rhythm, Edema Gastrointestinal: Soft and benign, Non-distended Musculoskeletal: No clubbing, No contractures Integumentary: No rashes, No cyanosis, Diabetic ulcer Neurological: Normal speech Laboratory Data (last 24 hrs) 11/22/23 11/22/23 11/22/23 12:54 12:54 12:54 WBC 8.90 Hgb 9.6 L Hct 29.9 L Plt Count 300 PT 15.2 H INR 1.37 APTT 34.0 Sodium 134 L Potassium 3.7 BUN 25 H Creatinine 1.48 H Glucose 88 Total Bilirubin 0.8 AST 17 ALT < 14 Alkaline Phosphatase 82 Imagings Data: [id number] EXAMINATION: US LEFT LOWER EXTREMITY VENOUS DOPPLER CLINICAL INDICATION: SWELLING TECHNIQUE: Complete bilateral duplex sonography of the LEFT lower extremity veins was performed. The examination included compression for vein patency, color Doppler imaging and flow augmentation in response to distal compression of the distal external iliac, common femoral, femoral, popliteal, tibial, and great and small saphenous veins. COMPARISON: No prior exam. FINDINGS: Duplex sonography testing of the veins of the LEFT lower extremity was performed. Color flow imaging shows all veins to be compressible with [id number] color filling. Pulsatile and phasic flow is present within all lower extremity deep and superficial veins examined. IMPRESSION: There is no deep vein or superficial vein thrombosis. [id number] EXAMINATION: Foot Left 3 View CLINICAL INDICATION: Female, 73 years old. [facility] MAIN Swelling;Pain Bed Name: [facility] TECHNIQUE: 3 view radiographs of the left foot were obtained. COMPARISON: No prior exam. FINDINGS: Sequelae of third digit amputation at the level of the mid metatarsal shaft, and mid second metatarsal amputation although the phalanges of the second digit are preserved. Osteopenia limits evaluation. Progressive irregularity along the dorsal aspects of the midfoot bones, with no clear destructive changes. Soft tissue swelling about the dorsum of the foot and the ankle. Some soft tissue irregularity along the sole of the foot as well. Pronounced hallux valgus deformity with some lateral subluxation of the fifth toe proximal phalanx. IMPRESSION: Soft tissue abnormalities and sequelae of prior amputation as above. No osseous destructive changes. If there is persistent clinical concern for acute osteomyelitis, additional evaluation by foot MRI would be helpful. Conclusions/Impression: Stage I RODRICK likely due to hypovolemia CKD III -No NSAIDs -Continue gentle IVF Hyponatremia -Continue IVF with NS HTN with CKD -Continue Ramipril DM II with CKD -RISS prn DM foot ulcer -Follow up with surgery/ wound care as ordered -Continue Abx; monitor vanc level Hypoalbuminemia -Consider protein supplementation Anemia in chronic illness Iron Deficiency -Consider IV iron Acute Cystitis -Follow up culture -Continue Abx Hospitalist and ER notes reviewed Thank you kindly for the consultation
[2023-11-23] MEDS: HEPARIN 5000 UNIT/ML 1 ML VIAL SQ SCH (07:00)
[2023-11-23] MEDS: Ringers Lactate 1,000 ML IV SCH (08:00)
[2023-11-23] MEDS ORDERED: propofoL 200 MG/20 ML VIAL IV ONE (10:42)
[2023-11-23] MEDS ORDERED: ONDANSETRON 4 MG/2 ML VIAL ONE (10:42)
[2023-11-23] MEDS ORDERED: LIDOCAINE 2% MPF 5 ML VIAL ONE (10:42)
[2023-11-23] MEDS ORDERED: FENTANYL CITR 100 MCG/2 ML ONE (10:42)
[2023-11-23] MEDS ORDERED: dexAMETHasone 4 MG/ML VIAL ONE (11:23)
[2023-11-23] MEDS ORDERED: EPHEDRINE SULF 50 MG/ML VIAL ONE (11:31)
[2023-11-23] MEDS: LIDOCAINE HCL/EPINEPHRINE 20 ML MDV ONE (11:41)
--- NOTE | 2023-11-23 11:58 | P.OP ---
Preoperative diagnosis: LEFT Foot Chronic Wounds Postoperative diagnosis: LEFT Foot Chronic Wounds Primary procedure: Debridement of LEFT Foot Chronic Wounds Anesthesia: GETA + Local Estimated blood loss: <5cc Specimen: Cultures Findings: Extension to calcaneus proximally Complications: None Transferred to: Recovery Room Condition: Good
[2023-11-23] MEDS: ROPINIROLE HCL 0.25 MG TAB PO SCH (14:01)
--- NOTE | 2023-11-23 15:45 | P.PN ---
Date of Service: 11/23/23 Subjective Debridement to left chronic foot wounds PT recommend continued Physical therapy Good family support ROS 10 point ROS as noted above, otherwise negative Physical Exam General: Alert and Oriented x3, NAD HEENT: Atraumatic, Normocephalic, PERRLA Neck: Supple Respiratory: Clear to auscultation bilaterally, Normal air movement, on RA Cardiovascular: Normal pulses, RRR, Normal S1 S2 Capillary refill: <2 Seconds Gastrointestinal: Normal bowel sounds, No tenderness, Distended (obese) Musculoskeletal: No clubbing, left lower extremity cellulitis Integumentary: Tenderness/swelling, Erythema, Warmth to bilateral lower extremities Neurological: Normal speech, Normal tone Vitals Reviewed Problem list Left lower extremity cellulitis Chronic cellulitis to bilateral lower extremity Neuropathy Fall likely 2/2 neuropathy Diabetes mellitus- NIDDM CKD 3 Microcytic anemia Anxiety Hypertension Gout Assessment and Plan Left lower extremity cellulitis Chronic cellulitis to bilateral lower extremity S/p Debreidement of left foot chronic wounds Neuropathy -Left foot x-ray reports "Soft tissue abnormalities and sequelae of prior amputation as above. No osseous destructive changes. If there is persistent clinical concern for acute osteomyelitis, additional evaluation by foot MRI would be helpful." -Ultrasound venous bilateral lower extremity reports "There is no deep vein or superficial vein thrombosis." -Failed multiple p.o. antibiotics courses -MRI left foot cancelled by Dr. Sanchez -continue vanc and cefepime -pain control -Dr. Sanchez consulted, debreidement of left foot chronic wounds -Culture sent from [facility] and should result Wednesday 11/22 Fall likely 2/2 neuropathy -Supportive care -orthostatic vitals UTI -on cefepime and vanc Diabetes mellitus- NIDDM -Accu-Chek with sliding scale insulin CKD 3 Iron deficiency anemia -Consult Dr. Chaves -Gentle IV fluids -Iron 18, TIBC 203, Transferrin 145, Transferrin % sat 8.9, Ferritin 165.7 -Vit B 1876 Anxiety Hypertension Gout -Continue home medication DVT PPx heparin Full code LOS 2 days
[2023-11-23] MEDS: CITALOPRAM 10 MG TABLET PO SCH (16:01)
[2023-11-23 17:10] LABS: Percent Reticulocyte Count 0.81 % (0.4-2.05); RBC Red Blood Cell Count 3.46 M/uL (3.86-4.86)
[2023-11-23 17:50] LABS: Ferritin 165.7 ng/mL (8-252)
--- NOTE | 2023-11-23 19:33 | OP ---
Date of Procedure: 11/23/2023 Surgeon: Crescencio Sanchez MD, Preoperative Diagnosis: Left foot chronic wounds. Postoperative Diagnosis: Left foot chronic wounds. Procedure: Debridement of left foot chronic wounds. Anesthesia: General endotracheal plus local 1% lidocaine with epinephrine. Estimated Blood Loss: 5 cc. Specimens: Culture sent for both aerobic and anaerobic speciation. Findings: There was a wound of the metatarsophalangeal joint on the medial aspect of the hallux on t he left foot which was approximately 2.5 to 3 cm in size. Additional findings; she had approximately 2.5 cm ulcer on the bottom of her foot in the midfoot section with extension proximally to the calca neus with cavitation. Complications: None. Disposition: The patient was transferred to recovery room in good condition. Procedure In Detail: After informed consent was obtained, the patient was brought to the operating r oom, prepped and draped in the usual sterile fashion. After adequate anesthesia was achieved, I inje cted the area of the wounds described above. Ultimately, I curetted the hallux metatarsophalangeal j oint down to subcutaneous tissues and then to deep dermal planes. There was some granular tissue in this area. It was cleansed, pulse lavaged, and sterile dressing placed over top. I then turned my a ttention to the plantar wound which is near the midfoot area. This was approximately 2.5 to 3 cm in size. I palpated the area and initially encountered some purulence. I spread the tissue planes apar t and ultimately found there was significant abscess like material in the midfoot section which was d rained in its entirety at this point until completely clear. After this was completely irrigated and cleared, I irrigated the area with a pulse lavage device and packed the wound with Vashe soaked gauz e and sterile dressing placed over top. The patient tolerated the procedure without incident or comp lication, transferred to PACU in good condition. All counts were correct at the end of the case. TK/MODL Voice ID: [id number] Report ID: [id number]
[2023-11-23] MEDS: ramipriL 5 MG CAP PO SCH (20:05)
[2023-11-23] MEDS: TEMAZEPAM 15 MG CAP PO PRN (20:06)
[2023-11-23] MEDS: ROPINIROLE HCL 0.25 MG TAB PO ONE (23:53)
[2023-11-24 05:54] LABS: Absolute Lymphocytes (CBC) 0.8 K/uL (0.7-4.9); Absolute Monocytes 0.4 K/uL (0.1-1.3); Absolute Neutrophil 5.1 K/uL (1.8-8.0); Basophils % 0.3 % (0-1.3); Hematocrit 27.2 % (36.0-45.0); Hemoglobin 8.9 g/dL (12.0-15.0); MCH 28.5 pg (27.0-35.0); MCHC 32.9 g/dL (32.0-36.0); MCV 86.5 fL (80-100); MPV 7.8 fL (7.6-11.3); Monocytes % 6.3 % (3.3-12.3); Neutrophils % 80.4 % (41.7-73.7); Nucleated Red Blood Cells % 0.1 % (0-0); Platelets 306 thou/uL (152-406); RBC Red Blood Cell Count 3.14 M/uL (3.86-4.86); Red Cell Distribution Width 16.5 % (12.1-15.2)
[2023-11-24 06:09] LABS: Anion Gap 8.9 mEq/L (5.0-15.0); Magnesium 1.8 mg/dL (1.6-2.4); Phosphorus 2.6 mg/dL (2.5-4.9); Potassium 3.9 mEq/L (3.5-5.1)
--- NOTE | 2023-11-24 07:54 | P.PN ---
Date of Service: 11/24/23 Subjective Awake, conversing well, makes her needs known Expected follow up appointment on Sunday SNF placement pending ROS 10 point ROS as noted above, otherwise negative Physical Exam General: AAO x3, NAD, conversng well HEENT: Atraumatic, Normocephalic, PERRLA Neck: Supple Respiratory: Clear to auscultation bilaterally, nonlabored breathing, on RA Cardiovascular: RRR, Normal S1 S2 Capillary refill: <2 Seconds Gastrointestinal: Normal active bowel sounds, soft on palpation, No tenderness, Distended (obese) Musculoskeletal: No clubbing, left lower extremity cellulitis Integumentary: Tenderness/swelling, Erythema, Warmth to bilateral lower extremities, dressings CDI, bandaid to forehead from skin cancer removal Neurological: Normal speech, Normal tone Vitals Reviewed Problem list Left lower extremity cellulitis Chronic cellulitis to bilateral lower extremity Neuropathy Fall likely 2/2 neuropathy Diabetes mellitus- NIDDM CKD 3 Microcytic anemia Anxiety Hypertension Gout Assessment and Plan Left lower extremity cellulitis Chronic cellulitis to bilateral lower extremity S/p Debreidement of left foot chronic wounds Neuropathy -Left foot x-ray reports "Soft tissue abnormalities and sequelae of prior amputation as above. No osseous destructive changes. If there is persistent clinical concern for acute osteomyelitis, additional evaluation by foot MRI would be helpful." -Ultrasound venous bilateral lower extremity reports "There is no deep vein or superficial vein thrombosis." -Failed multiple p.o. antibiotics courses -MRI left foot cancelled by Dr. Sanchez -continue vanc and cefepime -pain control -Dr. Sanchez consulted, debreidement of left foot chronic wounds -Culture sent from [facility] and should result Wednesday 11/22 -Left foot wound care Daily: Remove all dressings daily irrigate with sterile saline. Repack great toe wound with Vashe damp to dry on gauze repack plantar wound with 1/2 inch plain packing damp with Vashe wrap entire foot with Kerlix wrap with Van wrapping above the knee. -blood cx NGTD Fall likely 2/2 neuropathy -Supportive care -orthostatic vitals UTI -on cefepime and vanc -Urine cx gram negative rods Diabetes mellitus- NIDDM -Accu-Chek with sliding scale insulin CKD 3 Iron deficiency anemia -Consult Dr. Chaves -Gentle IV fluids -Iron 18, TIBC 203, Transferrin 145, Transferrin % sat 8.9, Ferritin 165.7 -Vit B 1876 Anxiety Hypertension Gout -Continue home medication DVT PPx heparin Full code LOS 2 days
[2023-11-24] MEDS ORDERED: VANCOMYCIN 1.75 GM in NA CHLORIDE 0.9% 500 ML IVPB SCH (08:00)
[2023-11-24] MEDS: FUROSEMIDE 20 MG TABLET PO SCH (08:23)
[2023-11-24] MEDS: VANCOMYCIN 1.75 GM in NA CHLORIDE 0.9% 500 ML IVPB SCH (08:24)
[2023-11-24] MEDS ORDERED: HOME MED 1 EA UNK (Citalopram Hydrobromide [Celexa] 40 MG Tablet) PO SCH (09:00)
[2023-11-24] MEDS: FERROUS SULFATE 325 MG TAB PO SCH (11:27)
--- NOTE | 2023-11-24 22:01 | P.PN ---
Date of Service: 11/24/23 Vital Signs Temp Pulse Resp BP Pulse Ox 96.9 F 63 16 166/79 H 96 11/24/23 20:00 11/24/23 20:00 11/24/23 20:00 11/24/23 20:00 11/24/23 20:00 Medications Acetaminophen (Acetaminophen 325 Mg Tablet) 650 mg PO Q4HP PRN PRN Reason: Temp > 100F or mild pain Hydrocodone Bitart/Acetaminophen (Hydrocodone/Apap 7.5/325 Mg Tab) 1 tab PO Q4H PRN PRN Reason: Pain scale 8-10 (Severe) Last Admin: 11/24/23 16:06 Dose: 1 tab Citalopram Hydrobromide (Citalopram 10 Mg Tablet) 60 mg PO DAILY [facility] Last Admin: 11/24/23 08:23 Dose: 60 mg Ferrous Sulfate (Ferrous Sulfate 325 Mg Tab) 325 mg PO DAILY [facility] Last Admin: 11/24/23 11:27 Dose: 325 mg Furosemide (Furosemide 20 Mg Tablet) 10 mg PO DAILY [facility] Last Admin: 11/24/23 08:23 Dose: 10 mg Heparin Sodium (Porcine) (Heparin 5000 Unit/Ml 1 Ml Vial) 5,000 unit SQ Q8HR [facility] Last Admin: 11/24/23 16:06 Dose: 5,000 unit Cefepime HCl 1 gm/ Sodium (Chloride) 100 mls @ 200 mls/hr IV Q12HR [facility]; Protocol Last Admin: 11/24/23 20:21 Dose: 100 mls Lactated Ringer's (Lactated Ringers) 1,000 mls @ 75 mls/hr IV .[id number] [facility] Last Admin: 11/24/23 20:25 Dose: 1,000 mls Vancomycin HCl 1.75 gm/ Sodium (Chloride) 500 mls @ 250 mls/hr IV Q48H [facility]; Protocol Ramipril (Ramipril 5 Mg Cap) 10 mg PO BID [facility] Last Admin: 11/24/23 20:22 Dose: 10 mg Ropinirole HCl (Ropinirole Hcl 0.25 Mg Tab) 0.5 mg PO DAILY [facility] Last Admin: 11/24/23 08:22 Dose: 0.5 mg Temazepam (Temazepam 15 Mg Cap) 15 mg PO BEDTIME PRN PRN PRN Reason: INSOMNIA Last Admin: 11/23/23 20:06 Dose: 15 mg Microbiology Results 11/22/23 13:05 Blood - Blood Aerobic Blood Culture - Preliminary No growth in 24 hours. 11/22/23 13:05 Blood - Blood Anaerobic Blood Culture - Preliminary No growth in 24 hours. 11/22/23 12:54 Blood - Blood Aerobic Blood Culture - Preliminary No growth in 24 hours. 11/22/23 12:54 Blood - Blood Anaerobic Blood Culture - Preliminary No growth in 24 hours. Assessment/ Plan: Nephrology No dyspnea No chest pain Feeling better today No acute events overnight Vitals, medications, blood work and imaging reviewed in the chart General: In no apparent distress, Oriented x3, Cooperative HEENT: Atraumatic Neck: Supple Respiratory: Clear to auscultation bilaterally Cardiovascular: Regular rate/rhythm, Edema Gastrointestinal: Soft and benign, Non-distended Musculoskeletal: No clubbing, No contractures Integumentary: No rashes, No cyanosis, Diabetic ulcer Neurological: Normal speech Laboratory Data (last 24 hrs) 11/22/23 11/22/23 11/22/23 12:54 12:54 12:54 WBC 8.90 Hgb 9.6 L Hct 29.9 L Plt Count 300 PT 15.2 H INR 1.37 APTT 34.0 Sodium 134 L Potassium 3.7 BUN 25 H Creatinine 1.48 H Glucose 88 Total Bilirubin 0.8 AST 17 ALT < 14 Alkaline Phosphatase 82 Imagings Data: [id number] EXAMINATION: US LEFT LOWER EXTREMITY VENOUS DOPPLER CLINICAL INDICATION: SWELLING TECHNIQUE: Complete bilateral duplex sonography of the LEFT lower extremity veins was performed. The examination included compression for vein patency, color Doppler imaging and flow augmentation in response to distal compression of the distal external iliac, common femoral, femoral, popliteal, tibial, and great and small saphenous veins. COMPARISON: No prior exam. FINDINGS: Duplex sonography testing of the veins of the LEFT lower extremity was performed. Color flow imaging shows all veins to be compressible with [id number] color filling. Pulsatile and phasic flow is present within all lower extremity deep and superficial veins examined. IMPRESSION: There is no deep vein or superficial vein thrombosis. [id number] EXAMINATION: Foot Left 3 View CLINICAL INDICATION: Female, 73 years old. [facility] MAIN Swelling;Pain Bed Name: [facility] TECHNIQUE: 3 view radiographs of the left foot were obtained. COMPARISON: No prior exam. FINDINGS: Sequelae of third digit amputation at the level of the mid metatarsal shaft, and mid second metatarsal amputation although the phalanges of the second digit are preserved. Osteopenia limits evaluation. Progressive irregularity along the dorsal aspects of the midfoot bones, with no clear destructive changes. Soft tissue swelling about the dorsum of the foot and the ankle. Some soft tissue irregularity along the sole of the foot as well. Pronounced hallux valgus deformity with some lateral subluxation of the fifth toe proximal phalanx. IMPRESSION: Soft tissue abnormalities and sequelae of prior amputation as above. No osseous destructive changes. If there is persistent clinical concern for acute osteomyelitis, additional evaluation by foot MRI would be helpful. Conclusions/Impression: Stage I RODRICK likely due to hypovolemia CKD III -No NSAIDs -Continue gentle IVF; may discontinue if good oral intake HTN with CKD -Continue Ramipril DM II with CKD -RISS prn DM foot ulcer -Follow up with surgery/ wound care as ordered -Continue Abx; monitor vanc level Hypoalbuminemia -Consider protein supplementation Anemia in chronic illness Iron Deficiency 8.9% -Consider IV iron Acute Cystitis -Follow up culture -Continue Abx Hospitalist notes reviewed
[2023-11-25 06:26] LABS: Absolute Eosinophils 0.2 K/uL (0-0.5); Absolute Lymphocytes (CBC) 1.3 K/uL (0.7-4.9); Absolute Monocytes 0.4 K/uL (0.1-1.3); Absolute Neutrophil 5.4 K/uL (1.8-8.0); Basophils % 0.5 % (0-1.3); Eosinophils % 2.3 % (0-4.4); Hemoglobin 8.8 g/dL (12.0-15.0); Lymphocytes % 18.4 % (15.3-44.8); MCH 27.7 pg (27.0-35.0); MCHC 31.3 g/dL (32.0-36.0); MCV 88.5 fL (80-100); MPV 7.9 fL (7.6-11.3); Monocytes % 5.2 % (3.3-12.3); Neutrophils % 73.6 % (41.7-73.7); Platelets 338 thou/uL (152-406); RBC Red Blood Cell Count 3.16 M/uL (3.86-4.86); Red Cell Distribution Width 16.4 % (12.1-15.2)
[2023-11-25 06:41] LABS: Anion Gap 8.9 mEq/L (5.0-15.0); Magnesium 1.8 mg/dL (1.6-2.4); Phosphorus 2.2 mg/dL (2.5-4.9); Potassium 3.9 mEq/L (3.5-5.1)
--- NOTE | 2023-11-25 09:59 | P.PN ---
Date of Service: 11/25/23 Subjective Feeling well this morning No new complaints SNF placement pending ROS 10 point ROS as noted above, otherwise negative Physical Exam General: Awake, alert, and oriented x3, NAD, conversng well HEENT: Atraumatic, Normocephalic, PERRLA Neck: Supple Respiratory: Clear BBS, symmetrical chest wall movement, nonlabored breathing, on RA Cardiovascular: RRR, Normal S1 S2 Capillary refill: <2 Seconds Gastrointestinal: Normal active bowel sounds, soft on palpation, No tenderness, Distended (obese) Musculoskeletal: No clubbing, left lower extremity cellulitis Integumentary: Tenderness/swelling, Erythema, Warmth to bilateral lower extremities, dressings CDI, bandaid to forehead from skin cancer removal Neurological: Normal speech, Normal tone Vitals Reviewed Problem list Left lower extremity cellulitis Chronic cellulitis to bilateral lower extremity Neuropathy Fall likely 2/2 neuropathy Diabetes mellitus- NIDDM CKD 3 Microcytic anemia Anxiety Hypertension Gout Assessment and Plan Left lower extremity cellulitis Chronic cellulitis to bilateral lower extremity S/p Debreidement of left foot chronic wounds Neuropathy -Left foot x-ray reports "Soft tissue abnormalities and sequelae of prior am putation as above. No osseous destructive changes. If there is persistent clinical concern for acute osteomyelitis, additional evaluation by foot MRI would be helpful." -Ultrasound venous bilateral lower extremity reports "There is no deep vein or superficial vein thrombosis." -Failed multiple p.o. antibiotics courses -MRI left foot cancelled by Dr. Sanchez -continue vanc and cefepime -pain control -Dr. Sanchez consulted, debreidement of left foot chronic wounds -Culture sent from [facility] and should result Wednesday 11/22- obtained wound cx -Left foot wound care Daily: Remove all dressings daily irrigate with sterile saline. Repack great toe wound with Vashe damp to dry on gauze repack plantar wound with 1/2 inch plain packing damp with Vashe wrap entire foot with Kerlix wrap with Van wrapping above the knee. -blood cx NGTD -Wound cx with mixed skin desiree Fall likely 2/2 neuropathy -Supportive care -orthostatic vitals UTI -continue cefepime and vanc -Urine cx gram negative rods Diabetes mellitus- NIDDM -Accu-Chek with sliding scale insulin CKD 3 Iron deficiency anemia -Consult Dr. Aglieco -Gentle IV fluids -Iron 18, TIBC 203, Transferrin 145, Transferrin % sat 8.9, Ferritin 165.7 -Vit B 1876 Anxiety Hypertension Gout -Continue home medication DVT PPx heparin Full code Dispo SNF placement
[2023-11-25] MEDS: POTASSIUM CL SA 10 MEQ TAB PO ONE ×2 (13:37→15:00)
[2023-11-25] MEDS: POTASS/SODIUM PHOSPHATE 1 PKT POWD.PACK PO SCH (13:38)
[2023-11-25] MEDS: MAGNESIUM SULFATE 1 gm IVPB 1 GM/100 ML BAG IV ONE (13:38)
[2023-11-25] MEDS: Mupirocin NASAL 2 APPL/1 GM TUBE NAS SCH (20:24)
--- NOTE | 2023-11-25 20:26 | P.PN ---
Date of Service: 11/25/23 Vital Signs Temp Pulse Resp BP Pulse Ox 97.6 F 111 H 16 119/82 98 11/25/23 16:00 11/25/23 16:00 11/25/23 16:00 11/25/23 16:00 11/25/23 16:00 Medications Acetaminophen (Acetaminophen 325 Mg Tablet) 650 mg PO Q4HP PRN PRN Reason: Temp > 100F or mild pain Hydrocodone Bitart/Acetaminophen (Hydrocodone/Apap 7.5/325 Mg Tab) 1 tab PO Q4H PRN PRN Reason: Pain scale 8-10 (Severe) Last Admin: 11/25/23 19:14 Dose: 1 tab Citalopram Hydrobromide (Citalopram 10 Mg Tablet) 60 mg PO DAILY [facility] Last Admin: 11/25/23 09:49 Dose: 60 mg Ferrous Sulfate (Ferrous Sulfate 325 Mg Tab) 325 mg PO DAILY [facility] Last Admin: 11/25/23 09:47 Dose: 325 mg Furosemide (Furosemide 20 Mg Tablet) 10 mg PO DAILY [facility] Last Admin: 11/25/23 09:48 Dose: 10 mg Heparin Sodium (Porcine) (Heparin 5000 Unit/Ml 1 Ml Vial) 5,000 unit SQ Q8HR [facility] Last Admin: 11/25/23 17:51 Dose: 5,000 unit Cefepime HCl 1 gm/ Sodium (Chloride) 100 mls @ 200 mls/hr IV Q12HR [facility]; Protocol Last Admin: 11/25/23 09:47 Dose: 100 mls Vancomycin HCl 1.75 gm/ Sodium (Chloride) 500 mls @ 250 mls/hr IV Q48H [facility]; Protocol Mupirocin (Mupirocin Nasal 2 Appl/1 Gm Tube) 1 appl HEENA BID [facility] Stop: 11/30/23 09:01 Ramipril (Ramipril 5 Mg Cap) 10 mg PO BID [facility] Last Admin: 11/25/23 09:48 Dose: 10 mg Ropinirole HCl (Ropinirole Hcl 0.25 Mg Tab) 0.5 mg PO DAILY [facility] Last Admin: 11/25/23 09:49 Dose: 0.5 mg Temazepam (Temazepam 15 Mg Cap) 15 mg PO BEDTIME PRN PRN PRN Reason: INSOMNIA Last Admin: 11/25/23 00:17 Dose: 15 mg Microbiology Results 11/22/23 13:05 Blood - Blood Aerobic Blood Culture - Preliminary No growth in 24 hours. 11/22/23 13:05 Blood - Blood Anaerobic Blood Culture - Preliminary No growth in 24 hours. 11/22/23 12:54 Blood - Blood Aerobic Blood Culture - Preliminary No growth in 24 hours. 11/22/23 12:54 Blood - Blood Anaerobic Blood Culture - Preliminary No growth in 24 hours. Assessment/ Plan: Nephrology No dyspnea No chest pain Feeling better today No acute events overnight Vitals, medications, blood work and imaging reviewed in the chart General: In no apparent distress, Oriented x3, Cooperative HEENT: Atraumatic Neck: Supple Respiratory: Clear to auscultation bilaterally Cardiovascular: Regular rate/rhythm, Edema Gastrointestinal: Soft and benign, Non-distended Musculoskeletal: No clubbing, No contractures Integumentary: No rashes, No cyanosis, Diabetic ulcer Neurological: Normal speech Laboratory Data (last 24 hrs) 11/22/23 11/22/23 11/22/23 12:54 12:54 12:54 WBC 8.90 Hgb 9.6 L Hct 29.9 L Plt Count 300 PT 15.2 H INR 1.37 APTT 34.0 Sodium 134 L Potassium 3.7 BUN 25 H Creatinine 1.48 H Glucose 88 Total Bilirubin 0.8 AST 17 ALT < 14 Alkaline Phosphatase 82 Imagings Data: [id number] EXAMINATION: US LEFT LOWER EXTREMITY VENOUS DOPPLER CLINICAL INDICATION: SWELLING TECHNIQUE: Complete bilateral duplex sonography of the LEFT lower extremity veins was performed. The examination included compression for vein patency, color Doppler imaging and flow augmentation in response to distal compression of the distal external iliac, common femoral, femoral, popliteal, tibial, and great and small saphenous veins. COMPARISON: No prior exam. FINDINGS: Duplex sonography testing of the veins of the LEFT lower extremity was performed. Color flow imaging shows all veins to be compressible with [id number] color filling. Pulsatile and phasic flow is present within all lower extremity deep and superficial veins examined. IMPRESSION: There is no deep vein or superficial vein thrombosis. [id number] EXAMINATION: Foot Left 3 View CLINICAL INDICATION: Female, 73 years old. [facility] MAIN Swelling;Pain Bed Name: [facility] TECHNIQUE: 3 view radiographs of the left foot were obtained. COMPARISON: No prior exam. FINDINGS: Sequelae of third digit amputation at the level of the mid metatarsal shaft, and mid second metatarsal amputation although the phalanges of the second digit are preserved. Osteopenia limits evaluation. Progressive irregularity along the dorsal aspects of the midfoot bones, with no clear destructive changes. Soft tissue swelling about the dorsum of the foot and the ankle. Some soft tissue irregularity along the sole of the foot as well. Pronounced hallux valgus deformity with some lateral subluxation of the fifth toe proximal phalanx. IMPRESSION: Soft tissue abnormalities and sequelae of prior amputation as above. No osseous destructive changes. If there is persistent clinical concern for acute osteomyelitis, additional evaluation by foot MRI would be helpful. Conclusions/Impression: Stage I RODRICK likely due to hypovolemia CKD III -No NSAIDs -Discontinue IVF HTN with CKD -Continue Ramipril DM II with CKD -RISS prn DM foot ulcer -Follow up with surgery/ wound care as ordered -Continue Abx; monitor vanc level Hypoalbuminemia -Consider protein supplementation Anemia in chronic illness Iron Deficiency 8.9% -Consider IV iron Acute Cystitis -Follow up culture -Continue Abx Hospitalist notes reviewed
[2023-11-26 06:40] LABS: Absolute Eosinophils 0.3 K/uL (0-0.5); Absolute Lymphocytes (CBC) 1.8 K/uL (0.7-4.9); Absolute Monocytes 0.4 K/uL (0.1-1.3); Absolute Neutrophil 4.6 K/uL (1.8-8.0); Basophils % 0.5 % (0-1.3); Eosinophils % 3.7 % (0-4.4); Hemoglobin 8.5 g/dL (12.0-15.0); MCH 27.9 pg (27.0-35.0); MCHC 31.5 g/dL (32.0-36.0); MCV 88.5 fL (80-100); MPV 7.8 fL (7.6-11.3); Monocytes % 6.3 % (3.3-12.3); Neutrophils % 64.5 % (41.7-73.7); Platelets 326 thou/uL (152-406); RBC Red Blood Cell Count 3.05 M/uL (3.86-4.86); Red Cell Distribution Width 16.7 % (12.1-15.2)
[2023-11-26 06:58] LABS: Anion Gap 7.2 mEq/L (5.0-15.0); Magnesium 1.8 mg/dL (1.6-2.4); Phosphorus 2.7 mg/dL (2.5-4.9); Potassium 4.2 mEq/L (3.5-5.1)
[2023-11-26] MEDS ORDERED: VANCOMYCIN 1.75 GM in NA CHLORIDE 0.9% 500 ML IV SCH (09:00)
[2023-11-26 09:25] LABS: Band Neutrophils 1 % (0-1); Blood Morphology Comment NOT SEEN (NOT SEEN); Differential Total Cells Count 100; Eosinophils 4 % (0-3); Lymphocytes 25 % (15-42); Monocytes 8 % (0-10); Myelocytes 2 % (0-0); Platelet Estimate ADEQ; Segmented Neutrophils 60 % (40-80)
--- NOTE | 2023-11-26 10:11 | P.PN ---
Date of Service: 11/26/23 Vital Signs Temp Pulse Resp BP Pulse Ox 98.6 F 67 14 159/88 H 100 11/26/23 08:00 11/26/23 08:00 11/26/23 08:00 11/26/23 08:00 11/26/23 08:00 Medications Acetaminophen (Acetaminophen 325 Mg Tablet) 650 mg PO Q4HP PRN PRN Reason: Temp > 100F or mild pain Hydrocodone Bitart/Acetaminophen (Hydrocodone/Apap 7.5/325 Mg Tab) 1 tab PO Q4H PRN PRN Reason: Pain scale 8-10 (Severe) Last Admin: 11/26/23 09:39 Dose: 1 tab Citalopram Hydrobromide (Citalopram 10 Mg Tablet) 60 mg PO DAILY [facility] Last Admin: 11/26/23 09:36 Dose: 60 mg Ferrous Sulfate (Ferrous Sulfate 325 Mg Tab) 325 mg PO DAILY [facility] Last Admin: 11/26/23 09:35 Dose: 325 mg Furosemide (Furosemide 20 Mg Tablet) 10 mg PO DAILY [facility] Last Admin: 11/26/23 09:35 Dose: 10 mg Heparin Sodium (Porcine) (Heparin 5000 Unit/Ml 1 Ml Vial) 5,000 unit SQ Q8HR [facility] Last Admin: 11/26/23 09:37 Dose: 5,000 unit Cefepime HCl 1 gm/ Sodium (Chloride) 100 mls @ 200 mls/hr IV Q12HR [facility]; Protocol Last Admin: 11/26/23 09:27 Dose: 100 mls Vancomycin HCl 1.75 gm/ Sodium (Chloride) 500 mls @ 250 mls/hr IV Q48H [facility]; Protocol Stop: 11/26/23 12:00 Vancomycin HCl 1.25 gm/ Sodium (Chloride) 250 mls @ 166.667 mls/hr IVPB Q24H [facility] Mupirocin (Mupirocin Nasal 2 Appl/1 Gm Tube) 1 appl HEENA BID [facility] Stop: 11/30/23 09:01 Last Admin: 11/26/23 09:37 Dose: 1 appl Ramipril (Ramipril 5 Mg Cap) 10 mg PO BID [facility] Last Admin: 11/26/23 09:35 Dose: 10 mg Ropinirole HCl (Ropinirole Hcl 0.25 Mg Tab) 0.5 mg PO DAILY [facility] Last Admin: 11/26/23 09:36 Dose: 0.5 mg Temazepam (Temazepam 15 Mg Cap) 15 mg PO BEDTIME PRN PRN PRN Reason: INSOMNIA Last Admin: 11/26/23 00:32 Dose: 15 mg Microbiology Results 11/22/23 13:05 Blood - Blood Aerobic Blood Culture - Preliminary No growth in 24 hours. 11/22/23 13:05 Blood - Blood Anaerobic Blood Culture - Preliminary No growth in 24 hours. 11/22/23 12:54 Blood - Blood Aerobic Blood Culture - Preliminary No growth in 24 hours. 11/22/23 12:54 Blood - Blood Anaerobic Blood Culture - Preliminary No growth in 24 hours. Assessment/ Plan: Nephrology No dyspnea No chest pain Her PICC is not working No acute events overnight Vitals, medications, blood work and imaging reviewed in the chart General: In no apparent distress, Oriented x3, Cooperative HEENT: Atraumatic Neck: Supple Respiratory: Clear to auscultation bilaterally Cardiovascular: Regular rate/rhythm, Edema Gastrointestinal: Soft and benign, Non-distended Musculoskeletal: No clubbing, No contractures Integumentary: No rashes, No cyanosis, Diabetic ulcer Neurological: Normal speech Laboratory Data (last 24 hrs) 11/22/23 11/22/23 11/22/23 12:54 12:54 12:54 WBC 8.90 Hgb 9.6 L Hct 29.9 L Plt Count 300 PT 15.2 H INR 1.37 APTT 34.0 Sodium 134 L Potassium 3.7 BUN 25 H Creatinine 1.48 H Glucose 88 Total Bilirubin 0.8 AST 17 ALT < 14 Alkaline Phosphatase 82 Imagings Data: [id number] EXAMINATION: US LEFT LOWER EXTREMITY VENOUS DOPPLER CLINICAL INDICATION: SWELLING TECHNIQUE: Complete bilateral duplex sonography of the LEFT lower extremity veins was performed. The examination included compression for vein patency, color Doppler imaging and flow augmentation in response to distal compression of the distal external iliac, common femoral, femoral, popliteal, tibial, and great and small saphenous veins. COMPARISON: No prior exam. FINDINGS: Duplex sonography testing of the veins of the LEFT lower extremity was performed. Color flow imaging shows all veins to be compressible with [id number] color filling. Pulsatile and phasic flow is present within all lower extremity deep and superficial veins examined. IMPRESSION: There is no deep vein or superficial vein thrombosis. [id number] EXAMINATION: Foot Left 3 View CLINICAL INDICATION: Female, 73 years old. [facility] MAIN Swelling;Pain Bed Name: [facility] TECHNIQUE: 3 view radiographs of the left foot were obtained. COMPARISON: No prior exam. FINDINGS: Sequelae of third digit amputation at the level of the mid metatarsal shaft, and mid second metatarsal amputation although the phalanges of the second digit are preserved. Osteopenia limits evaluation. Progressive irregularity along the dorsal aspects of the midfoot bones, with no clear destructive changes. Soft tissue swelling about the dorsum of the foot and the ankle. Some soft tissue irregularity along the sole of the foot as well. Pronounced hallux valgus deformity with some lateral subluxation of the fifth toe proximal phalanx. IMPRESSION: Soft tissue abnormalities and sequelae of prior amputation as above. No osseous destructive changes. If there is persistent clinical concern for acute osteomyelitis, additional evaluation by foot MRI would be helpful. Conclusions/Impression: Stage I RODRICK likely due to hypovolemia CKD III -No NSAIDs HTN with CKD -Continue Ramipril DM II with CKD -RISS prn DM foot ulcer -Follow up with surgery/ wound care as ordered -Continue Abx; monitor vanc level Hypoalbuminemia -Consider protein supplementation Anemia in chronic illness Iron Deficiency 8.9% -Consider IV iron -PRBC prn Acute E.coli Cystitis -Defer to primary team for abx Hospitalist notes reviewed
[2023-11-26] MEDS ORDERED: Meropenem 1,000 MG in NA CHLORIDE 0.9% 100 ML IV SCH (10:37)
--- NOTE | 2023-11-26 10:49 | P.PN ---
Date of Service: 11/26/23 Subjective Awake and feeling well no new complaints SNF placement pending ROS 10 point ROS as noted above, otherwise negative Physical Exam General: AAO x3, NAD, conversng well HEENT: Atraumatic, Normocephalic, PERRLA Neck: Supple Respiratory: Clear BBS, nonlabored breathing, on RA Cardiovascular: Regular rate and rhythm, Normal S1 S2 Capillary refill: <2 Seconds Gastrointestinal: Normal active bowel sounds, soft on palpation, No tenderness, Distended (obese) Musculoskeletal: No clubbing, left lower extremity cellulitis Integumentary: Tenderness/swelling, Erythema, Warmth to bilateral lower extremities, dressings CDI, bandaid to forehead from skin cancer removal Neurological: Normal speech, Normal tone Vitals Reviewed Problem list Left lower extremity cellulitis Chronic cellulitis to bilateral lower extremity Neuropathy Fall likely 2/2 neuropathy Diabetes mellitus- NIDDM CKD 3 Microcytic anemia Anxiety Hypertension Gout Assessment and Plan Left lower extremity cellulitis Chronic cellulitis to bilateral lower extremity S/p Debreidement of left foot chronic wounds Neuropathy -Left foot x-ray reports "Soft tissue abnormalities and sequelae of prior amputation as above. No osseous destructive changes. If there is persistent clinical concern for acute osteomyelitis, additional evaluation by foot MRI would be helpful." -Ultrasound venous bilateral lower extremity reports "There is no deep vein or superficial vein thrombosis." -Failed multiple p.o. antibiotics courses -MRI left foot cancelled by Dr. Sanchez -Stopped vanc and cefepime -pain control -Dr. Sanchez consulted, debreidement of left foot chronic wounds -Culture sent from [facility] wound care- results received but culture was superficial, will address foot wound using the deep culture obtained in surgery -Left foot wound care Daily: Remove all dressings daily irrigate with sterile saline. Repack great toe wound with Vashe damp to dry on gauze repack plantar wound with 1/2 inch plain packing damp with Vashe wrap entire foot with Kerlix wrap with Van wrapping above the knee. -blood cx NGTD -11/22 Deep Wound cx with mixed skin desiree with non-beta hemolytic strep- started levafloxacin Fall likely 2/2 neuropathy -Supportive care -orthostatic vitals UTI -stop cefepime and vanc -Urine cx E Coli MDR- started nitrofurantoin Diabetes mellitus- NIDDM -Accu-Chek with sliding scale insulin CKD 3 Iron deficiency anemia -Consult Dr. Chaves -Gentle IV fluids -Iron 18, TIBC 203, Transferrin 145, Transferrin % sat 8.9, Ferritin 165.7 -Vit B 1876 Anxiety Hypertension Gout -Continue home medication DVT PPx heparin Full code Dispo SNF placement, will discharge with nitrofurantoin /levaquin
[2023-11-26] MEDS: levoFLOXacin 750 MG TAB PO SCH (12:18)
[2023-11-26] MEDS: NITROFURAN MACRO 100 MG CAP PO SCH (12:18)
[2023-11-27 04:52] LABS: Absolute Eosinophils 0.2 K/uL (0-0.5); Absolute Lymphocytes (CBC) 1.3 K/uL (0.7-4.9); Absolute Monocytes 0.6 K/uL (0.1-1.3); Absolute Neutrophil 6.9 K/uL (1.8-8.0); Basophils % 0.2 % (0-1.3); Eosinophils % 1.9 % (0-4.4); Hematocrit 28.9 % (36.0-45.0); Hemoglobin 9.5 g/dL (12.0-15.0); Lymphocytes % 14.7 % (15.3-44.8); MCH 28.6 pg (27.0-35.0); MCHC 32.9 g/dL (32.0-36.0); MCV 86.9 fL (80-100); MPV 7.6 fL (7.6-11.3); Monocytes % 6.5 % (3.3-12.3); Neutrophils % 76.7 % (41.7-73.7); Nucleated Red Blood Cells % 0.1 % (0-0); Platelets 325 thou/uL (152-406); RBC Red Blood Cell Count 3.33 M/uL (3.86-4.86); Red Cell Distribution Width 16.5 % (12.1-15.2)
[2023-11-27 05:07] LABS: Anion Gap 8.7 mEq/L (5.0-15.0); Magnesium 1.6 mg/dL (1.6-2.4); Phosphorus 2.5 mg/dL (2.5-4.9); Potassium 3.7 mEq/L (3.5-5.1)
[2023-11-27 08:25] VITALS: O2SAT 97
[2023-11-27] MEDS: POTASS/SODIUM PHOSPHATE 1 PKT POWD.PACK PO SCH (09:00)
[2023-11-27] MEDS ORDERED: VANCOMYCIN 1.25 GM in NA CHLORIDE 0.9% 250 ML IVPB SCH (09:00)
[2023-11-27] MEDS: POTASSIUM CL SA 10 MEQ TAB PO ONE (09:34)
[2023-11-27] MEDS: MAGNESIUM SULFATE 1 gm IVPB 1 GM/100 ML BAG IV SCH (10:09)
[2023-11-27 12:27] VITALS: BP 170/114; TEMP 98
--- NOTE | 2023-11-27 12:55 | P.PN ---
Date of Service: 11/27/23 Subjective Awake and feeling well no new complaints SNF placement pending ROS 10 point ROS as noted above, otherwise negative Physical Exam General: AAO x3, NAD, conversng well HEENT: Atraumatic, Normocephalic, PERRLA Neck: Supple Respiratory: Clear BBS, nonlabored breathing, on RA Cardiovascular: Regular rate and rhythm, Normal S1 S2 Capillary refill: <2 Seconds Gastrointestinal: Normal active bowel sounds, soft on palpation, No tenderness, Distended (obese) Musculoskeletal: No clubbing, left lower extremity cellulitis Integumentary: Tenderness/swelling, Erythema, Warmth to bilateral lower extremities, dressings CDI, bandaid to forehead from skin cancer removal Neurological: Normal speech, Normal tone Vitals Reviewed Problem list Left lower extremity cellulitis Chronic cellulitis to bilateral lower extremity Neuropathy Fall likely 2/2 neuropathy Diabetes mellitus- NIDDM CKD 3 Microcytic anemia Anxiety Hypertension Gout Plan Left lower extremity cellulitis Chronic cellulitis to bilateral lower extremity S/p Debreidement of left foot chronic wounds Neuropathy -Dr. Sanchez consulted, debreidement of left foot chronic wounds -Culture sent from [facility] wound care- results received but culture was superficial, will address foot wound using the deep culture obtained in surgery -Left foot wound care Daily: Remove all dressings daily irrigate with sterile saline. Repack great toe wound with Vashe damp to dry on gauze repack plantar wound with 1/2 inch plain packing damp with Vashe wrap entire foot with Kerlix wrap with Van wrapping above the knee. -blood cx NGTD -11/22 Deep Wound cx with mixed skin desiree with non-beta hemolytic strep- started levafloxacin -Awaiting SNF approval Fall likely 2/2 neuropathy -Supportive care -orthostatic vitals UTI -stop cefepime and vanc -Urine cx E Coli MDR- started nitrofurantoin Diabetes mellitus- NIDDM -Accu-Chek with sliding scale insulin CKD 3 Iron deficiency anemia -Consult Dr. Chaves -Iron 18, TIBC 203, Transferrin 145, Transferrin % sat 8.9, Ferritin 165.7 -Vit B 1876 Anxiety Hypertension Gout -Continue home medication DVT PPx heparin Full code Dispo SNF placement, will discharge with nitrofurantoin /levaquin
--- NOTE | 2023-11-27 13:10 | EKG ---
Test Date: 2023-11-22 Test Time: 13:14:00 Ciso: MEASUREMENT RESULTS: Intervals: Rate: 72 FL: 188 QRSD: 100 QT: 452 QTc: 494 [place]: P: 42 FL: 188 QRS: -22 T: 57 INTERPRETIVE STATEMENTS: Sinus rhythm with occasional premature ventricular complexes Prolonged QT Abnormal ECG Compared to ECG 01/05/2023 18:29:20 Ventricular premature complex(es) now present Prolonged QT interval now present Sinus bradycardia no longer present Atrial premature complex(es) no longer present Electronically Signed On 11-27-23 12:56:20 CDT by Isaac Dickson
--- NOTE | 2023-11-27 13:28 | P.DS ---
Admission Date: 11/22/23 Discharge Date: 11/27/23 Disposition: TRANSFER TO SNF - REHAB Discharge Condition: GOOD Reason for Admission: Left foot cellulitis Brief History of Present Illness: Lauren Turcios 73 year old female with past medical history of anxiety, chronic cellulitis, gait problems, hypertensive disorder, neuropathy, right leg surgery who presents to the ED with chief complaint of swelling and redness to left lower extremity. She saw sales service rep yesterday and was prescribed levaquin and clindamycin, and has taken only 1 dose. She has failed multiple p.o. antibiotic courses. She reports a recent fall last night. On evaluation, she is in no acute distress, bilateral feet wrapped with Kerlix clean dry and intact, afebrile, neuropathy to bilateral legs, swelling and erythema to bilateral legs.. Hospital Course: Problem list Left lower extremity cellulitis Chronic cellulitis to bilateral lower extremity Neuropathy Fall likely 2/2 neuropathy Diabetes mellitus- NIDDM CKD 3 Microcytic anemia Anxiety Hypertension Gout Patient was admitted to the hospital for left foot cellulitis. She underwent debridement on 11/23/2023. She has done well postoperatively, deep wound culture that returned 11/26 showed Enterococcus faecalis sensitive to penicillin. She also had a urinary tract infection with E. coli which was multidrug-resistant but is sensitive to nitrofurantoin. Blood cultures showed no growth 5 days. Patient is to be nonweightbearing to her left lower extremity until otherwise instructed by Dr. Sanchez. In regards to wound care General Surgery recommends following Daily: Remove all dressings daily irrigate with sterile saline. Repack great toe wound with Vashe damp to dry on gauze repack plantar wound with 1/2 inch plain packing damp with Vashe wrap entire foot with Kerlix wrap with Van wrapping above the knee. For antibiotics patient should take Augmentin 875 mg by mouth twice daily for 2 weeks with end date 12/10 for her foot wound/culture Patient also take Macrobid 100 mg by mouth twice daily for 5 days end date of 12/01 She was also found to be iron deficient with a iron level of 18, TIBC 203 transf justine 148 and transferrin saturation percentage of 8.9. Recommend patient take oral iron supplementation at discharge . General: AAO x3, NAD, conversng well HEENT: Atraumatic, Normocephalic, PERRLA Neck: Supple Respiratory: Clear BBS, nonlabored breathing, on RA Cardiovascular: Regular rate and rhythm, Normal S1 S2 Capillary refill: <2 Seconds Gastrointestinal: Normal active bowel sounds, soft on palpation, No tenderness, Distended (obese) Musculoskeletal: No clubbing, left lower extremity cellulitis Integumentary: Tenderness/swelling, Erythema, Warmth to bilateral lower extremities, dressings CDI, bandaid to forehead from skin cancer removal Neurological: Normal speech, Normal tone Vital Signs/Physical Exam: Temp Pulse Resp BP Pulse Ox 98.0 F 82 16 170/114 H 98 11/27/23 12:00 11/27/23 12:00 11/27/23 12:54 11/27/23 12:00 11/27/23 12:54 Laboratory Data at Discharge: WBC 8.90 thou/uL (4.3-10.9) 11/27/23 04:24 Hgb 9.5 g/dL (12.0-15.0) L D 11/27/23 04:24 Hct 28.9 % (36.0-45.0) L 11/27/23 04:24 Plt Count 325 thou/uL (152-406) 11/27/23 04:24 PT 15.2 SECONDS (9.4-12.5) H 11/22/23 12:54 INR 1.37 11/22/23 12:54 APTT 34.0 SECONDS (24.3-36.9) 11/22/23 12:54 Sodium 137 mEq/L (136-145) 11/27/23 04:24 Potassium 3.7 mEq/L (3.5-5.1) 11/27/23 04:24 BUN 19 mg/dL (7-18) H 11/27/23 04:24 Creatinine 1.13 mg/dL (0.55-1.02) H 11/27/23 04:24 Glucose 112 mg/dL (74-106) H 11/27/23 04:24 Phosphorus 2.5 mg/dL (2.5-4.9) 11/27/23 04:24 Magnesium 1.6 mg/dL (1.6-2.4) 11/27/23 04:24 Total Bilirubin 0.8 mg/dL (0.2-1.0) 11/22/23 12:54 AST 17 U/L (15-37) 11/22/23 12:54 ALT < 14 U/L (13-56) 11/22/23 12:54 Alkaline Phosphatase 82 U/L (45-117) 11/22/23 12:54 Triglycerides 71 mg/dL (<150) 11/23/23 04:10 Cholesterol 121 mg/dL (<200) 11/23/23 04:10 HDL Cholesterol 39 mg/dL (40-60) L 11/23/23 04:10 Cholesterol/HDL Ratio 3.10 11/23/23 04:10 Home Medications: Ramipril [Altace] 10 mg PO BID 11/12/14 Hydrocodone Bit/Acetaminophen [[place] 7.5-325 Tablet] 7.5 mg PO BIDP PRN 01/31/21 Citalopram Hydrobromide [Celexa] 60 mg PO DAILY 01/01/23 Temazepam [Restoril*] 1 cap PO BEDTIME PRN PRN 01/01/23 Furosemide [Lasix*] 10 mg PO DAILY 11/22/23 Ropinirole HCl 0.5 mg PO DAILY 11/23/23 buPROPion HCl [Wellbutrin Sr] 150 mg PO DAILY 11/23/23 Amox/Clavulanate [Augmentin 875-125 Tab*] 875 mg PO BIDWM 14 Days #28 tab 11/27/23 Ferrous Sulfate [Ferrous Sulfate*] 325 mg PO DAILY #0 tab 11/27/23 Nitrofuran Macro [Macrobid*] 100 mg PO BIDWM 5 Days #10 cap 11/27/23 New Medications: Amox/Clavulanate [Augmentin 875-125 Tab*] 875 mg PO BIDWM 14 Days #28 tab Nitrofuran Macro [Macrobid*] 100 mg PO BIDWM 5 Days #10 cap Physician Discharge Instructions: Patient was admitted to the hospital for left foot cellulitis. She underwent debridement on 11/23/2023. She has done well postoperatively, deep wound culture that returned 11/26 showed Enterococcus faecalis sensitive to penicillin. She also had a urinary tract infection with E. coli which was multidrug-resistant but is sensitive to nitrofurantoin. Blood cultures showed no growth 5 days. Patient is to be nonweightbearing to her left lower extremity until otherwise instructed by Dr. Sanchez. In regards to wound care General Surgery recommends following Daily: Remove all dressings daily irrigate with sterile saline. Repack great toe wound with Vashe damp to dry on gauze repack plantar wound with 1/2 inch plain packing damp with Vashe wrap entire foot with Kerlix wrap with Van wrapping above the knee. For antibiotics patient should take Augmentin 875 mg by mouth twice daily for 2 weeks with end date 12/10 for her foot wound/culture Patient also take Macrobid 100 mg by mouth twice daily for 5 days end date of 12/01 She was also found to be iron deficient with a iron level of 18, TIBC 203 transferrin 148 and transferrin saturation percentage of 8.9. Recommend patient take oral iron supplementation at discharge . Activity: Non-weight bearing (Left lower extremity) Followup: Crescencio Sanchez MD [ACTIVE - CAN ADMIT] - 1-2 Weeks Kristen Muñoz FNP [Primary Care Provider] - Time spent managing pt's care (in minutes): 41
[2023-11-27] MEDS ORDERED: AMOX/K CLAV 875 MG TAB PO SCH (13:30)
--- NOTE | 2023-11-27 19:37 | P.PN ---
Date of Service: 11/27/23 Vital Signs Temp Pulse Resp BP Pulse Ox 98.0 F 82 16 170/114 H 98 11/27/23 12:00 11/27/23 12:00 11/27/23 12:54 11/27/23 12:00 11/27/23 12:54 Microbiology Results 11/22/23 13:05 Blood - Blood Aerobic Blood Culture - Final No growth in 5 days. 11/22/23 13:05 Blood - Blood Anaerobic Blood Culture - Final No growth in 5 days. 11/22/23 12:54 Blood - Blood Aerobic Blood Culture - Final No growth in 5 days. 11/22/23 12:54 Blood - Blood Anaerobic Blood Culture - Final No growth in 5 days. Assessment/ Plan: Nephrology No dyspnea No chest pain Feeling better with improved urine output No acute events overnight Vitals, medications, blood work and imaging reviewed in the chart General: In no apparent distress, Oriented x3, Cooperative HEENT: Atraumatic Neck: Supple Respiratory: Clear to auscultation bilaterally Cardiovascular: Regular rate/rhythm, Edema Gastrointestinal: Soft and benign, Non-distended Musculoskeletal: No clubbing, No contractures Integumentary: No rashes, No cyanosis, Diabetic ulcer Neurological: Normal speech Laboratory Data (last 24 hrs) 11/22/23 11/22/23 11/22/23 12:54 12:54 12:54 WBC 8.90 Hgb 9.6 L Hct 29.9 L Plt Count 300 PT 15.2 H INR 1.37 APTT 34.0 Sodium 134 L Potassium 3.7 BUN 25 H Creatinine 1.48 H Glucose 88 Total Bilirubin 0.8 AST 17 ALT < 14 Alkaline Phosphatase 82 Imagings Data: [id number] EXAMINATION: US LEFT LOWER EXTREMITY VENOUS DOPPLER CLINICAL INDICATION: SWELLING TECHNIQUE: Complete bilateral duplex sonography of the LEFT lower extremity veins was performed. The examination included compression for vein patency, color Doppler imaging and flow augmentation in response to distal compression of the distal external iliac, common femoral, femoral, popliteal, tibial, and great and small saphenous veins. COMPARISON: No prior exam. FINDINGS: Duplex sonography testing of the veins of the LEFT lower extremity was performed. Color flow imaging shows all veins to be compressible with [id number] color filling. Pulsatile and phasic flow is present within all lower extremity deep and superficial veins examined. IMPRESSION: There is no deep vein or superficial vein thrombosis. [id number] EXAMINATION: Foot Left 3 View CLINICAL INDICATION: Female, 73 years old. [facility] MAIN Swelling;Pain Bed Name: 4 TECHNIQUE: 3 view radiographs of the left foot were obtained. COMPARISON: No prior exam. FINDINGS: Sequelae of third digit amputation at the level of the mid metatarsal shaft, and mid second metatarsal amputation although the phalanges of the second digit are preserved. Osteopenia limits evaluation. Progressive irregularity along the dorsal aspects of the midfoot bones, with no clear destructive changes. Soft tissue swelling about the dorsum of the foot and the ankle. Some soft tissue irregularity along the sole of the foot as well. Pronounced hallux valgus deformity with some lateral subluxation of the fifth toe proximal phalanx. IMPRESSION: Soft tissue abnormalities and sequelae of prior amputation as above. No osseous destructive changes. If there is persistent clinical concern for acute osteomyelitis, additional evaluation by foot MRI would be helpful. Conclusions/Impression: Stage I RODRICK likely due to hypovolemia CKD III -No NSAIDs HTN with CKD -Continue Ramipril DM II with CKD -RISS prn DM foot ulcer -Follow up with surgery/ wound care as ordered -Continue Abx; monitor vanc level Hypoalbuminemia -Consider protein supplementation Anemia in chronic illness Iron Deficiency 8.9% -Consider IV iron -PRBC prn Acute E.coli Cystitis -Defer to primary team for abx Hospitalist notes reviewed Case reviewed with hospitalist team
== END 2023-11-27 16:09 | DRG 571 ==
LOC: ER 10:36 → ERHOLD 17:05 → 2ND 11-23 06:14
PROVIDERS: ADMIT Internal Medicine; ATTEND Hospitalist
PROC: 02HV33Z Insertion of Infusion Device into Superior Vena Cava, Percutaneous Approach (ICD-10-PCS; 2023-11-23)
PROC: 0JBR0ZZ Excision of Left Foot Subcutaneous Tissue and Fascia, Open Approach (ICD-10-PCS; principal; 2023-11-23 12:00)
DX: L03.116 Cellulitis of left lower limb (principal); E87.1 Hypo-osmolality and hyponatremia; N17.9 Acute kidney failure, unspecified; N30.00 Acute cystitis without hematuria; L02.612 Cutaneous abscess of left foot; Z16.24 Resistance to multiple antibiotics; I49.3 Ventricular premature depolarization; I12.9 Hypertensive chronic kidney disease with stage 1 through stage 4 chronic kidney disease, or unspecified chronic kidney disease; N18.30 Chronic kidney disease, stage 3 unspecified; E11.22 Type 2 diabetes mellitus with diabetic chronic kidney disease; E11.42 Type 2 diabetes mellitus with diabetic polyneuropathy; E11.621 Type 2 diabetes mellitus with foot ulcer; L97.529 Non-pressure chronic ulcer of other part of left foot with unspecified severity; D63.1 Anemia in chronic kidney disease; D50.9 Iron deficiency anemia, unspecified; L03.115 Cellulitis of right lower limb; M10.9 Gout, unspecified; F41.9 Anxiety disorder, unspecified; E88.09 Other disorders of plasma-protein metabolism, not elsewhere classified; B95.2 Enterococcus as the cause of diseases classified elsewhere; B96.20 Unspecified Escherichia coli [E. coli] as the cause of diseases classified elsewhere; Z63.4 Disappearance and death of family member; Z90.49 Acquired absence of other specified parts of digestive tract; Z89.422 Acquired absence of other left toe(s)
CPT/HCPCS: 36415; 80048; 80053; 80061; 80202; 81001; 82607; 82728; 83010; 83540; 83605; 83615; 83735; 84100; 84439; 84443; 84466; 85025; 85044; 85610; 85730; 87040; 87070; 87075; 87077; 87086; 87088; 87186; 87205; 93005; 93971; 96365; 96366; 97112; 97161; 97530; 99285; J0692; J1100; J1644; J2003; J2405; J2704; J3010; J3475; J7030; J7040; J7050; J7120